=== PATIENT | male | born 1985 | race Caucasian/White ===

== ENCOUNTER 2021-02-17 16:35 | Inpatient (IN) | payer OTHER, SELFPAY ==
[2021-02-17 16:51] VITALS: BP 108/65; PULSE 90; RESP 16; TEMP 37.1; O2SAT 96; BMI 23.3
--- NOTE | 2021-02-17 17:07 | PC.NURSE ---
Toenail to big toe on right foot loosened, yellowed. Large unbroken blister to bottom of right foot and top of second toe. Awaiting primary eval. Maritza Moran from care home called and left her number [phone].
--- NOTE | 2021-02-17 18:11 | ED.PSYCH ---
HPI - Psych General Chief Complaint: Psychiatric Symptoms Stated Complaint: crisis Time Seen by Provider: 02/17/21 17:26 History of Present Illness HPI Narrative: History of schizophrenia. Patient has not been taking his medication. A friend noted patient has been hallucinating. Patient denies any specific suicidal plan. He denies drinking alcohol. No coughing or congestion or upper respiratory symptoms no diaphoresis. Patient has some home. Related Data Allergies Allergy/AdvReac Type Severity Reaction Status Date / Time penicillin G [PENICILLIN G] Allergy Intermediate SWELLING Unverified 06/10/20 17:32 [place] And Derivatives Allergy Unknown unk Unverified 06/10/20 17:32 [CITRUS AND DERIVATIVES] cranberry [CRANBERRY] Allergy Unknown HIVES Unverified 06/10/20 17:32 gabapentin [GABAPENTIN] Allergy Unknown HIVES, Unverified 06/10/20 17:32 swelling raspberry [RASPBERRY] Allergy Unknown unk Unverified 06/10/20 17:32 Review of Systems Review of Systems: Constitutional: No Weight loss, No Fever, No Chills, No Night Sweats, No Fatigue, No Malaise ENT/Mouth: No Hearing loss, No Ear Pain, No Nasal Congestion, No Sinus Pain, No Hoarseness, No sore throat, No Rhinorrhea, No Swallowing Difficulty Eyes: No Eye Pain, No Swelling, No Redness, No Foreign Body, No Discharge, No Vision Changes Cardiovascular: No Chest Pain, No SOB, No Dyspnea on Exertion, No Orthopnea, No Edema, No Palpitations Respiratory: No Cough, No Sputum, No Wheezing, No Smoke Exposure, No Dyspnea Gastrointestinal: No Nausea, No Vomiting, No Diarrhea, No Constipation, No abdominal Pain, No Hematochezia, No Melena Genitourinary: no irregular bleeding, No Dysuria, No Urinary Frequency, No Hematuria, No Urinary Incontinence, No Urgency, No Flank Pain, No Urinary Flow Changes, No Hesitancy Musculoskeletal: No joint pain, No Myalgias, No Joint Swelling Skin: No Skin Lesions, No rash Neuro: No Weakness, No Numbness, No Paresthesias, No Loss of Consciousness, No Dizziness, No Headache Psych: No Anxiety/Panic, No Depression, No SI/HI/AH/VH, No Social Issues, Heme/Lymph: No Bruising, No Bleeding,No Lymphadenopathy Endocrine: No Polyuria, No Polydipsia, No Temperature Intolerance PMFSH Social History Social History Advance Directives: No Advance Directives Information Provided: No Physical Exam Vital Signs: Vital Signs: Last Vital Signs Temp 98.7 F 02/17/21 16:51 Pulse 90 02/17/21 16:51 Resp 16 02/17/21 16:51 BP 108/65 02/17/21 16:51 Pulse Ox 96 02/17/21 16:51 Body Mass Index 23.3 Appearance: Alert. Oriented X3. No acute distress. Eyes: Pupils equal, round and reactive to light. ENT: Pharynx normal. Neck: Normal inspection. Neck supple. No lymph nodes noted. No crepitus CVS: Normal heart rate and rhythm. Pulses normal. Normal S1 and S2 Respiratory: No respiratory distress. Breath sounds normal. No Wheezing. No rales Abdomen: Soft and nontender. No rigidity. No distention. good BS x4 Skin: Skin warm and dry. Normal skin color. Normal skin turgor. Extremities: No lower extremity edema. Neurovascular intact to all extremities. No Lacerations. No Rash Neuro: Oriented X 3. No motor deficit. No sensory deficit. Moving all extermities. No slurred speech MDM - Psych MDM Narrative Medical decision making narrative: Well-appearing no acute distress. Awaiting crisis evaluation. Will get baseline labs.
[2021-02-17 18:12] LABS: MANUAL DIFF FLAG NO
[2021-02-17 18:16] LABS: Basophils Percent Auto 0.3 % (0-2); Eosinophils Absolute Auto 0.2 X10*3/uL (0.0-0.4); Eosinophils Percent Auto 1.8 % (0-4); Hematocrit 41.1 % (42-52); Hemoglobin 14.3 g/dl (14.0-18.0); Imm Gran Abs Auto 0.02 X10*3/uL (0.00-0.03); Imm Gran Pct Auto 0.2 % (0.0-0.4); Lymphocytes Absolute Auto 4.2 X10*3/uL (1.2-4.9); Lymphocytes Percent Auto 40.7 % (20-40); Mean Corpuscular HGB Conc 34.8 g/dl (31.0-36.0); Mean Corpuscular Volume 80.6 fL (80-98); Mean Platelet Volume 11.3 fL (9.4-12.4); Monocytes Percent Auto 9.5 % (2-11); Neutrophils Absolute Auto 4.9 X10*3/uL (2.0-8.3); Neutrophils Percent Auto 47.5 % (45-73); Platelet Count 263 X10*3/uL (160-400); Red Cell Distribution Width 12.7 % (11.0-16.0); White Blood Count 10.3 X10*3/uL (4.8-10.8)
[2021-02-17 18:35] LABS: Alanine Aminotransferase 52 U/L (0-40); Albumin Level 4.9 g/dL (3.5-5.0); Alkaline Phosphatase 67 U/L (39-117); Anion Gap 20 (12-20); Aspartate Amino Transferase 144 U/L (5-37); Bilirubin Direct 0.2 mg/dL (0.0-0.5); Bilirubin Total 0.4 mg/dL (0.0-1.0); Blood Urea Nitrogen 16 mg/dL (9-16); Calcium 9.7 mg/dL (8.4-10.2); Carbon Dioxide 24 mmol/L (22-29); Chloride 103 mmol/L (96-108); Creatinine Clr Calc Pharmacy 81.5; Estimated Glomerular Filt Rate > 60; Glucose Random 84 mg/dL (60-115); Potassium 3.3 mmol/L (3.3-5.1); Sodium 144 mmol/L (135-145); Total Protein 7.8 g/dL (6.5-8.0)
[2021-02-17 18:43] LABS: Ethanol 238 mg/dL
--- NOTE | 2021-02-17 19:28 | PC.NURSE ---
[facility] called spoke with Jaimie updated patient's disposition, patient is on section 12 inpatient bed search, agreed to fax the assessment, awaiting lithium level, patient resting in milieu watching TV, POC 92, will continue to monitor.
[2021-02-17 20:10] LABS: COVID-19 Test Negative (Negative)
--- NOTE | 2021-02-17 20:13 | PC.NURSE ---
Patient in bed appears sleeping, no distress reported, able to verify pharmacy but does not recall senior care number, N referred through smart-sheet, received call from [facility] intake team/notified patient will be seen after 2300, will continue to monitor.
--- NOTE | 2021-02-18 | ECG_ITS ---
Test Reason : MEDCLEARANCE Blood Pressure : / mmHG Vent. Rate : 077 BPM Atrial Rate : 077 BPM P-R Int : 116 ms QRS Dur : 084 ms QT Int : 376 ms P-R-T Axes : 046 074 053 degrees QTc Int : 425 ms Normal sinus rhythm Normal ECG When compared with ECG of 09-MAR-2020 15:23, Nonspecific T wave abnormality, improved in Anterior leads Referred By: Anais Friedman Electronically Signed By:SHAYY SHAH
--- NOTE | 2021-02-18 02:21 | PC.NURSE ---
[facility] at Bedside for evaluation, patient seems engaged
--- NOTE | 2021-02-18 03:33 | PC.NURSE ---
EVEN completed the assessment, patient is on section 12 inpatient bed search, patient and provider aware.
[2021-02-18 06:32] VITALS: BP 98/62; PULSE 87; RESP 16; TEMP 36.4; O2SAT 97
--- NOTE | 2021-02-18 10:29 | PC.NURSE ---
PT SLEEPING. BEDSEARCH CONTINUES
[2021-02-18 14:48] VITALS: BP 112/67; PULSE 82; TEMP 36.6; O2SAT 97
--- NOTE | 2021-02-18 15:47 | PC.NURSE ---
Report received. PT currently sleeping, respirations even and unlabored, in no apparent distress. PT to be admitted to later today.
--- NOTE | 2021-02-18 16:45 | PC.NURSE ---
Nurse to nurse completed with Fabi from [facility]
[2021-02-18 20:03] VITALS: BP 111/73; PULSE 86; RESP 18; TEMP 36.3; O2SAT 98
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
[2021-02-18] MEDS: Benztropine Mesylate 0.5 MG TABLET PO (21:02)
[2021-02-18] MEDS: LORazepam 1 MG TABLET PO (21:02)
[2021-02-18] MEDS: HaloperidoL 5 MG TABLET PO (21:02)
[2021-02-19 06:00] VITALS: BP 99/51; PULSE 67; RESP 16; TEMP 35.9; O2SAT 95
[2021-02-19 08:48] LABS: Alanine Aminotransferase 34 U/L (0-40); Alkaline Phosphatase 56 U/L (39-117); Aspartate Amino Transferase 42 U/L (5-37); Bilirubin Direct 0.2 mg/dL (0.0-0.5); Bilirubin Total 0.4 mg/dL (0.0-1.0); Total Protein 6.3 g/dL (6.5-8.0)
[2021-02-19] MEDS: Folic Acid 1 MG TABLET PO (09:29)
[2021-02-19] MEDS: ARIPiprazole 20 MG TABLET PO (09:30)
[2021-02-19] MEDS: Thiamine HCL 100 MG TABLET PO (09:30)
[2021-02-19] MEDS: LORazepam 1 MG TABLET PO ×3 (09:30→22:37)
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
[2021-02-19 16:13] LABS: Amphetamine Screen Urine Not Detected (Not Detect); Barbiturates, Urine Not Detected (Not Detect); Benzodiazepines Screen Urine Not Detected (Not Detect); Cannabinoid Screen Urine Not Detected (Not Detect); Cocaine Screen Urine Not Detected (Not Detect); Opiate Screen Urine Not Detected (Not Detect); Phencyclidine Screen Urine Not Detected (Not Detect)
[2021-02-19 22:35] VITALS: BP 112/59; PULSE 77; TEMP 36.5
[2021-02-19] MEDS: Benztropine Mesylate 0.5 MG TABLET PO (22:38)
[2021-02-19] MEDS: HaloperidoL 5 MG TABLET PO (22:38)
[2021-02-20 06:35] VITALS: BP 116/85; PULSE 68; RESP 16; TEMP 36.6; O2SAT 99
[2021-02-20] MEDS: Folic Acid 1 MG TABLET PO (10:07)
[2021-02-20] MEDS: Thiamine HCL 100 MG TABLET PO (10:07)
[2021-02-20] MEDS: ARIPiprazole 20 MG TABLET PO (10:07)
[2021-02-20] MEDS: LORazepam 1 MG TABLET PO ×3 (10:08→20:50)
--- NOTE | 2021-02-20 11:46 | P.PNPSI_ITS ---
Subjective Subjective Date of Service: 02/20/21 Reason For Visit: acute psychosis Interim History: The patient has been commpliant with treatment. He is on an Ativan taper and so far, no alcohol withdrawal symptoms. He looks tired and sedated, denies hallucinations Medication Compliance: Yes Mental Status Exam Mental Status Exam Patient Appearance: Disheveled and Unkempt Patient Orientation: Person, Place, Time and Situation Level of Consciousness: Awake Patient Behavior: Appropriate Mood Description: Withdrawn Affect Description: Constricted Patient Cognition Impaired: No Ability to Follow Directions: Good Speech Pattern: Clear Memory Description: Intact Hallucinations: None Delusions: Not Present Thought Process: Goal Oriented Thought Content: positive for [place] Judgement: Fair Diagnostics Vital Signs (24Hr): Vital Signs - 24 hr 02/19/21 22:35 02/20/21 06:35 Temperature 97.7 F 97.9 F Pulse Rate 77 68 Respiratory Rate 16 Blood Pressure 112/59 L 116/85 Pulse Oximetry 99 Body Mass Index 23.3 Labs Results: 02/17/21 18:05 02/17/21 18:05 Labs: Laboratory Results - last 48 hr 02/19/21 02/19/21 00:00 08:04 Total Bilirubin 0.4 Direct Bilirubin 0.2 AST 42 H D ALT 34 Alkaline Phosphatase 56 Total Protein 6.3 L Albumin 4.0 Urine Opiates Screen Not Detected Ur Barbiturates Screen Not Detected Ur Phencyclidine Scrn Not Detected Ur Amphetamines Screen Not Detected U Benzodiazepines Scrn Not Detected Urine Cocaine Screen Not Detected U Marijuana (THC) Screen Not Detected Medications Medications Current Medications Generic Name Dose Route Start Last Admin Trade Name Freq PRN Reason Stop Dose Admin Al Hydroxide/Mg Hydroxide 30 ml 02/18/21 18:53 Magnesium Hydrox/Alum Hydrox 30 Ml Oral.Susp PO Q6H PRN Heartburn/Nausea Aripiprazole 20 mg 02/19/21 09:00 02/20/21 10:07 Aripiprazole 20 Mg Tablet PO 20 mg DAILY Y[facility] Administration Benztropine Mesylate 0.5 mg 02/18/21 21:00 02/19/21 22:38 Benztropine Mesylate 0.5 Mg Tablet PO 0.5 mg BEDTIME Y[facility]Y Administration Folic Acid 1 mg 02/19/21 09:00 02/20/21 10:07 Folic Acid 1 Mg Tablet PO 1 mg DAILY YULY Administration Haloperidol 5 mg 02/18/21 21:00 02/19/21 22:38 Haloperidol 5 Mg Tablet PO 5 mg BEDTIME YULY Administration Lorazepam 1 mg 02/22/21 08:00 Lorazepam 1 Mg Tablet PO 02/24/21 07:59 BID YULY Lorazepam 1 mg 02/18/21 21:00 02/20/21 10:08 Lorazepam 1 Mg Tablet PO 02/21/21 18:52 1 mg TID YULY Administration Lorazepam 1 mg 02/18/21 20:29 Lorazepam 1 Mg Tablet PO 02/23/21 12:00 TID PRN symptoms of etoh withdrawal Magnesium Hydroxide 30 ml 02/18/21 18:53 Milk Of Magnesia 30 Ml Oral.Susp PO DAILY PRN Constipation Nicotine Polacrilex 4 mg 02/18/21 18:53 Nicotine Polacrilex 2 Mg Gum BUCCAL Q2H PRN Nicotine Cravings Thiamine HCl 100 mg 02/19/21 09:00 02/20/21 10:07 Thiamine Hcl 100 Mg Tablet PO 100 mg DAILY Y[facility]Y Administration Allergies Allergies Allergy/AdvReac Type Severity Reaction Status Date / Time penicillin G [PENICILLIN G] Allergy Intermediate SWELLING Verified 02/18/21 10:16 [place] And Derivatives Allergy Unknown unk Verified 02/18/21 10:17 [CITRUS AND DERIVATIVES] cranberry [CRANBERRY] Allergy Unknown HIVES Verified 02/18/21 10:17 gabapentin [GABAPENTIN] Allergy Unknown HIVES, Verified 02/18/21 10:16 swelling raspberry [RASPBERRY] Allergy Unknown unk Verified 02/18/21 10:15 Assessment & Plan Assessment & Plan (1) Alcohol abuse: Status: Acute Code(s): F10.10 - Alcohol abuse, uncomplicated Assessment and Plan: Adult male with a history of psychosis, mood lability and alcohol use disorder, admitted after psychotic symptoms in the context of alcohol in toxication. Plan: Continue Ativan taper Keep other medications. Gather collateral. (2) Acute psychosis: Status: Acute Code(s): F23 - Brief psychotic disorder Greater than 50% of the session was spent on counseling and/or coordination of care Reason for contiued inpatient stay Substantial Risk for: inability to function, rapid decompensation and med/psych decompensation
[2021-02-20 19:20] VITALS: BP 100/58; PULSE 78; TEMP 36.2
[2021-02-20] MEDS: HaloperidoL 5 MG TABLET PO (20:50)
[2021-02-20] MEDS: Benztropine Mesylate 0.5 MG TABLET PO (20:50)
[2021-02-21 06:41] VITALS: BP 128/69; PULSE 63; TEMP 36.6
[2021-02-21] MEDS: Folic Acid 1 MG TABLET PO (08:11)
[2021-02-21] MEDS: LORazepam 1 MG TABLET PO ×2 (08:11→14:53)
[2021-02-21] MEDS: Thiamine HCL 100 MG TABLET PO (08:11)
[2021-02-21] MEDS: ARIPiprazole 20 MG TABLET PO (08:11)
--- NOTE | 2021-02-21 09:07 | HO.PSYCHPN ---
Subjective Subjective Date of Service: 02/21/21 Reason For Visit: acute psychosis Interim History: The patient has been mostly isolative in his room, he didn't attend groups, denied new symptoms, compliant with treatment. No symptoms of alcohol withdrawal. Mental Status Exam Mental Status Exam Patient Appearance: Disheveled Patient Orientation: Person, Place, Time and Situation Level of Consciousness: Awake Patient Behavior: Appropriate Mood Description: Constricted Affect Description: Constricted Patient Cognition Impaired: No Ability to Follow Directions: Good Speech Pattern: Clear Memory Description: Intact Hallucinations: None Delusions: Not Present Thought Process: Goal Oriented Thought Content: positive for [place] Judgement: Fair Diagnostics Vital Signs (24Hr): Vital Signs - 24 hr 02/20/21 19:20 02/21/21 06:41 Temperature 97.1 F 97.9 F Pulse Rate 78 63 Blood Pressure 100/58 L 128/69 Body Mass Index 23.3 Labs Results: 02/17/21 18:05 02/17/21 18:05 Labs: Laboratory Results - last 48 hr 02/19/21 00:00 Urine Opiates Screen Not Detected Ur Barbiturates Screen Not Detected Ur Phencyclidine Scrn Not Detected Ur Amphetamines Screen Not Detected U Benzodiazepines Scrn Not Detected Urine Cocaine Screen Not Detected U Marijuana (THC) Screen Not Detected Medications Medications Current Medications Generic Name Dose Route Start Last Admin Trade Name Freq PRN Reason Stop Dose Admin Al Hydroxide/Mg Hydroxide 30 ml 02/18/21 18:53 Magnesium Hydrox/Alum Hydrox 30 Ml Oral.Susp PO Q6H PRN Heartburn/Nausea Aripiprazole 20 mg 02/19/21 09:00 02/21/21 08:11 Aripiprazole 20 Mg Tablet PO 20 mg DAILY Y[facility]Y Administration Benztropine Mesylate 0.5 mg 02/18/21 21:00 02/20/21 20:50 Benztropine Mesylate 0.5 Mg Tablet PO 0.5 mg BEDTIME Y[facility]Y Administration Folic Acid 1 mg 02/19/21 09:00 02/21/21 08:11 Folic Acid 1 Mg Tablet PO 1 mg DAILY YULY Administration Haloperidol 5 mg 02/18/21 21:00 02/20/21 20:50 Haloperidol 5 Mg Tablet PO 5 mg BEDTIME YULY Administration Lorazepam 1 mg 02/22/21 08:00 Lorazepam 1 Mg Tablet PO 02/24/21 07:59 BID YULY Lorazepam 1 mg 02/18/21 21:00 02/21/21 08:11 Lorazepam 1 Mg Tablet PO 02/21/21 18:52 1 mg TID YULY Administration Lorazepam 1 mg 02/18/21 20:29 Lorazepam 1 Mg Tablet PO 02/23/21 12:00 TID PRN symptoms of etoh withdrawal Magnesium Hydroxide 30 ml 02/18/21 18:53 Milk Of Magnesia 30 Ml Oral.Susp PO DAILY PRN Constipation Nicotine Polacrilex 4 mg 02/18/21 18:53 Nicotine Polacrilex 2 Mg Gum BUCCAL Q2H PRN Nicotine Cravings Thiamine HCl 100 mg 02/19/21 09:00 02/21/21 08:11 Thiamine Hcl 100 Mg Tablet PO 100 mg DAILY YULY Administration Allergies Allergies Allergy/AdvReac Type Severity Reaction Status Date / Time penicillin G [PENICILLIN G] Allergy Intermediate SWELLING Verified 02/18/21 10:16 [place] And Derivatives Allergy Unknown unk Verified 02/18/21 10:17 [[employer]R[place] AND DERIVATIVES] cranberry [CRANBERRY] Allergy Unknown HIVES Verified 02/18/21 10:17 gabapentin [GABAPENTIN] Allergy Unknown HIVES, Verified 02/18/21 10:16 swelling raspberry [RASPBERRY] Allergy Unknown unk Verified 02/18/21 10:15 Assessment & Plan Assessment & Plan (1) Alcohol abuse: Status: Acute Code(s): F10.10 - Alcohol abuse, uncomplicated Assessment and Plan: Adult male with a history of psychosis, mood lability and alcohol use disorder, admitted after psychotic symptoms in the context of alcohol intoxication. Plan: Continue Ativan taper Keep other medications. Gather collateral. (2) Acute psychosis: Status: Acute Code(s): F23 - Brief psychotic disorder Greater than 50% of the session was spent on counseling and/or coordination of care Reason for contiued inpatient stay Substantial Risk for: inability to function, rapid decompensation and med/psych decompensation
[2021-02-21 19:15] VITALS: BP 86/51; TEMP 36.3
[2021-02-21] MEDS: Benztropine Mesylate 0.5 MG TABLET PO (21:38)
[2021-02-21] MEDS: HaloperidoL 5 MG TABLET PO (21:38)
[2021-02-22 06:00] VITALS: BP 103/62; PULSE 63
[2021-02-22] MEDS: LORazepam 1 MG TABLET PO ×2 (08:37→20:51)
[2021-02-22] MEDS: Thiamine HCL 100 MG TABLET PO (08:37)
[2021-02-22] MEDS: ARIPiprazole 20 MG TABLET PO (08:37)
[2021-02-22] MEDS: Folic Acid 1 MG TABLET PO (08:37)
[2021-02-22 16:54] VITALS: BP 119/74; PULSE 102; RESP 18; TEMP 36.3; O2SAT 97
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
[2021-02-22] MEDS: HaloperidoL 5 MG TABLET PO (20:51)
[2021-02-22] MEDS: Benztropine Mesylate 0.5 MG TABLET PO (20:51)
[2021-02-23 06:00] VITALS: BP 114/61; PULSE 71; TEMP 35.9; O2SAT 97
[2021-02-23] MEDS: Folic Acid 1 MG TABLET PO (08:16)
[2021-02-23] MEDS: LORazepam 1 MG TABLET PO ×2 (08:16→21:20)
[2021-02-23] MEDS: ARIPiprazole 20 MG TABLET PO (08:16)
[2021-02-23] MEDS: Thiamine HCL 100 MG TABLET PO (08:16)
[2021-02-23 09:02] LABS: Estimated Average Glucose 97 mg/dL
[2021-02-23 09:35] LABS: Cholesterol 185 mg/dL; HDL Cholesterol 63 mg/dL; LDL Cholesterol Calculated 98 mg/dl; Triglycerides 123 mg/dL
[2021-02-23 10:00] LABS: Vitamin D 25-OH Total 26.1 ng/mL (>30)
[2021-02-23 10:09] LABS: Folate 11.1 ng/mL (> or = 4.0); Vitamin B12 317 pg/mL (200-900)
[2021-02-23 19:30] VITALS: BP 125/75; PULSE 80; TEMP 36.6
--- NOTE | 2021-02-23 19:54 | P.PNPSI_ITS ---
Subjective Subjective Date of Service: 02/23/21 Reason For Visit: acute psychosis Subjective Notes: Conditional Voluntary Healthcare Proxy: No Guardianship: No Medical Problems Affecting Mental Status: No Interim History: Lorazepam taper continues. Denies SI, but still with fear regarding his periods of time without memory and what may have occurred. Naltrexone to begin 02/25 when lorazepam taper completed. Medication Compliance: Yes Side effects from medications: No Attending Groups: No Review of Systems Psychiatric: Reports anxiety and Reports hallucinations Mental Status Exam Mental Status Exam Patient Appearance: Fatigued Patient Orientation: Person, Place, Time and Situation Level of Consciousness: Awake and Alert Patient Behavior: Appropriate and Cooperative Mood Description: Withdrawn and Anxious Affect Description: Flat Patient Cognition Impaired: No Ability to Follow Directions: Good Speech Pattern: Spontaneous Speech Memory Description: Episodic Impaired Hallucinations: None (denies) Delusions: Paranoid Ideation Thought Process: Distracted Thought Content: positive for [place] and positive for Circumstantial Depressive Symptoms: Increased Anxiety Judgement: Fair Diagnostics Vital Signs (24Hr): Vital Signs - 24 hr 02/23/21 06:00 02/23/21 19:30 Temperature 96.6 F L 97.9 F Pulse Rate 71 80 Blood Pressure 114/61 125/75 Pulse Oximetry 97 Body Mass Index 23.3 Labs Results: 02/17/21 18:05 02/17/21 18:05 Labs: Laboratory Results - last 48 hr 02/23/21 02/23/21 02/23/21 08:10 08:10 08:10 Estimat Average Glucose 97 Hemoglobin A1c % 5.0 Triglycerides 123 Cholesterol 185 LDL Cholesterol, Calc 98 HDL Cholesterol 63 Vitamin B12 317 25-OH Vitamin D Total 26.1 Folate 11.1 Medications Medications Current Medications Generic Name Dose Route Start Last Admin Trade Name Freq PRN Reason Stop Dose Admin Al Hydroxide/Mg Hydroxide 30 ml 02/18/21 18:53 Magnesium Hydrox/Alum Hydrox 30 Ml Oral.Susp PO Q6H PRN Heartburn/Nausea Aripiprazole 20 mg 02/19/21 09:00 02/23/21 08:16 Aripiprazole 20 Mg Tablet PO 20 mg DAILY YULY Administration Benztropine Mesylate 0.5 mg 02/18/21 21:00 02/22/21 20:51 Benztropine Mesylate 0.5 Mg Tablet PO 0.5 mg BEDTIME YULY Administration Folic Acid 1 mg 02/19/21 09:00 02/23/21 08:16 Folic Acid 1 Mg Tablet PO 1 mg DAILY YULY Administration Haloperidol 5 mg 02/18/21 21:00 02/22/21 20:51 Haloperidol 5 Mg Tablet PO 5 mg BEDTIME YULY Administration Lorazepam 1 mg 02/22/21 08:00 02/23/21 08:16 Lorazepam 1 Mg Tablet PO 02/24/21 07:59 1 mg BID YULY Administration Magnesium Hydroxide 30 ml 02/18/21 18:53 Milk Of Magnesia 30 Ml Oral.Susp PO DAILY PRN Constipation Nicotine Polacrilex 4 mg 02/18/21 18:53 Nicotine Polacrilex 2 Mg Gum BUCCAL Q2H PRN Nicotine Cravings Thiamine HCl 100 mg 02/19/21 09:00 02/23/21 08:16 Thiamine Hcl 100 Mg Tablet PO 100 mg DAILY YULY Administration Allergies Allergies Allergy/AdvReac Type Severity Reaction Status Date / Time penicillin G [PENICILLIN G] Allergy Intermediate SWELLING Verified 02/18/21 10:16 [place] And Derivatives Allergy Unknown unk Verified 02/18/21 10:17 [CITRUS AND DERIVATIVES] cranberry [CRANBERRY] Allergy Unknown HIVES Verified 02/18/21 10:17 gabapentin [GABAPENTIN] Allergy Unknown HIVES, Verified 02/18/21 10:16 swelling raspberry [RASPBERRY] Allergy Unknown unk Verified 02/18/21 10:15 Assessment & Plan Assessment & Plan (1) Alcohol abuse: Status: Acute Code(s): F10.10 - Alcohol abuse, uncomplicated Assessment and Plan: Adult male with a history of psychosis, mood lability and alcohol use disorder, admitted after psychotic symptoms in the context of alcohol intoxication. Plan: Continue Ativan taper Keep other medications. Consider Abilify titration. Naltrexone re-trial when Ativan taper is completed. Gather collateral. (2) Acute psychosis: Status: Acute Code(s): F23 - Brief psychotic disorder Greater than 50% of the session was spent on counseling and/or coordination of care Reason for contiued inpatient stay Substantial Risk for: inability to function and rapid decompensation
[2021-02-23] MEDS: Benztropine Mesylate 0.5 MG TABLET PO (21:20)
[2021-02-23] MEDS: HaloperidoL 5 MG TABLET PO (21:22)
[2021-02-24 06:10] VITALS: BP 107/56; PULSE 71; RESP 16; TEMP 36.7; O2SAT 98
[2021-02-24 07:00] VITALS: BMI 23.2
[2021-02-24] MEDS: Folic Acid 1 MG TABLET PO (08:55)
[2021-02-24] MEDS: ARIPiprazole 20 MG TABLET PO (08:55)
[2021-02-24] MEDS: Thiamine HCL 100 MG TABLET PO (08:55)
[2021-02-24 18:00] VITALS: BP 109/78; PULSE 87; TEMP 35.8
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
[2021-02-24] MEDS: Benztropine Mesylate 0.5 MG TABLET PO (20:25)
[2021-02-24] MEDS: HaloperidoL 5 MG TABLET PO (20:25)
[2021-02-25 06:25] VITALS: BP 115/62; PULSE 69; RESP 18; TEMP 36.4; O2SAT 97
[2021-02-25] MEDS: Naltrexone HCl 50 MG TABLET PO (08:23)
[2021-02-25] MEDS: Folic Acid 1 MG TABLET PO (08:24)
[2021-02-25] MEDS: Thiamine HCL 100 MG TABLET PO (08:24)
[2021-02-25] MEDS: ARIPiprazole 30 MG TABLET PO (08:24)
[2021-02-25 16:30] VITALS: BP 131/68; PULSE 86; TEMP 36.4
--- NOTE | 2021-02-25 17:29 | HO.PSYCHPN ---
Subjective Subjective Date of Service: 02/25/21 Reason For Visit: acute psychosis Subjective Notes: Conditional Voluntary Healthcare Proxy: No Guardianship: No Medical Problems Affecting Mental Status: No Interim History: Tolerating increase in Abilify. Agrees to OLIVAS trial. Able to contract for safety on the unit and reports he feels safe here. Allowing team to work with symptoms to obtain relief. Some visability in the milieu, however, spending much time in his room. Medication Compliance: Yes Side effects from medications: No Attending Groups: No Review of Systems Review of Systems Yes all other systems are reviewed and are negative Reports behavioral changes Psychiatric: Reports anxiety, Reports behavioral changes, Reports depression, Reports difficulty concentrating, Reports hopelessness, Reports panic attacks and Reports hallucinations Mental Status Exam Mental Status Exam Patient Appearance: Disheveled and Appropriate Patient Orientation: Person, Place and Time Level of Consciousness: Awake and Alert Patient Behavior: Appropriate, Talkative, Cooperative, Passive, Anxious, Fearful, Distractible, Isolative, Good Eye Contact and Crying Mood Description: Withdrawn, Depressed and Anxious Affect Description: Flat Patient Cognition Impaired: Yes Ability to Follow Directions: Good Speech Pattern: Spontaneous Speech Memory Description: Remote Impaired, Assisted Impaired and Episodic Impaired Delusions: Being Controlled, Paranoid Ideation and Present Thought Process: Illogical, Distracted and Rumination Thought Content: positive for [place], positive for Circumstantial, positive for Perseveration, positive for [place] of [place] and positive for Preoccupation Depressive Symptoms: Increased Anxiety, Crying Spells, Loss of Int. in Activity, Feelings of Worthlessness, Hopelessness, Isolating-Friends/Family, Feelings of Guilt, Unhappiness, Increased Fatigue, Low Self Esteem, Loss of Energy and Difficulty Concentrating Judgement: Fair Diagnostics Vital Signs (24Hr): Vital Signs - 24 hr 02/24/21 18:00 02/25/21 06:25 02/25/21 16:30 Temperature 96.5 F L 97.5 F 97.6 F Pulse Rate 87 69 86 Respiratory Rate 18 Blood Pressure 109/78 115/62 131/68 Pulse Oximetry 97 Body Mass Index 23.2 Labs Results: 02/17/21 18:05 02/17/21 18:05 Medications Medications Current Medications Generic Name Dose Route Start Last Admin Trade Name Freq PRN Reason Stop Dose Admin Al Hydroxide/Mg Hydroxide 30 ml 02/18/21 18:53 Magnesium Hydrox/Alum Hydrox 30 Ml Oral.Susp PO Q6H PRN Heartburn/Nausea Aripiprazole 30 mg 02/25/21 09:00 02/25/21 08:24 Aripiprazole 30 Mg Tablet PO 30 mg DAILY YULY Administration Benztropine Mesylate 0.5 mg 02/18/21 21:00 02/24/21 20:25 Benztropine Mesylate 0.5 Mg Tablet PO 0.5 mg BEDTIME YULY Administration Folic Acid 1 mg 02/19/21 09:00 02/25/21 08:24 Folic Acid 1 Mg Tablet PO 1 mg DAILY YULY Administration Haloperidol 5 mg 02/18/21 21:00 02/24/21 20:25 Haloperidol 5 Mg Tablet PO 5 mg BEDTIME YULY Administration Magnesium Hydroxide 30 ml 02/18/21 18:53 Milk Of Magnesia 30 Ml Oral.Susp PO DAILY PRN Constipation Naltrexone HCl 50 mg 02/25/21 09:00 02/25/21 08:23 Naltrexone Hcl 50 Mg Tablet PO 50 mg DAILY YULY Administration Nicotine Polacrilex 4 mg 02/18/21 18:53 Nicotine Polacrilex 2 Mg Gum BUCCAL Q2H PRN Nicotine Cravings Thiamine HCl 100 mg 02/19/21 09:00 02/25/21 08:24 Thiamine Hcl 100 Mg Tablet PO 100 mg DAILY YULY Administration Allergies Allergies Allergy/AdvReac Type Severity Reaction Status Date / Time penicillin G [PENICILLIN G] Allergy Intermediate SWELLING Verified 02/18/21 10:16 [employer] And Derivatives Allergy Unknown unk Verified 02/18/21 10:17 [CITRUS AND DERIVATIVES] cranberry [CRANBERRY] Allergy Unknown HIVES Verified 02/18/21 10:17 gabapentin [GABAPENTIN] Allergy Unknown HIVES, Verified 02/18/21 10:16 swelling raspberry [RASPBERRY] Allergy Unknown unk Verified 02/18/21 10:15 Assessment & Plan Assessment & Plan (1) Alcohol abuse: Status: Acute Code(s): F10.10 - Alcohol abuse, uncomplicated Assessment and Plan: Adult male with a history of psychosis, mood lability and alcohol use disorder, admitted after psychotic symptoms in the context of alcohol intoxication. Plan: Continue Ativan taper Tolerated increase of Abilify to 30 mg daily. Naltrexone 50 mg daily Preparing for OLIVAS. Pt agrees. Gather collateral. (2) Acute psychosis: Status: Acute Code(s): F23 - Brief psychotic disorder Greater than 50% of the session was spent on counseling and/or coordination of care Reason for contiued inpatient stay Substantial Risk for: harm to self, inability to function and rapid decompensation
[2021-02-25] MEDS: HaloperidoL 5 MG TABLET PO (20:50)
[2021-02-25] MEDS: Benztropine Mesylate 0.5 MG TABLET PO (20:50)
[2021-02-26 06:00] VITALS: BP 128/78; PULSE 88; TEMP 36.3; O2SAT 97
[2021-02-26] MEDS: Thiamine HCL 100 MG TABLET PO (08:44)
[2021-02-26] MEDS: ARIPiprazole 30 MG TABLET PO (08:45)
[2021-02-26] MEDS: Folic Acid 1 MG TABLET PO (08:45)
[2021-02-26] MEDS: Naltrexone HCl 50 MG TABLET PO (08:45)
[2021-02-26 17:10] VITALS: BP 140/92; PULSE 95; RESP 18; TEMP 36.2
--- NOTE | 2021-02-26 20:06 | HO.PSYCHPN ---
Subjective Subjective Date of Service: 02/26/21 Reason For Visit: acute psychosis Subjective Notes: Conditional Voluntary Healthcare Proxy: No Guardianship: No Medical Problems Affecting Mental Status: No Interim History: Visable in milieu. Pt reported psychotic sx to team later in the day, asks to increase Haldol prn as it is helpful which was implemented. Medication Compliance: Yes Side effects from medications: No Attending Groups: Yes Review of Systems Reports behavioral changes Psychiatric: Reports anxiety, Reports behavioral changes, Reports change in appetite, Reports depression, Reports difficulty concentrating, Reports auditory hallucinations, Reports hopelessness and Reports hallucinations Mental Status Exam Mental Status Exam Patient Appearance: Appropriate Patient Orientation: Person, Place, Time and Situation Level of Consciousness: Alert Patient Behavior: Talkative and Cooperative Mood Description: Depressed and Fearful Affect Description: Flat Patient Cognition Impaired: Yes Ability to Follow Directions: Good Speech Pattern: Spontaneous Speech Memory Description: Episodic Impaired Hallucinations: Auditory Delusions: Present Thought Process: Illogical, Distracted and Rumination Thought Content: positive for [place] and positive for Preoccupation Depressive Symptoms: Increased Anxiety, Loss of Int. in Activity, Feelings of Worthlessness, Hopelessness, Feelings of Guilt, Increased Fatigue, Loss of Energy and Difficulty Concentrating Judgement: Fair Diagnostics Vital Signs (24Hr): Vital Signs - 24 hr 02/26/21 06:00 02/26/21 17:10 Temperature 97.3 F 97.1 F Pulse Rate 88 95 Respiratory Rate 18 Blood Pressure 128/78 140/92 H Pulse Oximetry 97 Body Mass Index 23.2 Labs Results: 02/17/21 18:05 02/17/21 18:05 Medications Medications Current Medications Generic Name Dose Route Start Last Admin Trade Name Freq PRN Reason Stop Dose Admin Al Hydroxide/Mg Hydroxide 30 ml 02/18/21 18:53 Magnesium Hydrox/Alum Hydrox 30 Ml Oral.Susp PO Q6H PRN Heartburn/Nausea Aripiprazole 30 mg 02/25/21 09:00 02/26/21 08:45 Aripiprazole 30 Mg Tablet PO 30 mg DAILY YULY Administration Benztropine Mesylate 0.5 mg 02/18/21 21:00 02/25/21 20:50 Benztropine Mesylate 0.5 Mg Tablet PO 0.5 mg BEDTIME YULY Administration Folic Acid 1 mg 02/19/21 09:00 02/26/21 08:45 Folic Acid 1 Mg Tablet PO 1 mg DAILY YULY Administration Haloperidol 5 mg 02/18/21 21:00 02/25/21 20:50 Haloperidol 5 Mg Tablet PO 5 mg BEDTIME YULY Administration Haloperidol 5 mg 02/26/21 14:35 Haloperidol 5 Mg Tablet PO TID PRN Psychosis Magnesium Hydroxide 30 ml 02/18/21 18:53 Milk Of Magnesia 30 Ml Oral.Susp PO DAILY PRN Constipation Naltrexone HCl 50 mg 02/25/21 09:00 02/26/21 08:45 Naltrexone Hcl 50 Mg Tablet PO 50 mg DAILY YULY Administration Nicotine Polacrilex 4 mg 02/18/21 18:53 Nicotine Polacrilex 2 Mg Gum BUCCAL Q2H PRN Nicotine Cravings Thiamine HCl 100 mg 02/19/21 09:00 02/26/21 08:44 Thiamine Hcl 100 Mg Tablet PO 100 mg DAILY YULY Administration Allergies Allergies Allergy/AdvReac Type Severity Reaction Status Date / Time penicillin G [PENICILLIN G] Allergy Intermediate SWELLING Verified 02/18/21 10:16 [place] And Derivatives Allergy Unknown unk Verified 02/18/21 10:17 [CITRUS AND DERIVATIVES] cranberry [CRANBERRY] Allergy Unknown HIVES Verified 02/18/21 10:17 gabapentin [GABAPENTIN] Allergy Unknown HIVES, Verified 02/18/21 10:16 swelling raspberry [RASPBERRY] Allergy Unknown unk Verified 02/18/21 10:15 Assessment & Plan Assessment & Plan (1) Alcohol abuse: Status: Acute Code(s): F10.10 - Alcohol abuse, uncomplicated Assessment and Plan: Adult male with a history of psychosis, mood lability and alcohol use disorder, admitted after psychotic symptoms in the context of alcohol intoxication. Plan: Continue Ativan taper Tolerated increase of Abilify to 30 mg daily. Naltrexone 50 mg daily Haldol 5 mg tid prn Preparing for OLIVAS. Pt agrees. Gather collateral. (2) Acute psychosis: Status: Acute Code(s): F23 - Brief psychotic disorder Greater than 50% of the session was spent on counseling and/or coordination of care Reason for contiued inpatient stay Substantial Risk for: inability to function and rapid decompensation
[2021-02-26] MEDS: HaloperidoL 5 MG TABLET PO (21:01)
[2021-02-26] MEDS: Benztropine Mesylate 0.5 MG TABLET PO (21:01)
[2021-02-27] MEDS: HaloperidoL 5 MG TABLET PO ×2 (00:35→21:22)
[2021-02-27 06:00] VITALS: BP 112/61; PULSE 77; RESP 18; TEMP 36.3; O2SAT 97
[2021-02-27] MEDS: ARIPiprazole 30 MG TABLET PO (08:03)
[2021-02-27] MEDS: Thiamine HCL 100 MG TABLET PO (08:03)
[2021-02-27] MEDS: Folic Acid 1 MG TABLET PO (08:03)
[2021-02-27] MEDS: Naltrexone HCl 50 MG TABLET PO (08:03)
[2021-02-27] MEDS: OLANZapine ODT 10 MG TAB.RAPDIS TRANSLINGU ×2 (13:30→21:22)
[2021-02-27] MEDS: LORazepam 1 MG TABLET 2 MG PO (13:30)
--- NOTE | 2021-02-27 17:41 | P.PNPSI_ITS ---
Subjective Subjective Date of Service: 02/27/21 Reason For Visit: acute psychosis Subjective Notes: Conditional Voluntary Healthcare Proxy: No Guardianship: No Medical Problems Affecting Mental Status: No Interim History: Pt reports feeling too stressed and afraid. He is certain that one floor below him they are planning his demise. Voices are loud, telling him this is it. I want to cry but I cannot. Asks that TW take him to the fourth floor to allow him to see what is below him. Discussed why we cannot do this. Pt asks if security would talk with him which they kindly agreed to meet with pt to review safety in the hospital. Pt feeling some relief after this. Pt reports Haldol is not helpful. Abilify discontinued-at 30 mg no improvement. Given Olanzapine 10 mg , Lorazepam 2 mg. Scheduled Olanzapine for 5 mg a.m. 10 mg pm and Lorazepam 0.5 mg bid Review of Systems Reports behavioral changes Psychiatric: Reports abnormal sleep pattern, Reports anxiety, Reports behavioral changes, Reports change in appetite, Reports depression, Reports difficulty co ncentrating, Reports auditory hallucinations, Reports hopelessness, Reports irritability, Reports anhedonia, Reports paranoia and Reports hallucinations Mental Status Exam Mental Status Exam Patient Appearance: Appropriate Patient Orientation: Person, Place and Time Level of Consciousness: Alert Patient Behavior: Appropriate, Guarded, Talkative, Cooperative, Suspicious, Fearful and Crying Mood Description: Fearful Affect Description: Fearful Patient Cognition Impaired: No Ability to Follow Directions: Good Speech Pattern: Spontaneous Speech Memory Description: Episodic Impaired Hallucinations: Auditory Delusions: Being Controlled, Paranoid Ideation, Present and Ideas of Reference Thought Process: Rumination Thought Content: positive for Obsessional Thoughts, positive for Circumstantial and positive for Perseveration Depressive Symptoms: Increased Anxiety, Insomnia, Diff. Making Decisions, Difficulty Sleeping, Hopelessness, Feelings of Guilt, Unhappiness, Increased Fatigue, Thoughts of /Suicide (denies), Low Self Esteem and Loss of Energy Abnormal Motor Activity Signs and Symptoms: Agitation and Restlessness Judgement: Poor Diagnostics Vital Signs (24Hr): Vital Signs - 24 hr 02/27/21 06:00 Temperature 97.3 F Pulse Rate 77 Respiratory Rate 18 Blood Pressure 112/61 Pulse Oximetry 97 Body Mass Index 23.2 Labs Results: 02/17/21 18:05 02/17/21 18:05 Medications Medications Current Medications Generic Name Dose Route Start Last Admin Trade Name Miguelq PRN Reason Stop Dose Admin Al Hydroxide/Mg Hydroxide 30 ml 02/18/21 18:53 Magnesium Hydrox/Alum Hydrox 30 Ml Oral.Susp PO Q6H PRN Heartburn/Nausea Benztropine Mesylate 0.5 mg 02/18/21 21:00 02/26/21 21:01 Benztropine Mesylate 0.5 Mg Tablet PO 0.5 mg BEDTIME YULY Administration Folic Acid 1 mg 02/19/21 09:00 02/27/21 08:03 Folic Acid 1 Mg Tablet PO 1 mg DAILY YULY Administration Haloperidol 5 mg 02/18/21 21:00 02/26/21 21:01 Haloperidol 5 Mg Tablet PO 5 mg BEDTIME YULY Administration Haloperidol 5 mg 02/26/21 14:35 02/27/21 00:35 Haloperidol 5 Mg Tablet PO 5 mg TID PRN Administration Psychosis Lorazepam 1 mg 02/27/21 17:37 Lorazepam 1 Mg Tablet PO Q4H PRN anxiety, agitation Lorazepam 0.5 mg 02/27/21 21:00 Lorazepam 0.5 Mg Tablet PO BID YULY Magnesium Hydroxide 30 ml 02/18/21 18:53 Milk Of Magnesia 30 Ml Oral.Susp PO DAILY PRN Constipation Naltrexone HCl 50 mg 02/25/21 09:00 02/27/21 08:03 Naltrexone Hcl 50 Mg Tablet PO 50 mg DAILY YULY Administration Nicotine Polacrilex 4 mg 02/18/21 18:53 Nicotine Polacrilex 2 Mg Gum BUCCAL Q2H PRN Nicotine Cravings Olanzapine 10 mg 02/27/21 21:00 Olanzapine Odt 10 Mg Tab.Rapdis TRANSLINGU BEDTIME YULY Olanzapine 5 mg 02/28/21 09:00 Olanzapine Odt 10 Mg Tab.Rapdis TRANSLINGU DAILY YULY Thiamine HCl 100 mg 02/19/21 09:00 02/27/21 08:03 Thiamine Hcl 100 Mg Tablet PO 100 mg DAILY YULY Administration Allergies Allergies Allergy/AdvReac Type Severity Reaction Status Date / Time penicillin G [PENICILLIN G] Allergy Intermediate SWELLING Verified 02/18/21 10:1 6 [place] And Derivatives Allergy Unknown unk Verified 02/18/21 10:17 [CITRUS AND DERIVATIVES] cranberry [CRANBERRY] Allergy Unknown HIVES Verified 02/18/21 10:17 gabapentin [GABAPENTIN] Allergy Unknown HIVES, Verified 02/18/21 10:16 swelling raspberry [RASPBERRY] Allergy Unknown unk Verified 02/18/21 10:15 Assessment & Plan Assessment & Plan (1) Alcohol abuse: Status: Acute Code(s): F10.10 - Alcohol abuse, uncomplicated Assessment and Plan: Adult male with a history of psychosis, mood lability and alcohol use disorder, admitted after psychotic symptoms in the context of alcohol intoxication. Sx not responding to regime, increasing today. Plan: Discontinue Abilify Olanzapine 10 mg x1 along with Lorazepam 2 mg x1 Olanzapine 5 mg a.m. 10 mg hs Lorazepam 0.5 mg bid Continue Haldol (2) Acute psychosis: Status: Acute Code(s): F23 - Brief psychotic disorder Greater than 50% of the session was spent on counseling and/or coordination of care Reason for contiued inpatient stay Substantial Risk for: harm to self, inability to function and rapid decompensation
[2021-02-27 18:00] VITALS: BP 115/75; PULSE 96; RESP 16; TEMP 36.6; O2SAT 99
[2021-02-27] MEDS: Benztropine Mesylate 0.5 MG TABLET PO (21:22)
[2021-02-27] MEDS: LORazepam 0.5 MG TABLET PO (21:22)
[2021-02-28 06:00] VITALS: BP 123/76; PULSE 80; RESP 18; TEMP 36.5; O2SAT 98
[2021-02-28] MEDS: Thiamine HCL 100 MG TABLET PO (08:46)
[2021-02-28] MEDS: Naltrexone HCl 50 MG TABLET PO (08:46)
[2021-02-28] MEDS: OLANZapine ODT 10 MG TAB.RAPDIS 5 MG TRANSLINGU (08:46)
[2021-02-28] MEDS: LORazepam 0.5 MG TABLET PO ×2 (08:47→21:12)
[2021-02-28] MEDS: Folic Acid 1 MG TABLET PO (08:47)
--- NOTE | 2021-02-28 10:38 | HO.PSYCHPN ---
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 Pt says mood is good. pt social in [facility] Mental Status Exam Mental Status Exam Narrative: Patient Appearance: Appropriate Patient Orientation: Person, Place and Time Level of Consciousness: Alert Patient Behavior: Appropriate, Cooperative Mood Description: good Affect Description: constricted Patient Cognition Impaired: No Ability to Follow Directions: Good Speech Pattern: Spontaneous Speech Memory Description: Episodic Impaired Hallucinations: Auditory Delusions: Being Controlled, Paranoid Ideation, Present and Ideas of Reference Thought Process: Rumination Thought Content: positive for Obsessional Thoughts, positive for Circumstantial and positive for Perseveration Depressive Symptoms: Increased Anxiety, Insomnia, Diff. Making Decisions, Difficulty Sleeping, Hopelessness, Feelings of Guilt, Unhappiness, Increased Fatigue, Thoughts of /Suicide (denies), Low Self Esteem and Loss of Energy Abnormal Motor Activity Signs and Symptoms: Agitation and Restlessness Diagnostics Vital Signs (24Hr): Vital Signs - 24 hr 02/27/21 18:00 02/28/21 06:00 Temperature 98 F 97.7 F Pulse Rate 96 80 Respiratory Rate 16 18 Blood Pressure 115/75 123/76 Pulse Oximetry 99 98 Body Mass Index 23.2 Labs Results: 02/17/21 18:05 02/17/21 18:05 Medications Medications Current Medications Generic Name Dose Route Start Last Admin Trade Name Freq PRN Reason Stop Dose Admin Al Hydroxide/Mg Hydroxide 30 ml 02/18/21 18:53 Magnesium Hydrox/Alum Hydrox 30 Ml Oral.Susp PO Q6H PRN Heartburn/Nausea Benztropine Mesylate 0.5 mg 02/18/21 21:00 02/27/21 21:22 Benztropine Mesylate 0.5 Mg Tablet PO 0.5 mg BEDTIME YULY Administration Folic Acid 1 mg 02/19/21 09:00 02/28/21 08:47 Folic Acid 1 Mg Tablet PO 1 mg DAILY YULY Administration Haloperidol 5 mg 02/18/21 21:00 02/27/21 21:22 Haloperidol 5 Mg Tablet PO 5 mg BEDTIME YULY Administration Haloperidol 5 mg 02/26/21 14:35 02/27/21 00:35 Haloperidol 5 Mg Tablet PO 5 mg TID PRN Administration Psychosis Lorazepam 1 mg 02/27/21 17:37 Lorazepam 1 Mg Tablet PO Q4H PRN anxiety, agitation Lorazepam 0.5 mg 02/27/21 21:00 02/28/21 08:47 Lorazepam 0.5 Mg Tablet PO 0.5 mg BID YULY Administration Magnesium Hydroxide 30 ml 02/18/21 18:53 Milk Of Magnesia 30 Ml Oral.Susp PO DAILY PRN Constipation Naltrexone HCl 50 mg 02/25/21 09:00 02/28/21 08:46 Naltrexone Hcl 50 Mg Tablet PO 50 mg DAILY YULY Administration Nicotine Polacrilex 4 mg 02/18/21 18:53 Nicotine Polacrilex 2 Mg Gum BUCCAL Q2H PRN Nicotine Cravings Olanzapine 10 mg 02/27/21 21:00 02/27/21 21:22 Olanzapine Odt 10 Mg Tab.Rapdis TRANSLINGU 10 mg BEDTIME YULY Administration Olanzapine 5 mg 02/28/21 09:00 02/28/21 08:46 Olanzapine Odt 10 Mg Tab.Rapdis TRANSLINGU 5 mg DAILY YULY Administration Thiamine HCl 100 mg 02/19/21 09:00 02/28/21 08:46 Thiamine Hcl 100 Mg Tablet PO 100 mg DAILY YULY Administration Allergies Allergies Allergy/AdvReac Type Severity Reaction Status Date / Time penicillin G [PENICILLIN G] Allergy Intermediate SWELLING Verified 02/18/21 10:16 [place] And Derivatives Allergy Unknown unk Verified 02/18/21 10:17 [CITRUS AND DERIVATIVES] cranberry [CRANBERRY] Allergy Unknown HIVES Verified 02/18/21 10:17 gabapentin [GABAPENTIN] Allergy Unknown HIVES, Verified 02/18/21 10:16 swelling raspberry [RASPBERRY] Allergy Unknown unk Verified 02/18/21 10:15 Assessment & Plan Assessment & Plan (1) Alcohol abuse: Status: Acute Code(s): F10.10 - Alcohol abuse, uncomplicated 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 Sx not responding to regime, increasing today. Plan: Discontinue Abilify Olanzapine 10 mg x1 along with Lorazepam 2 mg x1 Olanzapine 5 mg a.m. 10 mg hs Lorazepam 0.5 mg bid Continue Haldol (2) Acute psychosis: Status: Acute Code(s): F23 - Brief psychotic disorder Greater than 50% of the session was spent on counseling and/or coordination of care Reason for contiued inpatient stay Substantial Risk for: med/psych decompensation
[2021-02-28 16:42] VITALS: BP 110/67; PULSE 91; RESP 18; TEMP 36.6; O2SAT 98
[2021-02-28] MEDS: LORazepam 1 MG TABLET PO (19:29)
[2021-02-28] MEDS: HaloperidoL 5 MG TABLET PO (21:12)
[2021-02-28] MEDS: OLANZapine ODT 10 MG TAB.RAPDIS TRANSLINGU (21:12)
[2021-02-28] MEDS: Benztropine Mesylate 0.5 MG TABLET PO (21:12)
[2021-03-01 06:20] VITALS: BP 118/56; PULSE 63; RESP 16; TEMP 36.4; O2SAT 97
[2021-03-01] MEDS: Thiamine HCL 100 MG TABLET PO (09:54)
[2021-03-01] MEDS: LORazepam 0.5 MG TABLET PO ×2 (09:54→21:13)
[2021-03-01] MEDS: Folic Acid 1 MG TABLET PO (09:54)
[2021-03-01] MEDS: Naltrexone HCl 50 MG TABLET PO (09:54)
[2021-03-01] MEDS: OLANZapine ODT 10 MG TAB.RAPDIS 5 MG TRANSLINGU (09:55)
[2021-03-01 19:05] VITALS: BP 116/68; PULSE 84; TEMP 35.9
--- NOTE | 2021-03-01 21:09 | P.PNPSI_ITS ---
Subjective Subjective Date of Service: 03/01/21 Reason For Visit: acute psychosis Subjective Notes: Conditional Voluntary Healthcare Proxy: No Guardianship: No Medical Problems Affecting Mental Status: No Interim History: I don't think medicine will help this fear. I think I just need to face it. Reports minimal improvement in sx with change to Olanzapine on 02/27, however, is presenting with less fear today. Discussed that he believes medicine cannot fix the problems of his belief that someone is out to harm him and has accused him of harm to children. He denies that he has harmed anyone, but this does not matter-truth is what they want it to be. He will continue to allow work with medication, but does not hold hope that it will improve his situation. Medication Compliance: Yes Side effects from medications: No Attending Groups: Intermittent Review of Systems Review of Systems Yes all other systems are reviewed and are negative (denies) Reports behavioral changes Psychiatric: Reports anxiety, Reports behavioral changes, Reports difficulty concentrating, Reports auditory hallucinations, Reports hopelessness, Reports anhedonia, Reports paranoia and Reports hallucinations Mental Status Exam Mental Status Exam Patient Appearance: Fatigued Patient Orientation: Person, Place, Time and Situation Level of Consciousness: Awake and Alert Patient Behavior: Appropriate, Talkative, Cooperative, Fearful (decrease in presentation as compared to 02/27 our last meeting) and Good Eye Contact Mood Description: Constricted Affect Description: Constricted Patient Cognition Impaired: No Ability to Follow Directions: Good Speech Pattern: Perseverating, Spontaneous Speech and Soft-Spoken Memory Description: Remote Impaired and Episodic Impaired Hallucinations: Auditory Delusions: Being Controlled, Paranoid Ideation and Present Thought Process: Illogical, Distracted and Rumination Thought Content: positive for Obsessional Thoughts, positive for Circumstantial, positive for Perseveration, positive for Preoccupation and positive for Thought Blocking Depressive Symptoms: Loss of Int. in Activity, Feelings of Worthlessness, Hopelessness, Isolating-Friends/Family, Feelings of Guilt, Unhappiness, Increased Fatigue, Low Self Esteem, Loss of Energy and Difficulty Concentrating Judgement: Poor Diagnostics Vital Signs (24Hr): Vital Signs - 24 hr 03/01/21 06:20 03/01/21 19:05 Temperature 97.6 F 96.7 F L Pulse Rate 63 84 Respiratory Rate 16 Blood Pressure 118/56 L 116/68 Pulse Oximetry 97 Body Mass Index 23.2 Labs Results: 02/17/21 18:05 02/17/21 18:05 Medications Medications Current Medications Generic Name Dose Route Start Last Admin Trade Name Freq PRN Reason Stop Dose Admin Al Hydroxide/Mg Hydroxide 30 ml 02/18/21 18:53 Magnesium Hydrox/Alum Hydrox 30 Ml Oral.Susp PO Q6H PRN Heartburn/Nausea Benztropine Mesylate 0.5 mg 02/18/21 21:00 02/28/21 21:12 Benztropine Mesylate 0.5 Mg Tablet PO 0.5 mg BEDTIME YULY Administration Folic Acid 1 mg 02/19/21 09:00 03/01/21 09:54 Folic Acid 1 Mg Tablet PO 1 mg DAILY YULY Administration Haloperidol 5 mg 02/18/21 21:00 02/28/21 21:12 Haloperidol 5 Mg Tablet PO 5 mg BEDTIME YULY Administration Haloperidol 5 mg 02/26/21 14:35 02/27/21 00:35 Haloperidol 5 Mg Tablet PO 5 mg TID PRN Administration Psychosis Lorazepam 1 mg 02/27/21 17:37 02/28/21 19:29 Lorazepam 1 Mg Tablet PO 1 mg Q4H PRN Administration anxiety, agitation Lorazepam 0.5 mg 02/27/21 21:00 03/01/21 09:54 Lorazepam 0.5 Mg Tablet PO 0.5 mg BID YULY Administration Magnesium Hydroxide 30 ml 02/18/21 18:53 Milk Of Magnesia 30 Ml Oral.Susp PO DAILY PRN Constipation Naltrexone HCl 50 mg 02/25/21 09:00 03/01/21 09:54 Naltrexone Hcl 50 Mg Tablet PO 50 mg DAILY YULY Administration Nicotine Polacrilex 4 mg 02/18/21 18:53 Nicotine Polacrilex 2 Mg Gum BUCCAL Q2H PRN Nicotine Cravings Olanzapine 10 mg 02/27/21 21:00 02/28/21 21:12 Olanzapine Odt 10 Mg Tab.Rapdis TRANSLINGU 10 mg BEDTIME YULY Administration Olanzapine 5 mg 02/28/21 09:00 03/01/21 09:55 Olanzapine Odt 10 Mg Tab.Rapdis TRANSLINGU 5 mg DAILY YULY Administration Thiamine HCl 100 mg 02/19/21 09:00 03/01/21 09:54 Thiamine Hcl 100 Mg Tablet PO 100 mg DAILY YULY Administration Allergies Allergies Allergy/AdvReac Type Severity Reaction Status Date / Time penicillin G [PENICILLIN G] Allergy Intermediate SWELLING Verified 02/18/21 10:16 [place] And Derivatives Allergy Unknown unk Verified 02/18/21 10:17 [CITRUS AND DERIVATIVES] cranberry [CRANBERRY] Allergy Unknown HIVES Verified 02/18/21 10:17 gabapentin [GABAPENTIN] Allergy Unknown HIVES, Verified 02/18/21 10:16 swelling raspberry [RASPBERRY] Allergy Unknown unk Verified 02/18/21 10:15 Assessment & Plan Assessment & Plan (1) Alcohol abuse: Status: Acute Code(s): F10.10 - Alcohol abuse, uncomplicated 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 Sx not responding to regime, increasing today. Plan: Discontinue Abilify Olanzapine 5 mg a.m. 10 mg hs Lorazepam 0.5 mg bid Continue Haldol (2) Acute psychosis: Status: Acute Code(s): F23 - Brief psychotic disorder Greater than 50% of the session was spent on counseling and/or coordination of care Reason for contiued inpatient stay Substantial Risk for: harm to self, inability to function and rapid decompensation
[2021-03-01] MEDS: Benztropine Mesylate 0.5 MG TABLET PO (21:14)
[2021-03-01] MEDS: HaloperidoL 5 MG TABLET PO (21:14)
[2021-03-01] MEDS: OLANZapine ODT 10 MG TAB.RAPDIS TRANSLINGU (21:14)
[2021-03-02 06:00] VITALS: BP 92/50; PULSE 64; TEMP 36.4; O2SAT 98
[2021-03-02] MEDS: OLANZapine ODT 10 MG TAB.RAPDIS 5 MG TRANSLINGU (08:45)
[2021-03-02] MEDS: Folic Acid 1 MG TABLET PO (08:45)
[2021-03-02] MEDS: Naltrexone HCl 50 MG TABLET PO (08:45)
[2021-03-02] MEDS: Thiamine HCL 100 MG TABLET PO (08:45)
[2021-03-02] MEDS: LORazepam 0.5 MG TABLET PO ×2 (08:46→22:30)
--- NOTE | 2021-03-02 12:50 | P.PNPSI_ITS ---
Subjective Subjective Date of Service: 03/02/21 Reason For Visit: acute psychosis Subjective Notes: Conditional Voluntary Healthcare Proxy: No Guardianship: No Medical Problems Affecting Mental Status: No Interim History: Pt reports some relief of sx, but states he will always be concerned about being tracked and accused-does believe it happens via internet and debit card tracking. Reports sleep is improved quality, voices are minimal and he is eating and drinking well. Asks if I will discharge him soon. Discussed that we wanted to do some more work and allow him a few days of relief so monitoring for sx mgt stability can take place. He appeared relieved to be able to remain, stating he had no specific plans, and I should not feel pressure on his part to leave. Medication Compliance: Yes Side effects from medications: Yes (tired he reports) Attending Groups: Intermittent Review of Systems Reports behavioral changes Psychiatric: Reports abnormal sleep pattern, Reports anxiety, Reports behavioral changes, Reports change in appetite, Reports depression, Reports difficulty concentrating, Reports auditory hallucinations, Reports hopelessness, Reports anhedonia, Reports paranoia and Reports hallucinations Mental Status Exam Mental Status Exam Patient Appearance: Fatigued and Disheveled Patient Orientation: Person, Place, Time and Situation Level of Consciousness: Awake and Alert Patient Behavior: Appropriate, Talkative, Cooperative, Anxious (this is decreased) and Good Eye Contact Mood Description: Constricted Affect Description: Flat Patient Cognition Impaired: No Ability to Follow Directions: Good Speech Pattern: Perseverating, Spontaneous Speech and Soft-Spoken Memory Description: Intact and Episodic Impaired Hallucinations: Auditory (decreasing he reports) Delusions: Being Controlled, Paranoid Ideation and Present Thought Process: Intact, Distracted and Rumination Thought Content: positive for Intact, positive for [place], positive for Circumstantial and positive for Preoccupation Depressive Symptoms: Increased Anxiety, Diff. Making Decisions, Difficulty Sleeping (improving pt reports), Significant Weight Loss, Loss of Int. in A ctivity, Feelings of Worthlessness, Hopelessness, Feelings of Guilt, Unhappiness, Increased Fatigue, Low Self Esteem, Loss of Energy and Difficulty Concentrating Judgement: Fair Diagnostics Vital Signs (24Hr): Vital Signs - 24 hr 03/01/21 19:05 03/02/21 06:00 Temperature 96.7 F L 97.6 F Pulse Rate 84 64 Blood Pressure 116/68 92/50 L Pulse Oximetry 98 Body Mass Index 23.2 Labs Results: 02/17/21 18:05 02/17/21 18:05 Medications Medications Current Medications Generic Name Dose Route Start Last Admin Trade Name Freq PRN Reason Stop Dose Admin Al Hydroxide/Mg Hydroxide 30 ml 02/18/21 18:53 Magnesium Hydrox/Alum Hydrox 30 Ml Oral.Susp PO Q6H PRN Heartburn/Nausea Benztropine Mesylate 0.5 mg 02/18/21 21:00 03/01/21 21:14 Benztropine Mesylate 0.5 Mg Tablet PO 0.5 mg BEDTIME YULY Administration Folic Acid 1 mg 02/19/21 09:00 03/02/21 08:45 Folic Acid 1 Mg Tablet PO 1 mg DAILY YULY Administration Haloperidol 5 mg 02/18/21 21:00 03/01/21 21:14 Haloperidol 5 Mg Tablet PO 5 mg BEDTIME YULY Administration Haloperidol 5 mg 02/26/21 14:35 02/27/21 00:35 Haloperidol 5 Mg Tablet PO 5 mg TID PRN Administration Psychosis Lorazepam 1 mg 02/27/21 17:37 02/28/21 19:29 Lorazepam 1 Mg Tablet PO 1 mg Q4H PRN Administration anxiety, agitation Lorazepam 0.5 mg 02/27/21 21:00 03/02/21 08:46 Lorazepam 0.5 Mg Tablet PO 0.5 mg BID YULY Administration Magnesium Hydroxide 30 ml 02/18/21 18:53 Milk Of Magnesia 30 Ml Oral.Susp PO DAILY PRN Constipation Naltrexone HCl 50 mg 02/25/21 09:00 03/02/21 08:45 Naltrexone Hcl 50 Mg Tablet PO 50 mg DAILY YULY Administration Nicotine Polacrilex 4 mg 02/18/21 18:53 Nicotine Polacrilex 2 Mg Gum BUCCAL Q2H PRN Nicotine Cravings Olanzapine 10 mg 02/27/21 21:00 03/01/21 21:14 Olanzapine Odt 10 Mg Tab.Rapdis TRANSLINGU 10 mg BEDTIME YULY Administration Olanzapine 5 mg 02/28/21 09:00 03/02/21 08:45 Olanzapine Odt 10 Mg Tab.Rapdis TRANSLINGU 5 mg DAILY YULY Administration Thiamine HCl 100 mg 02/19/21 09:00 03/02/21 08:45 Thiamine Hcl 100 Mg Tablet PO 100 mg DAILY YULY Administration Allergies Allergies Allergy/AdvReac Type Severity Reaction Status Date / Time penicillin G [PENICILLIN G] Allergy Intermediate SWELLING Verified 02/18/21 10:16 [place] And Derivatives Allergy Unknown unk Verified 02/18/21 10:17 [CITRUS AND DERIVATIVES] cranberry [CRANBERRY] Allergy Unknown HIVES Verified 02/18/21 10:17 gabapentin [GABAPENTIN] Allergy Unknown HIVES, Verified 02/18/21 10:16 swelling raspberry [RASPBERRY] Allergy Unknown unk Verified 02/18/21 10:15 Assessment & Plan Assessment & Plan (1) Alcohol abuse: Status: Acute Code(s): F10.10 - Alcohol abuse, uncomplicated 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 Sx not responding to regime, increasing today. Plan: Olanzapine consolidate and increase to 20 mg HS Continue Haldol and Lorazepam (2) Acute psychosis: Status: Acute Code(s): F23 - Brief psychotic disorder Greater than 50% of the session was spent on counseling and/or coordination of care Reason for contiued inpatient stay Substantial Risk for: inability to function and rapid decompensation
[2021-03-02] MEDS: OLANZapine 10 MG TABLET 20 MG PO (22:29)
[2021-03-02] MEDS: HaloperidoL 5 MG TABLET PO (22:30)
[2021-03-02] MEDS: Benztropine Mesylate 0.5 MG TABLET PO (22:30)
[2021-03-03 06:00] VITALS: BP 137/85; PULSE 77; RESP 16; TEMP 36.6; O2SAT 98
[2021-03-03 07:00] VITALS: BMI 23.7
[2021-03-03] MEDS: Naltrexone HCl 50 MG TABLET PO (08:28)
[2021-03-03] MEDS: Thiamine HCL 100 MG TABLET PO (08:28)
[2021-03-03] MEDS: Folic Acid 1 MG TABLET PO (08:28)
[2021-03-03] MEDS: LORazepam 0.5 MG TABLET PO ×2 (08:28→20:23)
[2021-03-03 16:27] VITALS: BP 122/63; PULSE 97; RESP 18; TEMP 36.2; O2SAT 95
--- NOTE | 2021-03-03 17:23 | HO.PSYCHPN ---
Subjective Subjective Date of Service: 03/03/21 Reason For Visit: acute psychosis Subjective Notes: Conditional Voluntary Healthcare Proxy: No Guardianship: No Medical Problems Affecting Mental Status: No Interim History: About the same, better but tired. Medication Compliance: Yes Side effects from medications: Yes (sedation) Attending Groups: Intermittent Review of Systems Reports behavioral changes Psychiatric: Reports abnormal sleep pattern, Reports anxiety, Reports behavioral changes, Reports depression, Reports difficulty concentrating, Reports auditory hallucinations, Reports hopelessness, Reports irritability, Reports paranoia, Reports hallucinations and Reports suicidal ideation Mental Status Exam Mental Status Exam Patient Appearance: Fatigued Patient Orientation: Person, Place, Time and Situation Level of Consciousness: Sedated and Alert Patient Behavior: Passive, Asleep and Avoidant Mood Description: Flat Affect Description: Flat Patient Cognition Impaired: No Ability to Follow Directions: Good Speech Pattern: Spontaneous Speech Memory Description: Episodic Impaired Delusions: Paranoid Ideation Thought Process: Distracted and Rumination Thought Content: positive for [place], positive for [place], positive for [place] and positive for Preoccupation Depressive Symptoms: Increased Anxiety, Crying Spells, Feelings of Worthlessness, Hopelessness, Feelings of Guilt, Unhappiness, Increased Fatigue, Low Self Esteem, Loss of Energy and Difficulty Concentrating Judgement: Fair Diagnostics Vital Signs (24Hr): Vital Signs - 24 hr 03/03/21 06:00 03/03/21 16:27 Temperature 97.8 F 97.2 F Pulse Rate 77 97 Respiratory Rate 16 18 Blood Pressure 137/85 122/63 Pulse Oximetry 98 95 Body Mass Index 23.2 Labs Results: 02/17/21 18:05 02/17/21 18:05 Medications Medications Current Medications Generic Name Dose Route Start Last Admin Trade Name Freq PRN Reason Stop Dose Admin Al Hydroxide/Mg Hydroxide 30 ml 02/18/21 18:53 Magnesium Hydrox/Alum Hydrox 30 Ml Oral.Susp PO Q6H PRN Heartburn/Nausea Benztropine Mesylate 0.5 mg 02/18/21 21:00 03/02/21 22:30 Benztropine Mesylate 0.5 Mg Tablet PO 0.5 mg BEDTIME YULY Administration Folic Acid 1 mg 02/19/21 09:00 03/03/21 08:28 Folic Acid 1 Mg Tablet PO 1 mg DAILY YULY Administration Haloperidol 5 mg 02/18/21 21:00 03/02/21 22:30 Haloperidol 5 Mg Tablet PO 5 mg BEDTIME YULY Administration Haloperidol 5 mg 02/26/21 14:35 02/27/21 00:35 Haloperidol 5 Mg Tablet PO 5 mg TID PRN Administration Psychosis Lorazepam 1 mg 02/27/21 17:37 02/28/21 19:29 Lorazepam 1 Mg Tablet PO 1 mg Q4H PRN Administration anxiety, agitation Lorazepam 0.5 mg 02/27/21 21:00 03/03/21 08:28 Lorazepam 0.5 Mg Tablet PO 0.5 mg BID YULY Administration Magnesium Hydroxide 30 ml 02/18/21 18:53 Milk Of Magnesia 30 Ml Oral.Susp PO DAILY PRN Constipation Naltrexone HCl 50 mg 02/25/21 09:00 03/03/21 08:28 Naltrexone Hcl 50 Mg Tablet PO 50 mg DAILY YULY Administration Nicotine Polacrilex 4 mg 02/18/21 18:53 Nicotine Polacrilex 2 Mg Gum BUCCAL Q2H PRN Nicotine Cravings Olanzapine 20 mg 03/02/21 21:00 03/02/21 22:29 Olanzapine 10 Mg Tablet PO 20 mg BEDTIME YULY Administration Thiamine HCl 100 mg 02/19/21 09:00 03/03/21 08:28 Thiamine Hcl 100 Mg Tablet PO 100 mg DAILY YULY Administration Allergies Allergies Allergy/AdvReac Type Severity Reaction Status Date / Time penicillin G [PENICILLIN G] Allergy Intermediate SWELLING Verified 02/18/21 10:16 [place] And Derivatives Allergy Unknown unk Verified 02/18/21 10:17 [CITRUS AND DERIVATIVES] cranberry [CRANBERRY] Allergy Unknown HIVES Verified 02/18/21 10:17 gabapentin [GABAPENTIN] Allergy Unknown HIVES, Verified 02/18/21 10:16 swelling raspberry [RASPBERRY] Allergy Unknown unk Verified 02/18/21 10:15 Assessment & Plan Assessment & Plan (1) Alcohol abuse: Status: Acute Code(s): F10.10 - Alcohol abuse, uncomplicated Assessment and Plan: editorial writer covering no changes to tx plan Adult male with a history of psychosis, mood lability and alcohol use disorder, admitted after psychotic symptoms in the context of alcohol intoxication. Sx not responding to regime, increasing today. Plan: Olanzapine consolidate and increase to 20 mg HS Continue Haldol and Lorazepam (2) Acute psychosis: Status: Acute Code(s): F23 - Brief psychotic disorder Greater than 50% of the session was spent on counseling and/or coordination of care Reason for contiued inpatient stay Substantial Risk for: harm to self, harm to others, inability to function and rapid decompensation
[2021-03-03] MEDS: HaloperidoL 5 MG TABLET PO (20:23)
[2021-03-03] MEDS: Benztropine Mesylate 0.5 MG TABLET PO (20:23)
[2021-03-03] MEDS: OLANZapine 10 MG TABLET 20 MG PO (20:23)
[2021-03-04 06:00] VITALS: BP 115/73; PULSE 69; RESP 16; TEMP 36.4; O2SAT 98
[2021-03-04] MEDS: Folic Acid 1 MG TABLET PO (08:50)
[2021-03-04] MEDS: LORazepam 0.5 MG TABLET PO ×2 (08:50→21:34)
[2021-03-04] MEDS: Naltrexone HCl 50 MG TABLET PO (08:51)
[2021-03-04] MEDS: Thiamine HCL 100 MG TABLET PO (08:51)
[2021-03-04 16:45] VITALS: BP 135/72; PULSE 114; TEMP 36.9
[2021-03-04] MEDS: HaloperidoL 5 MG TABLET PO (17:06)
[2021-03-04] MEDS: LORazepam 1 MG TABLET PO (17:06)
--- NOTE | 2021-03-04 18:30 | HO.PSYCHPN ---
Subjective Subjective Date of Service: 03/04/21 Reason For Visit: acute psychosis Subjective Notes: Conditional Voluntary Healthcare Proxy: No Guardianship: No Medical Problems Affecting Mental Status: No Interim History: It does not matter. What I feel has noting to do with medicine. I know they are after me and want to get me. Pt awake, in bed, reports to TW and team meds are completely ineffective. Willing to continue trials but is clear in stating that these are not symptoms but concern about a reality for him. Medication Compliance: Yes Side effects from medications: No Attending Groups: Intermittent Review of Systems Reports behavioral changes Psychiatric: Reports anxiety, Reports behavioral changes, Reports change in appetite, Reports auditory hallucinations, Reports hopelessness, Reports irritability, Reports paranoia and Reports hallucinations Mental Status Exam Mental Status Exam Patient Appearance: Disheveled Patient Orientation: Person, Place, Time and Situation Level of Consciousness: Alert Patient Behavior: Guarded, Suspicious and Poor Eye Contact Mood Description: Depressed and Angry Affect Description: Flat Patient Cognition Impaired: No Ability to Follow Directions: Fair Speech Pattern: Spontaneous Speech Memory Description: Episodic Impaired Hallucinations: Auditory Delusions: Paranoid Ideation Thought Process: Illogical, Distracted and Rumination Thought Content: positive for [place] and positive for Thought Blocking Depressive Symptoms: Increased Anxiety, Increased Irritability, Changes in Appetite and Hopelessness Judgement: Poor Diagnostics Vital Signs (24Hr): Vital Signs - 24 hr 03/04/21 06:00 Temperature 97.6 F Pulse Rate 69 Respiratory Rate 16 Blood Pressure 115/73 Pulse Oximetry 98 Body Mass Index 23.7 Labs Results: 02/17/21 18:05 02/17/21 18:05 Medications Medications Current Medications Generic Name Dose Route Start Last Admin Trade Name Freq PRN Reason Stop Dose Admin Al Hydroxide/Mg Hydroxide 30 ml 02/18/21 18:53 Magnesium Hydrox/Alum Hydrox 30 Ml Oral.Susp PO Q6H PRN Heartburn/Nausea Benztropine Mesylate 0.5 mg 02/18/21 21:00 03/03/21 20:23 Benztropine Mesylate 0.5 Mg Tablet PO 0.5 mg BEDTIME YULY Administration Chlorpromazine HCl 25 mg 03/04/21 21:00 Chlorpromazine Hcl 25 Mg Tablet PO BID YULY Chlorpromazine HCl 25 mg 03/04/21 18:29 Chlorpromazine Hcl 25 Mg Tablet PO QID PRN Psychosis Folic Acid 1 mg 02/19/21 09:00 03/04/21 08:50 Folic Acid 1 Mg Tablet PO 1 mg DAILY YULY Administration Lorazepam 1 mg 02/27/21 17:37 03/04/21 17:06 Lorazepam 1 Mg Tablet PO 1 mg Q4H PRN Administration anxiety, agitation Lorazepam 0.5 mg 02/27/21 21:00 03/04/21 08:50 Lorazepam 0.5 Mg Tablet PO 0.5 mg BID YULY Administration Magnesium Hydroxide 30 ml 02/18/21 18:53 Milk Of Magnesia 30 Ml Oral.Susp PO DAILY PRN Constipation Naltrexone HCl 50 mg 02/25/21 09:00 03/04/21 08:51 Naltrexone Hcl 50 Mg Tablet PO 50 mg DAILY YULY Administration Nicotine Polacrilex 4 mg 02/18/21 18:53 Nicotine Polacrilex 2 Mg Gum BUCCAL Q2H PRN Nicotine Cravings Olanzapine 20 mg 03/02/21 21:00 03/03/21 20:23 Olanzapine 10 Mg Tablet PO 20 mg BEDTIME YULY Administration Thiamine HCl 100 mg 02/19/21 09:00 03/04/21 08:51 Thiamine Hcl 100 Mg Tablet PO 100 mg DAILY YULY Administration Allergies Allergies Allergy/AdvReac Type Severity Reaction Status Date / Time penicillin G [PENICILLIN G] Allergy Intermediate SWELLING Verified 02/18/21 10:16 [place] And Derivatives Allergy Unknown unk Verified 02/18/21 10:17 [[employer]R[place] [employer] DERIVATIVES] cranberry [CRANBERRY] Allergy Unknown HIVES Verified 02/18/21 10:17 gabapentin [GABAPENTIN] Allergy Unknown HIVES, Verified 02/18/21 10:16 swelling raspberry [RASPBERRY] Allergy Unknown unk Verified 02/18/21 10:15 Assessment & Plan Assessment & Plan (1) Alcohol abuse: Status: Acute Code(s): F10.10 - Alcohol abuse, uncomplicated 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 Sx not responding to regime, increasing today. Plan: Olanzapine consolidate and increase to 20 mg HS Discontinue Haldol Thorzine 25 mg bid and 25 mg qid prn (2) Acute psychosis: Status: Acute Code(s): F23 - Brief psychotic disorder Greater than 50% of the session was spent on counseling and/or coordination of care Reason for contiued inpatient stay Substantial Risk for: harm to self, harm to others, inability to function and rapid decompensation
[2021-03-04] MEDS: OLANZapine 10 MG TABLET 20 MG PO (21:34)
[2021-03-04] MEDS: chlorproMAZINE HCl 25 MG TABLET PO (21:35)
[2021-03-04] MEDS: Benztropine Mesylate 0.5 MG TABLET PO (21:35)
[2021-03-05] MEDS: Folic Acid 1 MG TABLET PO (08:52)
[2021-03-05] MEDS: Thiamine HCL 100 MG TABLET PO (08:52)
[2021-03-05] MEDS: Naltrexone HCl 50 MG TABLET PO (08:52)
[2021-03-05] MEDS: LORazepam 0.5 MG TABLET PO ×2 (08:52→20:19)
[2021-03-05] MEDS: chlorproMAZINE HCl 25 MG TABLET PO ×2 (08:52→20:19)
--- NOTE | 2021-03-05 09:08 | HO.PSYCHPN ---
Subjective Subjective Date of Service: 03/05/21 Reason For Visit: acute psychosis Interim History: pt lying in bed on approach; pt woke up to talk with freelance writer; he reports AH and has been taking haldol prn; freelance writer discussed increasing either zyprexa or thorazine but does not want any medications changes and says im good... he denies any Si or HI. Medication Compliance: Yes Attending Groups: No Mental Status Exam Mental Status Exam Narrative: Patient Appearance: Disheveled Patient Orientation: Person, Place, Time and Situation Level of Consciousness: Alert Patient Behavior: Guarded, Poor Eye Contact Mood Description: Depressed and Angry Affect Description: Flat Patient Cognition Impaired: No Ability to Follow Directions: Fair Speech Pattern: Spontaneous Speech Memory Description: Episodic Impaired Hallucinations: Auditory Delusions: Paranoid Ideation Thought Process: goal oriented Thought Content:limited Depressive Symptoms: Increased Anxiety, Increased Irritability, Changes in Appetite and Hopelessness Judgement: Poor Diagnostics Vital Signs (24Hr): Vital Signs - 24 hr 03/04/21 16:45 Temperature 98.4 F Pulse Rate 114 H Blood Pressure 135/72 Body Mass Index 23.7 Labs Results: 02/17/21 18:05 02/17/21 18:05 Medications Medications Current Medications Generic Name Dose Route Start Last Admin Trade Name Freq PRN Reason Stop Dose Admin Al Hydroxide/Mg Hydroxide 30 ml 02/18/21 18:53 Magnesium Hydrox/Alum Hydrox 30 Ml Oral.Susp PO Q6H PRN Heartburn/Nausea Benztropine Mesylate 0.5 mg 02/18/21 21:00 03/04/21 21:35 Benztropine Mesylate 0.5 Mg Tablet PO 0.5 mg BEDTIME YULY Administration Chlorpromazine HCl 25 mg 03/04/21 21:00 03/05/21 08:52 Chlorpromazine Hcl 25 Mg Tablet PO 25 mg BID YULY Administration Chlorpromazine HCl 25 mg 03/04/21 18:29 Chlorpromazine Hcl 25 Mg Tablet PO QID PRN Psychosis Folic Acid 1 mg 02/19/21 09:00 03/05/21 08:52 Folic Acid 1 Mg Tablet PO 1 mg DAILY YULY Administration Lorazepam 1 mg 02/27/21 17:37 03/04/21 17:06 Lorazepam 1 Mg Tablet PO 1 mg Q4H PRN Administration anxiety, agitation Lorazepam 0.5 mg 02/27/21 21:00 03/05/21 08:52 Lorazepam 0.5 Mg Tablet PO 0.5 mg BID YULY Administration Magnesium Hydroxide 30 ml 02/18/21 18:53 Milk Of Magnesia 30 Ml Oral.Susp PO DAILY PRN Constipation Naltrexone HCl 50 mg 02/25/21 09:00 03/05/21 08:52 Naltrexone Hcl 50 Mg Tablet PO 50 mg DAILY YULY Administration Nicotine Polacrilex 4 mg 02/18/21 18:53 Nicotine Polacrilex 2 Mg Gum BUCCAL Q2H PRN Nicotine Cravings Olanzapine 20 mg 03/02/21 21:00 03/04/21 21:34 Olanzapine 10 Mg Tablet PO 20 mg BEDTIME YULY Administration Thiamine HCl 100 mg 02/19/21 09:00 03/05/21 08:52 Thiamine Hcl 100 Mg Tablet PO 100 mg DAILY YULY Administration Allergies Allergies Allergy/AdvReac Type Severity Reaction Status Date / Time penicillin G [PENICILLIN G] Allergy Intermediate SWELLING Verified 02/18/21 10:16 [place] And Derivatives Allergy Unknown unk Verified 02/18/21 10:17 [[employer] AND DERIVATIVES] cranberry [CRANBERRY] Allergy Unknown HIVES Verified 02/18/21 10:17 gabapentin [GABAPENTIN] Allergy Unknown HIVES, Verified 02/18/21 10:16 swelling raspberry [RASPBERRY] Allergy Unknown unk Verified 02/18/21 10:15 Assessment & Plan Assessment & Plan (1) Alcohol abuse: Status: Acute Code(s): F10.10 - Alcohol abuse, uncomplicated Assessment and Plan: freelance writer covering no changes to tx plan Adult male with a history of psychosis, mood lability and alcohol use disorder, admitted after psychotic symptoms in the context of alcohol intoxication. Sx not responding to regime, increasing today. Plan: Olanzapine consolidate and increase to 20 mg HS Discontinue Haldol Thorzine 25 mg bid and 25 mg qid prn (2) Acute psychosis: Status: Acute Code(s): F23 - Brief psychotic disorder Greater than 50% of the session was spent on counseling and/or coordination of care Reason for contiued inpatient stay Substantial Risk for: med/psych decompensation
[2021-03-05 19:35] VITALS: BP 126/67; PULSE 95; TEMP 36.9
[2021-03-05] MEDS: OLANZapine 10 MG TABLET 20 MG PO (20:19)
[2021-03-05] MEDS: Benztropine Mesylate 0.5 MG TABLET PO (20:19)
[2021-03-06 06:15] VITALS: BP 131/86; PULSE 81; RESP 16; TEMP 36.7; O2SAT 98
[2021-03-06] MEDS: Naltrexone HCl 50 MG TABLET PO (08:27)
[2021-03-06] MEDS: LORazepam 0.5 MG TABLET PO ×2 (08:27→21:24)
[2021-03-06] MEDS: Thiamine HCL 100 MG TABLET PO (08:27)
[2021-03-06] MEDS: Folic Acid 1 MG TABLET PO (08:28)
[2021-03-06] MEDS: chlorproMAZINE HCl 25 MG TABLET PO ×3 (08:28→21:25)
--- NOTE | 2021-03-06 09:54 | P.PNPSI_ITS ---
Subjective Subjective Date of Service: 03/06/21 Reason For Visit: acute psychosis Interim History: pt says i'm the same... he denies SI/HI staff reports he said he felt a little a little better but is still afraid people are trying to find and kill him Mental Status Exam Mental Status Exam Narrative: Patient Appearance: Disheveled Patient Orientation: Person, Place, Time and Situation Level of Consciousness: Alert Patient Behavior: Guarded, Poor Eye Contact Mood Description: im fine depressed Affect Description: constricted Patient Cognition Impaired: No Ability to Follow Directions: Fair Speech Pattern: Spontaneous Speech Memory Description: Episodic Impaired Hallucinations: Auditory Delusions: Paranoid Ideation Thought Process: goal oriented Thought Content:limited Depressive Symptoms: Increased Anxiety, Increased Irritability, Changes in Appetite and Hopelessness Judgement: Poor Diagnostics Vital Signs (24Hr): Vital Signs - 24 hr 03/05/21 19:35 03/06/21 06:15 Temperature 98.4 F 98.1 F Pulse Rate 95 81 Respiratory Rate 16 Blood Pressure 126/67 131/86 Pulse Oximetry 98 Body Mass Index 23.7 Labs Results: 02/17/21 18:05 02/17/21 18:05 Medications Medications Current Medications Generic Name Dose Route Start Last Admin Trade Name Freq PRN Reason Stop Dose Admin Al Hydroxide/Mg Hydroxide 30 ml 02/18/21 18:53 Magnesium Hydrox/Alum Hydrox 30 Ml Oral.Susp PO Q6H PRN Heartburn/Nausea Benztropine Mesylate 0.5 mg 02/18/21 21:00 03/05/21 20:19 Benztropine Mesylate 0.5 Mg Tablet PO 0.5 mg BEDTIME YULY Administration Chlorpromazine HCl 25 mg 03/04/21 21:00 03/06/21 08:28 Chlorpromazine Hcl 25 Mg Tablet PO 25 mg BID YULY Administration Chlorpromazine HCl 25 mg 03/04/21 18:29 Chlorpromazine Hcl 25 Mg Tablet PO QID PRN Psychosis Folic Acid 1 mg 02/19/21 09:00 03/06/21 08:28 Folic Acid 1 Mg Tablet PO 1 mg DAILY YULY Administration Lorazepam 1 mg 02/27/21 17:37 03/04/21 17:06 Lorazepam 1 Mg Tablet PO 1 mg Q4H PRN Administration anxiety, agitation Lorazepam 0.5 mg 02/27/21 21:00 03/06/21 08:27 Lorazepam 0.5 Mg Tablet PO 0.5 mg BID YULY Administration Magnesium Hydroxide 30 ml 02/18/21 18:53 Milk Of Magnesia 30 Ml Oral.Susp PO DAILY PRN Constipation Naltrexone HCl 50 mg 02/25/21 09:00 03/06/21 08:27 Naltrexone Hcl 50 Mg Tablet PO 50 mg DAILY YULY Administration Nicotine Polacrilex 4 mg 02/18/21 18:53 Nicotine Polacrilex 2 Mg Gum BUCCAL Q2H PRN Nicotine Cravings Olanzapine 20 mg 03/02/21 21:00 03/05/21 20:19 Olanzapine 10 Mg Tablet PO 20 mg BEDTIME YULY Administration Thiamine HCl 100 mg 02/19/21 09:00 03/06/21 08:27 Thiamine Hcl 100 Mg Tablet PO 100 mg DAILY YULY Administration Allergies Allergies Allergy/AdvReac Type Severity Reaction Status Date / Time penicillin G [PENICILLIN G] Allergy Intermediate SWELLING Verified 02/18/21 10:16 [place] And Derivatives Allergy Unknown unk Verified 02/18/21 10:17 [CITRUS AND DERIVATIVES] cranberry [CRANBERRY] Allergy Unknown HIVES Verified 02/18/21 10:17 gabapentin [GABAPENTIN] Allergy Unknown HIVES, Verified 02/18/21 10:16 swelling raspberry [RASPBERRY] Allergy Unknown unk Verified 02/18/21 10:15 Assessment & Plan Assessment & Plan (1) Alcohol abuse: Status: Acute Code(s): F10.10 - Alcohol abuse, uncomplicated 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 Sx not responding to regime, increasing today. Plan: Olanzapine consolidate and increase to 20 mg HS Discontinue Haldol Thorzine 25 mg bid and 25 mg qid prn (2) Acute psychosis: Status: Acute Code(s): F23 - Brief psychotic disorder Greater than 50% of the session was spent on counseling and/or coordination of care Reason for contiued inpatient stay Substantial Risk for: rapid decompensation
[2021-03-06 16:45] VITALS: BP 125/69; PULSE 98; TEMP 36.8
[2021-03-06] MEDS: LORazepam 1 MG TABLET PO (16:52)
[2021-03-06] MEDS: OLANZapine 10 MG TABLET 20 MG PO (21:24)
[2021-03-06] MEDS: Benztropine Mesylate 0.5 MG TABLET PO (21:24)
[2021-03-07 06:00] VITALS: BP 101/61; PULSE 70; RESP 16; TEMP 36.5; O2SAT 98
[2021-03-07] MEDS: LORazepam 0.5 MG TABLET PO ×2 (10:18→20:59)
[2021-03-07] MEDS: Thiamine HCL 100 MG TABLET PO (10:18)
[2021-03-07] MEDS: chlorproMAZINE HCl 25 MG TABLET PO (10:18)
[2021-03-07] MEDS: Folic Acid 1 MG TABLET PO (10:18)
[2021-03-07] MEDS: Naltrexone HCl 50 MG TABLET PO (10:18)
--- NOTE | 2021-03-07 17:26 | P.PNPSI_ITS ---
Subjective Subjective Date of Service: 03/07/21 Reason For Visit: acute psychosis Subjective Notes: Conditional Voluntary Healthcare Proxy: No Guardianship: No Medical Problems Affecting Mental Status: No Interim History: Reports some relief of symptoms. Asks if we will support him and tell the police he is not a criminal. Discussed SE of sedation and previous trials. Risperdal was not helpful. Discussed Geodon which he has not trialed. Medication Compliance: Yes Side effects from medications: Yes (sedation) Review of Systems Reports behavioral changes Psychiatric: Reports abnormal sleep pattern, Reports anxiety, Reports behavioral changes, Reports depression, Reports difficulty concentrating, Reports auditory hallucinations, Reports hopelessness, Reports irritability, Reports anhedonia, Reports paranoia and Reports hallucinations Mental Status Exam Mental Status Exam Patient Appearance: Fatigued Patient Orientation: Person, Place and Time Level of Consciousness: Awake, Appropriate and Alert Patient Behavior: Guarded, Talkative, Suspicious, Anxious, Avoidant, Isolative and Poor Eye Contact Mood Description: Depressed and Angry Affect Description: Constricted Patient Cognition Impaired: No Ability to Follow Directions: Good Speech Pattern: Spontaneous Speech Memory Description: Episodic Impaired Hallucinations: Auditory Delusions: Paranoid Ideation and Present Thought Process: Distracted and Rumination Thought Content: positive for [place], positive for Circum[place], positive for [place]sever[place] and positive for Preoccupation Depressive Symptoms: Increased Anxiety, Increased Irritability, Hopelessness, Isolating-Friends/Family, Feelings of Guilt, Unhappiness and Difficulty Concentrating Judgement: Poor Diagnostics Vital Signs (24Hr): Vital Signs - 24 hr 03/07/21 06:00 Temperature 97.7 F Pulse Rate 70 Respiratory Rate 16 Blood Pressure 101/61 Pulse Oximetry 98 Body Mass Index 23.7 Labs Results: 02/17/21 18:05 02/17/21 18:05 Medications Medications Current Medications Generic Name Dose Route Start Last Admin Trade Name Freq PRN Reason Stop Dose Admin Al Hydroxide/Mg Hydroxide 30 ml 02/18/21 18:53 Magnesium Hydrox/Alum Hydrox 30 Ml Oral.Susp PO Q6H PRN Heartburn/Nausea Benztropine Mesylate 0.5 mg 02/18/21 21:00 03/06/21 21:24 Benztropine Mesylate 0.5 Mg Tablet PO 0.5 mg BEDTIME YULY Administration Chlorpromazine HCl 25 mg 03/04/21 21:00 03/07/21 10:18 Chlorpromazine Hcl 25 Mg Tablet PO 25 mg BID YULY Administration Chlorpromazine HCl 25 mg 03/04/21 18:29 03/06/21 16:52 Chlorpromazine Hcl 25 Mg Tablet PO 25 mg QID PRN Administration Psychosis Folic Acid 1 mg 02/19/21 09:00 03/07/21 10:18 Folic Acid 1 Mg Tablet PO 1 mg DAILY YULY Administration Lorazepam 1 mg 02/27/21 17:37 03/06/21 16:52 Lorazepam 1 Mg Tablet PO 1 mg Q4H PRN Administration anxiety, agitation Lorazepam 0.5 mg 02/27/21 21:00 03/07/21 10:18 Lorazepam 0.5 Mg Tablet PO 0.5 mg BID YULY Administration Magnesium Hydroxide 30 ml 02/18/21 18:53 Milk Of Magnesia 30 Ml Oral.Susp PO DAILY PRN Constipation Naltrexone HCl 50 mg 02/25/21 09:00 03/07/21 10:18 Naltrexone Hcl 50 Mg Tablet PO 50 mg DAILY YULY Administration Nicotine Polacrilex 4 mg 02/18/21 18:53 Nicotine Polacrilex 2 Mg Gum BUCCAL Q2H PRN Nicotine Cravings Olanzapine 20 mg 03/02/21 21:00 03/06/21 21:24 Olanzapine 10 Mg Tablet PO 20 mg BEDTIME YULY Administration Thiamine HCl 100 mg 02/19/21 09:00 03/07/21 10:18 Thiamine Hcl 100 Mg Tablet PO 100 mg DAILY YULY Administration Allergies Allergies Allergy/AdvReac Type Severity Reaction Status Date / Time penicillin G [PENICILLIN G] Allergy Intermediate SWELLING Verified 02/18/21 10:16 [place] And Derivatives Allergy Unknown unk Verified 02/18/21 10:17 [[employer] DERIVATIVES] cranberry [CRANBERRY] Allergy Unknown HIVES Verified 02/18/21 10:17 gabapentin [GABAPENTIN] Allergy Unknown HIVES, Verified 02/18/21 10:16 swelling raspberry [RASPBERRY] Allergy Unknown unk Verified 02/18/21 10:15 Assessment & Plan Assessment & Plan (1) Alcohol abuse: Status: Acute Code(s): F10.10 - Alcohol abuse, uncomplicated Assessment and Plan: physician underwriter covering no changes to tx plan Adult male with a history of psychosis, mood lability and alcohol use disorder, admitted after psychotic symptoms in the context of alcohol intoxication. Sx not responding to regime, with only minimal improvement. Plan: Geodon 20 mg bid Discontinue Olanzapine Thorzine 25 mg bid and 25 mg qid prn (2) Acute psychosis: Status: Acute Code(s): F23 - Brief psychotic disorder Greater than 50% of the session was spent on counseling and/or coordination of care Reason for contiued inpatient stay Substantial Risk for: inability to function and rapid decompensation
[2021-03-07 18:55] VITALS: BP 124/70; PULSE 124; TEMP 36.9
[2021-03-07] MEDS: Ziprasidone 20 MG CAPSULE PO (20:58)
[2021-03-07] MEDS: Benztropine Mesylate 0.5 MG TABLET PO (20:59)
[2021-03-08] MEDS: Thiamine HCL 100 MG TABLET PO (09:15)
[2021-03-08] MEDS: LORazepam 0.5 MG TABLET PO ×2 (09:15→20:30)
[2021-03-08] MEDS: Ziprasidone 20 MG CAPSULE PO (09:16)
[2021-03-08] MEDS: Folic Acid 1 MG TABLET PO (09:16)
[2021-03-08] MEDS: Naltrexone HCl 50 MG TABLET PO (09:16)
--- NOTE | 2021-03-08 16:53 | HO.PSYCHPN ---
Subjective Subjective Date of Service: 03/08/21 Reason For Visit: acute psychosis Subjective Notes: Conditional Voluntary Healthcare Proxy: No Guardianship: No Medical Problems Affecting Mental Status: No Interim History: Discussed discharge with pt. We agreed to have a goal for 03/11. Tolerated Geodon with less SE. Will titrate evening dose- 20a.m 40 p.m. Pt reports some relief from regime- it will never be gone, but I feel better able to cope with it. Agrees to titration of new agent. Denies SI, HI. Still reports fear and worry that others will harm him and are out to get him. Also believes he has done something wrong and needs to be punished. Medication Compliance: Yes Side effects from medications: No Attending Groups: Intermittent Review of Systems Psychiatric: Reports abnormal sleep pattern, Reports depression, Reports difficulty concentrating, Reports auditory hallucinations, Reports hopelessness, Reports irritability, Reports anhedonia, Reports paranoia, Reports visual hallucinations and Reports hallucinations Mental Status Exam Mental Status Exam Patient Appearance: Appropriate Patient Orientation: Person, Place, Time and Situation Level of Consciousness: Alert Patient Behavior: Talkative, Cooperative and Good Eye Contact Mood Description: Flat Affect Description: Flat Patient Cognition Impaired: No Ability to Follow Directions: Good Speech Pattern: Spontaneous Speech Memory Description: Episodic Impaired Hallucinations: Auditory and Visual Delusions: Being Controlled, Paranoid Ideation and Present Perceptual Disturbances: Depersonalization and Derealization Thought Process: Distracted and Rumination Thought Content: positive for [place], positive for Circumstantial and positive for Preoccupation Depressive Symptoms: Diff. Making Decisions, Increased Irritability and Significant Weight Loss Judgement: Fair Diagnostics Vital Signs (24Hr): Vital Signs - 24 hr 03/07/21 18:55 Temperature 98.4 F Pulse Rate 124 H Blood Pressure 124/70 Body Mass Index 23.7 Labs Results: 02/17/21 18:05 02/17/21 18:05 Medications Medications Current Medications Generic Name Dose Route Start Last Admin Trade Name Freq PRN Reason Stop Dose Admin Al Hydroxide/Mg Hydroxide 30 ml 02/18/21 18:53 Magnesium Hydrox/Alum Hydrox 30 Ml Oral.Susp PO Q6H PRN Heartburn/Nausea Benztropine Mesylate 0.5 mg 02/18/21 21:00 03/07/21 20:59 Benztropine Mesylate 0.5 Mg Tablet PO 0.5 mg BEDTIME YULY Administration Folic Acid 1 mg 02/19/21 09:00 03/08/21 09:16 Folic Acid 1 Mg Tablet PO 1 mg DAILY YULY Administration Lorazepam 1 mg 02/27/21 17:37 03/06/21 16:52 Lorazepam 1 Mg Tablet PO 1 mg Q4H PRN Administration anxiety, agitation Lorazepam 0.5 mg 02/27/21 21:00 03/08/21 09:15 Lorazepam 0.5 Mg Tablet PO 0.5 mg BID YULY Administration Magnesium Hydroxide 30 ml 02/18/21 18:53 Milk Of Magnesia 30 Ml Oral.Susp PO DAILY PRN Constipation Naltrexone HCl 50 mg 02/25/21 09:00 03/08/21 09:16 Naltrexone Hcl 50 Mg Tablet PO 50 mg DAILY YULY Administration Nicotine Polacrilex 4 mg 02/18/21 18:53 Nicotine Polacrilex 2 Mg Gum BUCCAL Q2H PRN Nicotine Cravings Thiamine HCl 100 mg 02/19/21 09:00 03/08/21 09:15 Thiamine Hcl 100 Mg Tablet PO 100 mg DAILY YULY Administration Ziprasidone 20 mg 03/07/21 21:00 03/08/21 09:16 Ziprasidone 20 Mg Capsule PO 20 mg BID YULY Administration Allergies Allergies Allergy/AdvReac Type Severity Reaction Status Date / Time penicillin G [PENICILLIN G] Allergy Intermediate SWELLING Verified 02/18/21 10:16 [place] And Derivatives Allergy Unknown unk Verified 02/18/21 10:17 [CITRUS AND DERIVATIVES] cranberry [CRANBERRY] Allergy Unknown HIVES Verified 02/18/21 10:17 gabapentin [GABAPENTIN] Allergy Unknown HIVES, Verified 02/18/21 10:16 swelling raspberry [RASPBERRY] Allergy Unknown unk Verified 02/18/21 10:15 Assessment & Plan Assessment & Plan (1) Alcohol abuse: Status: Acute Code(s): F10.10 - Alcohol abuse, uncomplicated Assessment and Plan: Adult male with a history of psychosis, mood lability and alcohol use disorder, admitted after psychotic symptoms in the context of alcohol intoxication. Sx not responding to regime, with only minimal improvement. Plan: Increase Geodon 20 mg a.m. and 40 mg p.m. (2) Acute psychosis: Status: Acute Code(s): F23 - Brief psychotic disorder Assessment and Plan: -As noted above, Geodon trial. Greater than 50% of the session was spent on counseling and/or coordination of care Reason for contiued inpatient stay Substantial Risk for: harm to self, harm to others, inability to function and rapid decompensation
[2021-03-08 18:00] VITALS: BP 107/74; PULSE 107; TEMP 36.6
[2021-03-08] MEDS: Ziprasidone 40 MG CAPSULE PO (20:30)
[2021-03-08] MEDS: Benztropine Mesylate 0.5 MG TABLET PO (20:30)
--- NOTE | 2021-03-09 | ECG_ITS ---
Test Reason : INITIATED GEODON Blood Pressure : / mmHG Vent. Rate : 096 BPM Atrial Rate : 096 BPM P-R Int : 122 ms QRS Dur : 080 ms QT Int : 340 ms P-R-T Axes : 035 040 020 degrees QTc Int : 429 ms Normal sinus rhythm Normal ECG When compared with ECG of 18-FEB-2021 16:07, No significant change was found Referred By: Madelin Dietrich Electronically Signed By:SHAYY SHAH
[2021-03-09 06:00] VITALS: BP 118/61; PULSE 74; RESP 16; TEMP 36.2; O2SAT 96
[2021-03-09] MEDS: Ziprasidone 20 MG CAPSULE PO (08:49)
[2021-03-09] MEDS: Thiamine HCL 100 MG TABLET PO (08:49)
[2021-03-09] MEDS: Folic Acid 1 MG TABLET PO (08:49)
[2021-03-09] MEDS: Naltrexone HCl 50 MG TABLET PO (08:49)
[2021-03-09] MEDS: LORazepam 0.5 MG TABLET PO ×2 (08:49→20:18)
[2021-03-09] MEDS: Milk of Magnesia 30 ML ORAL.SUSP PO (15:31)
--- NOTE | 2021-03-09 16:46 | HO.PSYCHPN ---
Subjective Subjective Date of Service: 03/09/21 Reason For Visit: acute psychosis Subjective Notes: Conditional Voluntary Healthcare Proxy: No Guardianship: No Medical Problems Affecting Mental Status: No Interim History: Hey, will you send me some of this new medicine when I go home.? It really helps-I told you nothing would help, but this makes it a little better. Preparing for discharge tomorrow, finding some relief with current regime. Feels ready to go and ready to face what the world holds for me. Medication Compliance: Yes Side effects from medications: No Attending Groups: Intermittent Review of Systems Psychiatric: Reports anxiety, Reports auditory hallucinations, Reports hopelessness and Reports hallucinations Mental Status Exam Mental Status Exam Patient Appearance: Disheveled Patient Orientation: Person, Place, Time and Situation Level of Consciousness: Awake and Alert Patient Behavior: Talkative, Cooperative and Good Eye Contact Mood Description: Calm Affect Description: Calm Patient Cognition Impaired: No Ability to Follow Directions: Good Speech Pattern: Spontaneous Speech Memory Description: Episodic Impaired Hallucinations: Auditory Delusions: Being Controlled and Paranoid Ideation Perceptual Disturbances: Derealization Thought Process: Distracted Thought Content: positive for Circumstantial Depressive Symptoms: Sleeping More Than Usual and Difficulty Concentrating Judgement: Fair Diagnostics Vital Signs (24Hr): Vital Signs - 24 hr 03/08/21 18:00 03/09/21 06:00 Temperature 97.9 F 97.1 F Pulse Rate 107 H 74 Respiratory Rate 16 Blood Pressure 107/74 118/61 Pulse Oximetry 96 Body Mass Index 23.7 Labs Results: 02/17/21 18:05 02/17/21 18:05 Medications Medications Current Medications Generic Name Dose Route Start Last Admin Trade Name Freq PRN Reason Stop Dose Admin Al Hydroxide/Mg Hydroxide 30 ml 02/18/21 18:53 Magnesium Hydrox/Alum Hydrox 30 Ml Oral.Susp PO Q6H PRN Heartburn/Nausea Benztropine Mesylate 0.5 mg 02/18/21 21:00 03/08/21 20:30 Benztropine Mesylate 0.5 Mg Tablet PO 0.5 mg BEDTIME YULY Administration Folic Acid 1 mg 02/19/21 09:00 03/09/21 08:49 Folic Acid 1 Mg Tablet PO 1 mg DAILY YULY Administration Lorazepam 1 mg 02/27/21 17:37 03/06/21 16:52 Lorazepam 1 Mg Tablet PO 1 mg Q4H PRN Administration anxiety, agitation Lorazepam 0.5 mg 02/27/21 21:00 03/09/21 08:49 Lorazepam 0.5 Mg Tablet PO 0.5 mg BID YULY Administration Magnesium Hydroxide 30 ml 02/18/21 18:53 03/09/21 15:31 Milk Of Magnesia 30 Ml Oral.Susp PO 30 ml DAILY PRN Administration Constipation Naltrexone HCl 50 mg 02/25/21 09:00 03/09/21 08:49 Naltrexone Hcl 50 Mg Tablet PO 50 mg DAILY YULY Administration Nicotine Polacrilex 4 mg 02/18/21 18:53 Nicotine Polacrilex 2 Mg Gum BUCCAL Q2H PRN Nicotine Cravings Thiamine HCl 100 mg 02/19/21 09:00 03/09/21 08:49 Thiamine Hcl 100 Mg Tablet PO 100 mg DAILY YULY Administration Ziprasidone 20 mg 03/09/21 09:00 03/09/21 08:49 Ziprasidone 20 Mg Capsule PO 20 mg DAILY YULY Administration Ziprasidone 40 mg 03/08/21 21:00 03/08/21 20:30 Ziprasidone 40 Mg Capsule PO 40 mg BEDTIME YULY Administration Allergies Allergies Allergy/AdvReac Type Severity Reaction Status Date / Time penicillin G [PENICILLIN G] Allergy Intermediate SWELLING Verified 02/18/21 10:16 [place] And Derivatives Allergy Unknown unk Verified 02/18/21 10:17 [CITRUS AND DERIVATIVES] cranberry [CRANBERRY] Allergy Unknown HIVES Verified 02/18/21 10:17 gabapentin [GABAPENTIN] Allergy Unknown HIVES, Verified 02/18/21 10:16 swelling raspberry [RASPBERRY] Allergy Unknown unk Verified 02/18/21 10:15 Assessment & Plan Assessment & Plan (1) Alcohol abuse: Status: Acute Code(s): F10.10 - Alcohol abuse, uncomplicated Assessment and Plan: Adult male with a history of psychosis, mood lability and alcohol use disorder, admitted after psychotic symptoms in the context of alcohol intoxication. Sx not responding to regime, with only minimal improvement. Plan: Continue Geodon 20 mg a.m. and 40 mg p.m. Pt reports it to be helpful. Discharge planned for 03/10/21. (2) Acute psychosis: Status: Acute Code(s): F23 - Brief psychotic disorder Assessment and Plan: -As noted above, Geodon trial. Greater than 50% of the session was spent on counseling and/or coordination of care Reason for contiued inpatient stay Substantial Risk for: harm to self, harm to others, inability to function and rapid decompensation
[2021-03-09 18:00] VITALS: BP 127/70; PULSE 112; RESP 16; TEMP 36.5; O2SAT 95
[2021-03-09] MEDS: Ziprasidone 40 MG CAPSULE PO (20:18)
[2021-03-09] MEDS: Benztropine Mesylate 0.5 MG TABLET PO (20:18)
[2021-03-09] MEDS: LORazepam 1 MG TABLET PO (23:18)
[2021-03-10 06:15] VITALS: BP 107/58; PULSE 71; RESP 16; TEMP 36.6; O2SAT 96
[2021-03-10] MEDS: Folic Acid 1 MG TABLET PO (08:48)
[2021-03-10] MEDS: LORazepam 0.5 MG TABLET PO (08:48)
[2021-03-10] MEDS: Thiamine HCL 100 MG TABLET PO (08:48)
[2021-03-10] MEDS: Naltrexone HCl 50 MG TABLET PO (08:48)
[2021-03-10] MEDS: Ziprasidone 20 MG CAPSULE PO (08:48)
[2021-03-10] MEDS: Milk of Magnesia 30 ML ORAL.SUSP PO (09:28)
--- NOTE | 2021-03-10 11:33 | PC.NURSE ---
PT IS AWARE AND READY FOR DISCHARGE. HE VERBALIZES FEELING SAFE. PT DENIES ANY DEPRESSION OR ANXIETY AT THIS MOMENT. HE DENIES AUDITORY OR VISUAL HALLUCINATIONS. HE DENIES ANY URGES TO HARM HIMSELF OR OTHERS. PT IS HAVING NO CURRENT SUBSTANCE CRAVINGS. HE HAS BEEN VISIBLE AND APPRPRIATE ON THE UNIT. HE HAS BEEN SOCIAL WITH PEERS. PT HAS BEEN ATTENDING GROUPS. HE IS GOAL ORIENTED AND HAS A PLAN FOR THE FUTURE. PT MAINTAINS GOOD [facility] CONTACT WHEN SPEAKING. PT IS MED COMPLAINT AND OPEN TO TEACHING REGARDING MEDICATIONS/COPING SKILLS. PTS PAPERWORK WILL BE FAXED TO PROVIDERS PER PROTOCOL.
--- NOTE | 2021-03-10 21:48 | PM.PSYDC ---
DS: Providers Provider Date of Service: 03/10/21 <Madelin Dietrich RADAR SIGNAL PROCESSING ENGINEER - Last Filed: 03/28/21 10:06> Date of admission: 02/18/21 17:55 <Madelin Coboshelena RADAR SIGNAL PROCESSING ENGINEER - Last Filed: 03/28/21 10:06> Date of discharge: 03/10/21 <Madelin Coboshelena, RADAR SIGNAL PROCESSING ENGINEER - Last Filed: 03/28/21 10:06> Primary care physician: Blane Reyez MD <Madelin Coboshelena, RADAR SIGNAL PROCESSING ENGINEER - Last Filed: 03/28/21 10:06> Admitting clinician: Yung Gonzales <Madelin Forresterkamaljit RADAR SIGNAL PROCESSING ENGINEER - Last Filed: 03/28/21 10:06> Attending physician on admission: Yung Gonzales <Madelin Coboshelena, RADAR SIGNAL PROCESSING ENGINEER - Last Filed: 03/28/21 10:06> Attending physician on discharge: Kristian Harper <Madelin Dietrich, RADAR SIGNAL PROCESSING ENGINEER - Last Filed: 03/28/21 10:06> Discharging clinician: Madelin Dietrich <Madelin Kulwant Forresterkamaljit RADAR SIGNAL PROCESSING ENGINEER - Last Filed: 03/28/21 10:06> DS: Diagnosis Discharge Diagnosis (1) Alcohol abuse: Status: Acute <Madelin Dietrich RADAR SIGNAL PROCESSING ENGINEER - Last Filed: 03/28/21 10:06> (2) Acute psychosis: Status: Acute <Madelin Dietrich RADAR SIGNAL PROCESSING ENGINEER - Last Filed: 03/28/21 10:06> Problem details: 35 yo male, unemployed, on disability with a history of mood disorder, psychosis and alcohol abuse, presents with BAL 238 with resulting increase in fear and paranoia, his main concern is that he is being followed by a group of people who intend to harm him. 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 <Madelin ForresterNIURKA mariN - Last Filed: 03/28/21 10:06> DS: Medications Discharge Medications Home Medications: Previous Rx's Medication Instructions Recorded benztropine 0.5 mg PO BEDTIME #30 tab 03/10/21 folic acid 1 mg PO DAILY #30 tab 03/10/21 lorazepam 0.5 mg PO BID #14 tab 03/10/21 naltrexone 1 tab PO DAILY #30 tab 03/10/21 naltrexone 50 mg PO DAILY #30 tab 03/10/21 thiamine mononitrate (vit B1) 100 mg PO DAILY #30 tab 03/10/21 ziprasidone HCl 20 mg PO DAILY #30 cap 03/10/21 ziprasidone HCl 40 mg PO BEDTIME #30 cap 03/10/21 <Madelin Dietrich APRN - Last Filed: 03/28/21 10:06> Discharge Plan Discharge Anticipated Discharge Date/Time: 03/10/21 12:00 <Madelin Dietrich APRN - Last Filed: 03/28/21 10:06> Patient Disposition: Home, Self-Care <Madelin Dietrich APRN - Last Filed: 03/28/21 10:06> Discharge Diagnosis: Alcohol Use Disorder, Severe Bipolar Disorder, depressed with psychosis <Madelin Dietrich APRN - Last Filed: 03/28/21 10:06> Alcohol Use Disorder, Severe Bipolar Disorder, depressed with psychosis <Kristian Harper MD - Last Filed: 03/31/21 17:51> Referrals: Saurabh Nguyen (therapist) [Other] - 03/14/21 10:00 am (Telehealth appointment) Dr. Clayton (psychiatrist) [Other] - 05/24/21 9:00 am (Telehealth appointment) Blane Reyez MD [Primary Care Provider] - 1 Week <Madelin Dietrich APRN - Last Filed: 03/28/21 10:06> Discharge Medications: New benztropine 0.5 mg Tablet 0.5 mg PO BEDTIME Qty: 30 RF: 0 naltrexone 50 mg Tablet 50 mg PO DAILY Qty: 30 RF: 0 ziprasidone HCl 20 mg Capsule 20 mg PO DAILY Qty: 30 RF: 0 lorazepam 0.5 mg Tablet 0.5 mg PO BID Qty: 14 RF: 4 folic acid 1 mg Tablet 1 mg PO DAILY Qty: 30 RF: 0 ziprasidone HCl 40 mg Capsule 40 mg PO BEDTIME Qty: 30 RF: 0 thiamine mononitrate (vit B1) 100 mg Tablet 100 mg PO DAILY Qty: 30 RF: 0 Continued naltrexone 50 mg tablet 1 tab PO DAILY Qty: 30 RF: 0 Discontinued benztropine 0.5 mg tablet 1 tab PO BEDTIME RF: 0 folic acid 1 mg tablet 1 tab PO DAILY RF: 0 aripiprazole 20 mg tablet 1 tab PO DAILY RF: 0 bupropion HCl 300 mg tablet extended release 24 hr 1 tab PO DAILY RF: 0 bupropion HCl 150 mg tablet extended release 24 hr 1 tab PO DAILY RF: 0 trazodone 150 MG tablet 1 tab PO BEDTIME RF: 0 Haldol 5 MG tablet 5 mg PO BEDTIME RF: 0 thiamine HCl (vitamin B1) 100 mg tablet 1 tab PO DAILY RF: 0 <Madelin Dietrich APRN - Last Filed: 03/28/21 10:06> Discharge Orders: Discharge Order (Routine); Ordered 03/10/21 Ordered By: Madelin Dietrich <LANCE Ceja Last Filed: 03/28/21 10:06> Diet: advance to usual diet <LANCE Ceja Last Filed: 03/28/21 10:06> advance to usual diet <Kristian Harper MD - Last Filed: 03/31/21 17:51> Activity on Discharge: As tolerated <LANCE Ceja Last Filed: 03/28/21 10:06> As tolerated <Kristian Harper MD - Last Filed: 03/31/21 17:51> Stand Alone Forms: Patient Portal Discharge page, Community Support <LANCE Ceja Last Filed: 03/28/21 10:06> Care Plan Goals: Mood and Thought Stabilization Decrease in fear and worry Sobriety <LANCE Ceja Last Filed: 03/28/21 10:06> Health Concerns: Alcohol Use Disorder Bipolar Disorder, depressed with psychosis <LANCE Ceja Last Filed: 03/28/21 10:06> Plan of Treatment: Attend all scheduled appointments Take medications as directed <Madelin Coboshelena RADAR SIGNAL PROCESSING ENGINEER - Last Filed: 03/28/21 10:06> Assessment: Alert, clear, denies SI, HI, reports medications are helpful, no overt psychotic or mood sx. <Madelin Forresterkamaljit RADAR SIGNAL PROCESSING ENGINEER - Last Filed: 03/28/21 10:06> Patient Instructions: Ziprasidone (By mouth) <Madelin Forresterkamaljit RADAR SIGNAL PROCESSING ENGINEER Last Filed: 03/28/21 10:06> Discharge Date/Time: 03/10/21 12:00 <Madelin Forresterkamaljit RADAR SIGNAL PROCESSING ENGINEER - Last Filed: 03/28/21 10:06> Mental Status Exam Mental Status Exam Patient Appearance: Appropriate <Madelin Forresterkamaljit RADAR SIGNAL PROCESSING ENGINEER Last Filed: 03/28/21 10:06> Patient Orientation: Person, Place and Situation <Madelin Forresterkamaljit RADAR SIGNAL PROCESSING ENGINEER - Last Filed: 03/28/21 10:06> Level of Consciousness: Awake and Alert <Madelin Forresterkamaljit RADAR SIGNAL PROCESSING ENGINEER - Last Filed: 03/28/21 10:06> Patient Behavior: Appropriate <Madelin Forresterkamaljit RADAR SIGNAL PROCESSING ENGINEER - Last Filed: 03/28/21 10:06> Mood Description: Constricted <Madelin RatliffRobinsonBrockkamaljit RADAR SIGNAL PROCESSING ENGINEER - Last Filed: 03/28/21 10:06> Affect Description: Constricted <Madelin RatliffRobinsonBrockkamaljit RADAR SIGNAL PROCESSING ENGINEER - Last Filed: 03/28/21 10:06> Patient Cognition Impaired: No <Madelin RatliffRobinsonBrockLANCE mari - Last Filed: 03/28/21 10:06> Ability to Follow Directions: Good <Madelin TilleycarrolBrockLANCE mari - Last Filed: 03/28/21 10:06> Speech Pattern: Spontaneous Speech <Madelin TilleyLANCE Cornelius - Last Filed: 03/28/21 10:06> Memory Description: Episodic Impaired <Madlein Tilleyon-Wonkka, RADAR SIGNAL PROCESSING ENGINEER - Last Filed: 03/28/21 10:06> Hallucinations: None (denies) <Madelin Dietrich APRN - Last Filed: 03/28/21 10:06> Delusions: Paranoid Ideation (intermittent- Bandar is able to reality test when these thoughts present.) <Madelin Dietrich APRN - Last Filed: 03/28/21 10:06> Thought Process: Intact <Madelin Dietrich APRN - Last Filed: 03/28/21 10:06> Thought Content: positive for Intact <Madelin Dietrich APRN - Last Filed: 03/28/21 10:06> Judgement: Good <Madelin Dietrich APRN - Last Filed: 03/28/21 10:06> DS: Summary Hospital Course Hospital Course: Pt admitted on a Section XII, converted to conditional voluntary. Pt experienced significant fear and paranoia during his stay, believing that he would be killed while in-patient and that he had committed crimes that indicated he would be killed by these people he thought were seeking to locate him. Med trials which were not effective included Olanzapine, Abilify, Haldol, Bupropion, Trazodone. Geodon offered more relief he reported. Gradually symptoms subsided and pt was able to report relief and felt prepared to return to his home with his three friends who he reports are strong supports . Pt withdrew from alcohol and was agreeable to a Naltrexone trial which he tolerated. <Madelin DietrichNIURKAN - Last Filed: 03/28/21 10:06> Time spent discussing smoking cessation with patient: 3 to 10 minutes <Madelin Dietrich RADAR SIGNAL PROCESSING ENGINEER - Last Filed: 03/28/21 10:06> Status at Discharge Cognitive/behavioral status at discharge: alert, non-suicidal, reports he is aware that no one is out to harm him, however, intermittenly these thoughts reappear. Pt is aware that current Geodon doses of 60 mg daily may be increased to help with symptom mgt. Mood is constricted. <Madelin CobosLANCE malik - Last Filed: 03/28/21 10:06> Functional status at discharge: independent ambulation <Madelin Dietrich APRN - Last Filed: 03/28/21 10:06> Overall status at discharge: patient is progressing back to baseline <Madelin Dietrich APRN - Last Filed: 03/28/21 10:06> Time Spent with Patient Time attestation: Total time spent providing and/or coordinating discharge services:45 <Madelin Dietrich APRN - Last Filed: 03/28/21 10:06> Time spent: Greater than 30 minutes <Madelin Dietrich APRN - Last Filed: 03/28/21 10:06>
== END 2021-03-10 12:00 | disposition home or self-care (01) | DRG 885 ==
LOC: HO.ED 17:51 → HO.PM5 02-18 17:58
PROVIDERS: Emergency Medicine; Admitting Provider Psychiatry & Neurology Psychiatry; Emergency Provider Emergency Medicine Emergency Medical Services; PCP Internal Medicine; Visit Provider Clinical Nurse Specialist Psychiatric/Mental Health, Adult
DX: F23 Brief psychotic disorder (principal); F10.10 Alcohol abuse, uncomplicated; Z91.5 Personal history of self-harm; Z20.822 Contact with and (suspected) exposure to COVID-19; Z91.14 Patient's other noncompliance with medication regimen; Z88.0 Allergy status to penicillin; Z79.899 Other long term (current) drug therapy
CPT/HCPCS: 36415; 80048; 80061; 80076; 80307; 82077; 82306; 82607; 82746; 83036; 85025; 87635; 93005; 99285

== ENCOUNTER 2021-07-01 20:39 | Emergency (ER) | payer OTHER, SELFPAY ==
--- NOTE | 2021-07-01 20:47 | ED.ALCOHOL ---
HPI - Alcohol General Chief Complaint: Psychiatric Symptoms Stated Complaint: etoh abuse Time Seen by Provider: 07/01/21 20:46 Source: patient and EMS Mode of arrival: EMS Limitations: other (poor cooperation and ETOH) History of Present Illness HPI narrative: ETOH and reports SI MD complaint: alcohol intoxication Last drink: Just prior to admission Chronic alcohol use: Yes Previous visits for alcohol intoxication: Yes Recent trauma: No Associated symptoms: depression and suicidality Treatments prior to arrival: none Related Data Home Medications Medication Instructions Recorded Confirmed thiamine mononitrate (vit B1) 100 1 tab PO DAILY 07/01/21 07/01/21 mg tablet Previous Rx's Medication Instructions Recorded benztropine 0.5 mg tablet 0.5 mg PO BEDTIME #30 tab 03/10/21 folic acid 1 mg tablet 1 mg PO DAILY #30 tab 03/10/21 naltrexone 50 mg tablet 50 mg PO DAILY #30 tab 03/10/21 ziprasidone HCl 20 mg capsule 20 mg PO DAILY #30 cap 03/10/21 ziprasidone HCl 40 mg capsule 40 mg PO BEDTIME #30 cap 03/10/21 Allergies Allergy/AdvReac Type Severity Reaction Status Date / Time penicillin G [PENICILLIN G] Allergy Intermediate SWELLING Verified 07/01/21 20:59 [place] And Derivatives Allergy Unknown unk Verified 07/01/21 20:59 [CITRUS AND DERIVATIVES] cranberry [CRANBERRY] Allergy Unknown HIVES Verified 07/01/21 20:59 gabapentin [GABAPENTIN] Allergy Unknown HIVES, Verified 07/01/21 20:59 swelling raspberry [RASPBERRY] Allergy Unknown unk Verified 07/01/21 20:59 Review of Systems Review of Systems: Constitutional : No Fever, No Chills ENT/Mouth : No Ear Pain, No Nasal Congestion, No sore throat Eyes: No Eye Pain, No Swelling, No Redness Cardiovascular : No Chest Pain, No SOB Respiratory : No Cough, No Sputum, No Dyspnea Gastrointestinal : No Nausea, No Vomiting, No Diarrhea, No Hematochezia, No Melena Genitourinary : No Dysuria, No Urinary Frequency, No Hematuria Musculoskeletal : No Myalgias Skin : No Skin Lesions, No rash Neuro : No Weakness, No Numbness, No Paresthesias, No Dizziness, No Headache Psych : positive Anxiety, positive Depression, positive SI no HI Heme/Lymph: No Lymphadenopathy Endocrine : No Polyuria, No Polydipsia All other systems reviewed and are negative [facility] Past Medical History Source: old records reviewed Medical History Alcohol abuse Bipolar disorder Social History Social History Household Members: Other Housing: Other Housing Other:: residential Do you presently have visiting nurse or other home services: No Patient Tobacco Use Status: Never used Tobacco e-Cigarette/Vaping Use: Never Used Second Hand Smoke Exposure: No Advance Directives: No Advance Directives Information Provided: Yes service: No Sexual orientation: N/A Physical Exam Vital Signs: Vital Signs: Last Vital Signs Pulse 81 07/01/21 20:52 Resp 18 07/01/21 20:52 BP 115/76 07/01/21 20:52 Pulse Ox 95 07/01/21 20:52 Body Mass Index 22.0 Appearance: Somnolent Oriented X3. No acute distress. Eyes: Pupils equal, round and reactive to light. ENT: Pharynx normal. Atraumatic Neck: Normal inspection. Neck supple. CVS: Normal heart rate and rhythm. Pulses normal. Respiratory: No respiratory distress. Breath sounds normal. Abdomen: Soft and nontender. Skin: Skin warm and dry. Normal skin color. Normal skin turgor. Extremities: No lower extremity edema. No calf ttp Neuro: Oriented X 3. No motor deficit. No sensory deficit. CN2-12 intact (limited) Psych: pos SI will not answer further questions Course Course Course Narrative: Physician observation started at 1031pm Patient placed in physician observation because the patient needed more time to clinically sober up and see [facility] for evaluation given his SI statements. At the time observation was started the patient's vitals were stable, patient is alert and oriented but slightly agitated, Neuro: nonfocal, CV RRR, Lungs clear MDM - Alcohol MDM Narrative Medical decision making narrative: 35 yo male with bipolar and ETOH abuse here with ETOH intoxication and SI - labs, N consult ordered, no trauma noted at this time Lab Data Result diagrams: 07/01/21 21:13 07/01/21 21:13 Labs: Lab Results 07/01/21 07/01/21 07/01/21 Range/Units 21:13 21:13 21:13 WBC 7.9 (4.8-10.8) X10*3/uL RBC 5.00 (4.60-5.80) X10*6/uL Hgb 14.0 (14.0-18.0) g/dl Hct 40.3 L (42-52) % MCV 80.6 (80-98) fL MCH 28.0 (27.0-33.0) pg MCHC 34.7 (31.0-36.0) g/dl RDW 13.2 (11.0-16.0) % Plt Count 216 (160-400) X10*3/uL MPV 11.1 (9.4-12.4) fL Immature Gran % (Auto) 0.6 H (0.0-0.4) % Neut % (Auto) 50.3 (45-73) % Lymph % (Auto) 39.1 (20-40) % Hopkins % (Auto) 8.1 (2-11) % Eos % (Auto) 1.4 (0-4) % Baso % (Auto) 0.5 (0-2) % Lymph # (Auto) 3.1 (1.2-4.9) X10*3/uL Hopkins # (Auto) 0.6 (0.1-1.2) X10*3/uL Eos # (Auto) 0.1 (0.0-0.4) X10*3/uL Baso # (Auto) 0.0 (0.0-0.2) X10*3/uL Abs Immat Gran (auto) 0.05 H (0.00-0.03) X10*3/uL Absolute Neuts (auto) 4.0 (2.0-8.3) X10*3/uL Absolute Nucleated RBC 0.000 (0.0-0.012) X10*3/uL Nucleated RBC % (auto) 0.0 (0.0-0.2) /100WBC Smear Tech's Comments VERIFIED Sodium 144 (135-145) mmol/L Potassium 4.3 D (3.3-5.1) mmol/L Chloride 106 (96-108) mmol/L Carbon Dioxide 27 (22-29) mmol/L Anion Gap 15 (12-20) BUN 12 (9-16) mg/dL Creatinine 0.94 (0.5-1.4) mg/dL Estim Creat Clear Calc 103.0 Estimated GFR > 60 Random Glucose 95 (60-115) mg/dL Calcium 9.1 D (8.4-10.2) mg/dL Magnesium 2.0 (1.6-2.6) mg/dL Total Bilirubin 0.2 (0.0-1.0) mg/dL Direct Bilirubin < 0.2 (0.0-0.5) mg/dL AST 24 D (5-37) U/L ALT 17 (0-40) U/L Alkaline Phosphatase 51 (39-117) U/L Total Protein 6.9 (6.5-8.0) g/dL Albumin 4.5 (3.5-5.0) g/dL Ethyl Alcohol mg/dL COVID-19 (MELVA) Negative (Negative) COVID-19 Clin Com See Note 07/01/21 Range/Units 21:13 WBC (4.8-10.8) X10*3/uL RBC (4.60-5.80) X10*6/uL Hgb (14.0-18.0) g/dl Hct (42-52) % MCV (80-98) fL MCH (27.0-33.0) pg MCHC (31.0-36.0) g/dl RDW (11.0-16.0) % Plt Count (160-400) X10*3/uL MPV (9.4-12.4) fL Immature Gran % (Auto) (0.0-0.4) % Neut % (Auto) (45-73) % Lymph % (Auto) (20-40) % Hopkins % (Auto) (2-11) % Eos % (Auto) (0-4) % Baso % (Auto) (0-2) % Lymph # (Auto) (1.2-4.9) X10*3/uL Hopkins # (Auto) (0.1-1.2) X10*3/uL Eos # (Auto) (0.0-0.4) X10*3/uL Baso # (Auto) (0.0-0.2) X10*3/uL Abs Immat Gran (auto) (0.00-0.03) X10*3/uL Absolute Neuts (auto) (2.0-8.3) X10*3/uL Absolute Nucleated RBC (0.0-0.012) X10*3/uL Nucleated RBC % (auto) (0.0-0.2) /100WBC Smear Tech's Comments Sodium (135-145) mmol/L Potassium (3.3-5.1) mmol/L Chloride (96-108) mmol/L Carbon Dioxide (22-29) mmol/L Anion Gap (12-20) BUN (9-16) mg/dL Creatinine (0.5-1.4) mg/dL Estim Creat Clear Calc Estimated GFR Random Glucose (60-115) mg/dL Calcium (8.4-10.2) mg/dL Magnesium (1.6-2.6) mg/dL Total Bilirubin (0.0-1.0) mg/dL Direct Bilirubin (0.0-0.5) mg/dL AST (5-37) U/L ALT (0-40) U/L Alkaline Phosphatase (39-117) U/L Total Protein (6.5-8.0) g/dL Albumin (3.5-5.0) g/dL Ethyl Alcohol 381 H* mg/dL COVID-19 (MELVA) (Negative) COVID-19 Clin Com Discharge Plan Discharge Clinical Impression: Alcohol intoxication Qualifiers: Complication of substance-induced condition: uncomplicated Qualified Code(s): F10.920 - Alcohol use, unspecified with intoxication, uncomplicated Prescriptions: No Action benztropine 0.5 mg Tablet 0.5 mg PO BEDTIME Qty: 30 RF: 0 naltrexone 50 mg Tablet 50 mg PO DAILY Qty: 30 RF: 0 ziprasidone HCl 20 mg Capsule 20 mg PO DAILY Qty: 30 RF: 0 folic acid 1 mg Tablet 1 mg PO DAILY Qty: 30 RF: 0 ziprasidone HCl 40 mg Capsule 40 mg PO BEDTIME Qty: 30 RF: 0 thiamine mononitrate (vit B1) 100 mg tablet 1 tab PO DAILY RF: 0
[2021-07-01 20:52] VITALS: BP 115/76; BP 127/82; PULSE 76; PULSE 81; RESP 18; O2SAT 95; BMI 22.0
--- NOTE | 2021-07-01 21:00 | PC.NURSE ---
Security at bed side for change management specialist. During triage PT reported SI with plan to drink to . PT is noncompliant with answering most questions. Plan is to move to pod.
[2021-07-01 21:19] LABS: Basophils Percent Auto 0.5 % (0-2); Eosinophils Absolute Auto 0.1 X10*3/uL (0.0-0.4); Eosinophils Percent Auto 1.4 % (0-4); Hematocrit 40.3 % (42-52); Imm Gran Abs Auto 0.05 X10*3/uL (0.00-0.03); Imm Gran Pct Auto 0.6 % (0.0-0.4); Lymphocytes Absolute Auto 3.1 X10*3/uL (1.2-4.9); Lymphocytes Percent Auto 39.1 % (20-40); MANUAL DIFF FLAG SCAN; Mean Corpuscular HGB Conc 34.7 g/dl (31.0-36.0); Mean Corpuscular Volume 80.6 fL (80-98); Mean Platelet Volume 11.1 fL (9.4-12.4); Monocytes Absolute Auto 0.6 X10*3/uL (0.1-1.2); Monocytes Percent Auto 8.1 % (2-11); Neutrophils Percent Auto 50.3 % (45-73); Platelet Count 216 X10*3/uL (160-400); Red Cell Distribution Width 13.2 % (11.0-16.0); SCAN SMEAR FLAG 1; White Blood Count 7.9 X10*3/uL (4.8-10.8)
--- NOTE | 2021-07-01 21:27 | PC.NURSE ---
Sujit [phone] (nurse) Per nurse, pt was recently discharged from a Sober home on Sunday. Pt has been making SI comments since discharge. Roommate calling EMS due to ETOH.
[2021-07-01 21:30] LABS: Ethanol 381 mg/dL
[2021-07-01 21:33] LABS: COVID-19 Test Negative (Negative)
[2021-07-01 21:34] LABS: Alanine Aminotransferase 17 U/L (0-40); Albumin Level 4.5 g/dL (3.5-5.0); Alkaline Phosphatase 51 U/L (39-117); Anion Gap 15 (12-20); Aspartate Amino Transferase 24 U/L (5-37); Bilirubin Direct < 0.2 mg/dL (0.0-0.5); Bilirubin Total 0.2 mg/dL (0.0-1.0); Blood Urea Nitrogen 12 mg/dL (9-16); Calcium 9.1 mg/dL (8.4-10.2); Carbon Dioxide 27 mmol/L (22-29); Chloride 106 mmol/L (96-108); Estimated Glomerular Filt Rate > 60; Glucose Random 95 mg/dL (60-115); Potassium 4.3 mmol/L (3.3-5.1); Sodium 144 mmol/L (135-145); Total Protein 6.9 g/dL (6.5-8.0)
[2021-07-01 21:37] LABS: SLIDE REVIEW VERIFIED
--- NOTE | 2021-07-01 22:05 | PC.NURSE ---
Pb at bedside with security for transfer into the pod.
[2021-07-02 03:34] VITALS: BP 124/84; PULSE 93; RESP 20; TEMP 36.7; O2SAT 94
[2021-07-02 04:01] LABS: Amphetamine Screen Urine Not Detected (Not Detect); Barbiturates, Urine Not Detected (Not Detect); Benzodiazepines Screen Urine Not Detected (Not Detect); Cannabinoid Screen Urine Not Detected (Not Detect); Cocaine Screen Urine Not Detected (Not Detect); Fentanyl, urine Not Detected (Not Detect); Opiate Screen Urine Not Detected (Not Detect); Phencyclidine Screen Urine Not Detected (Not Detect)
--- NOTE | 2021-07-02 05:14 | PC.NURSE ---
Patient slept through the night, no distress observed/reported, up out of room for bathroom use and for snacks, still under ETOH influence, provided urine sample, med rec completed/approved, behavior appropriate, BHN referral completed/confirmed, patient will be seen in the morning, VSS, will continue to monitor.
--- NOTE | 2021-07-02 07:03 | PC.NURSE ---
patient appears to remain at rest at present with even unlabored breaths patient appears in no distress
[2021-07-02 09:11] VITALS: BP 129/93; PULSE 111; RESP 16; TEMP 36.8; O2SAT 94
[2021-07-02] MEDS: Folic Acid 1 MG TABLET PO (09:14)
[2021-07-02] MEDS: Ziprasidone 20 MG CAPSULE PO (09:14)
[2021-07-02] MEDS: Thiamine HCL 100 MG TABLET PO (09:14)
--- NOTE | 2021-07-02 09:14 | MHC.CARE ---
CARE team met with pt in POD room 3 for consult. Pt is being assessed due to expressing suicidal ideation with a plan to drink himself to upon arriving the [facility]. He arrived with a BAL of 381 and reported he does not know how he arrived to the ED. He explained he has been stressed however denied suicidal and homicidal ideation, plan or intent. He reported he has a therapist that he meets with every Sunday and stated he finds it helpful. He disclosed he has been sober for nineteen months and relapsed on alcohol last night. He denied interest in detox and reported he attends AA meeting on a regular bases. He reported he lives with a roommate and feels safe returning home. Consulted with JANE Genao and she was agreeable to discharge pt. He was transported home via Lyft.
== END 2021-07-02 09:19 | disposition home or self-care (01) ==
PROVIDERS: Emergency Provider Emergency Medicine; PCP Internal Medicine
DX: F10.129 Alcohol abuse with intoxication, unspecified (principal); Y90.8 Blood alcohol level of 240 mg/100 ml or more; R45.851 Suicidal ideations; Z20.822 Contact with and (suspected) exposure to COVID-19
CPT/HCPCS: 36415; 80048; 80076; 80307; 82077; 83735; 85025; 87635; 99283; 99284

== ENCOUNTER 2021-07-03 11:32 | Emergency (ER) | payer OTHER, SELFPAY ==
--- NOTE | 2021-07-03 12:12 | ED.GENADULT ---
HPI - General Adult General Chief complaint: Psychiatric Symptoms Stated complaint: CRISIS/PSYCH EVAL Time Seen by Provider: 07/03/21 11:59 Source: patient Mode of arrival: EMS Limitations: no limitations History of Present Illness HPI narrative: 35-year-old male who presents emergency department for evaluation of paranoid ideation and hearing voices. The patient told me that everyone is out to get him. He states that he is hearing a voice but it is real. He states that this elisa wants him for no good reason. He states that this elisa claims that he touched a child and he is telling everyone and it is not true and there was no evidence. The patient denied being suicidal but he did tell me that he would rather kill himself that have this elisa kill him. He denies having any plan to injure himself. The patient states that he is drinking alcohol he drinks at least 3 beers per day. The patient was seen here in the emergency department on 07/01/2021 and cap overnight for alcohol intoxication and placement and detox. His alcohol level at that time was 381 and in the morning, he was evaluated but refused to detox. The patient denies using any drugs. He denied systemic symptoms of illness such as fever, chills, chest pain, shortness of breath, nausea, vomiting, abdominal pain, changes bowel movements, frequency, urgency or dysuria. He denied myalgias, arthralgias, loss of sense of taste or smell. In reviewing the patient's records, he was hospitalized on our psychiatric service on 02/18/2021 for alcohol use disorder and acute psychosis with paranoid ideation. Related Data Home Medications Medication Instructions Recorded Confirmed thiamine mononitrate (vit B1) 100 1 tab PO DAILY 07/01/21 07/03/21 mg tablet Previous Rx's Medication Instructions Recorded benztropine 0.5 mg tablet 0.5 mg PO BEDTIME #30 tab 03/10/21 folic acid 1 mg tablet 1 mg PO DAILY #30 tab 03/10/21 naltrexone 50 mg tablet 50 mg PO DAILY #30 tab 03/10/21 ziprasidone HCl 20 mg capsule 20 mg PO DAILY #30 cap 03/10/21 ziprasidone HCl 40 mg capsule 40 mg PO BEDTIME #30 cap 03/10/21 Allergies Allergy/AdvReac Type Severity Reaction Status Date / Time penicillin G [PENICILLIN G] Allergy Intermediate SWELLING Verified 07/01/21 20:59 [place] And Derivatives Allergy Unknown unk Verified 07/01/21 20:59 [CITRUS AND DERIVATIVES] cranberry [CRANBERRY] Allergy Unknown HIVES Verified 07/01/21 20:59 gabapentin [GABAPENTIN] Allergy Unknown HIVES, Verified 07/01/21 20:59 swelling raspberry [RASPBERRY] Allergy Unknown unk Verified 07/01/21 20:59 Review of Systems Review of Systems: Yes all other systems are reviewed and are negative [facility] Past Medical History [facility] Narrative: Past medical history mood disorder otherwise unspecified, paranoid ideation, acute psychosis, alcohol use disorder. Past social history: The patient states he lives at [facility] with a roommate. He smokes 4 cigarettes per day times 1-2 years. He states that he drinks 3 beers per day in his last beer was 30 minutes prior to arrival. He denied drug use. Medical History Alcohol abuse Bipolar disorder Social History Social History Household Members: Other Housing: Other Housing Other:: correction Do you presently have visiting nurse or other home services: No Patient Tobacco Use Status: Never used Tobacco e-Cigarette/Vaping Use: Never Used Second Hand Smoke Exposure: No Advance Directives: No Advance Directives Information Provided: Yes service: No Sexual orientation: N/A Physical Exam Vital Signs: Vital Signs: Last Vital Signs Temp 99.9 F 07/03/21 16:49 Pulse 83 07/03/21 16:49 Resp 16 07/03/21 16:49 BP 116/72 07/03/21 16:49 Pulse Ox 98 07/03/21 16:49 Body Mass Index 23.4 Const: Other: Awake, alert, male patient, does appear to be disheveled, he is oriented to person and place, he does appear to be slightly agitated and annoyed but he did answer all questions appropriately. HENMT: Head: Yes normal to inspection, Yes normocephalic and Yes atraumatic Ears: external ears normal General nose exam: Normal external nose present Face and sinus: Yes normal facial exam Mouth: Normal oral and palatal mucosa present Throat: Yes posterior oropharynx normal Eyes: General: appearance normal, both eyes and all related structures Pupils: Equal, round and reactive pupils present Neck: Neck: Yes normal visual inspection, Yes no lymphadenopathy, Yes trachea midline and Yes supple Chest: Chest palpation & inspection: normal inspection of the chest and normal palpation of entire chest wall Resp: Effort & Inspection: normal respiratory effort and able to speak in complete sentences Auscultation: clear to auscultation bilaterally Cardio: Rate: regular rate Rhythm: regular rhythm Heart sounds: S1 normal heart sound present, S2 normal heart sound present and no murmurs GI: Inspection: Yes normal to inspection Palpation (GI): Soft to palpation, nontender and no guarding Auscultation: normal bowel sounds : General: Yes no CVA tenderness Back/Spine/Pelvis: Back: no CVA tenderness Skin: General skin exam: no rashes or lesions noted Neuro: Cranial nerves: Yes CN's II-XII intact bilaterally and Yes Equal, round and reactive pupils present Cognition (Neuro): normal cognition Motor exam (neuro): 5/5 motor strength present throughout Extrem: General: Yes normal to inspection Psych: Appearance: disheveled Speech and movement: Normal speech and movement present Affect: Irritable affect present Attitude: cooperative Thought content: suicidality, no homicidality and Paranoid delusions present Course Course Course Narrative: 35-year-old male who presents emergency department for evaluation of paranoid ideation. The patient is hearing voices that accusing him touching a child and the voices are threatening to kill him. The patient does have history of paranoid ideation in the past as well as alcohol use disorder. He was seen 2 days prior for acute alcohol intoxication requesting detox but after being kept in the emergency department refused help with his alcohol use disorder. The patient's examination revealed that he was disheveled, you rotated but otherwise cooperative. He does admit to hearing voices and he does have paranoid ideation . He denied active suicidal or homicidal ideation. I ordered laboratory evaluation to include CBC, CMP, alcohol level and urine drug screen. The patient will need to be medically cleared and then be evaluated by our crisis team. 1352: Patient's laboratory evaluation was unremarkable except for an elevated blood alcohol level 167. Urine tox screen was negative. COVID-19 test was negative. Patient is medically cleared for psychiatric evaluation. The patient's outpatient medications have been reconciled and ordered. N consult will be obtained to determine disposition. 1624: The patient was evaluated by our crisis counselor. The patient has passive suicidal ideation only And has no homicidal ideation . He is paranoid but does not meet criteria for admission according to the crisis team. The patient does have outpatient services and will be discharged home and advised to follow-up with his outpatient providers for further treatment. 1802: Start physician observation at 6:02 p.m.:. The patient refused to leave, he states that he has too paranoid and he is afraid that he is going to be killed if he leaves the hospital. Patient was evaluated by our Care Team counselor and was felt that the patient should be re-evaluated given his refusal to leave and his continued paranoia. [facility] was contacted and there 11:00 p.m. provider will re-evaluate the patient. The patient will therefore be kept in the emergency department in physician observation until he is re-evaluated and disposition can be determined. The patient is awake and alert, he does appear to be paranoid, his lungs are clear, heart regular rate rhythm, abdomen soft nontender, neurologic exam was nonfocal. Medical Decision Making Lab Data Result diagrams: 07/03/21 12:38 07/03/21 12:38 Labs: Lab Results 07/03/21 07/03/21 07/03/21 Range/Units 12:38 12:38 12:38 WBC 8.4 (4.8-10.8) X10*3/uL RBC 5.04 (4.60-5.80) X10*6/uL Hgb 14.1 (14.0-18.0) g/dl Hct 40.8 L (42-52) % MCV 81.0 (80-98) fL MCH 28.0 (27.0-33.0) pg MCHC 34.6 (31.0-36.0) g/dl RDW 13.2 (11.0-16.0) % Plt Count 254 (160-400) X10*3/uL MPV 11.1 (9.4-12.4) fL Immature Gran % (Auto) 0.4 (0.0-0.4) % Neut % (Auto) 79.8 H (45-73) % Lymph % (Auto) 12.9 L (20-40) % Heard % (Auto) 6.5 (2-11) % Eos % (Auto) 0.0 (0-4) % Baso % (Auto) 0.4 (0-2) % Lymph # (Auto) 1.1 L (1.2-4.9) X10*3/uL Heard # (Auto) 0.6 (0.1-1.2) X10*3/uL Eos # (Auto) 0.0 (0.0-0.4) X10*3/uL Baso # (Auto) 0.0 (0.0-0.2) X10*3/uL Abs Immat Gran (auto) 0.03 (0.00-0.03) X10*3/uL Absolute Neuts (auto) 6.7 (2.0-8.3) X10*3/uL Absolute Nucleated RBC 0.000 (0.0-0.012) X10*3/uL Nucleated RBC % (auto) 0.0 (0.0-0.2) /100WBC Sodium 142 (135-145) mmol/L Potassium 5.1 (3.3-5.1) mmol/L Chloride 102 (96-108) mmol/L Carbon Dioxide 27 (22-29) mmol/L Anion Gap 18 (12-20) BUN 12 (9-16) mg/dL Creatinine 1.00 (0.5-1.4) mg/dL Estim Creat Clear Calc 97.3 Estimated GFR > 60 Random Glucose 105 (60-115) mg/dL Calcium 10.4 H D (8.4-10.2) mg/dL Total Bilirubin 0.7 (0.0-1.0) mg/dL AST 31 (5-37) U/L ALT 19 (0-40) U/L Alkaline Phosphatase 55 (39-117) U/L Total Protein 7.7 (6.5-8.0) g/dL Albumin 5.0 (3.5-5.0) g/dL Urine Opiates Screen (Not Detect) Urine Fentanyl Screen (Not Detect) Ur Barbiturates Screen (Not Detect) Ur Phencyclidine Scrn (Not Detect) Ur Amphetamines Screen (Not Detect) U Benzodiazepines Scrn (Not Detect) Urine Cocaine Screen (Not Detect) U Marijuana (THC) Screen (Not Detect) Ethyl Alcohol 167 mg/dL COVID-19 (MELVA) (Negative) COVID-19 Clin Com 07/03/21 07/03/21 Range/Units 12:38 12:41 WBC (4.8-10.8) X10*3/uL RBC (4.60-5.80) X10*6/uL Hgb (14.0-18.0) g/dl Hct (42-52) % MCV (80-98) fL MCH (27.0-33.0) pg MCHC (31.0-36.0) g/dl RDW (11.0-16.0) % Plt Count (160-400) X10*3/uL MPV (9.4-12.4) fL Immature Gran % (Auto) (0.0-0.4) % Neut % (Auto) (45-73) % Lymph % (Auto) (20-40) % Heard % (Auto) (2-11) % Eos % (Auto) (0-4) % Baso % (Auto) (0-2) % Lymph # (Auto) (1.2-4.9) X10*3/uL Heard # (Auto) (0.1-1.2) X10*3/uL Eos # (Auto) (0.0-0.4) X10*3/uL Baso # (Auto) (0.0-0.2) X10*3/uL Abs Immat Gran (auto) (0.00-0.03) X10*3/uL Absolute Neuts (auto) (2.0-8.3) X10*3/uL Absolute Nucleated RBC (0.0-0.012) X10*3/uL Nucleated RBC % (auto) (0.0-0.2) /100WBC Sodium (135-145) mmol/L Potassium (3.3-5.1) mmol/L Chloride (96-108) mmol/L Carbon Dioxide (22-29) mmol/L Anion Gap (12-20) BUN (9-16) mg/dL Creatinine (0.5-1.4) mg/dL Estim Creat Clear Calc Estimated GFR Random Glucose (60-115) mg/dL Calcium (8.4-10.2) mg/dL Total Bilirubin (0.0-1.0) mg/dL AST (5-37) U/L ALT (0-40) U/L Alkaline Phosphatase (39-117) U/L Total Protein (6.5-8.0) g/dL Albumin (3.5-5.0) g/dL Urine Opiates Screen Not Detected (Not Detect) Urine Fentanyl Screen Not Detected (Not Detect) Ur Barbiturates Screen Not Detected (Not Detect) Ur Phencyclidine Scrn Not Detected (Not Detect) Ur Amphetamines Screen Not Detected (Not Detect) U Benzodiazepines Scrn Not Detected (Not Detect) Urine Cocaine Screen Not Detected (Not Detect) U Marijuana (THC) Screen Not Detected (Not Detect) Ethyl Alcohol mg/dL COVID-19 (MELVA) Negative (Negative) COVID-19 Clin Com See Note Discharge Plan Discharge Clinical Impression: Paranoid ideation Patient Disposition: Home, Self-Care Additional Instructions: You are evaluated by our [facility] crisis counselor. At this time, you do not meet criteria for admission however the counselor wants you to follow-up with your outpatient therapist and providers for further treatment. Please see the crisis counselors recommendation. Follow-up with your providers in 2 days and please return to the emergency department if her symptoms get worse or if you develop any new symptoms that are concerning to you. Prescriptions: No Action benztropine 0.5 mg Tablet 0.5 mg PO BEDTIME Qty: 30 RF: 0 naltrexone 50 mg Tablet 50 mg PO DAILY Qty: 30 RF: 0 ziprasidone HCl 20 mg Capsule 20 mg PO DAILY Qty: 30 RF: 0 folic acid 1 mg Tablet 1 mg PO DAILY Qty: 30 RF: 0 ziprasidone HCl 40 mg Capsule 40 mg PO BEDTIME Qty: 30 RF: 0 thiamine mononitrate (vit B1) 100 mg tablet 1 tab PO DAILY RF: 0
[2021-07-03 12:18] VITALS: BP 139/97; BP 144/83; PULSE 66; PULSE 83; RESP 16; TEMP 37.3; O2SAT 96; O2SAT 98; BMI 23.4
[2021-07-03 12:47] LABS: MANUAL DIFF FLAG NO
[2021-07-03 12:49] LABS: Basophils Percent Auto 0.4 % (0-2); Hematocrit 40.8 % (42-52); Hemoglobin 14.1 g/dl (14.0-18.0); Imm Gran Abs Auto 0.03 X10*3/uL (0.00-0.03); Imm Gran Pct Auto 0.4 % (0.0-0.4); Lymphocytes Absolute Auto 1.1 X10*3/uL (1.2-4.9); Lymphocytes Percent Auto 12.9 % (20-40); Mean Corpuscular HGB Conc 34.6 g/dl (31.0-36.0); Mean Platelet Volume 11.1 fL (9.4-12.4); Monocytes Absolute Auto 0.6 X10*3/uL (0.1-1.2); Monocytes Percent Auto 6.5 % (2-11); Neutrophils Absolute Auto 6.7 X10*3/uL (2.0-8.3); Neutrophils Percent Auto 79.8 % (45-73); Platelet Count 254 X10*3/uL (160-400); Red Blood Count 5.04 X10*6/uL (4.60-5.80); Red Cell Distribution Width 13.2 % (11.0-16.0); White Blood Count 8.4 X10*3/uL (4.8-10.8)
[2021-07-03 13:01] LABS: Ethanol 167 mg/dL
[2021-07-03 13:04] LABS: COVID-19 Test Negative (Negative)
[2021-07-03 13:07] LABS: Amphetamine Screen Urine Not Detected (Not Detect); Barbiturates, Urine Not Detected (Not Detect); Benzodiazepines Screen Urine Not Detected (Not Detect); Cannabinoid Screen Urine Not Detected (Not Detect); Cocaine Screen Urine Not Detected (Not Detect); Fentanyl, urine Not Detected (Not Detect); Opiate Screen Urine Not Detected (Not Detect); Phencyclidine Screen Urine Not Detected (Not Detect)
[2021-07-03 13:07] LABS: Alanine Aminotransferase 19 U/L (0-40); Alkaline Phosphatase 55 U/L (39-117); Anion Gap 18 (12-20); Aspartate Amino Transferase 31 U/L (5-37); Bilirubin Total 0.7 mg/dL (0.0-1.0); Blood Urea Nitrogen 12 mg/dL (9-16); Calcium 10.4 mg/dL (8.4-10.2); Carbon Dioxide 27 mmol/L (22-29); Chloride 102 mmol/L (96-108); Creatinine Clr Calc Pharmacy 97.3; Estimated Glomerular Filt Rate > 60; Glucose Random 105 mg/dL (60-115); Potassium 5.1 mmol/L (3.3-5.1); Sodium 142 mmol/L (135-145); Total Protein 7.7 g/dL (6.5-8.0)
[2021-07-03] MEDS: Thiamine HCL 100 MG TABLET PO (14:22)
[2021-07-03] MEDS: Ziprasidone 20 MG CAPSULE PO (14:22)
[2021-07-03] MEDS: Folic Acid 1 MG TABLET PO (14:22)
[2021-07-03 16:49] VITALS: BP 116/72; PULSE 83; RESP 16; TEMP 37.7; O2SAT 98
--- NOTE | 2021-07-03 17:24 | MHC.CARE ---
CARE team support requested by pod nurse for pt who was evaluated by [facility] with disposition for discharge home and to follow up with outpatient providers. Pt is refusing the leave. This feature writer met with pt, who stated firmly I'm not leaving, it's not safe, there's people that are after me and want to kill me. He reported that he has been compliant with his medications as prescribed but doesn't have an identified person managing his medications since he left the sober home. He is currently living in an apartment with a roommate. He was shaking and tearful during this conversation. Spoke with ED physician and MLP Max Gerard and Birgit eWst re: pt's resistance to discharging. Requested that [facility] send a clinician to do a re-eval. Spoke with Precious [facility] quarry supervisor, who reported that they can send a clinician to reassess the pt but there isn't one available until 11pm. Pt will remain in ED awaiting reassessment. ED staff updated re: plan.
[2021-07-03] MEDS: Benztropine Mesylate 0.5 MG TABLET PO (21:01)
[2021-07-03] MEDS: Ziprasidone 40 MG CAPSULE PO (21:01)
--- NOTE | 2021-07-04 05:46 | PC.NURSE ---
Patient slept through the night, no distress observed/reported, asymptomatic of withdrawal, medication compliant, behavior calm, quiet, and non concerning at this time, VSS, appetite good, elimination intact, BHN will reevaluate the patient in the morning, will continue to monitor.
[2021-07-04] MEDS: Thiamine HCL 100 MG TABLET PO (09:22)
[2021-07-04] MEDS: Ziprasidone 20 MG CAPSULE PO (09:22)
[2021-07-04] MEDS: Folic Acid 1 MG TABLET PO (09:22)
[2021-07-04 09:27] VITALS: BP 120/91; PULSE 75; RESP 16; TEMP 37.2; O2SAT 96
[2021-07-04] MEDS: Naltrexone HCl 50 MG TABLET PO (09:44)
--- NOTE | 2021-07-04 13:24 | PC.NURSE ---
ate all of lunch, ambulating to and from bathroom w steady gait. affect flat. appears calm and cooperative.
--- NOTE | 2021-07-04 13:47 | MHC.CARE ---
Pt was assessed by [facility] on 07/03/21 and determined to be cleared for discharged. Pt didnot want to be discharged last evening. Plan for Pt to be discharged home to follow up with community based support. Pt is reporting he likes living in a [place] [facility] [place] setting vs independent living. CARE Team encouraged Pt to talk to [facility] and [facility] about this. CARE Team and Pt discussed respite and other community based supports. Pt aware of crisis information and how to access services.
== END 2021-07-04 13:57 | disposition home or self-care (01) ==
PROVIDERS: Emergency Medicine Emergency Medical Services; Emergency Provider Emergency Medicine
DX: F22 Delusional disorders (principal); F10.10 Alcohol abuse, uncomplicated; Y90.6 Blood alcohol level of 120-199 mg/100 ml; Z20.822 Contact with and (suspected) exposure to COVID-19
CPT/HCPCS: 36415; 80053; 80307; 82077; 85025; 87635; 99284

== ENCOUNTER 2022-05-08 16:09 | Emergency (ER) | payer OTHER, SELFPAY ==
--- NOTE | ~2022-05-08 | XR_ITS ---
EXAMINATION: XR CHEST CLINICAL INFORMATION: Fever COMPARISON: Chest x-ray on 08/24/2019 TECHNIQUE: Frontal view of the chest was obtained. FINDINGS: The cardiomediastinal silhouette is normal. There is bibasilar atelectasis. No additional areas of consolidation. No pleural effusions. XR/XR chest 1V IMPRESSION: Basilar atelectasis.
[2022-05-08 16:18] VITALS: BP 121/82; PULSE 105; PULSE 99; RESP 20; TEMP 38.2; O2SAT 96; O2SAT 98; BMI 25.4
[2022-05-08] MEDS: 0.9 % Sodium Chloride 1,000 ML 999 ML IV (16:27)
[2022-05-08 16:46] LABS: Mean Corpuscular Hemoglobin 28.9 pg (27.0-33.0); PLT CLUMP 1; Red Cell Distribution Width 12.6 % (11.0-16.0)
[2022-05-08 16:48] LABS: Basophils Percent Auto 0.7 % (0-2); Hematocrit 32.3 % (42.0-52.0); Hemoglobin 11.6 g/dl (14.0-18.0); Imm Gran Abs Auto 0.02 X10*3/uL (0.00-0.03); Imm Gran Pct Auto 0.7 % (0.0-0.4); Lymphocytes Absolute Auto 0.3 X10*3/uL (1.2-4.9); Lymphocytes Percent Auto 11.8 % (20-40); MANUAL DIFF FLAG SCAN; Mean Corpuscular HGB Conc 35.9 g/dl (31.0-36.0); Mean Corpuscular Volume 80.3 fL (80.0-98.0); Mean Platelet Volume 11.2 fL (9.4-12.4); Monocytes Absolute Auto 0.6 X10*3/uL (0.1-1.2); Monocytes Percent Auto 20.4 % (2-11); Neutrophils Absolute Auto 1.9 x10*3/uL (2.0-8.3); Neutrophils Percent Auto 66.4 % (45-73); Red Blood Count 4.02 X10*6/uL (4.60-5.80); SCAN SMEAR FLAG 1
[2022-05-08 16:54] LABS: COVID-19 Test Positive (Negative); IDNOW Serial# 16C4AD1C
[2022-05-08 17:01] LABS: Strep A Nucleic Acid Negative (Negative)
--- NOTE | 2022-05-08 17:04 | ED_ITS ---
HPI - General Adult General Chief complaint: General Medical Stated complaint: Fever Time Seen by Provider: 05/08/22 16:24 Source: patient and EMS Mode of arrival: EMS Limitations: no limitations History of Present Illness HPI narrative: 36-year-old male came in for evaluation of fever, headache, generalized body a irena, coughing, sore throat. Patient lives at a sober house 12 other resident but patient not sure if he had exposure to a sick contacts, patient received 2 vaccination for COVID, patient take home test for COVID was negative. Otherwise declined CP, SOB, abdominal pain, nausea, vomiting, and diarrhea. Related Data Home Medications Medication Instructions Recorded Confirmed thiamine mononitrate (vit B1) 100 1 tab PO DAILY 07/01/21 07/03/21 mg tablet Previous Rx's Medication Instructions Recorded benztropine 0.5 mg tablet 0.5 mg PO BEDTIME #30 tabs 03/10/21 folic acid 1 mg tablet 1 mg PO DAILY #30 tabs 03/10/21 naltrexone 50 mg tablet 50 mg PO DAILY #30 tabs 03/10/21 ziprasidone HCl 20 mg capsule 20 mg PO DAILY #30 caps 03/10/21 ziprasidone HCl 40 mg capsule 40 mg PO BEDTIME #30 caps 03/10/21 Allergies Allergy/AdvReac Type Severity Reaction Status Date / Time penicillin G [PENICILLIN G] Allergy Intermediate SWELLING Verified 07/01/21 20:59 [place] And Derivatives Allergy Unknown unk Verified 07/01/21 20:59 [CITRUS AND DERIVATIVES] cranberry [CRANBERRY] Allergy Unknown HIVES Verified 07/01/21 20:59 gabapentin [GABAPENTIN] Allergy Unknown HIVES, Verified 07/01/21 20:59 swelling raspberry [RASPBERRY] Allergy Unknown unk Verified 07/01/21 20:59 Review of Systems Review of Systems: All other systems are reviewed and are negative Constitutional: Reports as per HPI and Reports no additional constitutional complaints Eyes: Reports as per HPI and Reports no additional eye complaints Reports system reviewed and no additional complaints, except as documented Cardiovascular: Reports as per HPI and Reports no additional cardiovascular complaints Respiratory: Reports as per HPI and Reports no additional respiratory complaints Gastrointestinal: Reports as per HPI and Reports no additional gastrointestinal complaints Genitourinary: Reports no additional female genitourinary complaints Musculoskeletal: Reports no additional musculoskeletal complaints Skin/Breast: Reports system reviewed and no additional complaints, except as docu Psychiatric: Reports no additional psychiatric complaints Endocrine: Reports no additional endocrine complaints Hematologic/Lymphatic: Reports no additional hematologic/lymphatic complaints Allergic/Immunologic: Reports no additional allergic/immunologic complaints Reports system reviewed and no additional complaints, except as documented and Reports Abnormal speech present [facility] Past Medical History Medical History Alcohol abuse Bipolar disorder Social History Social History Household Members: Other Housing: Other Housing Other:: jail Do you presently have visiting nurse or other home services: No Patient Tobacco Use Status: Never used Tobacco e-Cigarette/Vaping Use: Never Used Second Hand Smoke Exposure: No Advance Directives: No Advance Directives Information Provided: No service: No Sexual orientation: N/A Physical Exam ED Vital Signs: Vital Signs - 24 hr 05/08/22 16:18 Temperature 100.7 F H Pulse Rate 105 H Respiratory Rate 20 Blood Pressure 121/82 Pulse Oximetry 96 Oxygen Delivery Method Room Air BMI result Body Mass Index 25.4 Vital signs have been reviewed as appeared to be correct. Blood pressure normal. Heart rate normal. Respiration rate normal. Temperature normal. Oxygen saturation normal. Appearance: Alert. Oriented X3. No acute distress. Head: Normal external exam. Normocephalic. Atraumatic. No Alan signs noted. No raccoon eyes noted Eyes: PERRLA. EOMI. Conjunctiva and sclera normal. Eyelids normal. ENT: TM's Normal. Pharynx normal. Uvula midline. Moist mucous membranes. No trismus noted. No drooling noted. No muffled voice noted. Neck: Normal inspection. Neck supple. FROM. No adenopathy. Thyroid Normal. No meningeal signs. No neck mass noted. CVS: Normal heart rate and rhythm. Heart sound normal. No murmurs noted. Pulses normal throughout. Respiratory: No respiratory distress. Painless inspiration. Breath sounds normal. No wheezes/rales/rhonchi noted. Chest nontender. No accessory muscle usage noted or decreased air movement noted. Abdomen: Soft and nontender. Bowel sounds normal in all 4 quadrants. No distention noted. No organomegaly noted. No visible injury noted. Back: No CVA tenderness. Full range of motion noted. Skin: Skin warm and dry. Normal skin color. Normal skin turgor. No rashes/lesions/lacerations noted. Extremities: No lower extremity edema. Extremities exhibit normal range of motion. Extremities nontender. Neuro: Oriented X 3. Cranial nerve exam: II-XII are grossly intact No motor deficit. No sensory deficit. Reflexes normal. Course Course Course Narrative: 36-year-old male came in for evaluation of viral symptoms. Patient found to be positive for COVID, O2 sat is 96% on room air, chest x-ray is unremarkable for superimposing pneumonia. Patient was given instruction on how to deal with COVID home quarantine for the next 5 days, keep social distancing, use face mask at all time, use Tylenol for fever if needed. Medical Decision Making Lab Data Lab results reviewed: Yes I reviewed the patient's lab results. Result diagrams: 05/08/22 16:37 05/08/22 16:37 Labs: Lab Results 05/08/22 05/08/22 05/08/22 Range/Units 16:37 16:37 16:37 WBC 2.9 L (4.8-10.8) X10*3/uL RBC 4.02 L (4.60-5.80) X10*6/uL Hgb 11.6 L (14.0-18.0) g/dl Hct 32.3 L (42.0-52.0) % MCV 80.3 (80.0-98.0) fL MCH 28.9 (27.0-33.0) pg MCHC 35.9 (31.0-36.0) g/dl RDW 12.6 (11.0-16.0) % Plt Count 123 L (160-400) X10*3/uL MPV 11.2 (9.4-12.4) fL Immature Gran % (Auto) 0.7 H (0.0-0.4) % Neut % (Auto) 66.4 (45-73) % Lymph % (Auto) 11.8 L (20-40) % [place] % (Auto) 20.4 H (2-11) % Eos % (Auto) 0.0 (0-4) % Baso % (Auto) 0.7 (0-2) % Lymph # (Auto) 0.3 L (1.2-4.9) X10*3/uL [place] # (Auto) 0.6 (0.1-1.2) X10*3/uL Eos # (Auto) 0.0 (0.0-0.4) X10*3/uL Baso # (Auto) 0.0 (0.0-0.2) X10*3/uL Abs Immat Gran (auto) 0.02 (0.00-0.03) X10*3/uL Absolute Neuts (auto) 1.9 L (2.0-8.3) x10*3/uL Absolute Nucleated RBC 0.000 (0.0-0.012) X10*3/uL Nucleated RBC % (auto) 0.0 (0.0-0.2) /100WBC Smear Tech's Comments VERIFIED Lactic Acid 0.6 (0.5-2.0) mmol/L Troponin I High Sens < 3.5 (<3.5-35.0) ng/L COVID-19 (MELVA) (Negative) COVID-19 Clin Com S. pyogenes GrpA JUNIOR (Negative) 05/08/22 05/08/22 Range/Units 16:37 16:37 WBC (4.8-10.8) X10*3/uL RBC (4.60-5.80) X10*6/uL Hgb (14.0-18.0) g/dl Hct (42.0-52.0) % MCV (80.0-98.0) fL MCH (27.0-33.0) pg MCHC (31.0-36.0) g/dl RDW (11.0-16.0) % Plt Count (160-400) X10*3/uL MPV (9.4-12.4) fL Immature Gran % (Auto) (0.0-0.4) % Neut % (Auto) (45-73) % Lymph % (Auto) (20-40) % [place] % (Auto) (2-11) % Eos % (Auto) (0-4) % Baso % (Auto) (0-2) % Lymph # (Auto) (1.2-4.9) X10*3/uL [place] # (Auto) (0.1-1.2) X10*3/uL Eos # (Auto) (0.0-0.4) X10*3/uL Baso # (Auto) (0.0-0.2) X10*3/uL Abs Immat Gran (auto) (0.00-0.03) X10*3/uL Absolute Neuts (auto) (2.0-8.3) x10*3/uL Absolute Nucleated RBC (0.0-0.012) X10*3/uL Nucleated RBC % (auto) (0.0-0.2) /100WBC Smear Tech's Comments Lactic Acid (0.5-2.0) mmol/L Troponin I High Sens (<3.5-35.0) ng/L COVID-19 (MELVA) Positive A (Negative) COVID-19 Clin Com See Note S. pyogenes GrpA JUNIOR Negative (Negative) Imaging Data Chest x-ray: Attestation: I personally reviewed and interpreted this imaging study as follows: Radiologist's impression: Basilar atelectasis. Discharge Plan Discharge Clinical Impression: COVID-19 virus infection Patient Disposition: Home, Self-Care Instructions: Covid-19 Viral Syndrome and Novel Coronavirus (ED) Hey/Ath Additional Instructions: Use face mask at all times, frequent hand washing, keep social distancing, self- quarantine for 5 days. Prescriptions: No Action benztropine 0.5 mg Tablet 0.5 mg PO BEDTIME Qty: 30 0RF naltrexone 50 mg Tablet 50 mg PO DAILY Qty: 30 0RF ziprasidone HCl 20 mg Capsule 20 mg PO DAILY Qty: 30 0RF folic acid 1 mg Tablet 1 mg PO DAILY Qty: 30 0RF ziprasidone HCl 40 mg Capsule 40 mg PO BEDTIME Qty: 30 0RF thiamine mononitrate (vit B1) 100 mg tablet 1 tab PO DAILY Referrals: Physician,Unknown J [Primary Care Provider] -
[2022-05-08 17:05] LABS: Lactic Acid 0.6 mmol/L (0.5-2.0)
[2022-05-08 17:11] LABS: Troponin-I High Sensitivity < 3.5 ng/L (<3.5-35.0)
[2022-05-08 17:25] LABS: Platelet Count 123 X10*3/uL (160-400); White Blood Count 2.9 X10*3/uL (4.8-10.8)
[2022-05-08 17:26] LABS: SLIDE REVIEW VERIFIED
[2022-05-08] MEDS: Acetaminophen 325 MG TABLET 650 MG PO (17:57)
[2022-05-08 18:15] VITALS: PULSE 99; RESP 22; TEMP 37.8; O2SAT 95
== END 2022-05-08 18:22 | disposition home or self-care (01) ==
PROVIDERS: Emergency Provider Emergency Medicine
DX: U07.1 COVID-19 (principal); R50.9 Fever, unspecified
CPT/HCPCS: 71045; 83605; 84484; 85025; 87635; 87651; 96360; 99284

== ENCOUNTER 2023-01-17 18:16 | Emergency (ER) | payer OTHER, SELFPAY ==
[2023-01-17 18:23] VITALS: BP 105/70; O2SAT 95
[2023-01-17 18:24] VITALS: BP 115/73; PULSE 98; RESP 16; TEMP 36.9; O2SAT 94; BMI 25.8
--- NOTE | 2023-01-17 18:50 | ED.GENADULT ---
HPI - General Adult General Chief complaint: ETOH/Substance Use Stated complaint: ETOH Time Seen by Provider: 01/17/23 18:28 Source: patient, family and EMS Mode of arrival: EMS Limitations: other (Acute alcohol intoxication) History of Present Illness HPI narrative: 37-year-old male presents for evaluation of ?I was drinking alcohol. ? Patient reports that he lives at a sober house. He was caught drinking alcohol he was not supposed to be He reports that he vomited once but has no complaints and is not currently nauseous He states ?I do not even know why I am here. ? The patient admits to drinking ?a half a bottle of Mr. Juan David ramirez. ? Denies any abdominal pain Related Data Home Medications Medication Instructions Recorded Confirmed thiamine mononitrate (vit B1) 100 1 tab PO DAILY 07/01/21 07/03/21 mg tablet Previous Rx's Medication Instructions Recorded benztropine 0.5 mg tablet 0.5 mg PO BEDTIME #30 tabs 03/10/21 folic acid 1 mg tablet 1 mg PO DAILY #30 tabs 03/10/21 naltrexone 50 mg tablet 50 mg PO DAILY #30 tabs 03/10/21 ziprasidone HCl 20 mg capsule 20 mg PO DAILY #30 caps 03/10/21 ziprasidone HCl 40 mg capsule 40 mg PO BEDTIME #30 caps 03/10/21 Allergies Allergy/AdvReac Type Severity Reaction Status Date / Time penicillin G [PENICILLIN G] Allergy Intermediate SWELLING Verified 07/01/21 20:59 [place] And Derivatives Allergy Unknown unk Verified 07/01/21 20:59 [CITRUS AND DERIVATIVES] cranberry [CRANBERRY] Allergy Unknown HIVES Verified 07/01/21 20:59 gabapentin [GABAPENTIN] Allergy Unknown HIVES, Verified 07/01/21 20:59 swelling raspberry [RASPBERRY] Allergy Unknown unk Verified 07/01/21 20:59 Review of Systems Constitutional: Constitutional: Reports as per HPI, Denies chills, Denies fatigue, Denies fever(s) and Denies headache(s) ENT: Denies headache(s) Cardiovascular: Cardiovascular: Denies chest pain and Denies dyspnea Respiratory: Respiratory: Denies cough and Denies dyspnea Gastrointestinal: Gastrointestinal: Denies abdominal pain, Denies constipation and Reports vomiting Genitourinary: Genitourinary: Denies difficulty urinating and Denies dysuria Neurologic: Denies headache(s) and Denies focal weakness Endocrine: Endocrine: Denies fatigue PMFSH Past Medical History Medical History Alcohol abuse Bipolar disorder Social History Social History Household Members: Other Housing: Other Housing Other:: longterm Do you presently have visiting nurse or other home services: No Patient Tobacco Use Status: Never used Tobacco e-Cigarette/Vaping Use: Never Used Second Hand Smoke Exposure: No service: No Sexual orientation: N/A Physical Exam ED Vital Signs: Vital Signs - 24 hr 01/17/23 18:24 Temperature 98.4 F Pulse Rate 98 Respiratory Rate 16 Blood Pressure 115/73 Pulse Oximetry 94 Oxygen Delivery Method Room Air BMI result Body Mass Index 25.8 Const General: healthy appearing, comfortable, no acute distress, alert and awake Nutritional Appearance: well nourished Orientation/consciousness: patient oriented x3 HENMT Head: Yes normocephalic and Yes atraumatic Throat: Yes posterior oropharynx normal Eyes Eyelids: Yes eyelids normal Conjunctivae: conjunctivae normal Sclerae: sclerae normal Corneas: corneas normal Pupils: Equal, round and reactive pupils present EOM: EOMs intact bilaterally Neck Neck: Yes full ROM Resp Effort & Inspection: normal respiratory effort, able to speak in complete sentences, no audible wheezes and not labored Auscultation: clear to auscultation bilaterally Cardio Rate: regular rate Rhythm: regular rhythm GI Inspection: No distended Palpation (GI): Soft to palpation, not firm, nontender, no guarding and not rigid Auscultation: normoactive bowel sounds Skin General skin exam: no rashes or lesions noted and elasticity normal Neuro General: patient oriented x3 Cranial nerves: Yes CN's II-XII intact bilaterally, Yes Equal, round and reactive pupils present and Yes Bilaterally intact EOM present Cognition (Neuro): normal cognition Extrem Other: Moving all extremities well without any obvious deformities Medical Decision Making Medical Decision Making MDM Narrative: [age] year male presents for evaluation of alcohol abuse. He reports that his sober home called the ambulance on him because he was drinking it is not supposed to be. He did vomit prior to arrival but currently has no complaints. Will p.o. challenge the patient. Differential Diagnosis Acute alcohol intoxication Alcohol abuse Substance abuse Abdominal pain Polysubstance abuse Discharge Plan Discharge Clinical Impression: Acute alcohol abuse Patient Disposition: Home, Self-Care Instructions: Abuse of Alcohol (ED) Additional Instructions: Avoid excessive consumption of alcohol Follow-up with your primary doctor Prescriptions: No Action benztropine 0.5 mg Tablet 0.5 mg PO BEDTIME Qty: 30 0RF naltrexone 50 mg Tablet 50 mg PO DAILY Qty: 30 0RF ziprasidone HCl 20 mg Capsule 20 mg PO DAILY Qty: 30 0RF folic acid 1 mg Tablet 1 mg PO DAILY Qty: 30 0RF ziprasidone HCl 40 mg Capsule 40 mg PO BEDTIME Qty: 30 0RF thiamine mononitrate (vit B1) 100 mg tablet 1 tab PO DAILY
--- NOTE | 2023-01-17 19:03 | PC.NURSE ---
assumed care of patient at 1900 - patient says he ate a sandwich and crackers and was able to keep the food down without vomiting.
== END 2023-01-17 19:47 | disposition home or self-care (01) ==
PROVIDERS: Emergency Provider Emergency Medicine Emergency Medical Services
DX: F10.129 Alcohol abuse with intoxication, unspecified (principal); Y90.9 Presence of alcohol in blood, level not specified; Z79.899 Other long term (current) drug therapy
CPT/HCPCS: 99283

== ENCOUNTER 2023-02-19 13:51 | Emergency (ER) | payer OTHER, SELFPAY ==
[2023-02-19 13:55] VITALS: BP 134/92; PULSE 88; O2SAT 98
[2023-02-19 13:57] VITALS: BP 135/90; PULSE 99; RESP 18; TEMP 35.9; O2SAT 95; BMI 25.1
--- NOTE | 2023-02-19 14:13 | ED_ITS ---
HPI - Alcohol General Chief Complaint: ETOH/Substance Use Stated Complaint: medical clearance Time Seen by Provider: 02/19/23 14:07 Source: patient Mode of arrival: EMS Limitations: no limitations History of Present Illness HPI narrative: Patient comes to the emergency room requesting medical clearance to return to detox. Patient states that he drank alcohol 9 hours ago. Patient is required to present labs before being admitted for detox. Patient states that he has no complaints. Related Data Home Medications Medication Instructions Recorded Confirmed thiamine mononitrate (vit B1) 100 1 tab PO DAILY 07/01/21 07/03/21 mg tablet Previous Rx's Medication Instructions Recorded benztropine 0.5 mg tablet 0.5 mg PO BEDTIME #30 tabs 03/10/21 folic acid 1 mg tablet 1 mg PO DAILY #30 tabs 03/10/21 naltrexone 50 mg tablet 50 mg PO DAILY #30 tabs 03/10/21 ziprasidone HCl 20 mg capsule 20 mg PO DAILY #30 caps 03/10/21 ziprasidone HCl 40 mg capsule 40 mg PO BEDTIME #30 caps 03/10/21 Allergies Allergy/AdvReac Type Severity Reaction Status Date / Time penicillin G [PENICILLIN G] Allergy Intermediate SWELLING Verified 07/01/21 20:59 [place] And Derivatives Allergy Unknown unk Verified 07/01/21 20:59 [CITRUS AND DERIVATIVES] cranberry [CRANBERRY] Allergy Unknown HIVES Verified 07/01/21 20:59 gabapentin [GABAPENTIN] Allergy Unknown HIVES, Verified 07/01/21 20:59 swelling raspberry [RASPBERRY] Allergy Unknown unk Verified 07/01/21 20:59 Review of Systems Review of Systems: Constitutional : No Weight loss, No Fever, No Chills, No Night Sweats, No Fati joshua, No Malaise ENT/Mouth : No Hearing loss, No Ear Pain, No Nasal Congestion, No Sinus Pain, No Hoarseness, No sore throat, No Rhinorrhea, No Swallowing Difficulty Eyes: No Eye Pain, No Swelling, No Redness, No Foreign Body, No Discharge, No Vision Changes Cardiovascular : No Chest Pain, No SOB, No Dyspnea on Exertion, No Orthopnea, No Edema, No Palpitations Respiratory : No Cough, No Sputum, No Wheezing, No Smoke Exposure, No Dyspnea Gastrointestinal : No Nausea, No Vomiting, No Diarrhea, No Constipation, No abdominal Pain, No Hematochezia, No Melena Genitourinary : no irregular bleeding, No Dysuria, No Urinary Frequency, No Hematuria, No Urinary Incontinence, No Urgency, No Flank Pain, No Urinary Flow Changes, No Hesitancy Musculoskeletal : No joint pain, No Myalgias, No Joint Swelling Skin : No Skin Lesions, No rash Neuro : No Weakness, No Numbness, No Paresthesias, No Loss of Consciousness, No Dizziness, No Headache Psych : No Anxiety/Panic, No Depression, No SI/HI/AH/VH, admits to alcohol abuse Heme/Lymph: No Bruising, No Bleeding,No Lymphadenopathy Endocrine : No Polyuria, No Polydipsia, No Temperature Intolerance [facility] [place] Past Medical History Medical History Alcohol abuse Bipolar disorder Social History Social History Household Members: Other Housing: Other Housing Other:: fpc Do you presently have visiting nurse or other home services: No Patient Tobacco Use Status: Never used Tobacco e-Cigarette/Vaping Use: Never Used Second Hand Smoke Exposure: No Advance Directives: No Advance Directives Information Provided: Yes service: No Sexual orientation: N/A Physical Exam ED Vital Signs: Vital Signs - 24 hr 02/19/23 13:57 Temperature 96.6 F L Pulse Rate 99 Respiratory Rate 18 Blood Pressure 135/90 H Pulse Oximetry 95 Oxygen Delivery Method Room Air BMI result Body Mass Index 25.1 Const Other: Appearance: Alert. Oriented X3. No acute distress. Eyes: Pupils equal, round and reactive to light. ENT: Pharynx normal. Neck: Normal inspection. Neck supple. No lymph nodes noted. No crepitus CVS: Normal heart rate and rhythm. Pulses normal. Normal S1 and S2 Respiratory: No respiratory distress. Breath sounds normal. No Wheezing. No rales Abdomen: Soft and nontender. No rigidity. No distention. Skin: Skin warm and dry. Normal skin color. Normal skin turgor. Extremities: No lower extremity edema. No Lacerations. No Rash Neuro: Oriented X 3. No motor deficit. No sensory deficit. Moving all extremities. No slurred speech. CN 2 through 12 grossly intact Psych: calm, cooperative, normal affect, coherent Course Course Course Narrative: Patient's labs pending Medical Decision Making Medical Decision Making MDM Narrative: -patient's ethanol level 265 -patient is clinically sober, no signs of withdrawal -patient was provided with a copy of his results. Patient being discharged and patient to report to detox Lab Data 02/19/23 15:52 02/19/23 15:52 Labs: Lab Results 02/19/23 02/19/23 02/19/23 Range/Units 14:35 15:52 15:52 WBC 7.9 (4.8-10.8) X10*3/uL RBC 4.99 D (4.60-5.80) X10*6/uL Hgb 14.3 D (14.0-18.0) g/dl Hct 41.3 L D (42.0-52.0) % MCV 82.8 (80.0-98.0) fL MCH 28.7 (27.0-33.0) pg MCHC 34.6 (31.0-36.0) g/dl RDW 13.2 (11.0-16.0) % Plt Count 251 D (160-400) X10*3/uL MPV 11.3 (9.4-12.4) fL Immature Gran % (Auto) 0.5 H (0.0-0.4) % Neut % (Auto) 66.3 (45-73) % Lymph % (Auto) 26.6 (20-40) % [place] % (Auto) 5.6 (2-11) % Eos % (Auto) 0.6 (0-4) % Baso % (Auto) 0.4 (0-2) % Lymph # (Auto) 2.1 (1.2-4.9) X10*3/uL [place] # (Auto) 0.4 (0.1-1.2) X10*3/uL Eos # (Auto) 0.1 (0.0-0.4) X10*3/uL Baso # (Auto) 0.0 (0.0-0.2) X10*3/uL Abs Immat Gran (auto) 0.04 H (0.00-0.03) X10*3/uL Absolute Neuts (auto) 5.2 (2.0-8.3) x10*3/uL Absolute Nucleated RBC 0.000 (0.0-0.012) X10*3/uL Nucleated RBC % (auto) 0.0 (0.0-0.2) /100WBC Sodium 146 H (135-145) mmol/L Potassium 4.4 (3.3-5.1) mmol/L Chloride 111 H (96-108) mmol/L Carbon Dioxide 21 L (22-29) mmol/L Anion Gap 18 (12-20) BUN 10 (9-16) mg/dL Creatinine 1.04 (0.5-1.4) mg/dL Estim Creat Clear Calc 91.8 Estimated GFR > 60 Random Glucose 166 H (60-115) mg/dL Calcium 9.2 D (8.4-10.2) mg/dL Magnesium 1.7 (1.6-2.6) mg/dL Total Bilirubin 0.2 (0.0-1.0) mg/dL Direct Bilirubin < 0.2 (0.0-0.5) mg/dL AST 41 H (5-37) U/L ALT 39 (0-40) U/L Alkaline Phosphatase 56 (39-117) U/L Total Protein 7.0 (6.5-8.0) g/dL Albumin 4.4 (3.5-5.0) g/dL Ethyl Alcohol 265 mg/dL COVID-19 (MELVA) Negative (Negative) COVID-19 Clin Com See Note Discharge Plan Discharge Clinical Impression: Alcohol abuse Patient Disposition: Home, Self-Care Instructions: Abuse of Alcohol (ED) Additional Instructions: Please follow-up with your primary care physician tomorrow. If you have any worsening or new symptoms, please return to the emergency room or call 911 Prescriptions: No Action benztropine 0.5 mg Tablet 0.5 mg PO BEDTIME Qty: 30 0RF naltrexone 50 mg Tablet 50 mg PO DAILY Qty: 30 0RF ziprasidone HCl 20 mg Capsule 20 mg PO DAILY Qty: 30 0RF folic acid 1 mg Tablet 1 mg PO DAILY Qty: 30 0RF ziprasidone HCl 40 mg Capsule 40 mg PO BEDTIME Qty: 30 0RF thiamine mononitrate (vit B1) 100 mg tablet 1 tab PO DAILY
[2023-02-19 15:11] LABS: COVID-19 Test Negative (Negative); IDNOW Serial# 08D9AD1C
[2023-02-19 16:11] LABS: Basophils Percent Auto 0.4 % (0-2); Eosinophils Absolute Auto 0.1 X10*3/uL (0.0-0.4); Eosinophils Percent Auto 0.6 % (0-4); Hematocrit 41.3 % (42.0-52.0); Hemoglobin 14.3 g/dl (14.0-18.0); Imm Gran Abs Auto 0.04 X10*3/uL (0.00-0.03); Imm Gran Pct Auto 0.5 % (0.0-0.4); Lymphocytes Absolute Auto 2.1 X10*3/uL (1.2-4.9); Lymphocytes Percent Auto 26.6 % (20-40); Mean Corpuscular HGB Conc 34.6 g/dl (31.0-36.0); Mean Corpuscular Hemoglobin 28.7 pg (27.0-33.0); Mean Corpuscular Volume 82.8 fL (80.0-98.0); Mean Platelet Volume 11.3 fL (9.4-12.4); Monocytes Absolute Auto 0.4 X10*3/uL (0.1-1.2); Monocytes Percent Auto 5.6 % (2-11); Neutrophils Absolute Auto 5.2 x10*3/uL (2.0-8.3); Neutrophils Percent Auto 66.3 % (45-73); Platelet Count 251 X10*3/uL (160-400); Red Blood Count 4.99 X10*6/uL (4.60-5.80); Red Cell Distribution Width 13.2 % (11.0-16.0); White Blood Count 7.9 X10*3/uL (4.8-10.8)
[2023-02-19 16:25] LABS: Alanine Aminotransferase 39 U/L (0-40); Albumin Level 4.4 g/dL (3.5-5.0); Alkaline Phosphatase 56 U/L (39-117); Anion Gap 18 (12-20); Aspartate Amino Transferase 41 U/L (5-37); Bilirubin Direct < 0.2 mg/dL (0.0-0.5); Bilirubin Total 0.2 mg/dL (0.0-1.0); Blood Urea Nitrogen 10 mg/dL (9-16); Calcium 9.2 mg/dL (8.4-10.2); Carbon Dioxide 21 mmol/L (22-29); Chloride 111 mmol/L (96-108); Creatinine Clr Calc Pharmacy 91.8; Estimated Glomerular Filt Rate > 60; Ethanol 265 mg/dL; Glucose Random 166 mg/dL (60-115); Magnesium 1.7 mg/dL (1.6-2.6); Potassium 4.4 mmol/L (3.3-5.1); Sodium 146 mmol/L (135-145)
== END 2023-02-19 18:24 | disposition home or self-care (01) ==
PROVIDERS: Emergency Provider Emergency Medicine
DX: F10.10 Alcohol abuse, uncomplicated (principal); Y90.8 Blood alcohol level of 240 mg/100 ml or more; Z20.822 Contact with and (suspected) exposure to COVID-19; Z20.828 Contact with and (suspected) exposure to other viral communicable diseases; Z79.899 Other long term (current) drug therapy
CPT/HCPCS: 80048; 80076; 80307; 83735; 85025; 87635; 99282; 99283

== ENCOUNTER 2023-03-02 20:36 | Emergency (ER) | payer OTHER, SELFPAY ==
[2023-03-02 20:39] VITALS: BP 122/67; PULSE 88; O2SAT 95
[2023-03-02 20:52] VITALS: BP 119/75; PULSE 85; RESP 16; TEMP 36.7; O2SAT 96
[2023-03-02 21:12] VITALS: BMI 25.1
--- NOTE | 2023-03-02 21:36 | ED_ITS ---
HPI - Medical Clearance General Chief complaint: Medical Clearance Stated complaint: ETOH Time Seen by Provider: 03/02/23 21:23 Source: patient Mode of arrival: ambulatory Limitations: no limitations History of Present Illness HPI Narrative: Patient comes to the emergency room requesting medical clearance. Patient arrived from facility for alcohol dependence treatment. Patient has been drinking alcohol, they requested labs to have him admitted. Patient has no complaints. Related Information Home Medications Medication Instructions Recorded Confirmed thiamine mononitrate (vit B1) 100 1 tab PO DAILY 07/01/21 07/03/21 mg tablet Previous Rx's Medication Instructions Recorded benztropine 0.5 mg tablet 0.5 mg PO BEDTIME #30 tabs 03/10/21 folic acid 1 mg tablet 1 mg PO DAILY #30 tabs 03/10/21 naltrexone 50 mg tablet 50 mg PO DAILY #30 tabs 03/10/21 ziprasidone HCl 20 mg capsule 20 mg PO DAILY #30 caps 03/10/21 ziprasidone HCl 40 mg capsule 40 mg PO BEDTIME #30 caps 03/10/21 Allergies Allergy/AdvReac Type Severity Reaction Status Date / Time penicillin G [PENICILLIN G] Allergy Intermediate SWELLING Verified 07/01/21 20:59 [place] And Derivatives Allergy Unknown unk Verified 07/01/21 20:59 [CITRUS AND DERIVATIVES] cranberry [CRANBERRY] Allergy Unknown HIVES Verified 07/01/21 20:59 gabapentin [GABAPENTIN] Allergy Unknown HIVES, Verified 07/01/21 20:59 swelling raspberry [RASPBERRY] Allergy Unknown unk Verified 07/01/21 20:59 Review of Systems Review of Systems: Constitutional : No Weight loss, No Fever, No Chills, No Night Sweats, No Fatigu e, No Malaise ENT/Mouth : No Hearing loss, No Ear Pain, No Nasal Congestion, No Sinus Pain, No Hoarseness, No sore throat, No Rhinorrhea, No Swallowing Difficulty Eyes: No Eye Pain, No Swelling, No Redness, No Foreign Body, No Discharge, No Vision Changes Cardiovascular : No Chest Pain, No SOB, No Dyspnea on Exertion, No Orthopnea, No Edema, No Palpitations Respiratory : No Cough, No Sputum, No Wheezing, No Smoke Exposure, No Dyspnea Gastrointestinal : No Nausea, No Vomiting, No Diarrhea, No Constipation, No abdominal Pain, No Hematochezia, No Melena Genitourinary : no irregular bleeding, No Dysuria, No Urinary Frequency, No Hematuria, No Urinary Incontinence, No Urgency, No Flank Pain, No Urinary Flow Changes, No Hesitancy Musculoskeletal : No joint pain, No Myalgias, No Joint Swelling Skin : No Skin Lesions, No rash Neuro : No Weakness, No Numbness, No Paresthesias, No Loss of Consciousness, No Dizziness, No Headache Psych : No Anxiety/Panic, No Depression, No SI/HI/AH/VH, No Social Issues, Heme/Lymph: No Bruising, No Bleeding,No Lymphadenopathy Endocrine : No Polyuria, No Polydipsia, No Temperature Intolerance [facility] Past Medical History Medical History Alcohol abuse Bipolar disorder Social History Social History Household Members: Other Housing: Other Housing Other:: retirement Do you presently have visiting nurse or other home services: No Alcohol intake: current Alcohol intake frequency: former alcohol drinker Alcohol type: hard liquor Patient Tobacco Use Status: Never used Tobacco Smoked in Last 30 Days: No e-Cigarette/Vaping Use: Never Used Second Hand Smoke Exposure: No Use of substances other than those prescribed or required for medical reasons: No Advance Directives: No Advance Directives Information Provided: Yes service: No Sexual orientation: N/A Physical Exam Vital Signs: Vital Signs: Last Vital Signs Temp 98.0 F 03/02/23 20:52 Pulse 85 03/02/23 20:52 Resp 16 03/02/23 23:13 BP 119/75 03/02/23 20:52 Pulse Ox 96 03/02/23 20:52 O2 Del Method Room Air 03/02/23 20:52 BMI result Body Mass Index 25.1 Const: Other: Appearance: Alert. Oriented X3. No acute distress. Eyes: Pupils equal, round and reactive to light. ENT: Pharynx normal. Neck: Normal inspection. Neck supple. No lymph nodes noted. No crepitus CVS: Normal heart rate and rhythm. Pulses normal. Normal S1 and S2 Respiratory: No respiratory distress. Breath sounds normal. No Wheezing. No rales Abdomen: Soft and nontender. No rigidity. No distention. Skin: Skin warm and dry. Normal skin color. Normal skin turgor. Extremities: No lower extremity edema. No Lacerations. No Rash Neuro: Oriented X 3. No motor deficit. No sensory deficit. Moving all extremities. No slurred speech. CN 2 through 12 grossly intact Psych: calm, cooperative, normal affect Course Course Course Narrative: -patient's labs pending for medical clearance to return to his program Medical Decision Making Medical Decision Making MDM Narrative: -the patient's program called, they will accept the patient once he gets up psych/care team eval. -care team consult pending -physician observation started at 22:50 00:50: Patient's from called, they no longer require for the patient to be seen by [facility], they will take him. -patient ready for discharge Lab Data 03/02/23 21:50 03/02/23 21:50 Labs: Lab Results 03/02/23 03/02/23 03/02/23 Range/Units 21:50 21:50 21:50 WBC 5.7 (4.8-10.8) X10*3/uL RBC 4.66 (4.60-5.80) X10*6/uL Hgb 13.1 L (14.0-18.0) g/dl Hct 37.8 L (42.0-52.0) % MCV 81.1 (80.0-98.0) fL MCH 28.1 (27.0-33.0) pg MCHC 34.7 (31.0-36.0) g/dl RDW 12.9 (11.0-16.0) % Plt Count 167 D (160-400) X10*3/uL MPV 11.4 (9.4-12.4) fL Immature Gran % (Auto) 0.4 (0.0-0.4) % Neut % (Auto) 57.8 (45-73) % Lymph % (Auto) 34.4 (20-40) % [place] % (Auto) 6.0 (2-11) % Eos % (Auto) 0.9 (0-4) % Baso % (Auto) 0.5 (0-2) % Lymph # (Auto) 2.0 (1.2-4.9) X10*3/uL [place] # (Auto) 0.3 (0.1-1.2) X10*3/uL Eos # (Auto) 0.1 (0.0-0.4) X10*3/uL Baso # (Auto) 0.0 (0.0-0.2) X10*3/uL Abs Immat Gran (auto) 0.02 (0.00-0.03) X10*3/uL Absolute Neuts (auto) 3.3 (2.0-8.3) x10*3/uL Absolute Nucleated RBC 0.000 (0.0-0.012) X10*3/uL Nucleated RBC % (auto) 0.0 (0.0-0.2) /100WBC Sodium 143 (135-145) mmol/L Potassium 3.7 (3.3-5.1) mmol/L Chloride 107 (96-108) mmol/L Carbon Dioxide 23 (22-29) mmol/L Anion Gap 17 (12-20) BUN 12 (9-16) mg/dL Creatinine 1.14 (0.5-1.4) mg/dL Estim Creat Clear Calc 83.7 Estimated GFR > 60 Random Glucose 145 H (60-115) mg/dL Calcium 9.5 (8.4-10.2) mg/dL Magnesium 1.9 (1.6-2.6) mg/dL Ethyl Alcohol 266 mg/dL Discharge Plan Discharge Clinical Impression: Alcohol abuse Patient Disposition: Xfer to Respite Facility Instructions: Abuse of Alcohol (ED) Prescriptions: No Action benztropine 0.5 mg Tablet 0.5 mg PO BEDTIME Qty: 30 0RF naltrexone 50 mg Tablet 50 mg PO DAILY Qty: 30 0RF ziprasidone HCl 20 mg Capsule 20 mg PO DAILY Qty: 30 0RF folic acid 1 mg Tablet 1 mg PO DAILY Qty: 30 0RF ziprasidone HCl 40 mg Capsule 40 mg PO BEDTIME Qty: 30 0RF thiamine mononitrate (vit B1) 100 mg tablet 1 tab PO DAILY Discharge Date/Time: 03/03/23 00:52
--- NOTE | 2023-03-02 21:50 | PC.NURSE ---
pt assessed calm and cooperative, lab draw in progress
[2023-03-02 21:57] LABS: MANUAL DIFF FLAG NO
[2023-03-02 21:59] LABS: Basophils Percent Auto 0.5 % (0-2); Eosinophils Absolute Auto 0.1 X10*3/uL (0.0-0.4); Eosinophils Percent Auto 0.9 % (0-4); Hematocrit 37.8 % (42.0-52.0); Hemoglobin 13.1 g/dl (14.0-18.0); Imm Gran Abs Auto 0.02 X10*3/uL (0.00-0.03); Imm Gran Pct Auto 0.4 % (0.0-0.4); Lymphocytes Percent Auto 34.4 % (20-40); Mean Corpuscular HGB Conc 34.7 g/dl (31.0-36.0); Mean Corpuscular Hemoglobin 28.1 pg (27.0-33.0); Mean Corpuscular Volume 81.1 fL (80.0-98.0); Mean Platelet Volume 11.4 fL (9.4-12.4); Monocytes Absolute Auto 0.3 X10*3/uL (0.1-1.2); Neutrophils Absolute Auto 3.3 x10*3/uL (2.0-8.3); Neutrophils Percent Auto 57.8 % (45-73); Platelet Count 167 X10*3/uL (160-400); Red Blood Count 4.66 X10*6/uL (4.60-5.80); Red Cell Distribution Width 12.9 % (11.0-16.0); White Blood Count 5.7 X10*3/uL (4.8-10.8)
[2023-03-02 22:12] LABS: Ethanol 266 mg/dL
[2023-03-02 22:14] LABS: Anion Gap 17 (12-20); Blood Urea Nitrogen 12 mg/dL (9-16); Calcium 9.5 mg/dL (8.4-10.2); Carbon Dioxide 23 mmol/L (22-29); Chloride 107 mmol/L (96-108); Creatinine Clr Calc Pharmacy 83.7; Estimated Glomerular Filt Rate > 60; Glucose Random 145 mg/dL (60-115); Magnesium 1.9 mg/dL (1.6-2.6); Potassium 3.7 mmol/L (3.3-5.1); Sodium 143 mmol/L (135-145)
--- NOTE | 2023-03-02 22:16 | PC.NURSE ---
spoke with pt programmer analyst and they also want a psych eval for the pt. Dr. Aly aware
[2023-03-02 23:13] VITALS: RESP 16
--- NOTE | 2023-03-03 00:29 | PC.NURSE ---
spoke to Anurag Jenkins java programmer analyst that pt is coming back to the facility. They are sending a staff member to pick him up
== END 2023-03-03 00:52 ==
PROVIDERS: Emergency Provider Emergency Medicine
DX: F10.129 Alcohol abuse with intoxication, unspecified (principal); Y90.8 Blood alcohol level of 240 mg/100 ml or more; Z79.899 Other long term (current) drug therapy
CPT/HCPCS: 36415; 80048; 80307; 83735; 85025; 99284

== ENCOUNTER 2024-07-09 16:59 | Emergency (ER) | payer OTHER, SELFPAY ==
[2024-07-09] VITALS (10 sets, daily range): BP systolic 98–150; BP diastolic 56–116; PULSE 75–140; RESP 15–29; TEMP 36.6–36.9; O2SAT 95–100; BMI 27.4
--- NOTE | ~2024-07-09 | XR_ITS ---
EXAMINATION: BILATERAL HANDS CLINICAL INFORMATION: Status post fall COMPARISON: Right hand and wrist 03/02/2017 TECHNIQUE: 3 views of each hand and wrist. FINDINGS: Right: There is a small osseous densities seen in the web space between the proximal phalanges of the third and fourth digit that may represent a foreign body. This has a peculiar appearance like a piece of cortical bone. This was present in 2017 and is unchanged No other abnormalities are seen. Left: No significant bone, joint or soft tissue abnormality seen. XR/XR hand LT min 3V IMPRESSION: 1. No evidence of an acute osseous injury. 2. Small density in the web space between the proximal phalanges of the third and fourth digit on the right unchanged since 2017 consistent with a foreign body. Electronically signed by: Jayant Knapp MD 07/09/2024 11:12 PM EDT
--- NOTE | ~2024-07-09 | CT_ITS ---
EXAMINATION: CT HEAD WITHOUT CONTRAST CT CERVICAL SPINE WITHOUT CONTRAST CLINICAL INFORMATION: Fall. COMPARISON: CT cervical spine from 03/02/2017. TECHNIQUE: Contiguous axial imaging was performed from the skull base to vertex without intravenous administration of contrast. Contiguous axial imaging was performed from the upper chest through the skull base without intravenous administration of contrast. Coronal and sagittal reformats were obtained at the acquisition workstation. This CT examination was performed using dose optimization techniques as appropriate, variously including the following: *Automated exposure control. *Adjustment of mA and/or kV according to patient size (this includes techniques or standardized protocols for targeted exams where dose is matched to indication/reason for exam; i.e. extremities or head). *Use of iterative reconstruction technique. DLP: 1867 mGy-cm FINDINGS: Head: Moderately motion degraded exam. There is no evidence of acute intracranial hemorrhage or edematous territorial infarction. Malik-white matter differentiation is preserved. There is no abnormal attenuation within the brain parenchyma. The ventricles are normal in morphology and size. No evidence for obstructive hydrocephalus. No abnormal mass effect or midline shift. No extra-axial fluid collections. Small subgaleal hematoma along the frontal bone, measuring up to 0.2 cm in depth. No associated acute osseous abnormalities. Mild mucosal thickening of the paranasal sinuses. Small volume right-sided mastoid effusion. The left-sided mastoid air cells and middle ear cavity are clear. Cervical Spine: The atlantooccipital and atlantoaxial articulations remain well aligned. Reversal the normal cervical lordosis centered on C6. Otherwise, there is anatomic alignment of the vertebral bodies and posterior elements. No evidence of acute fracture or subluxation. Degenerative loss of C6 vertebral body height. The remaining vertebral body heights are maintained. Moderate degenerative disc disease from C5-C7. Facet and uncovertebral joint arthropathy leads to osseous encroachment on the neural foramina at C6-C7. There is no prevertebral soft tissue swelling. The thyroid gland and remaining cervical soft tissues are within normal limits. The lung apices demonstrate no abnormalities. CT/CT cervical spine wo IV con IMPRESSION: 1. No evidence of acute intracranial hemorrhage or edematous territorial infarction. 2. No evidence of acute fracture or traumatic subluxation of the cervical spine. 3. Small frontal scalp hematoma. No associated osseous abnormalities. Electronically signed by: Marquise Ochoa DO 07/09/2024 11:09 PM EDT RP
--- NOTE | ~2024-07-09 | XR_ITS ---
EXAMINATION: BILATERAL HANDS CLINICAL INFORMATION: Status post fall COMPARISON: Right hand and wrist 03/02/2017 TECHNIQUE: 3 views of each hand and wrist. FINDINGS: Right: There is a small osseous densities seen in the web space between the proximal phalanges of the third and fourth digit that may represent a foreign body. This has a peculiar appearance like a piece of cortical bone. This was present in 2017 and is unchanged No other abnormalities are seen. Left: No significant bone, joint or soft tissue abnormality seen. XR/XR hand RT min 3V IMPRESSION: 1. No evidence of an acute osseous injury. 2. Small density in the web space between the proximal phalanges of the third and fourth digit on the right unchanged since 2017 consistent with a foreign body. Electronically signed by: Jayant Knapp MD 07/09/2024 11:12 PM EDT
--- NOTE | 2024-07-09 17:47 | PC.NURSE ---
Pt presents to ED from EMS, per EMS pt was picked up at a motel, friend called due to witnessing him stumble and fall multiple times. Reports heavy alcohol use, drinks frequently. Per EMS, pt aggressive and violent, EMS gave 200 mg of IM ketamine. Pt is alert but not answering many questions, has periods of somnolence. Breathing even and unlabored, skin noted to have multiple abrasions to forehead and hands bilat. Pt collared here at hospital, changed over by security into safety clothing. Sinus tach on mortgage loan interviewer.
[2024-07-09 17:57] LABS: MANUAL DIFF FLAG NO
[2024-07-09] MEDS: Midazolam HCl/PF 2 MG/2 ML VIAL 4 MG IM (18:00)
[2024-07-09 18:01] LABS: Basophils Absolute Auto 0.1 X10*3/uL (0.0-0.2); Basophils Percent Auto 0.5 % (0-2); Eosinophils Percent Auto 0.1 % (0-4); Hematocrit 41.1 % (42.0-52.0); Hemoglobin 14.5 g/dl (14.0-18.0); Imm Gran Abs Auto 0.05 X10*3/uL (0.00-0.03); Imm Gran Pct Auto 0.5 % (0.0-0.4); Lymphocytes Absolute Auto 1.1 X10*3/uL (1.2-4.9); Lymphocytes Percent Auto 11.2 % (20-40); Mean Corpuscular HGB Conc 35.3 g/dl (31.0-36.0); Mean Corpuscular Hemoglobin 28.5 pg (27.0-33.0); Mean Corpuscular Volume 80.7 fL (80.0-98.0); Mean Platelet Volume 10.3 fL (9.4-12.4); Monocytes Absolute Auto 0.6 X10*3/uL (0.1-1.2); Monocytes Percent Auto 5.9 % (2-11); Neutrophils Absolute Auto 7.8 x10*3/uL (2.0-8.3); Neutrophils Percent Auto 81.8 % (45-73); Platelet Count 320 X10*3/uL (160-400); Red Blood Count 5.09 X10*6/uL (4.60-5.80); Red Cell Distribution Width 13.7 % (11.0-16.0); White Blood Count 9.5 X10*3/uL (4.8-10.8)
--- NOTE | 2024-07-09 18:06 | PC.NURSE ---
Pt becoming combative and agitation, hitting himself and swinging at staff, yelling. Unsuccessful deescalation with multiple attempts. IM sedation meds ordered by MD. Pt expressed both SI and HI to RN, no plan
[2024-07-09 18:15] LABS: Alanine Aminotransferase 138 U/L (0-40); Albumin Level 4.5 g/dL (3.5-5.0); Alkaline Phosphatase 79 U/L (39-117); Anion Gap 28 (12-20); Aspartate Amino Transferase 134 U/L (5-37); Bilirubin Total 0.4 mg/dL (0.0-1.0); Blood Urea Nitrogen 15 mg/dL (9-16); Calcium 9.8 mg/dL (8.4-10.2); Carbon Dioxide 17 mmol/L (22-29); Chloride 98 mmol/L (96-108); Creatinine Clr Calc Pharmacy 79.8; Estimated Glomerular Filt Rate > 60; Ethanol 380 mg/dL; Glucose Random 94 mg/dL (60-115); Sodium 139 mmol/L (135-145); Total Protein 7.6 g/dL (6.5-8.0)
--- NOTE | 2024-07-09 18:18 | ED_ITS ---
HPI - General Adult General Chief complaint: ETOH/Substance Use Stated complaint: etoh,cocaine use Time Seen by Provider: 07/09/24 17:06 History of Present Illness ED Provider: Carol HPI narrative: 38-year-old male with past medical history of alcohol abuse, psychosis presenting for alcohol intoxication. Patient was reportedly found at a motel intoxicated, stumbling around. There was reported fall. When EMS arrived patient was aggressive and was given IM ketamine. Patient is currently altered and not able to provide a history. Related Data Home Medications ?Medication ?Instructions ?Recorded ?Confirmed thiamine mononitrate (vit B1) 100 1 tab PO DAILY 07/01/21 07/03/21 mg tablet Previous Rx's ?Medication ?Instructions ?Recorded benztropine 0.5 mg tablet 0.5 mg PO BEDTIME #30 tabs 03/10/21 folic acid 1 mg tablet 1 mg PO DAILY #30 tabs 03/10/21 naltrexone 50 mg tablet 50 mg PO DAILY #30 tabs 03/10/21 ziprasidone HCl 20 mg capsule 20 mg PO DAILY #30 caps 03/10/21 ziprasidone HCl 40 mg capsule 40 mg PO BEDTIME #30 caps 03/10/21 Allergies Allergy/AdvReac Type Severity Reaction Status Date / Time penicillin G [PENICILLIN G] Allergy Intermediate SWELLING Verified 07/09/24 17:13 [place] And Derivatives Allergy Unknown unk Verified 07/01/21 20:59 [CITRUS AND DERIVATIVES] cranberry [CRANBERRY] Allergy Unknown HIVES Verified 07/01/21 20:59 gabapentin [GABAPENTIN] Allergy Unknown HIVES, Verified 07/01/21 20:59 swelling raspberry [RASPBERRY] Allergy Unknown unk Verified 07/01/21 20:59 Review of Systems 2 Review of Systems: Yes Unobtainable due to mental status [facility] Past Medical History Medical History Alcohol abuse Bipolar disorder Social History Social History Household Members: Other Housing: Other Housing Other:: residential Do you presently have visiting nurse or other home services: No Alcohol intake: current Alcohol intake frequency: former alcohol drinker Alcohol type: hard liquor Patient Tobacco Use Status: Never used Tobacco Smoked in Last 30 Days: Yes e-Cigarette/Vaping Use: Never Used Second Hand Smoke Exposure: No Use of substances other than those prescribed or required for medical reasons: Yes Advance Directives: No Advance Directives Information Provided: No Do you have a plan to hurt others: No Plan service: No Sexual orientation: N/A Physical Exam ED Vital Signs: Vital Signs - 24 hr 07/09/24 17:11 07/09/24 18:10 07/09/24 18:28 Temperature 98.5 F Pulse Rate 132 H 125 H 119 H Respiratory Rate 15 21 H 22 H Blood Pressure 138/89 150/91 H 130/74 Pulse Oximetry 95 100 99 Oxygen Delivery Method Room Air Room Air Room Air 07/09/24 18:47 07/09/24 19:00 07/09/24 19:15 Temperature Pulse Rate 134 H 124 H 106 H Respiratory Rate 24 H 29 H 29 H Blood Pressure 136/116 H 127/77 116/73 Pulse Oximetry 99 98 98 Oxygen Delivery Method Room Air Room Air Room Air 07/09/24 19:30 07/09/24 21:33 07/09/24 23:10 Temperature 97.9 F 98.2 F Pulse Rate 100 75 102 H Respiratory Rate 25 H 19 22 H Blood Pressure 112/71 98/56 L 130/74 Pulse Oximetry 97 97 98 Oxygen Delivery Method Room Air Room Air Room Air BMI result Body Mass Index 27.4 Abrasions to frontal scalp and posterior crown No lutz sign Lungs clear to auscultation bilaterally; normal S1-S2 regular rate and rhythm Abdomen is soft nondistended Moving both upper and lower extremities and withdrawing to pain Medications Administered Discontinued Medications Generic Name Dose Route Start Last Admin Trade Name Freq PRN Reason Stop Dose Admin Droperidol 4 mg 07/09/24 18:40 07/09/24 18:44 Droperidol 5 Mg/2 Ml Vial IM 07/09/24 18:41 4 mg ONCE ONE Administration Thiamine HCl 100 mg/ Sodium 101 mls @ 202 mls/hr 07/09/24 18:21 07/09/24 20:08 Chloride IV 07/09/24 18:50 Infused ONCE ONE Infusion Folic Acid 1 mg/ Sodium 50.2 mls @ 100.4 mls/hr 07/09/24 19:00 07/09/24 21:29 Chloride IV 07/09/24 19:29 Infused ONCE ONE Infusion Midazolam HCl 4 mg 07/09/24 17:56 07/09/24 18:00 Midazolam Hcl/Pf 2 Mg/2 Ml Vial IM 07/09/24 17:57 4 mg ONCE ONE Administration Midazolam HCl 2 mg 07/09/24 19:48 07/09/24 19:57 Midazolam Hcl/Pf 2 Mg/2 Ml Vial IVPUSH 07/09/24 19:49 2 mg ONCE ONE Administration Medical Decision Making Medical Decision Making [facility] Narrative: This is a 38-year-old male presenting for intoxication. I am concerned for the following; alcohol intoxication, head bleed, neck trauma, electrolyte/metabolic disturbance - patient placed in C-collar - patient required droperidol and multiple doses of Versed due to agitation - labs notable for elevated ethanol, anion gap, normal lactate, electrolytes within normal limits, stable H&H - I do not appreciate acute head bleed or neck injury on patient's imaging and radiology impression is negative for acute trauma - patient found to be retaining approximately 1 L; Venegas placed - patient confirmed suicidal ideation stating ?I want to kill myself before the people get to me - consult to care team placed and patient pending eval - still a patient in the ED and signed out to the appropriate provider Differential Diagnosis Differential Diagnoses: The differential diagnosis associated with the presentation includes Alcohol intoxication, head bleed, neck trauma, electrolyte/metabolic disturbance, alcoholic ketoacidosis Lab Data 07/09/24 17:52 07/09/24 17:52 Labs: Lab Results 07/09/24 07/09/24 07/09/24 Range/Units 17:52 19:31 22:15 WBC 9.5 (4.8-10.8) X10*3/uL RBC 5.09 (4.60-5.80) X10*6/uL Hgb 14.5 (14.0-18.0) g/dl Hct 41.1 L (42.0-52.0) % MCV 80.7 (80.0-98.0) fL MCH 28.5 (27.0-33.0) pg MCHC 35.3 (31.0-36.0) g/dl RDW 13.7 (11.0-16.0) % Plt Count 320 D (160-400) X10*3/uL MPV 10.3 (9.4-12.4) fL Immature Gran % (Auto) 0.5 H (0.0-0.4) % Neut % (Auto) 81.8 H (45-73) % Lymph % (Auto) 11.2 L (20-40) % [place] % (Auto) 5.9 (2-11) % Eos % (Auto) 0.1 (0-4) % Baso % (Auto) 0.5 (0-2) % Lymph # (Auto) 1.1 L (1.2-4.9) X10*3/uL [place] # (Auto) 0.6 (0.1-1.2) X10*3/uL Eos # (Auto) 0.0 (0.0-0.4) X10*3/uL Baso # (Auto) 0.1 (0.0-0.2) X10*3/uL Abs Immat Gran (auto) 0.05 H (0.00-0.03) X10*3/uL Absolute Neuts (auto) 7.8 (2.0-8.3) x10*3/uL Absolute Nucleated RBC 0.000 (0.0-0.012) X10*3/uL Nucleated RBC % (auto) 0.0 (0.0-0.2) /100WBC VBG pH (7.32-7.43) VBG pCO2 mmHg VBG pO2 mmHg VBG HCO3 (22-26) mmol/L VBG O2 Saturation % VBG Base Excess mmol/L Sodium 139 (135-145) mmol/L Potassium 4.0 (3.3-5.1) mmol/L Chloride 98 (96-108) mmol/L Carbon Dioxide 17 L (22-29) mmol/L Anion Gap 28 H (12-20) BUN 15 (9-16) mg/dL Creatinine 1.28 (0.5-1.4) mg/dL Estim Creat Clear Calc 79.8 Estimated GFR > 60 POC Glucose 111 (60-115) mg/dL Random Glucose 94 (60-115) mg/dL Lactic Acid 1.4 (0.5-2.0) mmol/L Calcium 9.8 (8.4-10.2) mg/dL Total Bilirubin 0.4 (0.0-1.0) mg/dL AST 134 H (5-37) U/L ALT 138 H (0-40) U/L Alkaline Phosphatase 79 (39-117) U/L Total Protein 7.6 (6.5-8.0) g/dL Albumin 4.5 (3.5-5.0) g/dL Urine Color Urine Appearance Urine pH (5.0-9.0) Ur Specific [place] (1.005-1.025) Urine Protein (Neg-Trace) mg/dL Urine Glucose (UA) (Negative) mg/dL Urine Ketones (Negative) mg/dL Urine Blood (Negative) Urine Nitrite (Negative) Ur Leukocyte Esterase (Negative) Ethyl Alcohol 380 H* mg/dL 07/09/24 07/09/24 Range/Units 22:20 23:18 WBC (4.8-10.8) X10*3/uL RBC (4.60-5.80) X10*6/uL Hgb (14.0-18.0) g/dl Hct (42.0-52.0) % MCV (80.0-98.0) fL MCH (27.0-33.0) pg MCHC (31.0-36.0) g/dl RDW (11.0-16.0) % Plt Count (160-400) X10*3/uL MPV (9.4-12.4) fL Immature Gran % (Auto) (0.0-0.4) % Neut % (Auto) (45-73) % Lymph % (Auto) (20-40) % [place] % (Auto) (2-11) % Eos % (Auto) (0-4) % Baso % (Auto) (0-2) % Lymph # (Auto) (1.2-4.9) X10*3/uL [place] # (Auto) (0.1-1.2) X10*3/uL Eos # (Auto) (0.0-0.4) X10*3/uL Baso # (Auto) (0.0-0.2) X10*3/uL Abs Immat Gran (auto) (0.00-0.03) X10*3/uL Absolute Neuts (auto) (2.0-8.3) x10*3/uL Absolute Nucleated RBC (0.0-0.012) X10*3/uL Nucleated RBC % (auto) (0.0-0.2) /100WBC VBG pH 7.50 H (7.32-7.43) VBG pCO2 24 mmHg VBG pO2 166 mmHg VBG HCO3 19 L (22-26) mmol/L VBG O2 Saturation 99.0 % VBG Base Excess -1.5 mmol/L Sodium (135-145) mmol/L Potassium (3.3-5.1) mmol/L Chloride (96-108) mmol/L Carbon Dioxide (22-29) mmol/L Anion Gap (12-20) BUN (9-16) mg/dL Creatinine (0.5-1.4) mg/dL Estim Creat Clear Calc Estimated GFR POC Glucose (60-115) mg/dL Random Glucose (60-115) mg/dL Lactic Acid (0.5-2.0) mmol/L Calcium (8.4-10.2) mg/dL Total Bilirubin (0.0-1.0) mg/dL AST (5-37) U/L ALT (0-40) U/L Alkaline Phosphatase (39-117) U/L Total Protein (6.5-8.0) g/dL Albumin (3.5-5.0) g/dL Urine Color Yellow Urine Appearance Clear Urine pH 5.5 (5.0-9.0) Ur Specific [place] <= 1.005 (1.005-1.025) Urine Protein Trace (Neg-Trace) mg/dL Urine Glucose (UA) Negative (Negative) mg/dL Urine Ketones 15 (Negative) mg/dL Urine Blood Negative (Negative) Urine Nitrite Negative (Negative) Ur Leukocyte Esterase Negative (Negative) Ethyl Alcohol mg/dL Discharge Plan Discharge Clinical Impression: Alcoholic intoxication, Suicide ideation Patient Disposition: Still a Patient Additional Instructions: Please schedule an appointment with the urologist listed in your discharge paperwork to be evaluated in the next 1-2 weeks Prescriptions: No Action benztropine 0.5 mg Tablet 0.5 mg PO BEDTIME Qty: 30 0RF naltrexone 50 mg Tablet 50 mg PO DAILY Qty: 30 0RF ziprasidone HCl 20 mg Capsule 20 mg PO DAILY Qty: 30 0RF folic acid 1 mg Tablet 1 mg PO DAILY Qty: 30 0RF ziprasidone HCl 40 mg Capsule 40 mg PO BEDTIME Qty: 30 0RF thiamine mononitrate (vit B1) 100 mg tablet 1 tab PO DAILY Referrals: Obed Viera MD [Physician] - Print Language: Jamaican
--- NOTE | 2024-07-09 18:40 | ECG_ITS ---
Test Reason : ETOH Blood Pressure : / mmHG Vent. Rate : 099 BPM Atrial Rate : 099 BPM P-R Int : 128 ms QRS Dur : 088 ms QT Int : 398 ms P-R-T Axes : 047 039 024 degrees QTc Int : 510 ms Artifact in tracing Normal sinus rhythm Prolonged QT Abnormal ECG When compared with ECG of 10-MAR-2021 11:51, QT has lengthened Referred By: Blaise Medina Electronically Signed By:SHAYY SHAH
[2024-07-09] MEDS: droPERidol 5 MG/2 ML VIAL 4 MG IM (18:44)
[2024-07-09] MEDS: Thiamine HCL 100 MG in 0.9 % Sodium Chloride 100 ML 202 MG IV (19:27)
[2024-07-09 19:35] LABS: Glucose, Whole Blood 111 mg/dL (60-115)
--- NOTE | 2024-07-09 19:43 | MHC.EDTECH ---
Patient refused blood work, will try later
[2024-07-09] MEDS: Midazolam HCl/PF 2 MG/2 ML VIAL IVPUSH (19:57)
[2024-07-09] MEDS: Folic Acid 1 MG in 0.9 % Sodium Chloride 50 ML 100.4 MG IV (20:32)
[2024-07-09 22:25] LABS: Venous Blood Gas Refer to POC result
[2024-07-09 22:25] LABS: VBG Base Excess -1.5 mmol/L; VBG HCO3 19 mmol/L (22-26); VBG pCO2 24 mmHg; VBG pO2 166 mmHg
[2024-07-09 22:31] LABS: Lactic Acid 1.4 mmol/L (0.5-2.0)
--- NOTE | 2024-07-09 23:13 | PC.NURSE ---
patient unable to void, bladder scan showed >894, winslow catheter placed per MD
[2024-07-09 23:29] LABS: Appearance Urine Clear; Color Urine Yellow; Glucose Urine UA Negative (Negative); Leukocyte Esterase Urine Negative (Negative); Nitrite Urine Negative (Negative); PH 5.5 (5.0-9.0); Specific Gravity - Urine <= 1.005 (1.005-1.025); Urine Blood Negative (Negative); Urine Ketones 15 mg/dL (Negative); Urine Protein Trace mg/dL (Neg-Trace)
--- NOTE | 2024-07-09 23:38 | MHC.EDTECH ---
[facility]
[2024-07-10] MEDS: traZODone HCL 100 MG TABLET PO (02:01)
[2024-07-10 06:20] VITALS: BP 102/63; PULSE 86; RESP 21; TEMP 36.8; O2SAT 96
[2024-07-10 07:05] LABS: Amphetamine Screen Urine Not Detected (Not Detect); Barbiturates, Urine Not Detected (Not Detect); Benzodiazepines Screen Urine POSITIVE (Not Detect); Buprenorphine Scr Not Detected (Not Detect); Cannabinoid Screen Urine Not Detected (Not Detect); Cocaine Screen Urine POSITIVE (Not Detect); Fentanyl, urine Not Detected (Not Detect); Methadone Screen, Urine Not Detected (Not Detect); Opiate Screen Urine Not Detected (Not Detect); Oxycodone Screen Urine Not Detected (Not Detect); Phencyclidine Screen Urine Not Detected (Not Detect)
--- NOTE | 2024-07-10 07:32 | PC.NURSE ---
report received from previous RN, patient resting on stretcher, sitter remains at bedside, is currently alert and oriented, states he does not remember why he came in last night, winslow catheter still placed, draining approximately 250mL of yellow urine, this RN asked patient if he was still having any suicidal thoughts, patient states i don't know i just feel like it would be better if i did at this point patient denies plan or HI. denies AH or VH at this time, provided with breakfast tray, sitter remains at bedside. pateint aware he is waiting to speak with care team. calm and cooperative with this RN.
--- NOTE | 2024-07-10 07:48 | PC.NURSE ---
patient requesting winslow catheter to be removed MD at bedside, OK to remove catheter at this time. catheter removed without incident. patient provided with urinal
[2024-07-10 10:02] VITALS: BP 118/74; PULSE 91; RESP 21; TEMP 37.3; O2SAT 98
--- NOTE | 2024-07-10 10:20 | MHC.RECOVRN ---
Met with pt in ED9 after cleared by CARE Team and requesting resources for AUD. Pt laying in bed, eyes closed, wakes to voice. Pt reports alcohol use, 1/2-1 pint vodka daily plus 2-3 24 ounce beers. Pt reports he is currently staying in a hotel, provided by [facility], and plans to readmit to [facility] in one month. Pt reports he has had numerous ATS admissions, [facility], and sober house stays. Pt reports approx 2 years ago he was at [facility] and had been in recovery for 2 years. Pt reports he receives a lot of support through [facility]. Pt reports he has tried [facility] in the past including naltrexone and disulfiram. Currently, pt is interested in resources and returning to his hotel. Discussed recovery resources and supports, pt declining referrals at this time. Pt provided with written resources. Denies questions or concerns for t/w. Discussed with ED provider.
--- NOTE | 2024-07-10 11:15 | MHC.CARE ---
3 day referral form faxed to [facility].? CARE Team has called and placed pt on alert with [facility] and activated the 3 day referral.? CARE Team has emailed pt?s [facility] [employer] Jessa Castro ([email or web address]: ) to request additional support for pt.
== END 2024-07-10 10:07 | disposition home or self-care (01) ==
PROVIDERS: Student in an Organized Health Care Education/Training Program; Emergency Provider Emergency Medicine
DX: F10.120 Alcohol abuse with intoxication, uncomplicated (principal); Y90.8 Blood alcohol level of 240 mg/100 ml or more; R45.851 Suicidal ideations; R45.1 Restlessness and agitation; F31.9 Bipolar disorder, unspecified; F14.90 Cocaine use, unspecified, uncomplicated; Z79.899 Other long term (current) drug therapy
CPT/HCPCS: 36415; 51701; 70450; 72125; 73130; 80053; 80307; 81003; 82803; 82947; 83605; 85025; 93005; 96365; 96367; 96372; 96375; 99285; J1790; J2250; J3411; S9485

== ENCOUNTER → 2024-07-09 18:40 | Outpatient (BNV) | payer OTHER, SELFPAY | PROVIDERS: Emergency Provider Emergency Medicine; Visit Provider Internal Medicine | DX: R94.31 Abnormal electrocardiogram [ECG] [EKG] (principal) | CPT/HCPCS: 93010 ==

== ENCOUNTER 2024-09-05 12:37 | Emergency (ER) | payer OTHER, SELFPAY ==
[2024-09-05] VITALS (7 sets, daily range): BP systolic 107–126; BP diastolic 71–90; PULSE 83–134; RESP 16–20; TEMP 36.3–36.5; O2SAT 95–100; BMI 25.8
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
[2024-09-05] MEDS: LORazepam 2 MG/ML VIAL IM (13:01)
[2024-09-05] MEDS: Haloperidol Lactate 5 MG/ML VIAL IM (13:19)
--- NOTE | 2024-09-05 13:20 | PC.NURSE ---
This RN and PCT at bedside attempting help with urination, patient unable at this time, continues to make sexually inappropriate comments at staff
[2024-09-05 14:32] LABS: MANUAL DIFF FLAG NO
[2024-09-05 14:34] LABS: Basophils Percent Auto 0.7 % (0-2); Eosinophils Percent Auto 0.2 % (0-4); Hematocrit 40.8 % (42.0-52.0); Hemoglobin 14.6 g/dl (14.0-18.0); Imm Gran Abs Auto 0.01 X10*3/uL (0.00-0.03); Imm Gran Pct Auto 0.2 % (0.0-0.4); Lymphocytes Absolute Auto 1.4 X10*3/uL (1.2-4.9); Lymphocytes Percent Auto 30.1 % (20-40); Mean Corpuscular HGB Conc 35.8 g/dl (31.0-36.0); Mean Corpuscular Hemoglobin 29.3 pg (27.0-33.0); Mean Corpuscular Volume 81.9 fL (80.0-98.0); Mean Platelet Volume 10.4 fL (9.4-12.4); Monocytes Absolute Auto 0.3 X10*3/uL (0.1-1.2); Monocytes Percent Auto 6.8 % (2-11); Neutrophils Absolute Auto 2.9 x10*3/uL (2.0-8.3); Platelet Count 192 X10*3/uL (160-400); Red Blood Count 4.98 X10*6/uL (4.60-5.80); Red Cell Distribution Width 13.5 % (11.0-16.0); White Blood Count 4.6 X10*3/uL (4.8-10.8)
[2024-09-05 14:47] LABS: Ethanol 289 mg/dL
[2024-09-05 15:01] LABS: Alanine Aminotransferase 16 U/L (0-40); Albumin Level 4.5 g/dL (3.5-5.0); Alkaline Phosphatase 60 U/L (39-117); Anion Gap 17 (12-20); Aspartate Amino Transferase 28 U/L (5-37); Bilirubin Total 0.3 mg/dL (0.0-1.0); Blood Urea Nitrogen 8 mg/dL (9-16); Calcium 9.6 mg/dL (8.4-10.2); Carbon Dioxide 24 mmol/L (22-29); Chloride 111 mmol/L (96-108); Creatinine Clr Calc Pharmacy 80.8; Estimated Glomerular Filt Rate > 60; Glucose Random 113 mg/dL (60-115); Lipase 11 U/L (8-78); Potassium 3.3 mmol/L (3.3-5.1); Sodium 149 mmol/L (135-145); Total Protein 7.2 g/dL (6.5-8.0)
[2024-09-05] MEDS: 0.9 % Sodium Chloride 1,000 ML 999 ML IV (16:12)
--- NOTE | 2024-09-05 16:14 | PC.NURSE ---
Pt is awake, calm. cooperative with establishgin IV access. sitter at bedside. Pt reitterates SI and HI at this time. drinks daily. no tremor at ths time.
--- NOTE | 2024-09-05 19:52 | PC.NURSE ---
Rn to RN khoa Borjas in Pod. Pt was transferred to pod a short while ago.
[2024-09-05] MEDS: chlorproMAZINE HCl 25 MG TABLET PO (22:49)
[2024-09-05] MEDS: hydrOXYzine HCL 50 MG TABLET PO (22:50)
[2024-09-05] MEDS: OLANZapine 5 MG TABLET PO (22:50)
[2024-09-05] MEDS: Perphenazine 4 MG TABLET PO (22:52)
[2024-09-05] MEDS: QUEtiapine Fumarate 100 MG TABLET PO (22:52)
[2024-09-05] MEDS: Prazosin HCL 1 MG CAPSULE PO (22:52)
--- NOTE | 2024-09-05 23:02 | PC.NURSE ---
patient placed in 8H at this time, patient resting comfortably with 1:1 watch at this time
--- NOTE | 2024-09-05 23:37 | MHC.EDTECH ---
This pct assumed care of Patient at 2300 ,Patient sleeping ,still waiting to collect urine sample ,Patient had not void .
--- NOTE | 2024-09-06 01:09 | PC.NURSE ---
patient sleeping with breathing unlabored equal chest rise. 1:[address] no further needs at this time
[2024-09-06 06:12] VITALS: BP 143/73; PULSE 97; RESP 18; O2SAT 96
--- NOTE | 2024-09-06 06:20 | MHC.EDTECH ---
Patient slept all night ,was unable to collect urine sample .
--- NOTE | 2024-09-06 07:09 | PC.NURSE ---
Assumed care of patient at 0645, patient moved from ED 8H to 2, patient appears to be in no apparent distress this am, respirations even and unlabored, sleeping. Continue plan of care for medical clearance and then CARE team evaluation
[2024-09-06] MEDS: buPROPion HCl XL 150 MG TAB.ER.24H PO (08:12)
[2024-09-06] MEDS: Thiamine HCL 100 MG TABLET PO (08:12)
[2024-09-06] MEDS: Folic Acid 1 MG TABLET PO (08:12)
[2024-09-06] MEDS: hydrOXYzine HCL 50 MG TABLET PO ×2 (08:12→22:04)
--- NOTE | 2024-09-06 08:58 | PHA.MEDREC ---
Addendum entered by Jaimie Meyers [facility] 09/06/24 10:26: [facility] reviewed Addendum entered by Gilberto Noel 09/06/24 08:59: When talked to patient, confirmed to be no longer taking perphenazine, risperdal, or methocarbamol. Pt reports taking chlorpromazine 50 mg TID. Original Note: Pharmacy Consult ? Medication Reconciliation Pharmacy has completed the medication reconciliation. Reviewed med rec done by nursing (Hellen).
--- NOTE | 2024-09-06 14:10 | MHC.CARE ---
Patient is agreeable to [facility] admission. Continues to present as very paranoid. He is highly impulsive, poor judgment.
[2024-09-06] MEDS: chlorproMAZINE HCl 25 MG TABLET 50 MG PO ×2 (15:45→22:05)
--- NOTE | 2024-09-06 18:38 | PC.NURSE ---
Patient has remained asleep for the majority of the day, occasionally waking up to eat. Offers no complaints to this RN at this time
[2024-09-06 18:46] VITALS: BP 121/70; PULSE 81; RESP 18; TEMP 36.9; O2SAT 94
--- NOTE | 2024-09-06 20:30 | PC.NURSE ---
PT medicated as per nov. Denies pain, SI/HI/AH/VH. CIWA 0. PT reports he does not have the urge to urinate, he last urinated yesterday. Notified provider who states that his renal function is ok notes that she is ok with this. Plan of care ongoing
[2024-09-06] MEDS: Melatonin 3 MG TABLET 6 MG PO (22:04)
[2024-09-06 22:05] VITALS: BP 116/71
[2024-09-06] MEDS: OLANZapine 5 MG TABLET PO (22:05)
[2024-09-06] MEDS: QUEtiapine Fumarate 100 MG TABLET PO (22:05)
[2024-09-06] MEDS: cloNIDine HCL 0.1 MG TABLET PO (22:05)
[2024-09-06 22:06] VITALS: BP 116/71; PULSE 77; RESP 18; TEMP 36.6; O2SAT 95
[2024-09-06] MEDS: Prazosin HCL 1 MG CAPSULE PO (22:06)
--- NOTE | 2024-09-07 06:20 | PC.NURSE ---
PT OOB provided urine sample. CILUCIANO 0
[2024-09-07 06:23] VITALS: BP 139/90; PULSE 66; RESP 17; TEMP 36.4; O2SAT 96
[2024-09-07 06:35] LABS: Appearance Urine Clear; Color Urine Yellow; Glucose Urine UA Negative (Negative); Leukocyte Esterase Urine Trace (Negative); Nitrite Urine Negative (Negative); UMIC TRIGGER UACC YES; Urine Blood Negative (Negative); Urine Ketones Negative (Negative); Urine Protein Negative (Neg-Trace)
[2024-09-07 06:40] LABS: Bacteria Urine None Seen (None Seen); Hyaline Casts Urine 0-2 /LPF (0-2); RBC Urine 0-2 /HPF (0-2); Squamous Epithelial Cell Urine 0-2 /HPF (0-2); WBC Urine 0-5 /HPF (0-5)
[2024-09-07 06:43] LABS: Amphetamine Screen Urine Not Detected (Not Detect); Barbiturates, Urine Not Detected (Not Detect); Benzodiazepines Screen Urine Not Detected (Not Detect); Buprenorphine Scr Not Detected (Not Detect); Cannabinoid Screen Urine Not Detected (Not Detect); Cocaine Screen Urine Not Detected (Not Detect); Fentanyl, urine Not Detected (Not Detect); Methadone Screen, Urine Not Detected (Not Detect); Opiate Screen Urine Not Detected (Not Detect); Oxycodone Screen Urine Not Detected (Not Detect); Phencyclidine Screen Urine Not Detected (Not Detect)
--- NOTE | 2024-09-07 07:30 | PC.NURSE ---
Assumed care of patient at 0645, patient appears to be in no apparent distress this am, sleeping, respirations even and unlabored. Continue plan of care for inpatient bedsearch
[2024-09-07] MEDS: Thiamine HCL 100 MG TABLET PO (08:42)
[2024-09-07] MEDS: hydrOXYzine HCL 50 MG TABLET PO ×2 (08:42→20:00)
[2024-09-07] MEDS: Folic Acid 1 MG TABLET PO (08:43)
[2024-09-07] MEDS: chlorproMAZINE HCl 25 MG TABLET 50 MG PO ×3 (08:43→20:01)
[2024-09-07] MEDS: buPROPion HCl XL 150 MG TAB.ER.24H PO (08:43)
[2024-09-07] MEDS: cloNIDine HCL 0.1 MG TABLET PO ×2 (08:43→20:01)
[2024-09-07 17:22] VITALS: RESP 14
--- NOTE | 2024-09-07 17:22 | PC.NURSE ---
patient verbalizing wanting to go home at this time, pt mildly agitated but able to be redirected
[2024-09-07 20:00] VITALS: BP 133/87
[2024-09-07] MEDS: Melatonin 3 MG TABLET 6 MG PO (20:00)
[2024-09-07] MEDS: OLANZapine 5 MG TABLET PO (20:00)
[2024-09-07] MEDS: Prazosin HCL 1 MG CAPSULE PO (20:00)
[2024-09-07 20:01] VITALS: BP 133/87
[2024-09-07] MEDS: QUEtiapine Fumarate 100 MG TABLET PO (20:01)
[2024-09-07 20:03] VITALS: BP 133/87; PULSE 75; RESP 16; TEMP 37.3; O2SAT 96
[2024-09-08 05:42] VITALS: BP 151/94; PULSE 62; RESP 18; TEMP 36.2; O2SAT 97
[2024-09-08 11:09] VITALS: BP 153/92; PULSE 106; RESP 16; TEMP 36.8; O2SAT 98
--- NOTE | 2024-09-08 11:15 | MHC.CARE ---
Pt has been placed on alert with [facility]
== END 2024-09-08 11:16 | disposition home or self-care (01) ==
PROVIDERS: Nurse Practitioner Family; Emergency Provider Student in an Organized Health Care Education/Training Program
DX: R45.850 Homicidal ideations (principal); R45.851 Suicidal ideations; F10.929 Alcohol use, unspecified with intoxication, unspecified; E87.0 Hyperosmolality and hypernatremia; Z79.899 Other long term (current) drug therapy; Z65.3 Problems related to other legal circumstances
CPT/HCPCS: 36415; 80053; 80307; 81001; 83690; 83735; 85025; 96360; 96361; 96372; 99285; J1630; J2060; S9485

== ENCOUNTER 2024-09-25 02:18 | Emergency (ER) | payer OTHER, SELFPAY ==
--- NOTE | ~2024-09-25 | CT_ITS ---
CLINICAL HISTORY: Head injury CT head without contrast Comparison: CT/ID/SR - CT HEAD/BRAIN WO IV CON - 07/09/24 20:03 EDT Findings: No intracranial mass, midline shift, hydrocephalus, or acute hemorrhage. Visualized paranasal sinuses and left mastoid air cells appear clear. Minimal opacification of the right inferior mastoid air cells present. No acute skull fracture. Old right lamina papyracea fracture redemonstrated. Impression: 1. No acute intracranial abnormality. No acute intracranial hemorrhage. This document has been electronically signed by: Gera Lee MD on 09/25/2024 04:43:02
--- NOTE | ~2024-09-25 | CT_ITS ---
CLINICAL HISTORY: Neck pain fall while drunk. CT cervical spine without contrast Comparison: CT/SR - CT CERVICAL SPINE WO IV CON - 07/09/24 20:03 EDT Findings: Mild dextrocurvature present at the cervical spine. There is reversal of the normal cervical lordosis. No cervical spondylolisthesis identified. No acute fractures or dislocations. Mild degenerative endplate changes are present at the cervical spine inferiorly. Mild bilateral degenerative facet arthropathy also present at the cervical spine. Impression: 1. Reversal of the normal cervical lordosis. This finding is nonspecific and may be positional and/or related to muscle spasm. No acute fracture or dislocation injury identified at the cervical spine. This document has been electronically signed by: Gera Lee MD on 09/25/2024 04:59:51
[2024-09-25 02:45] VITALS: BP 134/88; BP 138/100; PULSE 83; PULSE 84; RESP 18; TEMP 36.9; O2SAT 93; O2SAT 98; BMI 24.3
--- NOTE | 2024-09-25 03:34 | ED.GENADULT ---
HPI - General Adult General Chief complaint: Psychiatric Symptoms Stated complaint: ETOH SI w/ plan +ccollar hit head against wall Time Seen by Provider: 09/25/24 03:25 Source: patient and EMS Mode of arrival: EMS Limitations: no limitations History of Present Illness ED Provider: DR. Maguire HPI narrative: 38-year-old male came in by ambulance in alcohol intoxication and possible fall patient was placed on C-collar by EMS patient now is non historian due to alcohol intoxication patient admit to SI with plan to cut his wrist. Related Data Home Medications ?Medication ?Instructions ?Recorded ?Confirmed bupropion HCl 150 mg 24 hr tablet, 150 mg PO DAILY 07/10/24 09/05/24 extended release hydroxyzine HCl 50 mg tablet 50 mg PO BID 07/10/24 09/05/24 ibuprofen 600 mg tablet 600 mg PO BID PRN Pain 07/10/24 09/05/24 melatonin 5 mg tablet 5 mg PO BEDTIME 07/10/24 09/05/24 prazosin 1 mg capsule 1 mg PO BEDTIME 07/10/24 09/05/24 quetiapine 100 mg tablet 100 mg PO BEDTIME 07/10/24 09/05/24 trazodone 50 mg tablet 50 mg PO BEDTIME PRN insomnia 07/10/24 09/05/24 chlorpromazine 25 mg tablet 50 mg PO TID 09/05/24 09/06/24 clonidine HCl 0.1 mg tablet 0.1 mg PO BID 09/05/24 09/05/24 olanzapine 5 mg tablet 5 mg PO BEDTIME 09/05/24 09/05/24 thiamine HCl (vitamin B1) 100 mg 100 mg PO DAILY 09/05/24 09/05/24 tablet Previous Rx's ?Medication ?Instructions ?Recorded folic acid 1 mg tablet 1 mg PO DAILY #30 tabs 03/10/21 Allergies Allergy/AdvReac Type Severity Reaction Status Date / Time penicillin G [PENICILLIN G] Allergy Intermediate SWELLING Verified 09/25/24 02:58 [place] And Derivatives Allergy Unknown unk Verified 09/25/24 02:58 [CITRUS AND DERIVATIVES] cranberry [CRANBERRY] Allergy Unknown HIVES Verified 09/25/24 02:58 gabapentin [GABAPENTIN] Allergy Unknown HIVES, Verified 09/25/24 02:58 swelling raspberry [RASPBERRY] Allergy Unknown unk Verified 09/25/24 02:58 Review of Systems Review of Systems: All other systems are reviewed and are negative Constitutional: Reports as per HPI and Reports no additional constitutional complaints Eyes: Reports as per HPI and Reports no additional eye complaints Reports system reviewed and no additional complaints, except as documented Cardiovascular: Reports as per HPI and Reports no additional cardiovascular complaints Respiratory: Reports as per HPI and Reports no additional respiratory complaints Gastrointestinal: Reports as per HPI and Reports no additional gastrointestinal complaints Genitourinary: Reports no additional female genitourinary complaints Musculoskeletal: Reports no additional musculoskeletal complaints Skin/Breast: Reports system reviewed and no additional complaints, except as docu Psychiatric: Reports no additional psychiatric complaints Endocrine: Reports no additional endocrine complaints Hematologic/Lymphatic: Reports no additional hematologic/lymphatic complaints Allergic/Immunologic: Reports no additional allergic/immunologic complaints Reports system reviewed and no additional complaints, except as documented and Reports Abnormal speech present [facility] Past Medical History Medical History Alcohol abuse Bipolar disorder Social History Social History Household Members: Other Housing: Other Housing Other:: correction Do you presently have visiting nurse or other home services: No Alcohol intake: current Alcohol intake frequency: 3 or more drinks per day Alcohol type: beer Patient Tobacco Use Status: Never used Tobacco Smoked in Last 30 Days: No e-Cigarette/Vaping Use: Never Used Second Hand Smoke Exposure: No Use of substances other than those prescribed or required for medical reasons: No Advance Directives: No Advance Directives Information Provided: Yes Do you have a plan to hurt others: No Plan service: No Sexual orientation: N/A Physical Exam ED Vital Signs: Vital Signs - 24 hr 09/25/24 02:45 09/25/24 04:00 Temperature 98.4 F 97.4 F Pulse Rate 83 87 Respiratory Rate 18 16 Blood Pressure 138/100 H 139/93 H Pulse Oximetry 93 94 Oxygen Delivery Method Room Air Room Air BMI result Body Mass Index 24.3 Vital signs have been reviewed and appear to be correct. Blood pressure elevated. Heart rate normal. Respiratory rate normal. Temperature normal. Oxygen saturation normal. Appearance: Alcohol on breath, Alert. Oriented X1 to place. No acute distress. Head: Normal external exam. Normocephalic. Atraumatic. No Alan signs noted. No raccoon eyes noted Eyes: PERRLA. EOMI. Conjunctiva and sclera normal. Eyelids normal. ENT: TM's Normal. Pharynx normal. Uvula midline. Moist mucous membranes. No trismus noted. No drooling noted. No muffled voice noted. Neck: Normal inspection. Neck supple. FROM. No adenopathy. Thyroid Normal. No meningeal signs. No neck mass noted. CVS: Normal heart rate and rhythm. Heart sound normal. No murmurs noted. Pulses normal throughout. Respiratory: No respiratory distress. Painless inspiration. Breath sounds normal. No wheezes/rales/rhonchi noted. Chest nontender. No accessory muscle usage noted or decreased air movement noted. Abdomen: Soft and nontender. Bowel sounds normal in all 4 quadrants. No distention noted. No organomegaly noted. No visible injury noted. Back: No CVA tenderness. Full range of motion noted. Skin: Skin warm and dry. Normal skin color. Normal skin turgor. No rashes/lesions/lacerations noted. Extremities: No lower extremity edema. Extremities exhibit normal range of motion. Extremities nontender. Neuro: Intoxicated Cranial nerve exam: II-XII are grossly intact No motor deficit. No sensory deficit. Reflexes normal. Course Reevaluation(s) Reevaluation #1: Alcohol intoxication, GCS of [address] and cervical spine CT. Unable to fully assess patient for SI/HI. Will consult care team. Time: 05:42 Medical Decision Making Differential Diagnosis Differential Diagnoses: The differential diagnosis associated with the presentation includes (Intracranial bleed, cervical spine injury, electrolyte derangement, alcohol intoxication, severe anemia, SI, HI.) Admission/Observation Consideration of admission/observation: Escalation of care including admission/observation considered Lab Data MDM Lab Attestation statement: I reviewed the patient's lab results. 09/25/24 03:36 09/25/24 03:36 Labs: Lab Results 09/25/24 Range/Units 03:36 WBC 4.7 L (4.8-10.8) X10*3/uL RBC 5.14 (4.60-5.80) X10*6/uL Hgb 15.2 (14.0-18.0) g/dl Hct 42.3 (42.0-52.0) % MCV 82.3 (80.0-98.0) fL MCH 29.6 (27.0-33.0) pg MCHC 35.9 (31.0-36.0) g/dl RDW 14.4 (11.0-16.0) % Plt Count 258 D (160-400) X10*3/uL MPV 9.9 (9.4-12.4) fL Immature Gran % (Auto) 0.2 (0.0-0.4) % Neut % (Auto) 34.6 L (45-73) % Lymph % (Auto) 53.5 H (20-40) % Long % (Auto) 9.3 (2-11) % Eos % (Auto) 1.3 (0-4) % Baso % (Auto) 1.1 (0-2) % Lymph # (Auto) 2.5 (1.2-4.9) X10*3/uL Long # (Auto) 0.4 (0.1-1.2) X10*3/uL Eos # (Auto) 0.1 (0.0-0.4) X10*3/uL Baso # (Auto) 0.1 (0.0-0.2) X10*3/uL Abs Immat Gran (auto) 0.01 (0.00-0.03) X10*3/uL Absolute Neuts (auto) 1.6 L (2.0-8.3) x10*3/uL Absolute Nucleated RBC 0.000 (0.0-0.012) X10*3/uL Nucleated RBC % (auto) 0.0 (0.0-0.2) /100WBC Sodium 146 H (135-145) mmol/L Potassium 3.8 (3.3-5.1) mmol/L Chloride 106 (96-108) mmol/L Carbon Dioxide 26 (22-29) mmol/L Anion Gap 18 (12-20) BUN 9 (9-16) mg/dL Creatinine 0.85 (0.5-1.4) mg/dL Estim Creat Clear Calc 111.2 Estimated GFR > 60 Random Glucose 108 (60-115) mg/dL Calcium 9.4 (8.4-10.2) mg/dL Magnesium 2.1 (1.6-2.6) mg/dL Total Bilirubin 0.4 (0.0-1.0) mg/dL AST 37 (5-37) U/L ALT 28 (0-40) U/L Alkaline Phosphatase 71 (39-117) U/L Total Protein 7.1 (6.5-8.0) g/dL Albumin 4.2 (3.5-5.0) g/dL Salicylates < 5.0 L (15-30) mg/dL Acetaminophen < 3 (<30) mcg/mL Ethyl Alcohol 389 H* mg/dL Independent Interpretation I performed an independent interpretation of an: CT Scan (Head/C-spine: No acute pathology.) Radiology Impression Discussion of test interpretation with radiology: I have reviewed the radiologist's reading. Discharge Plan Discharge Clinical Impression: Alcohol intoxication, Suicidal ideation Patient Disposition: Still a Patient Prescriptions: No Action folic acid 1 mg Tablet 1 mg PO DAILY Qty: 30 0RF trazodone 50 mg tablet 50 mg PO BEDTIME PRN (Reason: insomnia) prazosin 1 mg capsule 1 mg PO BEDTIME hydroxyzine HCl 50 mg tablet 50 mg PO BID quetiapine 100 mg tablet 100 mg PO BEDTIME ibuprofen 600 mg tablet 600 mg PO BID PRN (Reason: Pain) bupropion HCl 150 mg tablet extended release 24 hr 150 mg PO DAILY melatonin 5 mg tablet 5 mg PO BEDTIME olanzapine 5 mg tablet 5 mg PO BEDTIME thiamine HCl (vitamin B1) 100 mg tablet 100 mg PO DAILY chlorpromazine 25 mg tablet 50 mg PO TID clonidine HCl 0.1 mg tablet 0.1 mg PO BID Interventions: [place]-Suicide Risk Severity Scale Last Done: 09/25/24 03:00 Print Language: Chinese
[2024-09-25 03:40] LABS: Basophils Absolute Auto 0.1 X10*3/uL (0.0-0.2); Basophils Percent Auto 1.1 % (0-2); Eosinophils Absolute Auto 0.1 X10*3/uL (0.0-0.4); Eosinophils Percent Auto 1.3 % (0-4); Hematocrit 42.3 % (42.0-52.0); Hemoglobin 15.2 g/dl (14.0-18.0); Imm Gran Abs Auto 0.01 X10*3/uL (0.00-0.03); Imm Gran Pct Auto 0.2 % (0.0-0.4); Lymphocytes Absolute Auto 2.5 X10*3/uL (1.2-4.9); Lymphocytes Percent Auto 53.5 % (20-40); MANUAL DIFF FLAG NO; Mean Corpuscular HGB Conc 35.9 g/dl (31.0-36.0); Mean Corpuscular Hemoglobin 29.6 pg (27.0-33.0); Mean Corpuscular Volume 82.3 fL (80.0-98.0); Mean Platelet Volume 9.9 fL (9.4-12.4); Monocytes Absolute Auto 0.4 X10*3/uL (0.1-1.2); Monocytes Percent Auto 9.3 % (2-11); Neutrophils Absolute Auto 1.6 x10*3/uL (2.0-8.3); Neutrophils Percent Auto 34.6 % (45-73); Platelet Count 258 X10*3/uL (160-400); Red Blood Count 5.14 X10*6/uL (4.60-5.80); Red Cell Distribution Width 14.4 % (11.0-16.0); White Blood Count 4.7 X10*3/uL (4.8-10.8)
--- NOTE | 2024-09-25 03:45 | PC.NURSE ---
Pt from home via EMS brought in for SI with plan and ETOH. PT states he is a daily beer drinker and has a history of seizure withdrawals. Pt is alert to self and responding very minimally to questions. Pt admits he has been very depressed and should be taking psychiatric meds but chooses not to. Pt changed over to hospital attire and belongings locked in cloest shelf 1. 1:1 sitter established for safety.
[2024-09-25 04:00] VITALS: BP 139/93; PULSE 87; RESP 16; TEMP 36.3; O2SAT 94
[2024-09-25 04:04] LABS: Alanine Aminotransferase 28 U/L (0-40); Albumin Level 4.2 g/dL (3.5-5.0); Anion Gap 18 (12-20); Aspartate Amino Transferase 37 U/L (5-37); Bilirubin Total 0.4 mg/dL (0.0-1.0); Blood Urea Nitrogen 9 mg/dL (9-16); Calcium 9.4 mg/dL (8.4-10.2); Carbon Dioxide 26 mmol/L (22-29); Chloride 106 mmol/L (96-108); Creatinine Clr Calc Pharmacy 111.2; Estimated Glomerular Filt Rate > 60; Ethanol 389 mg/dL; Glucose Random 108 mg/dL (60-115); Magnesium 2.1 mg/dL (1.6-2.6); Potassium 3.8 mmol/L (3.3-5.1); Sodium 146 mmol/L (135-145); Total Protein 7.1 g/dL (6.5-8.0)
[2024-09-25 04:44] LABS: Acetaminophen LAB < 3 mcg/mL (<30); Alkaline Phosphatase 71 U/L (39-117); Salicylate < 5.0 mg/dL (15-30)
[2024-09-25 06:00] VITALS: BP 134/84; PULSE 98; RESP 18; TEMP 36.9; O2SAT 95
[2024-09-25 06:20] LABS: Amphetamine Screen Urine Not Detected (Not Detect); Barbiturates, Urine Not Detected (Not Detect); Benzodiazepines Screen Urine Not Detected (Not Detect); Buprenorphine Scr Not Detected (Not Detect); Cannabinoid Screen Urine Not Detected (Not Detect); Cocaine Screen Urine Not Detected (Not Detect); Fentanyl, urine Not Detected (Not Detect); Methadone Screen, Urine Not Detected (Not Detect); Opiate Screen Urine Not Detected (Not Detect); Oxycodone Screen Urine Not Detected (Not Detect); Phencyclidine Screen Urine Not Detected (Not Detect)
[2024-09-25 06:51] LABS: Appearance Urine Clear; Color Urine Yellow; Glucose Urine UA Negative (Negative); Leukocyte Esterase Urine Negative (Negative); Nitrite Urine Negative (Negative); Specific Gravity - Urine <= 1.005 (1.005-1.025); Urine Blood Negative (Negative); Urine Ketones Negative (Negative); Urine Protein Negative (Neg-Trace)
--- NOTE | 2024-09-25 09:10 | PC.NURSE ---
called [facility] pharmacy to attempted to do the pt's med rec but according to the pharmacy the pt has not filled there since May and it only was melatonin/ibuprofen/hydroxyzine pt is currently sound asleep to try to see if he uses another pharmacy
--- NOTE | 2024-09-25 10:29 | PC.NURSE ---
pt is not sure of the pharmacy he uses, states that [facility] yum[facility] Spangler gives him his medications, called them and left a message to see if this rn can verify the pt;s medications pt knows some of his meds but does not know the doses, states he does not want to take the medications either way because they don't help and he has not taken the meds in two weeks
--- NOTE | 2024-09-25 10:35 | PC.NURSE ---
pt is calm and cooperative, reports that he would like to go home, denies SI at this time
--- NOTE | 2024-09-25 13:45 | PC.NURSE ---
care team speaking with the patient
[2024-09-25 14:28] VITALS: BP 169/99; PULSE 89; RESP 20; TEMP 37; O2SAT 97
[2024-09-25 15:05] VITALS: BP 169/99; PULSE 89; RESP 20; TEMP 37; O2SAT 97
== END 2024-09-25 15:07 | disposition home or self-care (01) ==
PROVIDERS: Emergency Medicine; Emergency Provider Emergency Medicine; PCP Internal Medicine
DX: F10.129 Alcohol abuse with intoxication, unspecified (principal); Y90.8 Blood alcohol level of 240 mg/100 ml or more; R51.9 Headache, unspecified; M54.2 Cervicalgia; R45.851 Suicidal ideations; Z79.899 Other long term (current) drug therapy; Z51.81 Encounter for therapeutic drug level monitoring
CPT/HCPCS: 36415; 70450; 72125; 80053; 80143; 80179; 80307; 81003; 83735; 85025; 99284; 99285; S9485

== ENCOUNTER → 2024-09-25 03:31 | Outpatient (BNV) | payer OTHER, SELFPAY | PROVIDERS: Emergency Provider Emergency Medicine; Visit Provider Radiology Diagnostic Radiology | DX: F10.929 Alcohol use, unspecified with intoxication, unspecified (principal); S00.93XA Contusion of unspecified part of head, initial encounter; M54.2 Cervicalgia | CPT/HCPCS: 70450; 72125 ==

== ENCOUNTER 2024-09-30 15:22 | Inpatient (IN) | payer OTHER, SELFPAY ==
[2024-09-30 15:27] VITALS: BMI 32.3
--- NOTE | 2024-09-30 15:32 | ED_ITS ---
HPI - Alcohol General Chief Complaint: ETOH/Substance Use Stated Complaint: etoh , no vitals Time Seen by Provider: 09/30/24 15:32 Source: EMS Mode of arrival: EMS History of Present Illness HPI narrative: This is 38 years old male with a history of alcohol abuse presented to the ED intoxicated with alcohol he was placed on a section 12 by the police because he told the police that he was suicidal. MD complaint: alcohol intoxication Last drink: Hours (ago) (2) Chronic alcohol use: Yes Previous visits for alcohol intoxication: Yes Associated symptoms: denies other symptoms Treatments prior to arrival: none Related Data Home Medications ?Medication ?Instructions ?Recorded ?Confirmed bupropion HCl 150 mg 24 hr tablet, 150 mg PO DAILY 07/10/24 09/05/24 extended release hydroxyzine HCl 50 mg tablet 50 mg PO BID 07/10/24 09/05/24 ibuprofen 600 mg tablet 600 mg PO BID PRN Pain 07/10/24 09/05/24 melatonin 5 mg tablet 5 mg PO BEDTIME 07/10/24 09/05/24 prazosin 1 mg capsule 1 mg PO BEDTIME 07/10/24 09/05/24 quetiapine 100 mg tablet 100 mg PO BEDTIME 07/10/24 09/05/24 trazodone 50 mg tablet 50 mg PO BEDTIME PRN insomnia 07/10/24 09/05/24 chlorpromazine 25 mg tablet 50 mg PO TID 09/05/24 09/06/24 clonidine HCl 0.1 mg tablet 0.1 mg PO BID 09/05/24 09/05/24 olanzapine 5 mg tablet 5 mg PO BEDTIME 09/05/24 09/05/24 thiamine HCl (vitamin B1) 100 mg 100 mg PO DAILY 09/05/24 09/05/24 tablet Previous Rx's ?Medication ?Instructions ?Recorded folic acid 1 mg tablet 1 mg PO DAILY #30 tabs 03/10/21 Allergies Allergy/AdvReac Type Severity Reaction Status Date / Time penicillin G [PENICILLIN G] Allergy Intermediate SWELLING Verified 09/30/24 15:34 [place] And Derivatives Allergy Unknown unk Verified 09/30/24 15:34 [CITRUS AND DERIVATIVES] cranberry [CRANBERRY] Allergy Unknown HIVES Verified 09/30/24 15:34 gabapentin [GABAPENTIN] Allergy Unknown HIVES, Verified 09/30/24 15:34 swelling raspberry [RASPBERRY] Allergy Unknown unk Verified 09/30/24 15:34 Review of Systems 2 Constitutional: Constitutional: Reports no additional constitutional complaints ENT: Reports system reviewed and no additional complaints, except as documented Cardiovascular: Cardiovascular: Reports no additional cardiovascular complaints [facility] Past Medical History Attestation statement: The following information was validated with the patient. [facility] Narrative: Alcohol abuse Medical History Alcohol abuse Bipolar disorder Social History Social History Household Members: Other Housing: Other Housing Other:: care home Do you presently have visiting nurse or other home services: No Alcohol intake: current Alcohol intake frequency: 3 or more drinks per day Alcohol type: beer Patient Tobacco Use Status: Never used Tobacco Smoked in Last 30 Days: No e-Cigarette/Vaping Use: Never Used Second Hand Smoke Exposure: No Use of substances other than those prescribed or required for medical reasons: Refusing to respond Do you have a plan to hurt others: No Plan service: No Sexual orientation: N/A Physical Exam ED Vital Signs: Vital Signs - 24 hr 09/30/24 15:44 Temperature 97.0 F Pulse Rate 116 H Respiratory Rate 20 Blood Pressure 140/94 H Pulse Oximetry 95 Oxygen Delivery Method Room Air BMI result Body Mass Index 32.3 Awake alert anxious Const General: alert and awake Nutritional Appearance: average body habitus Limitations: other limitations (Alcohol intoxication) HENMT Other: Examination of the head eyes ears nose and throat showed no abnormality Head: Yes normal to inspection General nose exam: Normal external nose present Face and sinus: Yes normal facial exam Mouth: Normal oral and palatal mucosa present Throat: Yes posterior oropharynx normal Neck Neck: Yes normal visual inspection Chest Chest palpation & inspection: normal inspection of the chest Resp Effort & Inspection: normal respiratory effort Auscultation: clear to auscultation bilaterally Cardio Jugular venous distension: no JVD Rate: regular rate Rhythm: regular rhythm GI Inspection: Yes normal to inspection Palpation (GI): Soft to palpation, not firm and nontender Auscultation: normal bowel sounds Skin General skin exam: no rashes or lesions noted and elasticity normal Course Reevaluation(s) Reevaluation #1: signed out to Dr Aly Time: 16:17 Medical Decision Making Medical Decision Making [facility] Narrative: Patient presented with the alcohol intoxication agitated will check labs reassessed when sober Differential Diagnosis Differential Diagnoses: The differential diagnosis associated with the presentation includes Alcohol intoxication/substance abuse/depression Admission/Observation Consideration of admission/observation: Escalation of care including admission/observation considered Lab Data 09/30/24 15:54 09/30/24 15:54 Labs: Lab Results 09/30/24 Range/Units 15:54 WBC 6.6 (4.8-10.8) X10*3/uL RBC 5.18 (4.60-5.80) X10*6/uL Hgb 15.1 (14.0-18.0) g/dl Hct 43.4 (42.0-52.0) % MCV 83.8 (80.0-98.0) fL MCH 29.2 (27.0-33.0) pg MCHC 34.8 (31.0-36.0) g/dl RDW 14.2 (11.0-16.0) % Plt Count 173 D (160-400) X10*3/uL MPV 10.4 (9.4-12.4) fL Immature Gran % (Auto) 0.5 H (0.0-0.4) % Neut % (Auto) 54.7 (45-73) % Lymph % (Auto) 32.9 (20-40) % [place] % (Auto) 10.9 (2-11) % Eos % (Auto) 0.5 (0-4) % Baso % (Auto) 0.5 (0-2) % Lymph # (Auto) 2.2 (1.2-4.9) X10*3/uL [place] # (Auto) 0.7 (0.1-1.2) X10*3/uL Eos # (Auto) 0.0 (0.0-0.4) X10*3/uL Baso # (Auto) 0.0 (0.0-0.2) X10*3/uL Abs Immat Gran (auto) 0.03 (0.00-0.03) X10*3/uL Absolute Neuts (auto) 3.6 (2.0-8.3) x10*3/uL Absolute Nucleated RBC 0.000 (0.0-0.012) X10*3/uL Nucleated RBC % (auto) 0.0 (0.0-0.2) /100WBC Sodium 143 (135-145) mmol/L Potassium 3.2 L (3.3-5.1) mmol/L Chloride 108 (96-108) mmol/L Carbon Dioxide 20 L (22-29) mmol/L Anion Gap 18 (12-20) BUN 10 (9-16) mg/dL Creatinine 0.93 (0.5-1.4) mg/dL Estim Creat Clear Calc 114.7 Estimated GFR > 60 Random Glucose 118 H (60-115) mg/dL Calcium 9.2 (8.4-10.2) mg/dL Salicylates < 5.0 L (15-30) mg/dL Ethyl Alcohol 363 H* mg/dL Discharge Plan Discharge Clinical Impression: Alcohol intoxication Qualifiers: Complication of substance-induced condition: uncomplicated Qualified Code(s): F 10.920 - Alcohol use, unspecified with intoxication, uncomplicated Patient Disposition: Still a Patient Prescriptions: No Action folic acid 1 mg Tablet 1 mg PO DAILY Qty: 30 0RF trazodone 50 mg tablet 50 mg PO BEDTIME PRN (Reason: insomnia) prazosin 1 mg capsule 1 mg PO BEDTIME hydroxyzine HCl 50 mg tablet 50 mg PO BID quetiapine 100 mg tablet 100 mg PO BEDTIME ibuprofen 600 mg tablet 600 mg PO BID PRN (Reason: Pain) bupropion HCl 150 mg tablet extended release 24 hr 150 mg PO DAILY melatonin 5 mg tablet 5 mg PO BEDTIME olanzapine 5 mg tablet 5 mg PO BEDTIME thiamine HCl (vitamin B1) 100 mg tablet 100 mg PO DAILY chlorpromazine 25 mg tablet 50 mg PO TID clonidine HCl 0.1 mg tablet 0.1 mg PO BID Print Language: Algerian
[2024-09-30 15:44] VITALS: BP 140/94; PULSE 116; RESP 20; TEMP 36.1; O2SAT 95
--- NOTE | 2024-09-30 15:47 | PC.NURSE ---
Patient brought in on [address] 12 by PD. Patient clearly intoxicated, screaming standing on stretcher. Brought to [place] by security, cell changer completed, belongings placed in [place] closet shelf 3.
[2024-09-30 15:57] LABS: MANUAL DIFF FLAG NO
--- NOTE | 2024-09-30 15:57 | MHC.EDTECH ---
pt blood taken and sent to lab
[2024-09-30 15:59] LABS: Basophils Percent Auto 0.5 % (0-2); Eosinophils Percent Auto 0.5 % (0-4); Hematocrit 43.4 % (42.0-52.0); Hemoglobin 15.1 g/dl (14.0-18.0); Imm Gran Abs Auto 0.03 X10*3/uL (0.00-0.03); Imm Gran Pct Auto 0.5 % (0.0-0.4); Lymphocytes Absolute Auto 2.2 X10*3/uL (1.2-4.9); Lymphocytes Percent Auto 32.9 % (20-40); Mean Corpuscular HGB Conc 34.8 g/dl (31.0-36.0); Mean Corpuscular Hemoglobin 29.2 pg (27.0-33.0); Mean Corpuscular Volume 83.8 fL (80.0-98.0); Mean Platelet Volume 10.4 fL (9.4-12.4); Monocytes Absolute Auto 0.7 X10*3/uL (0.1-1.2); Monocytes Percent Auto 10.9 % (2-11); Neutrophils Absolute Auto 3.6 x10*3/uL (2.0-8.3); Neutrophils Percent Auto 54.7 % (45-73); Platelet Count 173 X10*3/uL (160-400); Red Blood Count 5.18 X10*6/uL (4.60-5.80); Red Cell Distribution Width 14.2 % (11.0-16.0); White Blood Count 6.6 X10*3/uL (4.8-10.8)
[2024-09-30 16:14] LABS: Anion Gap 18 (12-20); Blood Urea Nitrogen 10 mg/dL (9-16); Calcium 9.2 mg/dL (8.4-10.2); Carbon Dioxide 20 mmol/L (22-29); Chloride 108 mmol/L (96-108); Creatinine Clr Calc Pharmacy 114.7; Estimated Glomerular Filt Rate > 60; Ethanol 363 mg/dL; Glucose Random 118 mg/dL (60-115); Potassium 3.2 mmol/L (3.3-5.1); Sodium 143 mmol/L (135-145)
[2024-09-30 16:16] LABS: Salicylate < 5.0 mg/dL (15-30)
[2024-09-30 16:20] VITALS: BP 144/93; PULSE 113; RESP 20; O2SAT 92
[2024-09-30] MEDS: LORazepam 2 MG/ML VIAL IM (16:20)
[2024-09-30 16:35] VITALS: BP 143/104; PULSE 109; RESP 18; O2SAT 92
[2024-09-30 17:05] VITALS: BP 106/72; PULSE 88; RESP 18; O2SAT 93
[2024-09-30 17:09] LABS: Appearance Urine Clear; Color Urine Yellow; Glucose Urine UA Negative (Negative); Leukocyte Esterase Urine Negative (Negative); Nitrite Urine Negative (Negative); PH 6.5 (5.0-9.0); Specific Gravity - Urine <= 1.005 (1.005-1.025); Urine Blood Negative (Negative); Urine Ketones Negative (Negative); Urine Protein Negative (Neg-Trace)
[2024-09-30 17:17] LABS: Amphetamine Screen Urine Not Detected (Not Detect); Barbiturates, Urine Not Detected (Not Detect); Benzodiazepines Screen Urine Not Detected (Not Detect); Buprenorphine Scr Not Detected (Not Detect); Cannabinoid Screen Urine Not Detected (Not Detect); Cocaine Screen Urine Not Detected (Not Detect); Fentanyl, urine Not Detected (Not Detect); Methadone Screen, Urine Not Detected (Not Detect); Opiate Screen Urine Not Detected (Not Detect); Oxycodone Screen Urine Not Detected (Not Detect); Phencyclidine Screen Urine Not Detected (Not Detect)
[2024-09-30 20:29] VITALS: BP 134/84; PULSE 109; RESP 16; TEMP 36.7; O2SAT 98
[2024-10-01 05:14] VITALS: BP 125/76; PULSE 102; RESP 18; TEMP 36.7; O2SAT 94
--- NOTE | 2024-10-01 08:37 | PHA.MEDREC ---
Addendum entered by Nemo Austin RPh 10/01/24 08:58: reviewed by [facility] ED. Original Note: Pharmacy Consult ? Medication Reconciliation Pharmacy has reviewed the medication reconciliation done by nursing.
--- NOTE | 2024-10-01 09:18 | PC.NURSE ---
admissions calls requesting Pt be treated for his Potassium level of 3.2 noted on 09/30/23. ED Provider contacted via [employer]. Awaiting orders.
[2024-10-01] MEDS: Potassium Chloride Packet 20 MEQ PACKET 60 MEQ PO (11:01)
--- NOTE | 2024-10-01 11:07 | PC.NURSE ---
Pt is observed resting comfortably in bed for the majority of the morning. This RN wakes Pt to licensed mental health counselor on low Potassium level and Pt is agreeable to receive for medication to treatment. Pt reports he feel alright overall and denie any specific complaints at this time. A&Ox3, no evidence of responding to other stimuli Skin is warm and dry Breaths and speech are even and unlabored. Pt is calm, cooperative, and polite. No evidence of tremor. Will continue to monitor and Pt advised to reach out to RN with any needs.
[2024-10-01 12:57] LABS: Glucose, Whole Blood 93 mg/dL (60-115)
[2024-10-01 14:36] LABS: Alanine Aminotransferase 25 U/L (0-40); Albumin Level 4.1 g/dL (3.5-5.0); Alkaline Phosphatase 74 U/L (39-117); Anion Gap 15 (12-20); Aspartate Amino Transferase 33 U/L (5-37); Bilirubin Total 0.3 mg/dL (0.0-1.0); Blood Urea Nitrogen 14 mg/dL (9-16); Calcium 9.4 mg/dL (8.4-10.2); Carbon Dioxide 28 mmol/L (22-29); Chloride 108 mmol/L (96-108); Creatinine Clr Calc Pharmacy 114.7; Estimated Glomerular Filt Rate > 60; Glucose Random 99 mg/dL (60-115); Potassium 4.8 mmol/L (3.3-5.1); Sodium 146 mmol/L (135-145); Total Protein 7.1 g/dL (6.5-8.0)
[2024-10-01 14:39] VITALS: BP 137/91; PULSE 92; RESP 16; TEMP 36.8; O2SAT 98
[2024-10-01 14:40] VITALS: BMI 26.9
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
[2024-10-01] MEDS: LORazepam 1 MG TABLET PO ×3 (16:47→21:02)
[2024-10-01 20:00] VITALS: BP 131/79; PULSE 100; RESP 15; TEMP 36.5; O2SAT 96
[2024-10-02 07:56] VITALS: BP 133/70; PULSE 86; TEMP 36.5; O2SAT 97
[2024-10-02 09:11] LABS: Estimated Average Glucose 105 mg/dL; Hemoglobin A1c % 5.3 % (<6.0); Total Hemoglobin (HGBA1C) 3630.0465 umol/L
[2024-10-02 09:17] LABS: Cholesterol 211 mg/dL (<200); HDL Cholesterol 109 mg/dL (>40); LDL Cholesterol Calculated 79 mg/dL (<100); Triglycerides 117 mg/dL (<150)
[2024-10-02 09:31] LABS: TSH reflex Free T4 0.39 uIU/mL (0.32-4.0)
[2024-10-02] MEDS: Thiamine HCL 100 MG TABLET PO (10:12)
[2024-10-02] MEDS: LORazepam 1 MG TABLET PO ×3 (10:12→21:53)
[2024-10-02] MEDS: Folic Acid 1 MG TABLET PO (10:12)
[2024-10-02] MEDS: Multivitamin TABLET 1 TAB PO (10:12)
--- NOTE | 2024-10-02 10:49 | PC.NURSE ---
10/02/2024 signed a 3 day, up on 10/07/2024
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
[2024-10-02] MEDS: Ziprasidone 20 MG CAPSULE PO (17:05)
[2024-10-02 17:43] VITALS: BMI 26.5
[2024-10-02 19:08] LABS: Influenza A PCR NEGATIVE (Negative); Influenza B PCR NEGATIVE (Negative); Resp Syncy Virus RNA Qual PCR NEGATIVE (Negative); SARS COV2 PCR INHOUSE NEGATIVE (Negative)
[2024-10-02 20:00] VITALS: BP 152/77; PULSE 93; RESP 16; TEMP 36.1; O2SAT 97
--- NOTE | 2024-10-03 | ECG_ITS ---
Test Reason : qtc Blood Pressure : */* mmHG Vent. Rate : 79 BPM Atrial Rate : 79 BPM P-R Int : 114 ms QRS Dur : 78 ms QT Int : 358 ms P-R-T Axes : 23 52 28 degrees QTcB Int : 410 ms Normal sinus rhythm Normal ECG When compared with ECG of 09-Jul-2024 19:15, QT has shortened Referred By: Flash Wiley Electronically Signed By: SHAYY SHAH
[2024-10-03 08:00] VITALS: BP 147/94; PULSE 67; TEMP 36.4; O2SAT 97
[2024-10-03] MEDS: Ziprasidone 20 MG CAPSULE PO (08:48)
[2024-10-03] MEDS: LORazepam 1 MG TABLET PO ×2 (08:48→15:32)
[2024-10-03] MEDS: Multivitamin TABLET 1 TAB PO (08:48)
[2024-10-03] MEDS: Thiamine HCL 100 MG TABLET PO (08:48)
[2024-10-03] MEDS: Folic Acid 1 MG TABLET PO (08:48)
--- NOTE | 2024-10-03 09:52 | HO.PSYCHPN ---
Subjective Subjective Date of Service: 10/03/24 Reason For Visit: depression Interim History: Met with patient; discussed with team Patient says he is all right. He has more insight today. He says that he is hearing things, that people are after him trying to kill him, trying to shoot him, shoot his family however he says he is finding out it is not real. He heard sounds of his ex-girlfriend having sex in the other room but he went looked and found no one there... He heard that his father was but he talked with his father today. Patient is working hard to challenge the reality of these hallucinations and is strongly considering that it might be due to his mind playing tricks on him. He agrees to increase in ziprasidone. Trouble sleeping and agrees to scheduling trazodone and clonidine. Feels Withdrawal is managed well Mental Status Exam Mental Status Exam Narrative: Pt is alert and oriented; behavior is cooperative, friendly with junior copywriter and calm, still keeping to himself but out in the milieu more; patient is not in distress; dressed in casual attire, wearing hat, improved hygiene; mood is described as all right, though affect constricted, downcast; eye contact appropriate; Speech is normal rate, volume and prosody and not pressured; no psychomotor retardation present; thought process is organized and goal directed; Thought content is on paranoid delusions however trying to challenge them; denies any SI/HI. AH present Patients insight and judgment impaired but seems to be improving Diagnostics Vital Signs (24Hr): Vital Signs - 24 hr 10/02/24 20:00 10/03/24 08:00 Temperature 97.0 F 97.5 F Pulse Rate 93 67 Respiratory Rate 16 Blood Pressure 152/77 H 147/94 H Pulse Oximetry 97 97 Oxygen Delivery Method Room Air Room Air BMI result Body Mass Index 26.5 Labs 09/30/24 15:54 10/01/24 13:57 Labs: Laboratory Results - last 48 hr 10/01/24 10/01/24 10/02/24 12:54 13:57 08:40 Sodium 146 H Potassium 4.8 D Chloride 108 Carbon Dioxide 28 Anion Gap 15 BUN 14 Creatinine 0.93 Estim Creat Clear Calc 114.7 Estimated GFR > 60 POC Glucose 93 Random Glucose 99 Estimat Average Glucose 105 Hemoglobin A1c % 5.3 Calcium 9.4 Total Bilirubin 0.3 AST 33 ALT 25 Alkaline Phosphatase 74 Total Protein 7.1 Albumin 4.1 Triglycerides 117 Cholesterol 211 H LDL Cholesterol, Calc 79 HDL Cholesterol 109 TSH 0.39 Influenza Type A (PCR) Influenza Type B (PCR) RSV RNA Qual (PCR) SARS-CoV-2 RNA (RT-PCR) 10/02/24 18:19 Sodium Potassium Chloride Carbon Dioxide Anion Gap BUN Creatinine Estim Creat Clear Calc Estimated GFR POC Glucose Random Glucose Estimat Average Glucose Hemoglobin A1c % Calcium Total Bilirubin AST ALT Alkaline Phosphatase Total Protein Albumin Triglycerides Cholesterol LDL Cholesterol, Calc HDL Cholesterol TSH Influenza Type A (PCR) NEGATIVE Influenza Type B (PCR) NEGATIVE RSV RNA Qual (PCR) NEGATIVE SARS-CoV-2 RNA (RT-PCR) NEGATIVE Medications Medications Current Medications Acetaminophen (Acetaminophen 325 Mg Tablet) 650 mg PO Q6H PRN PRN Reason: Headache/Pain Mild Scale (1-3) Al Hydroxide/Mg Hydroxide (Magnesium Hydrox/Alum Hydrox 30 Ml Oral.Susp) 30 ml PO Q6H PRN PRN Reason: Heartburn/Nausea Folic Acid (Folic Acid 1 Mg Tablet) 1 mg PO DAILY [facility] Last Admin: 10/03/24 08:48 Dose: 1 mg Hydroxyzine HCl (Hydroxyzine Hcl 25 Mg Tablet) 25 mg PO Q6H PRN PRN Reason: Anxiety Lorazepam (Lorazepam 1 Mg Tablet) 2 mg PO Q2H PRN PRN Reason: CIWA 11 and above Lorazepam (Lorazepam 1 Mg Tablet) 1 mg PO Q2H PRN PRN Reason: CIWA 6-10 Last Admin: 10/01/24 21:02 Dose: 1 mg Lorazepam (Lorazepam 1 Mg Tablet) 1 mg PO TID [facility] Stop: 10/04/24 23:00 Last Admin: 10/03/24 08:48 Dose: 1 mg Lorazepam (Lorazepam 1 Mg Tablet) 1 mg PO BID [facility] Magnesium Hydroxide (Milk Of Magnesia 30 Ml Oral.Susp) 30 ml PO DAILY PRN PRN Reason: Constipation Multivitamins/Vitamin C (Multivitamin Tablet) 1 tab PO DAILY [facility] Last Admin: 10/03/24 08:48 Dose: 1 tab Nicotine (Nicotine 21 Mg Patch.Td24) 21 mg TRANSDERMA DAILY PRN PRN Reason: smoking cessation Nicotine Polacrilex (Nicotine Polacrilex 2 Mg Gum) 4 mg BUCCAL Q2H PRN PRN Reason: Nicotine Cravings Thiamine HCl (Thiamine Hcl 100 Mg Tablet) 100 mg PO DAILY [facility] Last Admin: 10/03/24 08:48 Dose: 100 mg Trazodone HCl (Trazodone Hcl 50 Mg Tablet) 50 mg PO BEDTIME MRX1 PRN PRN Reason: Insomnia Ziprasidone (Ziprasidone 20 Mg Capsule) 20 mg PO BID@0900,1700 [facility] Last Admin: 10/03/24 08:48 Dose: 20 mg Allergies Allergies Allergy/AdvReac Type Severity Reaction Status Date / Time penicillin G [PENICILLIN G] Allergy Intermediate SWELLING Verified 09/30/24 15:34 [place] And Derivatives Allergy Unknown unk Verified 09/30/24 15:34 [[place] AND DERIVATIVES] cranberry [CRANBERRY] Allergy Unknown HIVES Verified 09/30/24 15:34 gabapentin [GABAPENTIN] Allergy Unknown HIVES, Verified 09/30/24 15:34 swelling raspberry [RASPBERRY] Allergy Unknown unk Verified 09/30/24 15:34 Assessment & Plan Assessment & Plan (1) Schizoaffective disorder, depressive type: Status: Acute Code(s): F25.1 - Schizoaffective disorder, depressive type (2) PTSD (post-traumatic stress disorder): Status: Acute Code(s): F43.10 - Post-traumatic stress disorder, unspecified (3) Alcohol use disorder: Status: Acute Code(s): F10.90 - Alcohol use, unspecified, uncomplicated (4) Homeless: Status: Acute Code(s): Z59.00 - Homelessness unspecified Plan Pt is a 38 year old male with previous medical history of psychosis, mood disorder, mood lability, AUD presenting to the hospital after pt called 911 for SI comment in face of untreated psychosis and alcohol intoxication. Patient said he was staying at [facility] respite for a day but was over hearing sounds of his ex-girlfriend having sex, a chronic auditory hallucination; he also referenced being at [facility] recently and hearing murmurs by staff saying they were going to shoot him. Patient thus left [facility] and went to stay at his father's and while there, increasingly paranoid that people were after him, called 911 himself and to police said If they're going to kill me, I'd rather do it ...patient does not remember calling 911 or making suicidal comments; he denies any suicidality now. Patient however does report depressive symptoms, with decreased interest in playing music, increased guilty feelings, worse concentration, difficulty sleeping. Patient however expresses ongoing concerns that people planning to shoot him in the head. He noted a woman named Sheila gave him $7500 to buy her daughter a phone, a hotel room and spend time together. He also had plans to give $5000 of this money to an orphanage. I thought her daughter Winnie, who I was talking to, was 24 but later found out she was 17. My own daughter is 16. I don't know why her mom wants me to do that . Initially He says Sheila did not actually transfer the money, but later said he had the money needs to return it so put in a 3 day notice. He also said that he knows Sheila and the daughter are part of the Mafia and this is somehow linked to his concerns about being shot. He said that that is why he drinks alcohol, figuring that since he is going to be killed it anytime he might as well drink. Patient typically hears his his ex girlfriend having sex pretty much where ever he goes, including on this unit briefly; does not respond to reality testing. Difficult to fully assess whether not patient has a history of manic type episodes or behaviors; has had med trials but mostly finds them on helpful except for 1 med trial which upon chart review looks to be ziprasidone which he agrees to restart now. Patient drinks alcohol daily, up to 15 drinks per day including both liquor and beer. Formulation/clinical reasoning: Patient has chronic psychotic illness and reports history of depression; may or may not have manic episodes. He is currently with paranoid delusions and AH. For now Will diagnosed as schizoaffective, depressed type; worsened by PTSD as well as chronic alcoholism. Patient willing to try ziprasidone again hoping it will not be sedating or cause sexual side effects. Discussed MAT and patient listed off most options including disulfiram, saying either no help or not wanted. Hospital course: 10/03 Patient says he is all right. He has more insight today. He says that he is hearing things, that people are after him trying to kill him, trying to shoot him, shoot his family however he says he is finding out it is not real. He heard sounds of his ex-girlfriend having sex in the other room but he went looked and found no one there... He heard that his father was but he talked with his father today. Patient is working hard to challenge the reality of these hallucinations and is strongly considering that it might be due to his mind playing tricks on him. He agrees to increase in ziprasidone. Trouble sleeping and agrees to scheduling trazodone and clonidine. Feels Withdrawal is managed well Plan: Three day notice Q 15 minute checks Increase to ziprasidone for mg b.i.d. Scheduled trazodone 50 mg q.h.s. for insomnia Schedule clonidine 0.1 mg q.h.s. for insomnia and racing thoughts Continue CIWA with p.r.n. Ativan; Ativan 1 mg t.i.d.; will taper and DC Gather collateral Patient educated on: diagnosis, medication risk/benefits, substance abuse and therapeutic strategies Informed Consent: understands Reason for continued inpatient stay Substantial Risk for: rapid decompensation Time Spent With Patient Time: Total time managing care of this patient today ____ minutes.
--- NOTE | 2024-10-03 12:49 | PM.EVENT ---
Event Note Date of Service: 10/03/24 Event Note: Addiction consult placed for patient with AUD who also scored +AUDIT screen Chart reviewed, at this time patient with acute psychosis. Will defer meeting with patient until he has stabilized some psychiatrically Time Spent With Patient Time: Total time managing care of this patient today ____ minutes.
[2024-10-03] MEDS: Ziprasidone 40 MG CAPSULE PO (17:34)
[2024-10-04 08:05] VITALS: BP 118/67; PULSE 70; TEMP 36; O2SAT 98
[2024-10-04] MEDS: Folic Acid 1 MG TABLET PO (08:52)
[2024-10-04] MEDS: Thiamine HCL 100 MG TABLET PO (08:52)
[2024-10-04] MEDS: Multivitamin TABLET 1 TAB PO (08:52)
[2024-10-04] MEDS: LORazepam 1 MG TABLET PO ×3 (08:52→21:36)
[2024-10-04] MEDS: Magnesium Hydrox/Alum Hydrox 30 ML ORAL.SUSP PO (14:07)
--- NOTE | 2024-10-04 14:57 | HO.PSYCHPN ---
Subjective Subjective Date of Service: 10/04/24 Reason For Visit: depression Interim History: Met with patient; discussed with team Patient definitely with brighter affect today. Said did not have auditory hallucination of his ex having sex; did hear some mention of people after him to shoot him however he says that it is definitely less. Patient had concerns about sexual side effects from Geodon however discussed talk this through and currently does not seem to be an issue and patient agrees to continue with increased dose. Patient however was worried it could eventually happen and discussed risks/side effects and using Wellbutrin to help combat this potential issue and patient like the idea wanted to start Mental Status Exam Mental Status Exam Narrative: Pt is alert and oriented; behavior is cooperative, friendly, more social and socializing much more in the milieu;patient is not in distress; dressed in casual attire, wearing hat, adequate hygiene; mood is described as okay and affect congruent, brighter and more calm; eye contact appropriate; Speech is normal rate, volume and prosody and not pressured; no psychomotor retardation present; thought process is organized and goal directed; Thought content is on dealing with paranoid delusions, AH and increasingly able to challenge with reality testing; denies any SI/HI. AH still present but lessening Patients insight and judgment impaired improving. Diagnostics Vital Signs (24Hr): Vital Signs - 24 hr 10/04/24 08:05 Temperature 96.8 F Pulse Rate 70 Blood Pressure 118/67 Pulse Oximetry 98 Oxygen Delivery Method Room Air BMI result Body Mass Index 26.5 Labs 09/30/24 15:54 10/01/24 13:57 Labs: Laboratory Results - last 48 hr 10/02/24 18:19 Influenza Type A (PCR) NEGATIVE Influenza Type B (PCR) NEGATIVE RSV RNA Qual (PCR) NEGATIVE SARS-CoV-2 RNA (RT-PCR) NEGATIVE Medications Medications Current Medications Acetaminophen (Acetaminophen 325 Mg Tablet) 650 mg PO Q6H PRN PRN Reason: Headache/Pain Mild Scale (1-3) Al Hydroxide/Mg Hydroxide (Magnesium Hydrox/Alum Hydrox 30 Ml Oral.Susp) 30 ml PO Q6H PRN PRN Reason: Heartburn/Nausea Last Admin: 10/04/24 14:07 Dose: 30 ml Clonidine HCl (Clonidine Hcl 0.1 Mg Tablet) 0.1 mg PO BEDTIME YULY; Protocol Last Admin: 10/04/24 01:08 Dose: Not Given Folic Acid (Folic Acid 1 Mg Tablet) 1 mg PO DAILY [facility] Last Admin: 10/04/24 08:52 Dose: 1 mg Hydroxyzine HCl (Hydroxyzine Hcl 25 Mg Tablet) 25 mg PO Q6H PRN PRN Reason: Anxiety Lorazepam (Lorazepam 1 Mg Tablet) 1 mg PO TID [facility] Stop: 10/04/24 23:00 Last Admin: 10/04/24 14:50 Dose: 1 mg Lorazepam (Lorazepam 1 Mg Tablet) 1 mg PO BID [facility] Magnesium Hydroxide (Milk Of Magnesia 30 Ml Oral.Susp) 30 ml PO DAILY PRN PRN Reason: Constipation Multivitamins/Vitamin C (Multivitamin Tablet) 1 tab PO DAILY [facility] Last Admin: 10/04/24 08:52 Dose: 1 tab Nicotine (Nicotine 21 Mg Patch.Td24) 21 mg TRANSDERMA DAILY PRN PRN Reason: smoking cessation Nicotine Polacrilex (Nicotine Polacrilex 2 Mg Gum) 4 mg BUCCAL Q2H PRN PRN Reason: Nicotine Cravings Thiamine HCl (Thiamine Hcl 100 Mg Tablet) 100 mg PO DAILY [facility] Last Admin: 10/04/24 08:52 Dose: 100 mg Trazodone HCl (Trazodone Hcl 50 Mg Tablet) 50 mg PO BEDTIME MRX1 PRN PRN Reason: Insomnia Trazodone HCl (Trazodone Hcl 50 Mg Tablet) 50 mg PO BEDTIME [facility] Last Admin: 10/04/24 01:09 Dose: Not Given Ziprasidone (Ziprasidone 40 Mg Capsule) 40 mg PO BID@0900,1700 [facility] Last Admin: 10/04/24 10:02 Dose: Not Given Ziprasidone (Ziprasidone 20 Mg Capsule) 20 mg PO ONCE ONE Stop: 10/04/24 14:57 Allergies Allergies Allergy/AdvReac Type Severity Reaction Status Date / Time penicillin G [PENICILLIN G] Allergy Intermediate SWELLING Verified 09/30/24 15:34 [place] And Derivatives Allergy Unknown unk Verified 09/30/24 15:34 [CITRUS AND DERIVATIVES] cranberry [CRANBERRY] Allergy Unknown HIVES Verified 09/30/24 15:34 gabapentin [GABAPENTIN] Allergy Unknown HIVES, Verified 09/30/24 15:34 swelling raspberry [RASPBERRY] Allergy Unknown unk Verified 09/30/24 15:34 Assessment & Plan Assessment & Plan (1) Schizoaffective disorder, depressive type: Status: Acute Code(s): F25.1 - Schizoaffective disorder, depressive type (2) PTSD (post-traumatic stress disorder): Status: Acute Code(s): F43.10 - Post-traumatic stress disorder, unspecified (3) Alcohol use disorder: Status: Acute Code(s): F10.90 - Alcohol use, unspecified, uncomplicated (4) Homeless: Status: Acute Code(s): Z59.00 - Homelessness unspecified Plan Pt is a 38 year old male with previous medical history of psychosis, mood disorder, mood lability, AUD presenting to the hospital after pt called 911 for SI comment in face of untreated psychosis and alcohol intoxication. Patient said he was staying at [facility] respite for a day but was over hearing sounds of his ex-girlfriend having sex, a chronic auditory hallucination; he also referenced being at [facility] recently and hearing murmurs by staff saying they were going to shoot him. Patient thus left [facility] and went to stay at his father's and while there, increasingly paranoid that people were after him, called 911 himself and to police said If they're going to kill me, I'd rather do it ...patient does not remember calling 911 or making suicidal comments; he denies any suicidality now. Patient however does report depressive symptoms, with decreased interest in playing music, increased guilty feelings, worse concentration, difficulty sleeping. Patient however expresses ongoing concerns that people planning to shoot him in the head. He noted a woman named Sheila gave him $7500 to buy her daughter a phone, a hotel room and spend time together. He also had plans to give $5000 of this money to an orphanage. I thought her daughter Winnie, who I was talking to, was 24 but later found out she was 17. My own daughter is 16. I don't know why her mom wants me to do that . Initially He says Sheila did not actually transfer the money, but later said he had the money needs to return it so put in a 3 day notice. He also said that he knows Sheila and the daughter are part of the Mafia and this is somehow linked to his concerns about being shot. He said that that is why he drinks alcohol, figuring that since he is going to be killed it anytime he might as well drink. Patient typically hears his his ex girlfriend having sex pretty much where ever he goes, including on this unit briefly; does not respond to reality testing. Difficult to fully assess whether not patient has a history of manic type episodes or behaviors; has had med trials but mostly finds them on helpful except for 1 med trial which upon chart review looks to be ziprasidone which he agrees to restart now. Patient drinks alcohol daily, up to 15 drinks per day including both liquor and beer. Formulation/clinical reasoning: Patient has chronic psychotic illness and reports history of depression; may or may not have manic episodes. He is currently with paranoid delusions and AH. For now Will diagnosed as schizoaffective, depressed type; worsened by PTSD as well as chronic alcoholism. Patient willing to try ziprasidone again hoping it will not be sedating or cause sexual side effects. Discussed MAT and patient listed off most options including disulfiram, saying either no help or not wanted. Hospital course: 10/03 Patient says he is all right. He has more insight today. He says that he is hearing things, that people are after him trying to kill him, trying to shoot him, shoot his family however he says he is finding out it is not real. He heard sounds of his ex-girlfriend having sex in the other room but he went looked and found no one there... He heard that his father was but he talked with his father today. Patient is working hard to challenge the reality of these hallucinations and is strongly considering that it might be due to his mind playing tricks on him. He agrees to increase in ziprasidone. Trouble sleeping and agrees to scheduling trazodone and clonidine. Feels Withdrawal is managed well 10/04 Patient definitely with brighter affect today. Said did not have auditory hallucination of his ex having sex; did hear some mention of people after him to shoot him however he says that it is definitely less. Patient had concerns about sexual side effects from Geodon however discussed talk this through and currently does not seem to be an issue and patient agrees to continue with increased dose. Patient however was worried it could eventually happen and discussed risks/side effects and using Wellbutrin to help combat this potential issue and patient like the idea wanted to start -talked about substance abuse and he says it is the AH and paranoid delusions that lead him to drink and that he really does not want to Plan: Three day notice Q 15 minute checks START Wellbutrin 150mg XL Increase to ziprasidone 40 mg b.i.d. Scheduled trazodone 50 mg q.h.s. for insomnia Schedule clonidine 0.1 mg q.h.s. for insomnia and racing thoughts dc CIWA; withdrawal over taper/dc ativan Gather collateral Patient educated on: diagnosis, medication risk/benefits, substance abuse and therapeutic strategies Informed Consent: understands Reason for continued inpatient stay Substantial Risk for: rapid decompensation and med/psych decompensation Time Spent With Patient Time: Total time managing care of this patient today ____ minutes.
[2024-10-04] MEDS: Ziprasidone 20 MG CAPSULE PO (16:13)
[2024-10-04] MEDS: buPROPion HCL 75 MG TABLET PO (16:13)
[2024-10-04] MEDS: Ziprasidone 40 MG CAPSULE PO (19:04)
[2024-10-04 19:51] VITALS: BP 146/86; PULSE 86; RESP 18; TEMP 36.1; O2SAT 100
[2024-10-04] MEDS: cloNIDine HCL 0.1 MG TABLET PO (21:36)
[2024-10-04] MEDS: traZODone HCL 50 MG TABLET PO (21:36)
[2024-10-05 07:49] VITALS: BP 101/64; PULSE 66; TEMP 36.6; O2SAT 95
[2024-10-05] MEDS: Ziprasidone 40 MG CAPSULE PO ×2 (09:20→17:31)
[2024-10-05] MEDS: Folic Acid 1 MG TABLET PO (09:20)
[2024-10-05] MEDS: Multivitamin TABLET 1 TAB PO (09:20)
[2024-10-05] MEDS: Thiamine HCL 100 MG TABLET PO (09:20)
[2024-10-05] MEDS: LORazepam 1 MG TABLET PO ×2 (09:21→20:36)
--- NOTE | 2024-10-05 10:55 | HO.PSYCHPN ---
Subjective Subjective Date of Service: 10/05/24 Reason For Visit: depression Interim History: Met with patient; discussed with team AH much less; did not hear anyone talking about killing him and maybe did not hear AH of ex having sex (he's not sure but if so, says it was much less). Slept well. Patient discussed depression and was very pleased to know that Wellbutrin treats depression and that he wants to continue; patient shared some history of trauma. Also talked about how he is feeling overall better and is enjoying interacting with peers in the milieu. Talked about his outreach workers coming into visit tomorrow Mental Status Exam Mental Status Exam Narrative: Pt is alert and oriented; behavior is cooperative, friendly, social and friendly with peers in the milieu; patient is not in distress; dressed in casual attire, wearing hat, adequate hygiene; mood is described as depressed but better and affect congruent, brighter and more calm; eye contact appropriate; Speech is normal rate, volume and prosody and not pressured; no psychomotor retardation present; thought process is organized and goal directed; Thought content is on dealing with paranoid delusions, AH and increasingly able to challenge with reality testing; denies any SI/HI. AH significantly diminishing. Patients insight and judgment impaired improving. Diagnostics Vital Signs (24Hr): Vital Signs - 24 hr 10/04/24 19:51 10/05/24 07:49 Temperature 96.9 F 97.8 F Pulse Rate 86 66 Respiratory Rate 18 Blood Pressure 146/86 H 101/64 Pulse Oximetry 100 95 Oxygen Delivery Method Room Air Room Air BMI result Body Mass Index 26.5 Labs 09/30/24 15:54 10/01/24 13:57 Medications Medications Current Medications Acetaminophen (Acetaminophen 325 Mg Tablet) 650 mg PO Q6H PRN PRN Reason: Headache/Pain Mild Scale (1-3) Al Hydroxide/Mg Hydroxide (Magnesium Hydrox/Alum Hydrox 30 Ml Oral.Susp) 30 ml PO Q6H PRN PRN Reason: Heartburn/Nausea Last Admin: 10/04/24 14:07 Dose: 30 ml Clonidine HCl (Clonidine Hcl 0.1 Mg Tablet) 0.1 mg PO BEDTIME [facility]; Protocol Last Admin: 10/04/24 21:36 Dose: 0.1 mg Folic Acid (Folic Acid 1 Mg Tablet) 1 mg PO DAILY [facility] Last Admin: 10/05/24 09:20 Dose: 1 mg Hydroxyzine HCl (Hydroxyzine Hcl 25 Mg Tablet) 25 mg PO Q6H PRN PRN Reason: Anxiety Lorazepam (Lorazepam 1 Mg Tablet) 1 mg PO BID [facility] Last Admin: 10/05/24 09:21 Dose: 1 mg Magnesium Hydroxide (Milk Of Magnesia 30 Ml Oral.Susp) 30 ml PO DAILY PRN PRN Reason: Constipation Multivitamins/Vitamin C (Multivitamin Tablet) 1 tab PO DAILY [facility] Last Admin: 10/05/24 09:20 Dose: 1 tab Nicotine (Nicotine 21 Mg Patch.Td24) 21 mg TRANSDERMA DAILY PRN PRN Reason: smoking cessation Nicotine Polacrilex (Nicotine Polacrilex 2 Mg Gum) 4 mg BUCCAL Q2H PRN PRN Reason: Nicotine Cravings Thiamine HCl (Thiamine Hcl 100 Mg Tablet) 100 mg PO DAILY [facility] Last Admin: 10/05/24 09:20 Dose: 100 mg Trazodone HCl (Trazodone Hcl 50 Mg Tablet) 50 mg PO BEDTIME MRX1 PRN PRN Reason: Insomnia Trazodone HCl (Trazodone Hcl 50 Mg Tablet) 50 mg PO BEDTIME [facility] Last Admin: 10/04/24 21:36 Dose: 50 mg Ziprasidone (Ziprasidone 40 Mg Capsule) 40 mg PO BID@0900,1700 [facility] Last Admin: 10/05/24 09:20 Dose: 40 mg Allergies Allergies Allergy/AdvReac Type Severity Reaction Status Date / Time penicillin G [PENICILLIN G] Allergy Intermediate SWELLING Verified 09/30/24 15:34 Mayes And Derivatives Allergy Unknown unk Verified 09/30/24 15:34 [CITRUS AND DERIVATIVES] cranberry [CRANBERRY] Allergy Unknown HIVES Verified 09/30/24 15:34 gabapentin [GABAPENTIN] Allergy Unknown HIVES, Verified 09/30/24 15:34 swelling raspberry [RASPBERRY] Allergy Unknown unk Verified 09/30/24 15:34 Assessment & Plan Assessment & Plan (1) Schizoaffective disorder, depressive type: Status: Acute Code(s): F25.1 - Schizoaffective disorder, depressive type (2) PTSD (post-traumatic stress disorder): Status: Acute Code(s): F43.10 - Post-traumatic stress disorder, unspecified (3) Alcohol use disorder: Status: Acute Code(s): F10.90 - Alcohol use, unspecified, uncomplicated (4) Homeless: Status: Acute Code(s): Z59.00 - Homelessness unspecified Plan Pt is a 38 year old male with previous medical history of psychosis, mood disorder, mood lability, AUD presenting to the hospital after pt called 911 for SI comment in face of untreated psychosis and alcohol intoxication. Patient said he was staying at [facility] respite for a day but was over hearing sounds of his ex-girlfriend having sex, a chronic auditory hallucination; he also referenced being at [facility] recently and hearing murmurs by staff saying they were going to shoot him. Patient thus left [facility] and went to stay at his father's and while there, increasingly paranoid that people were after him, called 911 himself and to police said If they're going to kill me, I'd rather do it ...patient does not remember calling 911 or making suicidal comments; he denies any suicidality now. Patient however does report depressive symptoms, with decreased interest in playing music, increased guilty feelings, worse concentration, difficulty sleeping. Patient however expresses ongoing concerns that people planning to shoot him in the head. He noted a woman named Sheila gave him $7500 to buy her daughter a phone, a hotel room and spend time together. He also had plans to give $5000 of this money to an orphanage. I thought her daughter Winnie, who I was talking to, was 24 but later found out she was 17. My own daughter is 16. I don't know why her mom wants me to do that . Initially He says Sheila did not actually transfer the money, but later said he had the money needs to return it so put in a 3 day notice. He also said that he knows Sheila and the daughter are part of the Mafia and this is somehow linked to his concerns about being shot. He said that that is why he drinks alcohol, figuring that since he is going to be killed it anytime he might as well drink. Patient typically hears his his ex girlfriend having sex pretty much where ever he goes, including on this unit briefly; does not respond to reality testing. Difficult to fully assess whether not patient has a history of manic type episodes or behaviors; has had med trials but mostly finds them on helpful except for 1 med trial which upon chart review looks to be ziprasidone which he agrees to restart now. Patient drinks alcohol daily, up to 15 drinks per day including both liquor and beer. Formulation/clinical reasoning: Patient has chronic psychotic illness and reports history of depression; may or may not have manic episodes. He is currently with paranoid delusions and AH. For now Will diagnosed as schizoaffective, depressed type; worsened by PTSD as well as chronic alcoholism. Patient willing to try ziprasidone again hoping it will not be sedating or cause sexual side effects. Discussed MAT and patient listed off most options including disulfiram, saying either no help or not wanted. Hospital course: 10/03 Patient says he is all right. He has more insight today. He says that he is hearing things, that people are after him trying to kill him, trying to shoot him, shoot his family however he says he is finding out it is not real. He heard sounds of his ex-girlfriend having sex in the other room but he went looked and found no one there... He heard that his father was but he talked with his father today. Patient is working hard to challenge the reality of these hallucinations and is strongly considering that it might be due to his mind playing tricks on him. He agrees to increase in ziprasidone. Trouble sleeping and agrees to scheduling trazodone and clonidine. Feels Withdrawal is managed well Hospital course: 10/03 Patient says he is all right. He has more insight today. He says that he is hearing things, that people are after him trying to kill him, trying to shoot him, shoot his family however he says he is finding out it is not real. He heard sounds of his ex-girlfriend having sex in the other room but he went looked and found no one there... He heard that his father was but he talked with his father today. Patient is working hard to challenge the reality of these hallucinations and is strongly considering that it might be due to his mind playing tricks on him. He agrees to increase in ziprasidone. Trouble sleeping and agrees to scheduling trazodone and clonidine. Feels Withdrawal is managed well 10/04 Patient definitely with brighter affect today. Said did not have auditory hallucination of his ex having sex; did hear some mention of people after him to shoot him however he says that it is definitely less. Patient had concerns about sexual side effects from Geodon however discussed talk this through and currently does not seem to be an issue and patient agrees to continue with increased dose. Patient however was worried it could eventually happen and discussed risks/side effects and using Wellbutrin to help combat this potential issue and patient like the idea wanted to start 10/05 AH much less; did not hear anyone talking about killing him and maybe did not hear AH of ex having sex (he's not sure but if so, says it was much less). Slept well. Patient discussed depression and was very pleased to know that Wellbutrin treats depression and that he wants to continue; patient shared some history of trauma. Also talked about how he is feeling overall better and is enjoying interacting with peers in the milieu. Talked about his outreach workers coming into visit tomorrow Plan: Three day notice Q 15 minute checks Continue Wellbutrin 150mg XL Continue ziprasidone 40 mg b.i.d. Scheduled trazodone 50 mg q.h.s. for insomnia Schedule clonidine 0.1 mg q.h.s. for insomnia and racing thoughts dc CIWA; withdrawal over taper/dc ativan Gather collateral Patient educated on: diagnosis, medication risk/benefits and therapeutic strategies Informed Consent: understands Reason for continued inpatient stay Substantial Risk for: stable for discharge and rapid decompensation Time Spent With Patient Time: Total time managing care of this patient today ____ minutes.
[2024-10-05] MEDS: buPROPion HCl XL 150 MG TAB.ER.24H PO (11:22)
--- NOTE | 2024-10-05 13:01 | MHC.RECOVRN ---
AUDIT-C Brief Intervention Pt had positive screen for unhealthy alcohol use on admission, subsequently met with t/w to discuss alcohol use and recovery supports/options. This flex o writer operator met with patient to discuss current alcohol use and concerns related to increased risk of alcohol related problems.? Pt reports he has been drinking for 20 years but the uptick started approx 10 years ago. He is currently drinking 1 pt of vodka, 4 ND and 4 nips/day (prior to hospitalization) Discussed how alcohol use has impacted health, including negative impact on mental health, relationships and supports. Withdrawal History: None disclosed Treatment History: Pt reports being in multiple treatment programs but did not go into detail Supports:?Pt has many community supports including case operator. Discussed risk reduction strategies including drinking below the recommended limit. Provided pt with written resources including information on inpatient and outpatient treatment, LAEVLL, harm reduction, and recovery coaching. Pt plans to either quit completely or reduce use depending on where he is placed following this hospitalization. Pt provided with t/w contact information if questions or concerns arise. Denies other questions or concerns at this time.
[2024-10-05 20:00] VITALS: BP 114/78; PULSE 83; TEMP 36.9; O2SAT 99
[2024-10-05] MEDS: hydrOXYzine HCL 25 MG TABLET PO (20:35)
[2024-10-05 20:37] VITALS: BP 114/78
[2024-10-05] MEDS: cloNIDine HCL 0.1 MG TABLET PO (20:37)
[2024-10-05] MEDS: traZODone HCL 50 MG TABLET PO (20:37)
[2024-10-06 08:00] VITALS: BP 117/56; PULSE 70; RESP 16; TEMP 36.4; O2SAT 97
[2024-10-06] MEDS: Folic Acid 1 MG TABLET PO (08:37)
[2024-10-06] MEDS: Ziprasidone 40 MG CAPSULE PO ×2 (08:37→17:10)
[2024-10-06] MEDS: LORazepam 1 MG TABLET PO ×2 (08:37→20:19)
[2024-10-06] MEDS: Thiamine HCL 100 MG TABLET PO (08:38)
[2024-10-06] MEDS: Multivitamin TABLET 1 TAB PO (08:38)
[2024-10-06] MEDS: buPROPion HCl XL 150 MG TAB.ER.24H PO ×2 (08:38→11:22)
--- NOTE | 2024-10-06 09:45 | HO.PSYCHPN ---
Subjective Subjective Date of Service: 10/06/24 Reason For Visit: depression Interim History: Met with patient; discussed with team Patient says that he is still depressed and agrees to increase in Wellbutrin. Initially he said he is still hearing his ex having sex and said he hurt it all night.... However on further inquiry, patient slept well and only hurt it a little bit when he woke up. He has not heard any voices talking about killing him or coming after him. Discussed sobriety which patient says he very much wants but does not want to wait on the unit longer to see if in get into a TSS; rather he wants to discharge. Mental Status Exam Mental Status Exam Narrative: Pt is alert and oriented; behavior is cooperative, friendly, social and friendly with peers in the milieu; patient is not in distress; dressed in casual attire, wearing hat, adequate hygiene; mood is described as depressed but better overall and affect congruent, brighter and more calm; eye contact appropriate; Speech is normal rate, volume and prosody and not pressured; no psychomotor retardation present; thought process is organized and goal directed; Thought content is on dealing with paranoid delusions, AH and increasingly able to challenge with reality testing; denies any SI/HI. AH nearly resolved; Patients insight and judgment impaired but significantly improved and adequate. Diagnostics Vital Signs (24Hr): Vital Signs - 24 hr 10/05/24 20:00 10/05/24 20:37 10/06/24 08:00 Temperature 98.5 F 97.5 F Pulse Rate 83 70 Respiratory Rate 16 Blood Pressure 114/78 114/78 117/56 L Pulse Oximetry 99 97 Oxygen Delivery Method Room Air Room Air BMI result Body Mass Index 26.5 Labs 09/30/24 15:54 10/01/24 13:57 Medications Medications Current Medications Acetaminophen (Acetaminophen 325 Mg Tablet) 650 mg PO Q6H PRN PRN Reason: Headache/Pain Mild Scale (1-3) Al Hydroxide/Mg Hydroxide (Magnesium Hydrox/Alum Hydrox 30 Ml Oral.Susp) 30 ml PO Q6H PRN PRN Reason: Heartburn/Nausea Last Admin: 10/04/24 14:07 Dose: 30 ml Bupropion HCl (Bupropion Hcl Xl 150 Mg Tab.Er.24h) 150 mg PO DAILY [facility] Last Admin: 10/06/24 08:38 Dose: 150 mg Clonidine HCl (Clonidine Hcl 0.1 Mg Tablet) 0.1 mg PO BEDTIME [facility]; Protocol Last Admin: 10/05/24 20:37 Dose: 0.1 mg Folic Acid (Folic Acid 1 Mg Tablet) 1 mg PO DAILY [facility] Last Admin: 10/06/24 08:37 Dose: 1 mg Hydroxyzine HCl (Hydroxyzine Hcl 25 Mg Tablet) 25 mg PO Q6H PRN PRN Reason: Anxiety Last Admin: 10/05/24 20:35 Dose: 25 mg Lorazepam (Lorazepam 1 Mg Tablet) 1 mg PO BID [facility] Last Admin: 10/06/24 08:37 Dose: 1 mg Magnesium Hydroxide (Milk Of Magnesia 30 Ml Oral.Susp) 30 ml PO DAILY PRN PRN Reason: Constipation Multivitamins/Vitamin C (Multivitamin Tablet) 1 tab PO DAILY [facility] Last Admin: 10/06/24 08:38 Dose: 1 tab Nicotine (Nicotine 21 Mg Patch.Td24) 21 mg TRANSDERMA DAILY PRN PRN Reason: smoking cessation Nicotine Polacrilex (Nicotine Polacrilex 2 Mg Gum) 4 mg BUCCAL Q2H PRN PRN Reason: Nicotine Cravings Thiamine HCl (Thiamine Hcl 100 Mg Tablet) 100 mg PO DAILY [facility] Last Admin: 10/06/24 08:38 Dose: 100 mg Trazodone HCl (Trazodone Hcl 50 Mg Tablet) 50 mg PO BEDTIME MRX1 PRN PRN Reason: Insomnia Trazodone HCl (Trazodone Hcl 50 Mg Tablet) 50 mg PO BEDTIME [facility] Last Admin: 10/05/24 20:37 Dose: 50 mg Ziprasidone (Ziprasidone 40 Mg Capsule) 40 mg PO BID@0900,1700 [facility] Last Admin: 10/06/24 08:37 Dose: 40 mg Allergies Allergies Allergy/AdvReac Type Severity Reaction Status Date / Time penicillin G [PENICILLIN G] Allergy Intermediate SWELLING Verified 09/30/24 15:34 Williams And Derivatives Allergy Unknown unk Verified 09/30/24 15:34 [CITRUS AND DERIVATIVES] cranberry [CRANBERRY] Allergy Unknown HIVES Verified 09/30/24 15:34 gabapentin [GABAPENTIN] Allergy Unknown HIVES, Verified 09/30/24 15:34 swelling raspberry [RASPBERRY] Allergy Unknown unk Verified 09/30/24 15:34 Assessment & Plan Assessment & Plan (1) Schizoaffective disorder, depressive type: Status: Acute Code(s): F25.1 - Schizoaffective disorder, depressive type (2) PTSD (post-traumatic stress disorder): Status: Acute Code(s): F43.10 - Post-traumatic stress disorder, unspecified (3) Alcohol use disorder: Status: Acute Code(s): F10.90 - Alcohol use, unspecified, uncomplicated (4) Homeless: Status: Acute Code(s): Z59.00 - Homelessness unspecified Plan Pt is a 38 year old male with previous medical history of psychosis, mood disorder, mood lability, AUD presenting to the hospital after pt called 911 for SI comment in face of untreated psychosis and alcohol intoxication. Patient said he was staying at [facility] respite for a day but was over hearing sounds of his ex-girlfriend having sex, a chronic auditory hallucination; he also referenced being at [facility] recently and hearing murmurs by staff saying they were going to shoot him. Patient thus left [facility] and went to stay at his father's and while there, increasingly paranoid that people were after him, called 911 himself and to police said If they're going to kill me, I'd rather do it ...patient does not remember calling 911 or making suicidal comments; he denies any suicidality now. Patient however does report depressive symptoms, with decreased interest in playing music, increased guilty feelings, worse concentration, difficulty sleeping. Patient however expresses ongoing concerns that people planning to shoot him in the head. He noted a woman named Sheila gave him $7500 to buy her daughter a phone, a hotel room and spend time together. He also had plans to give $5000 of this money to an orphanage. I thought her daughter Winnie, who I was talking to, was 24 but later found out she was 17. My own daughter is 16. I don't know why her mom wants me to do that . Initially He says Sheila did not actually transfer the money, but later said he had the money needs to return it so put in a 3 day notice. He also said that he knows Sheila and the daughter are part of the Mafia and this is somehow linked to his concerns about being shot. He said that that is why he drinks alcohol, figuring that since he is going to be killed it anytime he might as well drink. Patient typically hears his his ex girlfriend having sex pretty much where ever he goes, including on this unit briefly; does not respond to reality testing. Difficult to fully assess whether not patient has a history of manic type episodes or behaviors; has had med trials but mostly finds them on helpful except for 1 med trial which upon chart review looks to be ziprasidone which he agrees to restart now. Patient drinks alcohol daily, up to 15 drinks per day including both liquor and beer. Formulation/clinical reasoning: Patient has chronic psychotic illness and reports history of depression; may or may not have manic episodes. He is currently with paranoid delusions and AH. For now Will diagnosed as schizoaffective, depressed type; worsened by PTSD as well as chronic alcoholism. Patient willing to try ziprasidone again hoping it will not be sedating or cause sexual side effects. Discussed MAT and patient listed off most options including disulfiram, saying either no help or not wanted. Hospital course: 10/03 Patient says he is all right. He has more insight today. He says that he is hearing things, that people are after him trying to kill him, trying to shoot him, shoot his family however he says he is finding out it is not real. He heard sounds of his ex-girlfriend having sex in the other room but he went looked and found no one there... He heard that his father was but he talked with his father today. Patient is working hard to challenge the reality of these hallucinations and is strongly considering that it might be due to his mind playing tricks on him. He agrees to increase in ziprasidone. Trouble sleeping and agrees to scheduling trazodone and clonidine. Feels Withdrawal is managed well Hospital course: 10/03 Patient says he is all right. He has more insight today. He says that he is hearing things, that people are after him trying to kill him, trying to shoot him, shoot his family however he says he is finding out it is not real. He heard sounds of his ex-girlfriend having sex in the other room but he went looked and found no one there... He heard that his father was but he talked with his father today. Patient is working hard to challenge the reality of these hallucinations and is strongly considering that it might be due to his mind playing tricks on him. He agrees to increase in ziprasidone. Trouble sleeping and agrees to scheduling trazodone and clonidine. Feels Withdrawal is managed well 10/04 Patient definitely with brighter affect today. Said did not have auditory hallucination of his ex having sex; did hear some mention of people after him to shoot him however he says that it is definitely less. Patient had concerns about sexual side effects from Geodon however discussed talk this through and currently does not seem to be an issue and patient agrees to continue with increased dose. Patient however was worried it could eventually happen and discussed risks/side effects and using Wellbutrin to help combat this potential issue and patient like the idea wanted to start 10/05 AH much less; did not hear anyone talking about killing him and maybe did not hear AH of ex having sex (he's not sure but if so, says it was much less). Slept well. Patient discussed depression and was very pleased to know that Wellbutrin treats depression and that he wants to continue; patient shared some history of trauma. Also talked about how he is feeling overall better and is enjoying interacting with peers in the milieu. Talked about his outreach workers coming into visit tomorrow 10/06 Patient says that he is still depressed and agrees to increase in Wellbutrin. Initially he said he is still hearing his ex having sex and said he hurt it all night.... However on further inquiry, patient slept well and only hurt it a little bit when he woke up. He has not heard any voices talking about killing him or coming after him. Discussed sobriety which patient says he very much wants but does not want to wait on the unit longer to see if in get into a TSS; rather he wants to discharge. Patient has a 3 day notice due. He is significantly improved and AH is nearly resolved; also currently no paranoid delusions. Patient says he is depressed but no SI at all and he is feeling ready for discharge. Patient a course remains vulnerable to relapse and he has a history of medication non adherence; thus it is likely that he will at some point again decompensate. However this has been his pattern for many years and will not change with longer stay on the unit or with further medication management [place] he is doing significantly better. Patient has established outpatient services including a pillowcase cleaner who know him well. He is not in imminent risk for harm to self or others and appropriate to return to the community for treatment. His request for discharge honored. Plan: Three day notice Q 15 minute checks Increase to Wellbutrin 300 mg XL Continue ziprasidone 40 mg b.i.d. Scheduled trazodone 50 mg q.h.s. for insomnia Schedule clonidine 0.1 mg q.h.s. for insomnia and racing thoughts dc CIWA; withdrawal over taper/dc ativan Gather collateral Patient educated on: diagnosis, medication risk/benefits, substance abuse and therapeutic strategies Informed Consent: understands and further education needed Reason for continued inpatient stay Substantial Risk for: stable for discharge Time Spent With Patient Time: Total time managing care of this patient today ____ minutes.
[2024-10-06 20:00] VITALS: BP 128/66; PULSE 80; TEMP 36.7; O2SAT 99
[2024-10-06 20:19] VITALS: BP 128/66
[2024-10-06] MEDS: traZODone HCL 50 MG TABLET PO (20:19)
[2024-10-06] MEDS: hydrOXYzine HCL 25 MG TABLET PO (20:19)
[2024-10-06] MEDS: cloNIDine HCL 0.1 MG TABLET PO (20:19)
[2024-10-07 08:00] VITALS: BP 142/80; PULSE 70; RESP 16; TEMP 36.3; O2SAT 96
[2024-10-07] MEDS: LORazepam 1 MG TABLET PO (08:21)
[2024-10-07] MEDS: Ziprasidone 40 MG CAPSULE PO (08:21)
[2024-10-07] MEDS: buPROPion HCl XL 300 MG TAB.ER.24H PO (08:21)
[2024-10-07] MEDS: Thiamine HCL 100 MG TABLET PO (08:22)
[2024-10-07] MEDS: Folic Acid 1 MG TABLET PO (08:22)
[2024-10-07] MEDS: Multivitamin TABLET 1 TAB PO (08:22)
--- NOTE | 2024-10-07 09:03 | PM.PSYDC ---
DS: Providers Provider Date of Service: 10/07/24 Date of admission: 10/01/24 13:12 Date of discharge: 10/07/24 Primary care physician: Unknown Physician Attending physician on admission: Flash Wiley Consults: 10/01/24 14:58 Addiction Medicine Routine Consulting Provider: Addiction Covering Reason for consultation: ETOH abuse, pt requested consult Attending physician on discharge: Flash Wiley DS: Diagnosis Discharge Diagnosis (1) Schizoaffective disorder, depressive type: Status: Acute (2) PTSD (post-traumatic stress disorder): Status: Acute (3) Alcohol use disorder: Status: Acute (4) Homeless: Status: Acute DS: Medications Discharge Medications Home Medications: Previous Rx's ?Medication ?Instructions ?Recorded bupropion HCl 300 mg 24 hr tablet, 300 mg PO DAILY 30 days #30 tabs 10/07/24 extended release clonidine HCl 0.1 mg tablet 0.1 mg PO BEDTIME 30 days #30 tabs 10/07/24 hydroxyzine HCl 25 mg tablet 25 mg PO Q6H PRN Anxiety 30 days 10/07/24 #30 tabs trazodone 50 mg tablet 50 mg PO BEDTIME PRN insomnia 30 10/07/24 days #30 tabs ziprasidone HCl 40 mg capsule 40 mg PO BID 30 days #60 caps 10/07/24 Mental Status Exam Mental Status Exam Narrative: Pt is alert and oriented; behavior is cooperative, friendly, social and friendly with peers in the milieu; patient is not in distress; dressed in casual attire, wearing hat, adequate hygiene; mood is described with some depression but better overall better and with congruent affect which remains brighter and calm; eye contact appropriate; Speech is normal rate, volume and prosody and not pressured; no psychomotor retardation present; thought process is organized and goal directed; Thought content is on discharge; denies any SI/HI. AH nearly resolved; Patients insight and judgment impaired but significantly improved and adequate. Data Data Completed and Pending Completed studies during hospitalization [Text1]: 09/30/24 09/30/24 10/01/24 15:54 16:50 12:54 WBC 6.6 RBC 5.18 Hgb 15.1 Hct 43.4 MCV 83.8 MCH 29.2 MCHC 34.8 RDW 14.2 Plt Count 173 D MPV 10.4 Immature Gran % (Auto) 0.5 H Neut % (Auto) 54.7 Lymph % (Auto) 32.9 Gillespie % (Auto) 10.9 Eos % (Auto) 0.5 Baso % (Auto) 0.5 Lymph # (Auto) 2.2 Gillespie # (Auto) 0.7 Eos # (Auto) 0.0 Baso # (Auto) 0.0 Abs Immat Gran (auto) 0.03 Absolute Neuts (auto) 3.6 Absolute Nucleated RBC 0.000 Nucleated RBC % (auto) 0.0 Sodium 143 Potassium 3.2 L Chloride 108 Carbon Dioxide 20 L Anion Gap 18 BUN 10 Creatinine 0.93 Estim Creat Clear Calc 114.7 Estimated GFR > 60 POC Glucose 93 Random Glucose 118 H Estimat Average Glucose Hemoglobin A1c % Calcium 9.2 Total Bilirubin AST ALT Alkaline Phosphatase Total Protein Albumin Triglycerides Cholesterol LDL Cholesterol, Calc HDL Cholesterol TSH Urine Color Yellow Urine Appearance Clear Urine pH 6.5 Ur Specific Burghill <= 1.005 Urine Protein Negative Urine Glucose (UA) Negative Urine Ketones Negative Urine Blood Negative Urine Nitrite Negative Ur Leukocyte Esterase Negative Salicylates < 5.0 L Urine Opiates Screen Not Detected Ur Buprenorphine Scrn Not Detected Ur Oxycodone Screen Not Detected Urine Methadone Screen Not Detected Urine Fentanyl Screen Not Detected Ur Barbiturates Screen Not Detected Ur Phencyclidine Scrn Not Detected Ur Amphetamines Screen Not Detected U Benzodiazepines Scrn Not Detected Urine Cocaine Screen Not Detected U Marijuana (THC) Screen Not Detected Ethyl Alcohol 363 H* Influenza Type A (PCR) Influenza Type B (PCR) RSV RNA Qual (PCR) SARS-CoV-2 RNA (RT-PCR) 10/01/24 10/02/24 10/02/24 13:57 08:40 18:19 WBC RBC Hgb Hct MCV MCH MCHC RDW Plt Count MPV Immature Gran % (Auto) Neut % (Auto) Lymph % (Auto) Gillespie % (Auto) Eos % (Auto) Baso % (Auto) Lymph # (Auto) Gillespie # (Auto) Eos # (Auto) Baso # (Auto) Abs Immat Gran (auto) Absolute Neuts (auto) Absolute Nucleated RBC Nucleated RBC % (auto) Sodium 146 H Potassium 4.8 D Chloride 108 Carbon Dioxide 28 Anion Gap 15 BUN 14 Creatinine 0.93 Estim Creat Clear Calc 114.7 Estimated GFR > 60 POC Glucose Random Glucose 99 Estimat Average Glucose 105 Hemoglobin A1c % 5.3 Calcium 9.4 Total Bilirubin 0.3 AST 33 ALT 25 Alkaline Phosphatase 74 Total Protein 7.1 Albumin 4.1 Triglycerides 117 Cholesterol 211 H LDL Cholesterol, Calc 79 HDL Cholesterol 109 TSH 0.39 Urine Color Urine Appearance Urine pH Ur Specific [place] Urine Protein Urine Glucose (UA) Urine Ketones Urine Blood Urine Nitrite Ur Leukocyte Esterase Salicylates Urine Opiates Screen Ur Buprenorphine Scrn Ur Oxycodone Screen Urine Methadone Screen Urine Fentanyl Screen Ur Barbiturates Screen Ur Phencyclidine Scrn Ur Amphetamines Screen U Benzodiazepines Scrn Urine Cocaine Screen U Marijuana (THC) Screen Ethyl Alcohol Influenza Type A (PCR) NEGATIVE Influenza Type B (PCR) NEGATIVE RSV RNA Qual (PCR) NEGATIVE SARS-CoV-2 RNA (RT-PCR) NEGATIVE DS: Summary Hospital Course Hospital Course: HPI: Pt is a 38 year old male with previous medical history of psychosis, mood disorder, mood lability, AUD presenting to the hospital after pt called 911 for SI comment in face of untreated psychosis and alcohol intoxication. Patient said he was staying at [facility] respite for a day but was over hearing sounds of his ex-girlfriend having sex, a chronic auditory hallucination; he also referenced being at [facility] recently and hearing murmurs by staff saying they were going to shoot him. Patient thus left [facility] and went to stay at his father's and while there, increasingly paranoid that people were after him, called 911 himself and to police said If they're going to kill me, I'd rather do it ...patient does not remember calling 911 or making suicidal comments; he denies any suicidality now. Patient however does report depressive symptoms, with decreased interest in playing music, increased guilty feelings, worse concentration, difficulty sleeping. Patient however expresses ongoing concerns that people planning to shoot him in the head. He noted a woman named Sheila gave him $7500 to buy her daughter a phone, a hotel room and spend time together. He also had plans to give $5000 of this money to an orphanage. I thought her daughter Winnie, who I was talking to, was 24 but later found out she was 17. My own daughter is 16. I don't know why her mom wants me to do that . Initially He says Sheila did not actually transfer the money, but later said he had the money needs to return it so put in a 3 day notice. He also said that he knows Sheila and the daughter are part of the Mafia and this is somehow linked to his concerns about being shot. He said that that is why he drinks alcohol, figuring that since he is going to be killed it anytime he might as well drink. Patient typically hears his his ex girlfriend having sex pretty much where ever he goes, including on this unit briefly; does not respond to reality testing. Difficult to fully assess whether not patient has a history of manic type episodes or behaviors; has had med trials but mostly finds them on helpful except for 1 med trial which upon chart review looks to be ziprasidone which he agrees to restart now. Patient drinks alcohol daily, up to 15 drinks per day including both liquor and beer. Formulation/clinical reasoning: Patient has chronic psychotic illness and reports history of depression; may or may not have manic episodes. He is currently with paranoid delusions and AH. For now Will diagnosed as schizoaffective, depressed type; worsened by PTSD as well as chronic alcoholism. Patient willing to try ziprasidone again hoping it will not be sedating or cause sexual side effects. Discussed MAT and patient listed off most options including disulfiram, saying either no help or not wanted. Hospital course: On admission, patient depressed, with auditory hallucinations of both his ex-girlfriend having sex (which is chronic) and some persecutory voice saying they were going to kill him or kill his family; also with paranoid delusions that someone was trying to kill him and his family. No insight. Patient started on CIWA, scheduled Ativan which was tapered and DC need and patient detoxed without incident. Patient agreed to start Geodon which he had been on before and seemed to be helpful. Soon, patient's mood improved and AH and paranoid delusions started to diminish. 10/03 Patient says he is all right. He has more insight today. He says that he is hearing things, that people are after him trying to kill him, trying to shoot him, shoot his family however he says he is finding out it is not real. He heard sounds of his ex-girlfriend having sex in the other room but he went looked and found no one there... He heard that his father was but he talked with his father today. Patient is working hard to challenge the reality of these hallucinations and is strongly considering that it might be due to his mind playing tricks on him. He agrees to increase in ziprasidone. Trouble sleeping and agrees to scheduling trazodone and clonidine. Feels Withdrawal is managed well 10/04 Patient definitely with brighter affect today. Said did not have auditory hallucination of his ex having sex; did hear some mention of people after him to shoot him however he says that it is definitely less. Patient had concerns about sexual side effects from Geodon however discussed talk this through and currently does not seem to be an issue and patient agrees to continue with increased dose. Patient however was worried it could eventually happen and discussed risks/side effects and using Wellbutrin to help combat this potential issue and patient like the idea wanted to start 10/05 AH much less; did not hear anyone talking about killing him and maybe did not hear AH of ex having sex (he's not sure but if so, says it was much less). Slept well. Patient discussed depression and was very pleased to know that Wellbutrin treats depression and that he wants to continue; patient shared some history of trauma. Also talked about how he is feeling overall better and is enjoying interacting with peers in the milieu. Talked about his outreach workers coming into visit tomorrow 10/06 Patient says that he is still depressed and agrees to increase in Wellbutrin. Initially he said he is still hearing his ex having sex and said he hurt it all night.... However on further inquiry, patient slept well and only hurt it a little bit when he woke up. He has not heard any voices talking about killing him or coming after him. Discussed sobriety which patient says he very much wants but does not want to wait on the unit longer to see if in get into a TSS; rather he wants to discharge. - QTcB Int : 410 ms Impression Patient has a 3 day notice due. He is significantly improved and AH is nearly resolved; also currently no paranoid delusions. Patient says he is depressed. Initially, when AH and paranoid delusions started to diminished, his mood was significantly better; now that AH is nearly completely resolved (and no paranoid delusions) it seems that patient is now more aware of his depression. However he remains doing overall much better and is without any SI at all; patient says he is feeling safe and ready for discharge. Patient a course remains vulnerable to relapse and he has a history of medication non adherence; thus it is likely that he will at some point again decompensate. However this has been his pattern for many years and will not change with longer stay on the unit or with further medication management [place] he is doing significantly better. Patient has established outpatient services including a corrections caseworker who know him well. He is not in imminent risk for harm to self or others and appropriate to return to the community for treatment. His request for discharge honored. Medications: Started Wellbutrin 300 mg XL Started ziprasidone 40 mg b.i.d. Started trazodone 50 mg q.h.s. for insomnia Started clonidine 0.1 mg q.h.s. for insomnia and racing thoughts Time spent discussing smoking cessation with patient: 3 to 10 minutes Status at Discharge Functional status at discharge: independent ambulation Overall status at discharge: patient is back to baseline Time Spent with Patient Time attestation: Total time managing care of this patient today _40___ minutes. Time spent: Greater than 30 minutes Specific discharge activities: Met with patient; discussed with team; charting; prescriptions Discharge Plan Discharge Anticipated Discharge Date/Time: 10/07/24 11:30 Patient Disposition: [facility] Discharge Diagnosis: schizoaffective disorder, depressed type Referrals: [facility]- Therapy and Medication Provider [Other] - 1 Week (Please call when you have your new phone to give them your contact and to get your appointment dates and times ) Darnell Brock MD [Physician] - 1 Week (office will call PT with follow up appointment) Discharge Medications: New clonidine HCl 0.1 mg Tablet 0.1 mg PO BEDTIME 30 Days Qty: 30 1RF Protocol: Hold for SBP< HOLD for SBP < : 90 bupropion HCl 300 mg Tablet Extended Release 24 Hr 300 mg PO DAILY 30 Days Qty: 30 1RF hydroxyzine HCl 25 mg Tablet 25 mg PO Q6H PRN (Reason: Anxiety) 30 Days Qty: 30 1RF trazodone 50 mg Tablet 50 mg PO BEDTIME PRN (Reason: insomnia) 30 Days Qty: 30 1RF ziprasidone HCl 40 mg Capsule 40 mg PO BID 30 Days Qty: 60 1RF Rx Instructions: take with food if possible Discharge Orders: Discharge Order (Routine); Ordered 10/07/24 Ordered By: Flash Wiley Diet: Regular diet Activity on Discharge: As tolerated Stand Alone Forms: Patient Portal Discharge page Print Language: Djiboutian Care Plan Goals: Maintain mood and safe behaviors Take medications as prescribed Continue to pursue sobriety Practice coping skills Continue with outpatient providers and reach out to them as needed Health Concerns: Mood stability and behaviors Sobriety Plan of Treatment: Follow up with your PCP, psychiatric provider and other outpatient providers regarding above concerns Take medications as prescribed Assessment: Risk assessment at time of discharge:? Patient was interviewed prior to discharge and found to be fully oriented and without any SI or HI. Patient has improved insight and judgment and wants to continue treatment. Patient is not in imminent risk of harm to self or others and has a safety plan that includes presenting to the closest ER or calling 911 if feeling unsafe.? Patient has been observed closely by nursing and unit staff throughout admission; patient has not engaged in any behaviors that suggest dangerousness to self or others and has demonstrated appropriate behaviors and impulse control
== END 2024-10-07 13:02 | disposition home or self-care (01) | DRG 885 ==
LOC: HO.ED 20:35 → HO.PM5 10-01 13:31
PROVIDERS: Clinical Nurse Specialist Psychiatric/Mental Health, Adult; Admitting Provider Psychiatry & Neurology Psychiatry; Emergency Provider Emergency Medicine; Visit Provider Psychiatry & Neurology Psychiatry
DX: F25.1 Schizoaffective disorder, depressive type (principal); R45.851 Suicidal ideations; Z59.02 Unsheltered homelessness; F10.139 Alcohol abuse with withdrawal, unspecified; F10.129 Alcohol abuse with intoxication, unspecified; F43.10 Post-traumatic stress disorder, unspecified; Y90.8 Blood alcohol level of 240 mg/100 ml or more; Z20.822 Contact with and (suspected) exposure to COVID-19; Z79.899 Other long term (current) drug therapy
CPT/HCPCS: 0241U; 36415; 80048; 80053; 80061; 80179; 80307; 81003; 82947; 83036; 84443; 85025; 93005; 99285; J2060; S9485

== ENCOUNTER 2024-10-01 13:12 | Outpatient (BNV) | payer OTHER, SELFPAY | END 2024-10-03 18:47 | PROVIDERS: Admitting Provider Psychiatry & Neurology Psychiatry; Emergency Provider Emergency Medicine; Visit Provider Internal Medicine | DX: I45.81 Long QT syndrome (principal) | CPT/HCPCS: 93010 ==

== ENCOUNTER → 2024-10-01 13:12 | Outpatient (BNV) | payer OTHER, SELFPAY | PROVIDERS: Admitting Provider Psychiatry & Neurology Psychiatry; Emergency Provider Emergency Medicine; Visit Provider Psychiatry & Neurology Psychiatry | DX: F25.1 Schizoaffective disorder, depressive type (principal); F43.11 Post-traumatic stress disorder, acute; F10.90 Alcohol use, unspecified, uncomplicated; Z59.00 Homelessness unspecified | CPT/HCPCS: 90792; 99232 ==

== ENCOUNTER 2024-10-20 19:55 | Emergency (ER) | payer OTHER, SELFPAY ==
[2024-10-20 20:11] VITALS: PULSE 112; O2SAT 97
[2024-10-20 20:33] VITALS: BMI 23.2
[2024-10-20 20:37] VITALS: BP 133/90; PULSE 110; RESP 20; TEMP 36.6; O2SAT 93
[2024-10-20 21:00] LABS: MANUAL DIFF FLAG NO
[2024-10-20 21:06] LABS: Basophils Absolute Auto 0.1 X10*3/uL (0.0-0.2); Basophils Percent Auto 0.6 % (0-2); Eosinophils Absolute Auto 0.1 X10*3/uL (0.0-0.4); Eosinophils Percent Auto 0.8 % (0-4); Hematocrit 39.8 % (42.0-52.0); Hemoglobin 14.1 g/dl (14.0-18.0); Imm Gran Abs Auto 0.08 X10*3/uL (0.00-0.03); Lymphocytes Absolute Auto 2.7 X10*3/uL (1.2-4.9); Lymphocytes Percent Auto 33.9 % (20-40); Mean Corpuscular HGB Conc 35.4 g/dl (31.0-36.0); Mean Corpuscular Hemoglobin 29.5 pg (27.0-33.0); Mean Corpuscular Volume 83.3 fL (80.0-98.0); Mean Platelet Volume 10.5 fL (9.4-12.4); Monocytes Absolute Auto 0.7 X10*3/uL (0.1-1.2); Monocytes Percent Auto 8.9 % (2-11); Neutrophils Absolute Auto 4.3 x10*3/uL (2.0-8.3); Neutrophils Percent Auto 54.8 % (45-73); Platelet Count 238 X10*3/uL (160-400); Red Blood Count 4.78 X10*6/uL (4.60-5.80); Red Cell Distribution Width 14.5 % (11.0-16.0); White Blood Count 7.8 X10*3/uL (4.8-10.8)
[2024-10-20 21:11] LABS: Amphetamine Screen Urine Not Detected (Not Detect); Barbiturates, Urine Not Detected (Not Detect); Benzodiazepines Screen Urine POSITIVE (Not Detect); Buprenorphine Scr Not Detected (Not Detect); Cannabinoid Screen Urine Not Detected (Not Detect); Cocaine Screen Urine Not Detected (Not Detect); Fentanyl, urine Not Detected (Not Detect); Methadone Screen, Urine Not Detected (Not Detect); Opiate Screen Urine Not Detected (Not Detect); Oxycodone Screen Urine Not Detected (Not Detect); Phencyclidine Screen Urine Not Detected (Not Detect)
[2024-10-20 21:13] LABS: Anion Gap 13 (12-20); Blood Urea Nitrogen 9 mg/dL (9-16); Calcium 8.8 mg/dL (8.4-10.2); Carbon Dioxide 22 mmol/L (22-29); Chloride 109 mmol/L (96-108); Creatinine Clr Calc Pharmacy 93.1; Estimated Glomerular Filt Rate > 60; Ethanol 338 mg/dL; Glucose Random 87 mg/dL (60-115); Potassium 3.7 mmol/L (3.3-5.1); Sodium 140 mmol/L (135-145)
[2024-10-20 21:16] LABS: Acetaminophen LAB < 3 mcg/mL (<30); Salicylate < 5.0 mg/dL (15-30)
--- NOTE | 2024-10-20 22:59 | ED_ITS ---
HPI - Psych General Chief Complaint: Psychiatric Symptoms Stated Complaint: etoh, suicidal comments Time Seen by Provider: 10/20/24 22:13 Source: patient Limitations: no limitations History of Present Illness ED Provider: Pat Venegas PA-C HPI Narrative: 38-year-old male with a history of schizoaffective disorder, PTSD, prior psychosis, alcohol use disorder presents with SI. Patient states he has a plan to ?cut his wrists?. History limited as patient not wanting to engage in a conversation with me so as to obtain detailed history. Patient admits to drinking alcohol overnight, denies the use of illicit substances. Related Data Previous Rx's ?Medication ?Instructions ?Recorded bupropion HCl 300 mg 24 hr tablet, 300 mg PO DAILY 30 days #30 tabs 10/07/24 extended release clonidine HCl 0.1 mg tablet 0.1 mg PO BEDTIME 30 days #30 tabs 10/07/24 hydroxyzine HCl 25 mg tablet 25 mg PO Q6H PRN Anxiety 30 days 10/07/24 #30 tabs trazodone 50 mg tablet 50 mg PO BEDTIME PRN insomnia 30 10/07/24 days #30 tabs ziprasidone HCl 40 mg capsule 40 mg PO BID 30 days #60 caps 10/07/24 Allergies Allergy/AdvReac Type Severity Reaction Status Date / Time penicillin G [PENICILLIN G] Allergy Intermediate SWELLING Verified 10/20/24 20:34 Caswell And Derivatives Allergy Unknown unk Verified 10/20/24 20:34 [CITRUS AND DERIVATIVES] cranberry [CRANBERRY] Allergy Unknown HIVES Verified 10/20/24 20:34 gabapentin [GABAPENTIN] Allergy Unknown HIVES, Verified 10/20/24 20:34 swelling raspberry [RASPBERRY] Allergy Unknown unk Verified 10/20/24 20:34 Review of Systems 2 Review of Systems: Unable to obtain as the patient has a uncooperative Yes all other systems are reviewed and are negative PMFSH Past Medical History Attestation statement: The following information was validated with the patient. Medical History (Updated 10/20/24 @ 23:10 by JANE Pappas) Homeless Alcohol use disorder PTSD (post-traumatic stress disorder) Schizoaffective disorder, depressive type Alcohol abuse Bipolar disorder Social History Social History Household Members: None Housing: Homeless Housing Other:: [facility] Do you presently have visiting nurse or other home services: No Alcohol intake: current Alcohol intake frequency: 3 or more drinks per day Alcohol type: beer Patient Tobacco Use Status: Never used Tobacco Smoked in Last 30 Days: No e-Cigarette/Vaping Use: Never Used Second Hand Smoke Exposure: No Use of substances other than those prescribed or required for medical reasons: No Advance Directives: No Advance Directives Information Provided: No service: No Sexual orientation: Straight/Heterosexual Physical Exam 2 Vital Signs: Vital Signs: Last Vital Signs Temp 97.8 F 10/20/24 20:37 Pulse 110 H 10/20/24 20:37 Resp 20 10/20/24 20:37 BP 133/90 H 10/20/24 20:37 Pulse Ox 93 10/20/24 20:37 O2 Del Method Room Air 10/20/24 20:37 BMI result Body Mass Index 23.2 Const: Other: Awake, yelling out at people in the hallway, cursing, verbally abusive Orientation/consciousness: patient oriented x3 Resp: Effort & Inspection: normal respiratory effort Cardio: Other: Normal peripheral perfusion Skin: Other: Warm dry no rash Neuro: General: patient oriented x3, no focal motor deficits and CN's II-XI intact bilaterally Psych: Other: Hostile, rambling about his recent hospital admission stating ?I want to go to [facility] ..... A girl maybe go crazy she did made dirty? Medical Decision Making Medical Decision Making [facility] Narrative: 38-year-old male with a history of schizoaffective disorder, PTSD, prior psychosis, alcohol use disorder presents with SI. Patient states he has a plan to ?cut his wrists?. History limited as patient not wanting to engage in a conversation with me so as to obtain detailed history. Patient admits to drinking alcohol overnight, denies the use of illicit substances. Problem: Substance abuse, psychiatric illness History: Per patient I have considered the following differential diagnoses: Decompensated psychiatric illness, drug/alcohol intoxication, SI, HI Plan: Patient will be referred to the care team. Screening labs and drug screen We will be obtained I have independently reviewed the following tests: Labs: No leukocytosis, not anemic, no electrolyte abnormality, serum ethanol 338, U tox positive for benzodiazepine Lab Data 10/20/24 20:48 10/20/24 20:48 Labs: Lab Results 10/20/24 10/20/24 Range/Units 20:48 20:54 WBC 7.8 (4.8-10.8) X10*3/uL RBC 4.78 (4.60-5.80) X10*6/uL Hgb 14.1 (14.0-18.0) g/dl Hct 39.8 L (42.0-52.0) % MCV 83.3 (80.0-98.0) fL MCH 29.5 (27.0-33.0) pg MCHC 35.4 (31.0-36.0) g/dl RDW 14.5 (11.0-16.0) % Plt Count 238 D (160-400) X10*3/uL MPV 10.5 (9.4-12.4) fL Immature Gran % (Auto) 1.0 H (0.0-0.4) % Neut % (Auto) 54.8 (45-73) % Lymph % (Auto) 33.9 (20-40) % Tyrrell % (Auto) 8.9 (2-11) % Eos % (Auto) 0.8 (0-4) % Baso % (Auto) 0.6 (0-2) % Lymph # (Auto) 2.7 (1.2-4.9) X10*3/uL Tyrrell # (Auto) 0.7 (0.1-1.2) X10*3/uL Eos # (Auto) 0.1 (0.0-0.4) X10*3/uL Baso # (Auto) 0.1 (0.0-0.2) X10*3/uL Abs Immat Gran (auto) 0.08 H (0.00-0.03) X10*3/uL Absolute Neuts (auto) 4.3 (2.0-8.3) x10*3/uL Absolute Nucleated RBC 0.000 (0.0-0.012) X10*3/uL Nucleated RBC % (auto) 0.0 (0.0-0.2) /100WBC Sodium 140 (135-145) mmol/L Potassium 3.7 D (3.3-5.1) mmol/L Chloride 109 H (96-108) mmol/L Carbon Dioxide 22 (22-29) mmol/L Anion Gap 13 (12-20) BUN 9 (9-16) mg/dL Creatinine 1.05 (0.5-1.4) mg/dL Estim Creat Clear Calc 93.1 Estimated GFR > 60 Random Glucose 87 (60-115) mg/dL Calcium 8.8 D (8.4-10.2) mg/dL Salicylates < 5.0 L (15-30) mg/dL Urine Opiates Screen Not Detected (Not Detect) Ur Buprenorphine Scrn Not Detected (Not Detect) ng/mL Ur Oxycodone Screen Not Detected (Not Detect) ng/mL Urine Methadone Screen Not Detected (Not Detect) ng/mL Urine Fentanyl Screen Not Detected (Not Detect) Acetaminophen < 3 (<30) mcg/mL Ur Barbiturates Screen Not Detected (Not Detect) Ur Phencyclidine Scrn Not Detected (Not Detect) Ur Amphetamines Screen Not Detected (Not Detect) U Benzodiazepines Scrn POSITIVE H (Not Detect) Urine Cocaine Screen Not Detected (Not Detect) U Marijuana (THC) Screen Not Detected (Not Detect) Ethyl Alcohol 338 H* mg/dL Discharge Plan Discharge Clinical Impression: Suicidal ideation Patient Disposition: Still a Patient Prescriptions: No Action clonidine HCl 0.1 mg Tablet 0.1 mg PO BEDTIME 30 Days Qty: 30 1RF Protocol: Hold for SBP< HOLD for SBP < : 90 bupropion HCl 300 mg Tablet Extended Release 24 Hr 300 mg PO DAILY 30 Days Qty: 30 1RF hydroxyzine HCl 25 mg Tablet 25 mg PO Q6H PRN (Reason: Anxiety) 30 Days Qty: 30 1RF trazodone 50 mg Tablet 50 mg PO BEDTIME PRN (Reason: insomnia) 30 Days Qty: 30 1RF ziprasidone HCl 40 mg Capsule 40 mg PO BID 30 Days Qty: 60 1RF Rx Instructions: take with food if possible Interventions: Major-Suicide Risk Severity Scale Last Done: 10/20/24 22:27 Print Language: Maltese
[2024-10-21 00:20] VITALS: BP 107/71; PULSE 100; RESP 16; TEMP 36.3; O2SAT 94
[2024-10-21] MEDS: LORazepam 1 MG TABLET PO (00:58)
--- NOTE | 2024-10-21 02:13 | PC.NURSE ---
patient has been talking lengthily to peers and staff.
--- NOTE | 2024-10-21 08:03 | PC.NURSE ---
pt is awake and alert and has eaten breakfast. he has been revaluated by care team. pt is calm and cooperative and is interacting appropriately with staff. report was taken by previous rn @ 0700.
--- NOTE | 2024-10-21 08:08 | MHC.CARE ---
Pt does not meet the criteria for IPLOC at this time as he frequently presents to the ED endorsing SI in the context of his severe alcohol use. Pt frequently declines services for substance use. He was offered to speak with the recovery team and stated detox doesn't work. Pt is not invested in addressing his alcohol use and does not present as an imminent risk. He declined services and will be discharged.
[2024-10-21 09:36] VITALS: BP 140/87; PULSE 88; RESP 16; TEMP 36.9; O2SAT 98
== END 2024-10-21 09:51 | disposition home or self-care (01) ==
PROVIDERS: Emergency Provider Emergency Medicine
DX: R45.851 Suicidal ideations (principal); F10.10 Alcohol abuse, uncomplicated; Y90.8 Blood alcohol level of 240 mg/100 ml or more; F43.10 Post-traumatic stress disorder, unspecified; F25.1 Schizoaffective disorder, depressive type; F23 Brief psychotic disorder; Z59.00 Homelessness unspecified; Z79.899 Other long term (current) drug therapy
CPT/HCPCS: 36415; 80048; 80143; 80179; 80307; 85025; 99285; S9485

== ENCOUNTER 2024-11-07 15:49 | Emergency (ER) | payer OTHER, SELFPAY ==
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
[2024-11-07 16:04] VITALS: RESP 20; BMI 24.2
[2024-11-07 16:07] VITALS: BP 00/0; PULSE 0; RESP 0; TEMP -17.7; TEMP 0
== END 2024-11-07 16:09 ==
LOC: HO.ED 16:07
PROVIDERS: Emergency Provider Emergency Medicine
DX: F10.129 Alcohol abuse with intoxication, unspecified (principal); Y90.9 Presence of alcohol in blood, level not specified
CPT/HCPCS: 99282

== ENCOUNTER 2024-11-19 21:04 | Inpatient (IN) | payer OTHER, SELFPAY ==
[2024-11-19 21:06] VITALS: BP 138/98; BP 149/110; PULSE 100; PULSE 103; RESP 16; TEMP 37; O2SAT 97; O2SAT 98; BMI 25.1
[2024-11-19 21:25] VITALS: BP 139/94; PULSE 107
[2024-11-19] MEDS: Acetaminophen 325 MG TABLET 650 MG PO (21:31)
[2024-11-19 21:49] LABS: Amphetamine Screen Urine Not Detected (Not Detect); Appearance Urine Cloudy; Barbiturates, Urine Not Detected (Not Detect); Benzodiazepines Screen Urine POSITIVE (Not Detect); Buprenorphine Scr Not Detected (Not Detect); Cannabinoid Screen Urine Not Detected (Not Detect); Cocaine Screen Urine Not Detected (Not Detect); Color Urine Dark Yellow; Fentanyl, urine Not Detected (Not Detect); Glucose Urine UA Negative (Negative); Leukocyte Esterase Urine Negative (Negative); Methadone Screen, Urine Not Detected (Not Detect); Nitrite Urine Negative (Negative); Opiate Screen Urine Not Detected (Not Detect); Oxycodone Screen Urine Not Detected (Not Detect); Phencyclidine Screen Urine Not Detected (Not Detect); Specific Gravity - Urine 1.025 (1.005-1.025); UMIC TRIGGER UACC YES; Urine Blood Negative (Negative); Urine Ketones Trace mg/dL (Negative); Urine Protein 30 (1+) mg/dL (Neg-Trace)
[2024-11-19 21:53] LABS: Bacteria Urine None Seen (None Seen); Hyaline Casts Urine 0-2 /LPF (0-2); RBC Urine 0-2 /HPF (0-2); Squamous Epithelial Cell Urine 0-2 /HPF (0-2); WBC Urine 0-5 /HPF (0-5)
[2024-11-19 22:15] LABS: MANUAL DIFF FLAG NO
--- NOTE | 2024-11-19 22:19 | ED_ITS ---
HPI - Psych General Chief Complaint: Psychiatric Symptoms Stated Complaint: crisis Time Seen by Provider: 11/19/24 21:08 Source: patient and EMS Mode of arrival: EMS Limitations: no limitations History of Present Illness ED Provider: Dr. Amaris Aly HPI Narrative: Patient comes to emergency room via ambulance requesting to be Sectioned and being admitted to the inpatient psych floor. Patient reports that he does not want to live anymore [facility] currently staying, states that there are people were telling him that they want to shoot him . Patient denies SI or HI. Also, patient reports that after he was discharged from the hospital in September, he did not pick his medications, states that [facility] did not help him get his meds. Patient states that he wants to be restarted on his psych medications Related Data Previous Rx's ?Medication ?Instructions ?Recorded bupropion HCl 300 mg 24 hr tablet, 300 mg PO DAILY 30 days #30 tabs 10/07/24 extended release clonidine HCl 0.1 mg tablet 0.1 mg PO BEDTIME 30 days #30 tabs 10/07/24 hydroxyzine HCl 25 mg tablet 25 mg PO Q6H PRN Anxiety 30 days 10/07/24 #30 tabs trazodone 50 mg tablet 50 mg PO BEDTIME PRN insomnia 30 10/07/24 days #30 tabs ziprasidone HCl 40 mg capsule 40 mg PO BID 30 days #60 caps 10/07/24 Allergies Allergy/AdvReac Type Severity Reaction Status Date / Time penicillin G [PENICILLIN G] Allergy Intermediate SWELLING Verified 11/19/24 21:13 [place] And Derivatives Allergy Unknown unk Verified 11/19/24 21:13 [CITRUS AND DERIVATIVES] cranberry [CRANBERRY] Allergy Unknown HIVES Verified 11/19/24 21:13 gabapentin [GABAPENTIN] Allergy Unknown HIVES, Verified 11/19/24 21:13 swelling raspberry [RASPBERRY] Allergy Unknown unk Verified 11/19/24 21:13 Review of Systems 2 Review of Systems: Constitutional : No Weight loss, No Fever, No Chills, No Night Sweats, No Fatigue, No Malaise ENT/Mouth : No Hearing loss, No Ear Pain, No Nasal Congestion, No Sinus Pain, No Hoarseness, No sore throat, No Rhinorrhea, No Swallowing Difficulty Eyes: No Eye Pain, No Swelling, No Redness, No Foreign Body, No Discharge, No Vision Changes Cardiovascular : No Chest Pain, No SOB, No Dyspnea on Exertion, No Orthopnea, No Edema, No Palpitations Respiratory : No Cough, No Sputum, No Wheezing, No Smoke Exposure, No Dyspnea Gastrointestinal : No Nausea, No Vomiting, No Diarrhea, No Constipation, No abdominal Pain, No Hematochezia, No Melena Genitourinary : no irregular bleeding, No Dysuria, No Urinary Frequency, No Hematuria, No Urinary Incontinence, No Urgency, No Flank Pain, No Urinary Flow Changes, No Hesitancy Musculoskeletal : No joint pain, No Myalgias, No Joint Swelling Skin : No Skin Lesions, No rash Neuro : No Weakness, No Numbness, No Paresthesias, No Loss of Consciousness, No Dizziness, No Headache Psych : No Anxiety/Panic, No Depression, No SI/HI, concerned that people want to shoot him, admits to ETOH Heme/Lymph: No Bruising, No Bleeding,No Lymphadenopathy Endocrine : No Polyuria, No Polydipsia, No Temperature Intolerance [facility] Past Medical History Medical History Homeless Alcohol use disorder PTSD (post-traumatic stress disorder) Schizoaffective disorder, depressive type Alcohol abuse Bipolar disorder Social History Social History Household Members: None Housing: Homeless Housing Other:: prison Do you presently have visiting nurse or other home services: No Alcohol intake: current Alcohol intake frequency: 3 or more drinks per day Alcohol type: beer Patient Tobacco Use Status: Never used Tobacco Smoked in Last 30 Days: No e-Cigarette/Vaping Use: Never Used Second Hand Smoke Exposure: No Use of substances other than those prescribed or required for medical reasons: No Advance Directives: No Advance Directives Information Provided: Yes Do you have a plan to hurt others: No Plan service: No Sexual orientation: Straight/Heterosexual Physical Exam 2 Vital Signs: Vital Signs: Last Vital Signs Temp 98.6 F 11/19/24 21:06 Pulse 107 H 11/19/24 21:25 Resp 16 11/19/24 21:06 BP 139/94 H 11/19/24 21:25 Pulse Ox 98 11/19/24 21:06 O2 Del Method Room Air 11/19/24 21:06 BMI result Body Mass Index 25.1 Const: Other: Appearance: Alert. Oriented X3. No acute distress. Eyes: Pupils equal, round and reactive to light. ENT: Pharynx normal. Neck: Normal inspection. Neck supple. No lymph nodes noted. No crepitus CVS: Normal heart rate and rhythm. Pulses normal. Normal S1 and S2 Respiratory: No respiratory distress. Breath sounds normal. No Wheezing. No rales Abdomen: Soft and nontender. No rigidity. No distention. Skin: Skin warm and dry. Normal skin color. Normal skin turgor. Extremities: No lower extremity edema. No Lacerations. No Rash Neuro: Oriented X 3. No motor deficit. No sensory deficit. Moving all extremities. No slurred speech. CN 2 through 12 grossly intact Psych: calm, cooperative, normal affect Course Course Course Narrative: all labs pending patient is not SI or HI, section 12 not indicated at this time patient is here voluntarily care team consult pending physician observation started at 22:23 Medications Administered Discontinued Medications Generic Name Dose Route Start Last Admin Trade Name Freq PRN Reason Stop Dose Admin Acetaminophen 650 mg 11/19/24 21:28 11/19/24 21:31 Acetaminophen 325 Mg Tablet PO 11/19/24 21:29 650 mg ONCE ONE Administration Medical Decision Making Differential Diagnosis Differential Diagnoses: The differential diagnosis associated with the presentation includes ( delusional, schizoaffective disorder, paranoid) Admission/Observation Consideration of admission/observation: Escalation of care including admission/observation considered ( care team consult pending to determine patient's disposition) Lab Data 11/19/24 22:09 11/19/24 22:09 Labs: Lab Results 11/19/24 Range/Units 21:32 Urine Color Dark Yellow Urine Appearance Cloudy Urine pH 7.0 (5.0-9.0) Ur Specific [place] 1.025 (1.005-1.025) Urine Protein 30 (1+) H (Neg-Trace) mg/dL Urine Glucose (UA) Negative (Negative) mg/dL Urine Ketones Trace (Negative) mg/dL Urine Blood Negative (Negative) Urine Nitrite Negative (Negative) Ur Leukocyte Esterase Negative (Negative) Urine RBC 0-2 (0-2) /HPF Urine WBC 0-5 (0-5) /HPF Ur Squamous Epith Cells 0-2 (0-2) /HPF Urine Bacteria None Seen (None Seen) Hyaline Casts 0-2 (0-2) /LPF Urine Opiates Screen Not Detected (Not Detect) Ur Buprenorphine Scrn Not Detected (Not Detect) ng/mL Ur Oxycodone Screen Not Detected (Not Detect) ng/mL Urine Methadone Screen Not Detected (Not Detect) ng/mL Urine Fentanyl Screen Not Detected (Not Detect) Ur Barbiturates Screen Not Detected (Not Detect) Ur Phencyclidine Scrn Not Detected (Not Detect) Ur Amphetamines Screen Not Detected (Not Detect) U Benzodiazepines Scrn POSITIVE H (Not Detect) Urine Cocaine Screen Not Detected (Not Detect) U Marijuana (THC) Screen Not Detected (Not Detect) Critical Care Time Critical Care Time Critical Care Time: Yes Total Critical Care Time: 35 Attestation: I have personally provided critical care time. Time includes review of lab data, radiology results, discussion with consultants, and monitoring for potential decompensation. Intervention performed as documented. Discharge Plan Discharge Clinical Impression: Delusional ideas Patient Disposition: Still a Patient Prescriptions: No Action clonidine HCl 0.1 mg Tablet 0.1 mg PO BEDTIME 30 Days Qty: 30 1RF Protocol: Hold for SBP< HOLD for SBP < : 90 bupropion HCl 300 mg Tablet Extended Release 24 Hr 300 mg PO DAILY 30 Days Qty: 30 1RF hydroxyzine HCl 25 mg Tablet 25 mg PO Q6H PRN (Reason: Anxiety) 30 Days Qty: 30 1RF trazodone 50 mg Tablet 50 mg PO BEDTIME PRN (Reason: insomnia) 30 Days Qty: 30 1RF ziprasidone HCl 40 mg Capsule 40 mg PO BID 30 Days Qty: 60 1RF Rx Instructions: take with food if possible Interventions: [place]-Suicide Risk Severity Scale Last Done: 11/19/24 21:22 Print Language: Panamanian
[2024-11-19 22:20] LABS: Basophils Absolute Auto 0.1 X10*3/uL (0.0-0.2); Basophils Percent Auto 1.2 % (0-2); Eosinophils Percent Auto 0.3 % (0-4); Hematocrit 42.6 % (42.0-52.0); Hemoglobin 14.8 g/dl (14.0-18.0); Imm Gran Abs Auto 0.04 X10*3/uL (0.00-0.03); Imm Gran Pct Auto 0.7 % (0.0-0.4); Lymphocytes Absolute Auto 1.7 X10*3/uL (1.2-4.9); Lymphocytes Percent Auto 27.5 % (20-40); Mean Corpuscular HGB Conc 34.7 g/dl (31.0-36.0); Mean Corpuscular Hemoglobin 29.4 pg (27.0-33.0); Mean Corpuscular Volume 84.5 fL (80.0-98.0); Mean Platelet Volume 10.4 fL (9.4-12.4); Monocytes Absolute Auto 0.5 X10*3/uL (0.1-1.2); Monocytes Percent Auto 8.1 % (2-11); Neutrophils Absolute Auto 3.8 x10*3/uL (2.0-8.3); Neutrophils Percent Auto 62.2 % (45-73); Platelet Count 257 X10*3/uL (160-400); Red Blood Count 5.04 X10*6/uL (4.60-5.80); Red Cell Distribution Width 14.9 % (11.0-16.0); White Blood Count 6.1 X10*3/uL (4.8-10.8)
[2024-11-19] MEDS: LORazepam 1 MG TABLET 2 MG PO (22:25)
[2024-11-19 22:35] VITALS: BP 145/95
[2024-11-19] MEDS: Ziprasidone 40 MG CAPSULE PO (22:35)
[2024-11-19] MEDS: hydrOXYzine HCL 25 MG TABLET PO (22:35)
[2024-11-19] MEDS: cloNIDine HCL 0.1 MG TABLET PO (22:35)
[2024-11-19 22:38] LABS: Ethanol 41 mg/dL
[2024-11-19 22:44] LABS: Alanine Aminotransferase 70 U/L (0-40); Albumin Level 4.1 g/dL (3.5-5.0); Alkaline Phosphatase 79 U/L (39-117); Anion Gap 18 (12-20); Aspartate Amino Transferase 107 U/L (5-37); Bilirubin Total 0.4 mg/dL (0.0-1.0); Blood Urea Nitrogen 10 mg/dL (9-16); Calcium 8.9 mg/dL (8.4-10.2); Carbon Dioxide 27 mmol/L (22-29); Chloride 103 mmol/L (96-108); Creatinine Clr Calc Pharmacy 90.9; Estimated Glomerular Filt Rate > 60; Glucose Random 95 mg/dL (60-115); Potassium 3.6 mmol/L (3.3-5.1); Salicylate < 5.0 mg/dL (15-30); Sodium 144 mmol/L (135-145); Total Protein 7.2 g/dL (6.5-8.0)
[2024-11-20 06:38] VITALS: BP 114/84; PULSE 62; RESP 17; TEMP 36.6; O2SAT 97
[2024-11-20] MEDS: Ziprasidone 40 MG CAPSULE PO (09:14)
[2024-11-20] MEDS: buPROPion HCl XL 300 MG TAB.ER.24H PO (09:14)
--- NOTE | 2024-11-20 09:50 | ECG_ITS ---
Test Reason : R/O PROLONGED QT Blood Pressure : */* mmHG Vent. Rate : 79 BPM Atrial Rate : 79 BPM P-R Int : 132 ms QRS Dur : 88 ms QT Int : 404 ms P-R-T Axes : 42 64 34 degrees QTcB Int : 463 ms Normal sinus rhythm Normal ECG When compared with ECG of 03-Oct-2024 18:47, T wave amplitude has decreased in Anterior leads QT has lengthened Referred By: Amaris Aly Electronically Signed By: Bal Robertson
[2024-11-20 12:19] VITALS: BP 133/95; PULSE 96; RESP 16; TEMP 36.4; O2SAT 96
[2024-11-20 12:20] VITALS: BMI 24.0
--- NOTE | 2024-11-20 15:31 | PC.ADMIT ---
Pt arrived on the unit at 1205, referred from [facility] ED. Pt BIBA, calling EMS stating he was being followed. 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 Pt could not contract for his safety or the safety of others following him at this time. Pt currently denies si/hi/avh. Pt reports he is being followed and cant take it anymore but will come to staff if he has any issues on the unit. No clear AVH, but delusional statements were made. Pt minimally cooperative with admission assessment, immediately to sleep afterward. Pt reports drinking ETOH everyday, most days more than 10 drinks/day. Denies withdrawal s/s at this time, reports never having had a withdrawal seizure. Pt has no other medical complaints. Pt does not smoke, no other illicit drug use, declined flu vaccine. Pt reports wanting to start back on psych meds. Skin check completed with two RNs. Abrasion noted on forehead over left eye, pt reported falling (intoxicated) prior to admission. No other skin issues noted. Pt signed CV with provider.
[2024-11-20 19:47] VITALS: BP 130/89; PULSE 96; RESP 18; TEMP 36.3; O2SAT 95
[2024-11-21] MEDS: LORazepam 1 MG TABLET PO ×3 (01:46→21:18)
[2024-11-21 08:34] LABS: Estimated Average Glucose 103 mg/dL; Hemoglobin A1C 130.5223 umol/L; Hemoglobin A1c % 5.2 % (<6.0); Total Hemoglobin (HGBA1C) 3900.0011 umol/L
[2024-11-21 08:40] VITALS: BP 155/84; PULSE 83; TEMP 36.2; O2SAT 97
[2024-11-21 08:45] LABS: Cholesterol 219 mg/dL (<200); HDL Cholesterol 132 mg/dL (>40); LDL Cholesterol Calculated 68 mg/dL (<100); Magnesium 1.8 mg/dL (1.6-2.6); Triglycerides 97 mg/dL (<150)
[2024-11-21] MEDS: Thiamine HCL 100 MG TABLET PO (08:57)
[2024-11-21] MEDS: Ziprasidone 40 MG CAPSULE PO ×2 (08:57→21:18)
[2024-11-21 08:59] LABS: Free T4 (Free Thyroxine) 1.02 ng/dL (0.71-1.85); Thyroid Stimulating Hormone 1.99 uIU/mL (0.32-4.0)
[2024-11-21 09:13] LABS: Folate 10.5 ng/mL (> or = 4.0); Vitamin B12 971 pg/mL (200-900)
[2024-11-21] MEDS: Multivitamin TABLET 1 TAB PO (10:03)
[2024-11-21] MEDS: buPROPion HCl XL 300 MG TAB.ER.24H PO (10:03)
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
[2024-11-21 12:00] VITALS: BP 144/82; PULSE 90; TEMP 36.6; O2SAT 98
[2024-11-21 19:16] VITALS: BP 148/105
[2024-11-21] MEDS: cloNIDine HCL 0.1 MG TABLET PO (19:16)
[2024-11-21 20:00] VITALS: BP 109/63; PULSE 66; RESP 16; TEMP 36.6; O2SAT 94
[2024-11-22] MEDS: Ziprasidone 40 MG CAPSULE PO ×2 (09:00→19:58)
[2024-11-22] MEDS: Multivitamin TABLET 1 TAB PO (09:00)
[2024-11-22] MEDS: buPROPion HCl XL 300 MG TAB.ER.24H PO (09:00)
[2024-11-22] MEDS: Thiamine HCL 100 MG TABLET PO (09:00)
[2024-11-22 09:15] VITALS: BP 115/66; PULSE 81; RESP 16; TEMP 36.4; O2SAT 93
--- NOTE | 2024-11-22 10:29 | P.PNPSI_ITS ---
Subjective Subjective Date of Service: 11/22/24 Reason For Visit: Schizoaffective Disorder Subjective Notes: Conditional Voluntary Interim History: The nursing reported the patient had been compliant with medications here he had been calm cooperative he reports auditory hallucinations in clear correlation with alcohol withdrawal symptoms. As per nursing staff, he has not scored on the CIWA for the last 3 days. The patient reported on interview that he is feeling fine, we are going to discontinue the CIWA protocol.. Mental Status Exam Mental Status Exam Patient Appearance: Appropriate Patient Orientation: Person and Situation Level of Consciousness: Awake and Appropriate Patient Behavior: Guarded and Passive Mood Description: Withdrawn Affect Description: Constricted Patient Cognition Impaired: Yes Ability to Follow Directions: Good Speech Pattern: Clear Hallucinations: Auditory Delusions: Ideas of Reference Thought Process: Distracted and Slowed Thinking Thought Content: positive for [place] and positive for Poverty of Content Judgement: Fair Diagnostics Vital Signs (24Hr): Vital Signs - 24 hr 11/21/24 12:00 11/21/24 19:16 11/21/24 20:00 Temperature 97.8 F 97.9 F Pulse Rate 90 66 Respiratory Rate 16 Blood Pressure 144/82 H 148/105 H 109/63 Pulse Oximetry 98 94 Oxygen Delivery Method Room Air Room Air 11/22/24 09:15 Temperature 97.5 F Pulse Rate 81 Respiratory Rate 16 Blood Pressure 115/66 Pulse Oximetry 93 Oxygen Delivery Method Room Air BMI result Body Mass Index 24.0 Labs 11/19/24 22:09 11/19/24 22:09 Labs: Laboratory Results - last 48 hr 11/21/24 07:42 Estimat Average Glucose 103 Hemoglobin A1c % 5.2 Magnesium 1.8 Triglycerides 97 Cholesterol 219 H LDL Cholesterol, Calc 68 HDL Cholesterol 132 Vitamin B12 971 H Folate 10.5 TSH 1.99 Free T4 1.02 Medications Medications Current Medications Acetaminophen (Acetaminophen 325 Mg Tablet) 650 mg PO Q6H PRN PRN Reason: Headache/Pain, Scale 1-10 Al Hydroxide/Mg Hydroxide (Magnesium Hydrox/Alum Hydrox 30 Ml Oral.Susp) 30 ml PO Q6H PRN PRN Reason: Heartburn/Nausea Bupropion HCl (Bupropion Hcl Xl 300 Mg Tab.Er.24h) 300 mg PO DAILY YULY Last Admin: 11/22/24 09:00 Dose: 300 mg Clonidine HCl (Clonidine Hcl 0.1 Mg Tablet) 0.1 mg PO BEDTIME YULY; Protocol Last Admin: 11/21/24 19:16 Dose: 0.1 mg Folic Acid (Folic Acid 1 Mg Tablet) 1 mg PO ONCE YULY Hydroxyzine HCl (Hydroxyzine Hcl 25 Mg Tablet) 25 mg PO Q6H PRN PRN Reason: Anxiety Last Admin: 11/19/24 22:35 Dose: 25 mg Hydroxyzine HCl (Hydroxyzine Hcl 25 Mg Tablet) 25 mg PO Q6H PRN PRN Reason: mild anxiety Lorazepam (Lorazepam 1 Mg Tablet) 1 mg PO Q2H PRN PRN Reason: ciwa 6-10 Last Admin: 11/21/24 21:18 Dose: 1 mg Lorazepam (Lorazepam 1 Mg Tablet) 2 mg PO Q2H PRN PRN Reason: ciwa 11+ Magnesium Hydroxide (Milk Of Magnesia 30 Ml Oral.Susp) 30 ml PO DAILY PRN PRN Reason: Constipation Multivitamins/Vitamin C (Multivitamin Tablet) 1 tab PO DAILY [facility] Last Admin: 11/22/24 09:00 Dose: 1 tab Nicotine Polacrilex (Nicotine Polacrilex 2 Mg Gum) 4 mg BUCCAL Q2H PRN PRN Reason: Nicotine Cravings Olanzapine (Olanzapine 5 Mg Tablet) 5 mg PO Q4H PRN PRN Reason: psychosis, severe agitation Thiamine HCl (Thiamine Hcl 100 Mg Tablet) 100 mg PO DAILY [facility] Last Admin: 11/22/24 09:00 Dose: 100 mg Trazodone HCl (Trazodone Hcl 50 Mg Tablet) 50 mg PO BEDTIME PRN PRN Reason: insomnia Trazodone HCl (Trazodone Hcl 50 Mg Tablet) 50 mg PO BEDTIME MRX1 PRN PRN Reason: Insomnia Ziprasidone (Ziprasidone 40 Mg Capsule) 40 mg PO BID [facility] Last Admin: 11/22/24 09:00 Dose: 40 mg Allergies Allergies Allergy/AdvReac Type Severity Reaction Status Date / Time penicillin G [PENICILLIN G] Allergy Intermediate SWELLING Verified 11/19/24 21:13 [place] And Derivatives Allergy Unknown unk Verified 11/19/24 21:13 [CITRUS AND DERIVATIVES] cranberry [CRANBERRY] Allergy Unknown HIVES Verified 11/19/24 21:13 gabapentin [GABAPENTIN] Allergy Unknown HIVES, Verified 11/19/24 21:13 swelling raspberry [RASPBERRY] Allergy Unknown unk Verified 02/26/25 21:13 Assessment & Plan Assessment & Plan (1) Alcohol use disorder: Status: Acute Code(s): F10.90 - Alcohol use, unspecified, uncomplicated (2) PTSD (post-traumatic stress disorder): Status: Acute Code(s): F43.10 - Post-traumatic stress disorder, unspecified (3) Schizoaffective disorder, depressive type: Status: Acute Code(s): F25.1 - Schizoaffective disorder, depressive type Plan Admit, CV, 15 minute checks Regime is re-established- Wellbutrin XL, Clonidine, Hydroxyzine, Geodon, Trazodone Collateral Contact Diagnostics as needed Encourage milieu Discharge planning. 11/22 discontinue CIWA protocol. Keep same other medications Reason for continued inpatient stay Substantial Risk for: inability to function, rapid decompensation and med/psych decompensation Time Spent With Patient Time: Total time managing care of this patient today __20__ minutes.
[2024-11-22 19:58] VITALS: BP 134/89
[2024-11-22] MEDS: cloNIDine HCL 0.1 MG TABLET PO (19:58)
[2024-11-22 20:00] VITALS: BP 134/89; PULSE 95; TEMP 36.4; O2SAT 97
--- NOTE | 2024-11-23 06:09 | PC.NURSE ---
At approximately 0600, the patient began screaming. Staff checked with the patient and he stated I'm gonna kill that motherfucker up there! and pointed at the ceiling. The patient believes there is someone inside the ceiling and/or vent, and is angry at whoever he believes is inside it. Patient declined PRNs. At the time of this writing, the patient is laying in his bed, staring at the ceiling and swearing at the person he believes is inside the ceiling.
[2024-11-23] MEDS: hydrOXYzine HCL 25 MG TABLET PO (06:27)
[2024-11-23] MEDS: OLANZapine 5 MG TABLET PO (06:27)
[2024-11-23] MEDS: LORazepam 1 MG TABLET 2 MG PO (06:51)
[2024-11-23] MEDS: OLANZapine ODT 10 MG TAB.RAPDIS TRANSLINGU (06:52)
[2024-11-23] MEDS: buPROPion HCl XL 300 MG TAB.ER.24H PO (09:06)
[2024-11-23] MEDS: Thiamine HCL 100 MG TABLET PO (09:06)
[2024-11-23] MEDS: Multivitamin TABLET 1 TAB PO (09:06)
[2024-11-23] MEDS: Ziprasidone 40 MG CAPSULE PO (09:06)
[2024-11-23 09:17] VITALS: BP 142/96; PULSE 73; RESP 16; TEMP 36.6; O2SAT 98
--- NOTE | 2024-11-23 11:38 | HO.PSYCHPN ---
Subjective Subjective Date of Service: 11/23/24 Reason For Visit: Schizoaffective Disorder Interim History: The nursing staff reported the patient got really angry and agitated when he was asked about auditory hallucinations. Last night he was yelling and screaming stating that there was people on the ceiling looking for him. He accepted p.r.n. medications. On interview the patient was still sedated after Zydis 10 and Ativan 2. It is clear the patient is grossly psychotic. Mental Status Exam Mental Status Exam Patient Appearance: Appropriate Patient Orientation: Person Level of Consciousness: Lethargic Patient Behavior: Guarded Mood Description: Withdrawn Affect Description: Blunted Ability to Follow Directions: Poor Speech Pattern: Impoverished Hallucinations: Auditory and Visual Delusions: Paranoid Ideation and Ideas of Reference Thought Process: Illogical Thought Content: positive for Poverty of Content Judgement: Poor Diagnostics Vital Signs (24Hr): Vital Signs - 24 hr 11/22/24 19:58 11/22/24 20:00 11/23/24 09:17 Temperature 97.5 F 97.8 F Pulse Rate 95 73 Respiratory Rate 16 Blood Pressure 134/89 134/89 142/96 H Pulse Oximetry 97 98 Oxygen Delivery Method Room Air Room Air BMI result Body Mass Index 24.0 Labs 11/19/24 22:09 11/19/24 22:09 Medications Medications Current Medications Acetaminophen (Acetaminophen 325 Mg Tablet) 650 mg PO Q6H PRN PRN Reason: Headache/Pain, Scale 1-10 Al Hydroxide/Mg Hydroxide (Magnesium Hydrox/Alum Hydrox 30 Ml Oral.Susp) 30 ml PO Q6H PRN PRN Reason: Heartburn/Nausea Bupropion HCl (Bupropion Hcl Xl 300 Mg Tab.Er.24h) 300 mg PO DAILY YULY Last Admin: 11/23/24 09:06 Dose: 300 mg Clonidine HCl (Clonidine Hcl 0.1 Mg Tablet) 0.1 mg PO BEDTIME YULY; Protocol Last Admin: 11/22/24 19:58 Dose: 0.1 mg Folic Acid (Folic Acid 1 Mg Tablet) 1 mg PO ONCE YULY Hydroxyzine HCl (Hydroxyzine Hcl 25 Mg Tablet) 25 mg PO Q6H PRN PRN Reason: Anxiety Last Admin: 11/23/24 06:27 Dose: 25 mg Hydroxyzine HCl (Hydroxyzine Hcl 25 Mg Tablet) 25 mg PO Q6H PRN PRN Reason: mild anxiety Magnesium Hydroxide (Milk Of Magnesia 30 Ml Oral.Susp) 30 ml PO DAILY PRN PRN Reason: Constipation Multivitamins/Vitamin C (Multivitamin Tablet) 1 tab PO DAILY [facility] Last Admin: 11/23/24 09:06 Dose: 1 tab Nicotine Polacrilex (Nicotine Polacrilex 2 Mg Gum) 4 mg BUCCAL Q2H PRN PRN Reason: Nicotine Cravings Olanzapine (Olanzapine 5 Mg Tablet) 5 mg PO Q4H PRN PRN Reason: psychosis, severe agitation Last Admin: 11/23/24 06:27 Dose: 5 mg Thiamine HCl (Thiamine Hcl 100 Mg Tablet) 100 mg PO DAILY [facility] Last Admin: 11/23/24 09:06 Dose: 100 mg Trazodone HCl (Trazodone Hcl 50 Mg Tablet) 50 mg PO BEDTIME PRN PRN Reason: insomnia Trazodone HCl (Trazodone Hcl 50 Mg Tablet) 50 mg PO BEDTIME MRX1 PRN PRN Reason: Insomnia Ziprasidone (Ziprasidone 40 Mg Capsule) 40 mg PO BID [facility] Last Admin: 11/23/24 09:06 Dose: 40 mg Allergies Allergies Allergy/AdvReac Type Severity Reaction Status Date / Time penicillin G [PENICILLIN G] Allergy Intermediate SWELLING Verified 11/19/24 21:13 [place] And Derivatives Allergy Unknown unk Verified 11/19/24 21:13 [CITRUS AND DERIVATIVES] cranberry [CRANBERRY] Allergy Unknown HIVES Verified 11/19/24 21:13 gabapentin [GABAPENTIN] Allergy Unknown HIVES, Verified 11/19/24 21:13 swelling raspberry [RASPBERRY] Allergy Unknown unk Verified 11/19/24 21:13 Assessment & Plan Assessment & Plan (1) Alcohol use disorder: Status: Acute Code(s): F10.90 - Alcohol use, unspecified, uncomplicated (2) PTSD (post-traumatic stress disorder): Status: Acute Code(s): F43.10 - Post-traumatic stress disorder, unspecified (3) Schizoaffective disorder, depressive type: Status: Acute Code(s): F25.1 - Schizoaffective disorder, depressive type Plan Admit, CV, 15 minute checks Regime is re-established- Wellbutrin XL, Clonidine, Hydroxyzine, Geodon, Trazodone Collateral Contact Diagnostics as needed Encourage milieu Discharge planning. 3/1 discontinue CIWA protocol. Keep same other medications 3/2 increase Geodon up to 60 mg p.o. b.i.d. Reason for continued inpatient stay Substantial Risk for: inability to function, rapid decompensation and med/psych decompensation Time Spent With Patient Time: Total time managing care of this patient today _20___ minutes.
[2024-11-23 19:42] VITALS: BP 135/83; PULSE 87; TEMP 36.9; O2SAT 96
[2024-11-23] MEDS: traZODone HCL 50 MG TABLET PO (21:05)
[2024-11-23] MEDS: cloNIDine HCL 0.1 MG TABLET PO (21:05)
[2024-11-23] MEDS: Ziprasidone 60 MG CAPSULE PO (21:06)
[2024-11-24 07:52] VITALS: BP 155/84; PULSE 86; TEMP 36.4; O2SAT 99
[2024-11-24] MEDS: Thiamine HCL 100 MG TABLET PO (08:55)
[2024-11-24] MEDS: Ziprasidone 60 MG CAPSULE PO (08:55)
[2024-11-24] MEDS: buPROPion HCl XL 300 MG TAB.ER.24H PO (08:56)
[2024-11-24] MEDS: Multivitamin TABLET 1 TAB PO (08:56)
[2024-11-24] MEDS: OLANZapine 5 MG TABLET PO ×2 (09:01→21:12)
[2024-11-24] MEDS: hydrOXYzine HCL 25 MG TABLET PO ×2 (09:01→20:38)
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
[2024-11-24] MEDS: LORazepam 1 MG TABLET 2 MG PO (12:56)
[2024-11-24 19:47] VITALS: BP 123/79; PULSE 94; TEMP 36.4; O2SAT 99
[2024-11-24] MEDS: cloNIDine HCL 0.1 MG TABLET PO (20:37)
[2024-11-24] MEDS: traZODone HCL 50 MG TABLET PO (20:37)
[2024-11-24] MEDS: Ziprasidone 80 MG CAPSULE PO (20:38)
[2024-11-25 08:04] VITALS: BP 110/62; PULSE 74; RESP 16; TEMP 36.4; O2SAT 98
[2024-11-25] MEDS: buPROPion HCl XL 300 MG TAB.ER.24H PO (09:23)
[2024-11-25] MEDS: Thiamine HCL 100 MG TABLET PO (09:23)
[2024-11-25] MEDS: Multivitamin TABLET 1 TAB PO (09:23)
[2024-11-25] MEDS: Ziprasidone 80 MG CAPSULE PO (09:23)
[2024-11-25] MEDS: OLANZapine 5 MG TABLET PO ×3 (09:27→21:24)
[2024-11-25] MEDS: LORazepam 1 MG TABLET 2 MG PO (12:15)
[2024-11-25] MEDS: HaloperidoL 5 MG TABLET 10 MG PO (12:15)
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
--- NOTE | 2024-11-25 17:17 | PC.NURSE ---
pt reports, I can't take Haldol. It makes me forget things. Like I could be standing here talking to you and 2 minutes later forget what we were talking about . TW provided pt education and reassured pt his concerns would be relayed to provider. Information included on [id number] for team review
[2024-11-25 19:55] VITALS: RESP 18
[2024-11-25] MEDS: cloNIDine HCL 0.1 MG TABLET PO (21:24)
[2024-11-25] MEDS: traZODone HCL 50 MG TABLET PO (21:24)
[2024-11-26] MEDS: OLANZapine 5 MG TABLET PO ×4 (01:18→21:26)
[2024-11-26] MEDS: traZODone HCL 50 MG TABLET PO ×2 (01:19→21:26)
[2024-11-26] MEDS: hydrOXYzine HCL 25 MG TABLET PO ×4 (01:19→21:25)
[2024-11-26] MEDS: Thiamine HCL 100 MG TABLET PO (09:44)
[2024-11-26] MEDS: buPROPion HCl XL 300 MG TAB.ER.24H PO (09:44)
[2024-11-26] MEDS: Multivitamin TABLET 1 TAB PO (09:44)
--- NOTE | 2024-11-26 10:36 | PC.NURSE ---
SIGNED 3 DAY UP ON Sunday12/01/2024 , CAN UR AWARE
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
[2024-11-26 19:50] VITALS: BP 131/71; PULSE 91; TEMP 36.7; O2SAT 97
[2024-11-26] MEDS: cloNIDine HCL 0.1 MG TABLET PO (21:25)
[2024-11-26] MEDS: Paliperidone ER 6 MG TAB.ER.24 PO (21:25)
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
--- NOTE | 2024-11-27 04:19 | PC.NURSE ---
EVENT @ 0418 pt out of room complaining that staff cock blocking me again, Nicanor Angel, I haven't had shit for a year and a half continues talking incomprehensibly on way back to room.
--- NOTE | 2024-11-27 08:00 | ECG_ITS ---
Test Reason : CHECK QTC Blood Pressure : */* mmHG Vent. Rate : 76 BPM Atrial Rate : 76 BPM P-R Int : 136 ms QRS Dur : 84 ms QT Int : 368 ms P-R-T Axes : 23 48 22 degrees QTcB Int : 414 ms Normal sinus rhythm Normal ECG When compared with ECG of 20-Nov-2024 10:09, T wave amplitude has increased in Anterior leads Referred By: Kristian Harper Electronically Signed By: BECKI CORDON MD
[2024-11-27 09:06] VITALS: BP 114/79; PULSE 93; RESP 16; TEMP 36.4; O2SAT 98
[2024-11-27] MEDS: Thiamine HCL 100 MG TABLET PO (09:38)
[2024-11-27] MEDS: Multivitamin TABLET 1 TAB PO (09:38)
[2024-11-27] MEDS: buPROPion HCl XL 300 MG TAB.ER.24H PO (09:38)
--- NOTE | 2024-11-27 13:21 | HO.PSYCHPN ---
Subjective Subjective Date of Service: 11/27/24 Reason For Visit: Schizoaffective Disorder Subjective Notes: Conditional Voluntary and 3 Day Healthcare Proxy: No Guardianship: No Medical Problems Affecting Mental Status: No Interim History: Remains psychotic and fearful, concerned about symptoms. Haldol had worked, however, he refuses it, stating it effects memory, describes the effect as it clears me then I don't remember what happened before . Attempted education regarding this being from symptom vs a SE, however he does not agree. Agent change to Chlorpromazine Medication Compliance: Intermittent Side effects from medications: No Attending Groups: No Review of Systems Acute medical concerns: No Review of Systems Review of Systems denies Mental Status Exam Mental Status Exam Patient Appearance: Unkempt Patient Orientation: Person, Place and Situation Level of Consciousness: Restless Patient Behavior: Guarded, Talkative, Suspicious, Verbal Threats, Fearful, Distractible and Good Eye Contact Mood Description: Labile and Apprehensive Affect Description: Labile Patient Cognition Impaired: No Ability to Follow Directions: Good Speech Pattern: Spontaneous Speech Memory Description: Remote Impaired Hallucinations: Auditory and Visual Delusions: Being Controlled, Paranoid Ideation and Present Perceptual Disturbances: Depersonalization and Derealization Thought Process: Racing, Illogical, Distracted and Rumination Thought Content: positive for Racing, positive for Circumstantial, positive for Perseveration and positive for Preoccupation Depressive Symptoms: Increased Anxiety, Increased Irritability, Loss of Int. in Activity, Feelings of Worthlessness, Hopelessness, Feelings of Guilt, Unhappiness, Increased Fatigue, Loss of Energy and Difficulty Concentrating Abnormal Motor Activity Signs and Symptoms: Aggression, Agitation and Restlessness Judgement: Poor Judgement and Insight: Lack of insight constant intrusive paranoid and threatening thoughts including of a sexual nature Diagnostics Vital Signs (24Hr): Vital Signs - 24 hr 11/26/24 19:50 11/27/24 09:06 Temperature 98.1 F 97.6 F Pulse Rate 91 93 Respiratory Rate 16 Blood Pressure 131/71 114/79 Pulse Oximetry 97 98 Oxygen Delivery Method Room Air Room Air BMI result Body Mass Index 24.0 Labs 11/19/24 22:09 11/19/24 22:09 Medications Medications Current Medications Acetaminophen (Acetaminophen 325 Mg Tablet) 650 mg PO Q6H PRN PRN Reason: Headache/Pain, Scale 1-10 Al Hydroxide/Mg Hydroxide (Magnesium Hydrox/Alum Hydrox 30 Ml Oral.Susp) 30 ml PO Q6H PRN PRN Reason: Heartburn/Nausea Bupropion HCl (Bupropion Hcl Xl 300 Mg Tab.Er.24h) 300 mg PO DAILY [facility] Last Admin: 11/27/24 09:38 Dose: 300 mg Chlorpromazine HCl (Chlorpromazine Hcl 25 Mg Tablet) 50 mg PO TID YULY Chlorpromazine HCl (Chlorpromazine Hcl 25 Mg Tablet) 50 mg PO TID PRN PRN Reason: psychosis Clonidine HCl (Clonidine Hcl 0.1 Mg Tablet) 0.1 mg PO BEDTIME [facility]; Protocol Last Admin: 11/26/24 21:25 Dose: 0.1 mg Folic Acid (Folic Acid 1 Mg Tablet) 1 mg PO ONCE YULY Hydroxyzine HCl (Hydroxyzine Hcl 25 Mg Tablet) 25 mg PO Q6H PRN PRN Reason: mild anxiety Last Admin: 11/26/24 21:25 Dose: 25 mg Magnesium Hydroxide (Milk Of Magnesia 30 Ml Oral.Susp) 30 ml PO DAILY PRN PRN Reason: Constipation Multivitamins/Vitamin C (Multivitamin Tablet) 1 tab PO DAILY [facility] Last Admin: 11/27/24 09:38 Dose: 1 tab Nicotine Polacrilex (Nicotine Polacrilex 2 Mg Gum) 4 mg BUCCAL Q2H PRN PRN Reason: Nicotine Cravings Olanzapine (Olanzapine 5 Mg Tablet) 5 mg PO Q4H PRN PRN Reason: psychosis, severe agitation Last Admin: 11/26/24 21:26 Dose: 5 mg Paliperidone (Paliperidone Er 6 Mg Tab.Er.24) 6 mg PO BEDTIME [facility] Last Admin: 11/26/24 21:25 Dose: 6 mg Thiamine HCl (Thiamine Hcl 100 Mg Tablet) 100 mg PO DAILY [facility] Last Admin: 11/27/24 09:38 Dose: 100 mg Trazodone HCl (Trazodone Hcl 50 Mg Tablet) 50 mg PO BEDTIME MRX1 PRN PRN Reason: Insomnia Last Admin: 11/26/24 21:26 Dose: 50 mg Allergies Allergies Allergy/AdvReac Type Severity Reaction Status Date / Time penicillin G [PENICILLIN G] Allergy Intermediate SWELLING Verified 11/19/24 21:13 [place] And Derivatives Allergy Unknown unk Verified 11/19/24 21:13 [CITRUS AND DERIVATIVES] cranberry [CRANBERRY] Allergy Unknown HIVES Verified 11/19/24 21:13 gabapentin [GABAPENTIN] Allergy Unknown HIVES, Verified 11/19/24 21:13 swelling raspberry [RASPBERRY] Allergy Unknown unk Verified 11/19/24 21:13 Assessment & Plan Assessment & Plan (1) Schizoaffective disorder, depressive type: Status: Acute Code(s): F25.1 - Schizoaffective disorder, depressive type (2) Alcohol use disorder: Status: Acute Code(s): F10.90 - Alcohol use, unspecified, uncomplicated (3) PTSD (post-traumatic stress disorder): Status: Acute Code(s): F43.10 - Post-traumatic stress disorder, unspecified Plan Admit, CV, 15 minute checks Regime is re-established- Wellbutrin XL, Clonidine, Hydroxyzine, Geodon, Trazodone Collateral Contact Diagnostics as needed Encourage milieu Discharge planning. 11/22 discontinue CIWA protocol. Keep same other medications 11/23 increase Geodon up to 60 mg p.o. b.i.d. 11/24 increase Geodon to 80 mg bid refusing Haldol for acute psychosis Close monitoring for psychotic sx. 11/25 DC Geodon Haldol 10 mg conc po bid and 5 mg q4h prn psychosis, agitation Pt improved after one dose 11/26/24 Patient refusing Haldol was willing to discuss long-acting injectable agreeable to try Invega with hope to convert to LA I Patient on 3 day notice floridly psychotic feels constantly threatened easily agitated may require commitment and treatment plan Would consider that Wellbutrin may worsen psychosis. 11/27 Continues with intense, intrusive psychotic thought process. Chlorpromazine trial Reason for continued inpatient stay Substantial Risk for: rapid decompensation Time Spent With Patient Time: Total time managing care of this patient today ____ minutes.
[2024-11-27 15:02] VITALS: BMI 24.5
[2024-11-27] MEDS: chlorproMAZINE HCl 25 MG TABLET 50 MG PO ×3 (18:36→23:36)
[2024-11-27] MEDS: hydrOXYzine HCL 25 MG TABLET PO (18:36)
[2024-11-27] MEDS: OLANZapine 5 MG TABLET PO (18:36)
[2024-11-27 20:00] VITALS: BP 162/119; PULSE 92; TEMP 36.5; O2SAT 100
--- NOTE | 2024-11-27 22:22 | PC.NURSE ---
This script writer approached this patient at approximately 2145 to assess the patient and administer medications. This patient refused to allow this script writer to get a new set of vitals and refused his medications at that time.
[2024-11-27 23:30] VITALS: BP 108/70; PULSE 104; TEMP 36.5; O2SAT 97
[2024-11-27 23:36] VITALS: BP 106/70
[2024-11-27] MEDS: cloNIDine HCL 0.1 MG TABLET PO (23:36)
[2024-11-27] MEDS: Paliperidone ER 6 MG TAB.ER.24 PO (23:36)
[2024-11-28 08:00] VITALS: BP 90/52; PULSE 78; TEMP 36.4; O2SAT 97
[2024-11-28] MEDS: OLANZapine 5 MG TABLET PO ×2 (10:18→21:56)
[2024-11-28] MEDS: Thiamine HCL 100 MG TABLET PO (10:18)
[2024-11-28] MEDS: chlorproMAZINE HCl 25 MG TABLET 50 MG PO ×2 (10:18→12:26)
[2024-11-28] MEDS: Multivitamin TABLET 1 TAB PO (10:18)
[2024-11-28] MEDS: buPROPion HCl XL 300 MG TAB.ER.24H PO (10:18)
[2024-11-28] MEDS: hydrOXYzine HCL 25 MG TABLET PO ×2 (12:26→21:56)
[2024-11-28] MEDS: chlorproMAZINE HCl 100 MG TABLET PO ×3 (13:58→21:56)
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
[2024-11-28] MEDS: Paliperidone ER 6 MG TAB.ER.24 PO (21:56)
[2024-11-28] MEDS: cloNIDine HCL 0.1 MG TABLET PO (21:56)
[2024-11-29 08:00] VITALS: RESP 18
[2024-11-29] MEDS: Thiamine HCL 100 MG TABLET PO (10:45)
[2024-11-29] MEDS: chlorproMAZINE HCl 100 MG TABLET PO ×3 (10:45→21:18)
[2024-11-29] MEDS: Multivitamin TABLET 1 TAB PO (10:45)
--- NOTE | 2024-11-29 11:09 | HO.PSYCHPN ---
Subjective Subjective Date of Service: 11/29/24 Reason For Visit: Schizoaffective Disorder Subjective Notes: Conditional Voluntary and 3 Day Interim History: Patient was seen and discussed in rounds today. Records and plans were reviewed. He continues to be isolative, guarded and having paranoid ideations and delusions. He denies AVH though he appears to be responding to internal stimuli. Eating and sleeping adequately. He inquired about his 3 day notice which expires on Sunday. No promises were given. No side effects reported. No changes were made today. No behavioral issues Review of Systems Review of Systems Yes all other systems are reviewed and are negative Mental Status Exam Mental Status Exam Narrative: In today's visit he is alert, pleasant and interactive. Normal speech. Moderate eye contact. Affect is appropriate constricted. He appears to be responding to internal stimuli and reported to have paranoid ideations and delusions. He denies AVH though appears to be responding to internal stimuli. Could not assess cognitively. Could not assess judgment which is probably impaired secondary to his mental status. Moves all limbs. No gait abnormalities Diagnostics Vital Signs (24Hr): Vital Signs - 24 hr 11/29/24 08:00 Respiratory Rate 18 BMI result Body Mass Index 24.5 Labs 11/19/24 22:09 11/19/24 22:09 Medications Medications Current Medications Acetaminophen (Acetaminophen 325 Mg Tablet) 650 mg PO Q6H PRN PRN Reason: Headache/Pain, Scale 1-10 Al Hydroxide/Mg Hydroxide (Magnesium Hydrox/Alum Hydrox 30 Ml Oral.Susp) 30 ml PO Q6H PRN PRN Reason: Heartburn/Nausea Chlorpromazine HCl (Chlorpromazine Hcl 100 Mg Tablet) 100 mg PO TID YULY Last Admin: 11/29/24 10:45 Dose: 100 mg Chlorpromazine HCl (Chlorpromazine Hcl 100 Mg Tablet) 100 mg PO TID PRN PRN Reason: psychosis Clonidine HCl (Clonidine Hcl 0.1 Mg Tablet) 0.1 mg PO BEDTIME [facility]; Protocol Last Admin: 11/28/24 21:56 Dose: 0.1 mg Folic Acid (Folic Acid 1 Mg Tablet) 1 mg PO ONCE YULY Hydroxyzine HCl (Hydroxyzine Hcl 25 Mg Tablet) 25 mg PO Q6H PRN PRN Reason: mild anxiety Last Admin: 11/28/24 21:56 Dose: 25 mg Ibuprofen (Ibuprofen 800 Mg Tablet) 800 mg PO Q8H PRN PRN Reason: back pain Magnesium Hydroxide (Milk Of Magnesia 30 Ml Oral.Susp) 30 ml PO DAILY PRN PRN Reason: Constipation Multivitamins/Vitamin C (Multivitamin Tablet) 1 tab PO DAILY [facility] Last Admin: 11/29/24 10:45 Dose: 1 tab Nicotine Polacrilex (Nicotine Polacrilex 2 Mg Gum) 4 mg BUCCAL Q2H PRN PRN Reason: Nicotine Cravings Olanzapine (Olanzapine 5 Mg Tablet) 5 mg PO Q4H PRN PRN Reason: psychosis, severe agitation Last Admin: 11/28/24 21:56 Dose: 5 mg Paliperidone (Paliperidone Er 6 Mg Tab.Er.24) 6 mg PO BEDTIME [facility] Last Admin: 11/28/24 21:56 Dose: 6 mg Thiamine HCl (Thiamine Hcl 100 Mg Tablet) 100 mg PO DAILY [facility] Last Admin: 11/29/24 10:45 Dose: 100 mg Trazodone HCl (Trazodone Hcl 50 Mg Tablet) 50 mg PO BEDTIME MRX1 PRN PRN Reason: Insomnia Last Admin: 11/26/24 21:26 Dose: 50 mg Allergies Allergies Allergy/AdvReac Type Severity Reaction Status Date / Time penicillin G [PENICILLIN G] Allergy Intermediate SWELLING Verified 11/19/24 21:13 [place] And Derivatives Allergy Unknown unk Verified 11/19/24 21:13 [CITRUS AND DERIVATIVES] cranberry [CRANBERRY] Allergy Unknown HIVES Verified 11/19/24 21:13 gabapentin [GABAPENTIN] Allergy Unknown HIVES, Verified 11/19/24 21:13 swelling raspberry [RASPBERRY] Allergy Unknown unk Verified 11/19/24 21:13 Assessment & Plan Assessment & Plan (1) Schizoaffective disorder, depressive type: Status: Acute Code(s): F25.1 - Schizoaffective disorder, depressive type (2) Alcohol use disorder: Status: Acute Code(s): F10.90 - Alcohol use, unspecified, uncomplicated (3) PTSD (post-traumatic stress disorder): Status: Acute Code(s): F43.10 - Post-traumatic stress disorder, unspecified Plan Admit, CV, 15 minute checks Regime is re-established- Wellbutrin XL, Clonidine, Hydroxyzine, Geodon, Trazodone Collateral Contact Diagnostics as needed Encourage milieu Discharge planning. 11/22 discontinue CIWA protocol. Keep same other medications 11/23 increase Geodon up to 60 mg p.o. b.i.d. 11/24 increase Geodon to 80 mg bid refusing Haldol for acute psychosis Close monitoring for psychotic sx. 11/25 DC Geodon Haldol 10 mg conc po bid and 5 mg q4h prn psychosis, agitation Pt improved after one dose 11/26/24 Patient refusing Haldol was willing to discuss long-acting injectable agreeable to try Invega with hope to convert to LA I Patient on day notice floridly psychotic feels constantly threatened easily agitated may require commitment and treatment plan Would consider that Wellbutrin may worsen psychosis. 11/27 Continues with intense, intrusive psychotic thought process. Chlorpromazine trial 11/28 Chlorpromazine increase. Less irritable today. More expressive of his fear. Willing to work with the team on sx mgt. 11/29/24: Continue current plans and regimen Reason for continued inpatient stay Substantial Risk for: med/psych decompensation Time Spent With Patient Time: Total time managing care of this patient today ____ minutes.
[2024-11-29 19:49] VITALS: BP 142/82; PULSE 99; RESP 16; TEMP 36.4; O2SAT 99
[2024-11-29] MEDS: hydrOXYzine HCL 25 MG TABLET PO (21:15)
[2024-11-29] MEDS: Paliperidone ER 6 MG TAB.ER.24 PO (21:15)
[2024-11-29] MEDS: OLANZapine 5 MG TABLET PO (21:15)
[2024-11-29] MEDS: cloNIDine HCL 0.1 MG TABLET PO (21:15)
[2024-11-29] MEDS: traZODone HCL 50 MG TABLET PO (21:16)
--- NOTE | 2024-11-30 09:18 | HO.PSYCHPN ---
Subjective Subjective Date of Service: 11/30/24 Reason For Visit: Schizoaffective Disorder Subjective Notes: Conditional Voluntary and 3 Day Interim History: Patient was seen and discussed in rounds today. Records and plans were reviewed. He continues to be isolative, guarded and having paranoid ideations and delusions. He has been medication compliant and is showing some signs of improvement. Denies any AVH but appears to be still responding to internal stimuli. No complaints or side effects. No SI. Sleeping adequately. His 3 day notice expires tomorrow Medication Compliance: Yes Review of Systems Review of Systems Yes all other systems are reviewed and are negative Mental Status Exam Mental Status Exam Narrative: In today's visit he is alert, pleasant and interactive. Normal speech. Moderate eye contact. Affect is appropriate constricted. He appears to be responding to internal stimuli and reported to have paranoid ideations and delusions. He denies AVH though observed to be responding to internal stimuli. Appears intact cognitively on gross observation. And appears to be more organized in his thought processes. Could not assess judgment which is probably impaired secondary to his mental status. Moves all limbs. No gait abnormalities Diagnostics Vital Signs (24Hr): Vital Signs - 24 hr 11/29/24 19:49 Temperature 97.5 F Pulse Rate 99 Respiratory Rate 16 Blood Pressure 142/82 H Pulse Oximetry 99 Oxygen Delivery Method Room Air BMI result Body Mass Index 24.5 Labs 11/19/24 22:09 11/19/24 22:09 Medications Medications Current Medications Acetaminophen (Acetaminophen 325 Mg Tablet) 650 mg PO Q6H PRN PRN Reason: Headache/Pain, Scale 1-10 Al Hydroxide/Mg Hydroxide (Magnesium Hydrox/Alum Hydrox 30 Ml Oral.Susp) 30 ml PO Q6H PRN PRN Reason: Heartburn/Nausea Chlorpromazine HCl (Chlorpromazine Hcl 100 Mg Tablet) 100 mg PO TID [facility] Last Admin: 11/29/24 21:18 Dose: 100 mg Chlorpromazine HCl (Chlorpromazine Hcl 100 Mg Tablet) 100 mg PO TID PRN PRN Reason: psychosis Clonidine HCl (Clonidine Hcl 0.1 Mg Tablet) 0.1 mg PO BEDTIME [facility]; Protocol Last Admin: 11/29/24 21:15 Dose: 0.1 mg Folic Acid (Folic Acid 1 Mg Tablet) 1 mg PO ONCE YULY Hydroxyzine HCl (Hydroxyzine Hcl 25 Mg Tablet) 25 mg PO Q6H PRN PRN Reason: mild anxiety Last Admin: 11/29/24 21:15 Dose: 25 mg Ibuprofen (Ibuprofen 800 Mg Tablet) 800 mg PO Q8H PRN PRN Reason: back pain Magnesium Hydroxide (Milk Of Magnesia 30 Ml Oral.Susp) 30 ml PO DAILY PRN PRN Reason: Constipation Multivitamins/Vitamin C (Multivitamin Tablet) 1 tab PO DAILY [facility] Last Admin: 11/29/24 10:45 Dose: 1 tab Nicotine Polacrilex (Nicotine Polacrilex 2 Mg Gum) 4 mg BUCCAL Q2H PRN PRN Reason: Nicotine Cravings Olanzapine (Olanzapine 5 Mg Tablet) 5 mg PO Q4H PRN PRN Reason: psychosis, severe agitation Last Admin: 11/29/24 21:15 Dose: 5 mg Paliperidone (Paliperidone Er 6 Mg Tab.Er.24) 6 mg PO BEDTIME [facility] Last Admin: 11/29/24 21:15 Dose: 6 mg Thiamine HCl (Thiamine Hcl 100 Mg Tablet) 100 mg PO DAILY [facility] Last Admin: 11/29/24 10:45 Dose: 100 mg Trazodone HCl (Trazodone Hcl 50 Mg Tablet) 50 mg PO BEDTIME MRX1 PRN PRN Reason: Insomnia Last Admin: 11/29/24 21:16 Dose: 50 mg Allergies Allergies Allergy/AdvReac Type Severity Reaction Status Date / Time penicillin G [PENICILLIN G] Allergy Intermediate SWELLING Verified 11/19/24 21:13 [place] And Derivatives Allergy Unknown unk Verified 11/19/24 21:13 [CITRUS AND DERIVATIVES] cranberry [CRANBERRY] Allergy Unknown HIVES Verified 11/19/24 21:13 gabapentin [GABAPENTIN] Allergy Unknown HIVES, Verified 11/19/24 21:13 swelling raspberry [RASPBERRY] Allergy Unknown unk Verified 11/19/24 21:13 Assessment & Plan Assessment & Plan (1) Schizoaffective disorder, depressive type: Status: Acute Code(s): F25.1 - Schizoaffective disorder, depressive type (2) Alcohol use disorder: Status: Acute Code(s): F10.90 - Alcohol use, unspecified, uncomplicated (3) PTSD (post-traumatic stress disorder): Status: Acute Code(s): F43.10 - Post-traumatic stress disorder, unspecified Plan Admit, CV, 15 minute checks Regime is re-established- Wellbutrin XL, Clonidine, Hydroxyzine, Geodon, Trazodone Collateral Contact Diagnostics as needed Encourage milieu Discharge planning. 11/22 discontinue CIWA protocol. Keep same other medications 11/23 increase Geodon up to 60 mg p.o. b.i.d. 11/24 increase Geodon to 80 mg bid refusing Haldol for acute psychosis Close monitoring for psychotic sx. 11/25 DC Geodon Haldol 10 mg conc po bid and 5 mg q4h prn psychosis, agitation Pt improved after one dose 11/26/24 Patient refusing Haldol was willing to discuss long-acting injectable agreeable to try Invega with hope to convert to LA I Patient on day notice floridly psychotic feels constantly threatened easily agitated may require commitment and treatment plan Would consider that Wellbutrin may worsen psychosis. 11/27 Continues with intense, intrusive psychotic thought process. Chlorpromazine trial 11/28 Chlorpromazine increase. Less irritable today. More expressive of his fear. Willing to work with the team on sx mgt. 11/29/24: Continue current plans and regimen 11/30: Continue current regimen and plans Reason for continued inpatient stay Substantial Risk for: med/psych decompensation Time Spent With Patient Time: Total time managing care of this patient today ____ minutes.
[2024-11-30] MEDS: Multivitamin TABLET 1 TAB PO (09:29)
[2024-11-30] MEDS: chlorproMAZINE HCl 100 MG TABLET PO ×3 (09:29→20:54)
[2024-11-30] MEDS: Thiamine HCL 100 MG TABLET PO (09:29)
[2024-11-30 20:00] VITALS: BP 117/75; PULSE 92; RESP 15; TEMP 36.3; O2SAT 97
[2024-11-30] MEDS: cloNIDine HCL 0.1 MG TABLET PO (20:53)
[2024-11-30] MEDS: traZODone HCL 50 MG TABLET PO (20:54)
[2024-11-30] MEDS: Paliperidone ER 6 MG TAB.ER.24 PO (20:54)
[2024-12-01 08:00] VITALS: RESP 18
[2024-12-01] MEDS: Thiamine HCL 100 MG TABLET PO (08:19)
[2024-12-01] MEDS: chlorproMAZINE HCl 100 MG TABLET PO (08:19)
[2024-12-01] MEDS: Multivitamin TABLET 1 TAB PO (08:19)
--- NOTE | 2024-12-01 11:03 | P.DS_ITS ---
DS: Providers Provider Date of admission: 11/20/24 10:57 Primary care physician: Unknown Physician DS: Diagnosis Discharge Diagnosis (1) Schizoaffective disorder, depressive type: Status: Acute (2) Alcohol use disorder: Status: Acute (3) PTSD (post-traumatic stress disorder): Status: Acute DS: Medications Discharge Medications Home Medications: Previous Rx's ?Medication ?Instructions ?Recorded chlorpromazine 100 mg tablet 100 mg PO TID #90 tabs 12/01/24 clonidine HCl 0.1 mg tablet 0.1 mg PO BEDTIME #30 tabs 12/01/24 folic acid 1 mg tablet 1 mg PO DAILY #30 tabs 12/01/24 hydroxyzine HCl 25 mg tablet 25 mg PO Q6H PRN mild anxiety #60 12/01/24 tabs multivitamin (Daily-Chaz tablet) 1 tab PO DAILY #30 tabs 12/01/24 paliperidone 6 mg tablet,extended 6 mg PO BEDTIME #30 tabs 12/01/24 release 24 hr (Invega) thiamine mononitrate (vit B1) 100 100 mg PO DAILY #30 tabs 12/01/24 mg tablet trazodone 50 mg tablet 50 mg PO BEDTIME MRX1 PRN Insomnia 12/01/24 #30 tabs DS: Summary Time Spent with Patient Time attestation: Total time managing care of this patient today ____ minutes. Discharge Plan Discharge Anticipated Discharge Date/Time: 12/01/24 11:00 Patient Disposition: Xfer Other Discharge Diagnosis: PTSD Schizoaffective Disorder Alcohol Use Disorder [place] [facility] [place]Other] (Referral for substance abuse treatment program ) [facility] [Other] (Referral for substance abuse treatment program ) [facility] (psychiatry) [Other] (Patient declined for referral to schedule follow-up psychiatric appointment and will follow-up on his own with [facility] ) Physician,Unknown J [Primary Care Provider] - (Please call the hospital and ask for medical records if you would like them forwarded to your PCP in future. ) Discharge Medications: New multivitamin [Daily-Chaz] Tablet 1 tab PO DAILY Qty: 30 0RF clonidine HCl 0.1 mg Tablet 0.1 mg PO BEDTIME Qty: 30 0RF Protocol: Hold for SBP< HOLD for SBP < : 90 trazodone 50 mg Tablet 50 mg PO BEDTIME MRX1 PRN (Reason: Insomnia) Qty: 30 0RF chlorpromazine 100 mg Tablet 100 mg PO TID Qty: 90 0RF hydroxyzine HCl 25 mg Tablet 25 mg PO Q6H PRN (Reason: mild anxiety) Qty: 60 0RF paliperidone [Invega] 6 mg Tablet Extended Release 24 Hr 6 mg PO BEDTIME Qty: 30 0RF thiamine mononitrate (vit B1) 100 mg Tablet 100 mg PO DAILY Qty: 30 0RF Continued folic acid 1 mg tablet 1 mg PO DAILY Qty: 30 0RF Discontinued clonidine HCl 0.1 mg Tablet 0.1 mg PO BEDTIME 30 Days Qty: 30 1RF Protocol: Hold for SBP< HOLD for SBP < : 90 bupropion HCl 300 mg Tablet Extended Release 24 Hr 300 mg PO DAILY 30 Days Qty: 30 1RF hydroxyzine HCl 25 mg Tablet 25 mg PO Q6H PRN (Reason: Anxiety) 30 Days Qty: 30 1RF trazodone 50 mg Tablet 50 mg PO BEDTIME PRN (Reason: insomnia) 30 Days Qty: 30 1RF ziprasidone HCl 40 mg Capsule 40 mg PO BID 30 Days Qty: 60 1RF Rx Instructions: take with food if possible prazosin 1 mg capsule 1 mg PO DAILY thiamine HCl (vitamin B1) 100 mg tablet 100 mg PO DAILY chlorpromazine 25 mg tablet acamprosate 333 mg tablet,delayed release (DR/EC) PO Discharge Orders: Discharge Order (Routine); Ordered 12/01/24 Ordered By: Madelin Dietrich Diet: Advance to usual diet Activity on Discharge: As tolerated Stand Alone Forms: Patient Portal Discharge page, Community Support Print Language: Luxembour[place] Care Plan Goals: Abstain from alcohol, substance use Mood and Behavioral Stabilization Health Concerns: Abstain from alcohol, substance use Mood and Behavioral Stabilization Plan of Treatment: Attend follow up appointments Meet with Probation today, 12/01/24. Court 12/03/24 Take medications as directed Assessment: No SI,HI,AH,VH Pt reports he is safe for discharge, planning on going to probation upon discharge for his appt. Discharge Date/Time: 12/01/24 10:56
== END 2024-12-01 10:56 | disposition other institution (70) | DRG 885 ==
LOC: HO.ED 22:24 → HO.PM5 11-20 11:02
PROVIDERS: Admitting Provider Clinical Nurse Specialist Psychiatric/Mental Health, Adult; Emergency Provider Emergency Medicine; Visit Provider Clinical Nurse Specialist Psychiatric/Mental Health, Adult
DX: F25.1 Schizoaffective disorder, depressive type (principal); Z59.01 Sheltered homelessness; F43.10 Post-traumatic stress disorder, unspecified; F10.90 Alcohol use, unspecified, uncomplicated; Z79.899 Other long term (current) drug therapy
CPT/HCPCS: 36415; 80053; 80061; 80179; 80307; 81001; 82607; 82746; 83036; 83735; 84439; 84443; 85025; 93005; 99285; S9485

== ENCOUNTER → 2024-11-20 09:50 | Outpatient (BNV) | payer OTHER, SELFPAY | PROVIDERS: Admitting Provider Clinical Nurse Specialist Psychiatric/Mental Health, Adult; Emergency Provider Emergency Medicine; Visit Provider Internal Medicine Cardiovascular Disease | DX: Z13.6 Encounter for screening for cardiovascular disorders (principal) | CPT/HCPCS: 93010 ==

== ENCOUNTER 2024-11-20 10:57 | Outpatient (BNV) | payer OTHER, SELFPAY | END 2024-11-27 08:00 | PROVIDERS: Admitting Provider Clinical Nurse Specialist Psychiatric/Mental Health, Adult; Emergency Provider Emergency Medicine; Visit Provider Internal Medicine Cardiovascular Disease | DX: Z13.6 Encounter for screening for cardiovascular disorders (principal) | CPT/HCPCS: 93010 ==

== ENCOUNTER → 2024-11-20 10:57 | Outpatient (BNV) | payer OTHER, SELFPAY | PROVIDERS: Admitting Provider Clinical Nurse Specialist Psychiatric/Mental Health, Adult; Emergency Provider Emergency Medicine; Visit Provider Psychiatry & Neurology Psychiatry | DX: F25.1 Schizoaffective disorder, depressive type (principal); F10.90 Alcohol use, unspecified, uncomplicated; F43.11 Post-traumatic stress disorder, acute | CPT/HCPCS: 99232 ==

== ENCOUNTER → 2024-11-20 10:57 | Outpatient (BNV) | payer OTHER, SELFPAY | PROVIDERS: Admitting Provider Clinical Nurse Specialist Psychiatric/Mental Health, Adult; Emergency Provider Emergency Medicine; Visit Provider Psychiatry & Neurology Psychiatry | DX: F25.1 Schizoaffective disorder, depressive type (principal); F10.90 Alcohol use, unspecified, uncomplicated; F43.11 Post-traumatic stress disorder, acute | CPT/HCPCS: 90792; 99231; 99232 ==

== ENCOUNTER 2024-12-13 00:21 | Emergency (ER) | payer OTHER, SELFPAY ==
[2024-12-13] VITALS (9 sets, daily range): BP systolic 115–145; BP diastolic 75–110; PULSE 78–100; RESP 14–18; TEMP 36.2–37.4; O2SAT 94–96; BMI 26.3
--- NOTE | 2024-12-13 00:50 | ED_ITS ---
HPI - Psych General Chief Complaint: Psychiatric Symptoms Stated Complaint: SI attempted to jump off bridge ETOH Time Seen by Provider: 12/13/24 00:48 Source: patient and EMS Mode of arrival: EMS Limitations: other (Intoxicated) History of Present Illness ED Provider: HPI Narrative: Patient under influence of alcohol was found on the bridge denies any suicidal ideation on arrival not clear why he was on the bridge patient does have history of schizoaffective disorder does discharge from upstairs on 12/01 for similar presentation Related Data Previous Rx's ?Medication ?Instructions ?Recorded chlorpromazine 100 mg tablet 100 mg PO TID #90 tabs 12/01/24 clonidine HCl 0.1 mg tablet 0.1 mg PO BEDTIME #30 tabs 12/01/24 folic acid 1 mg tablet 1 mg PO DAILY #30 tabs 12/01/24 hydroxyzine HCl 25 mg tablet 25 mg PO Q6H PRN mild anxiety #60 12/01/24 tabs multivitamin (Daily-Chaz tablet) 1 tab PO DAILY #30 tabs 12/01/24 paliperidone 6 mg tablet,extended 6 mg PO BEDTIME #30 tabs 12/01/24 release 24 hr (Invega) thiamine mononitrate (vit B1) 100 100 mg PO DAILY #30 tabs 12/01/24 mg tablet trazodone 50 mg tablet 50 mg PO BEDTIME MRX1 PRN Insomnia 12/01/24 #30 tabs Allergies Allergy/AdvReac Type Severity Reaction Status Date / Time penicillin G [PENICILLIN G] Allergy Intermediate SWELLING Verified 12/13/24 00:39 [place] And Derivatives Allergy Unknown unk Verified 12/13/24 00:39 [CITRUS AND DERIVATIVES] cranberry [CRANBERRY] Allergy Unknown HIVES Verified 12/13/24 00:39 gabapentin [GABAPENTIN] Allergy Unknown HIVES, Verified 12/13/24 00:39 swelling raspberry [RASPBERRY] Allergy Unknown unk Verified 12/13/24 00:39 Review of Systems 2 Review of Systems: Yes Unobtainable due to mental status PMFSH Past Medical History Medical History Homeless Alcohol use disorder PTSD (post-traumatic stress disorder) Schizoaffective disorder, depressive type Alcohol abuse Bipolar disorder Social History Social History Household Members: None Housing: Homeless Housing Other:: hotel Do you presently have visiting nurse or other home services: No Alcohol intake: current Alcohol intake frequency: 3 or more drinks per day Alcohol type: beer Patient Tobacco Use Status: Never used Tobacco e-Cigarette/Vaping Use: Never Used Second Hand Smoke Exposure: No Use of substances other than those prescribed or required for medical reasons: Unknown Advance Directives: No Do you have a plan to hurt others: No Plan service: No Sexual orientation: Straight/Heterosexual Physical Exam 2 Vital Signs: Vital Signs: Last Vital Signs Temp 97.5 F 12/13/24 06:46 Pulse 100 12/13/24 06:46 Resp 14 12/13/24 06:46 BP 118/75 12/13/24 06:46 Pulse Ox 96 12/13/24 06:46 O2 Del Method Room Air 12/13/24 06:46 BMI result Body Mass Index 26.3 Appearance: Sleepy intoxicated Eyes: PERRLA, No Nystagmus ENT: Pharynx normal. Oral Mucosa moist no signs of trauma Neck: Normal inspection. Neck supple. CVS: Normal heart rate and rhythm. Pulses normal. Respiratory: No respiratory distress. Equal air entry bilateral, no wheezing/rales/rhonchi Abdomen: Soft and nontender. Bowel sounds are present, no mass palpable, no CVA tenderness Skin: Skin warm and dry. Normal skin color. Normal skin turgor. Extremities: No lower extremity edema. No calf tenderness psych; heavily intoxicated unable to answer questions Neuro: Moving all 4 extremities Medications Administered Discontinued Medications Generic Name Dose Route Start Last Admin Trade Name Franklyn PRN Reason Stop Dose Admin Haloperidol Lactate 5 mg 12/13/24 01:23 12/13/24 01:40 Haloperidol Lactate 5 Mg/Ml Vial IM 12/13/24 01:24 5 mg STAT STA Administration Lorazepam 2 mg 12/13/24 01:23 12/13/24 01:40 Lorazepam 2 Mg/Ml Vial IM 12/13/24 01:24 2 mg STAT STA Administration Medical Decision Making Medical Decision Making MDM Narrative: Patient with alcohol intoxication with vague SI complaints prior to arrival not in the ER alcohol level is more than 400 will get the care team consult after patient is sober Lab Data MDM Lab Attestation statement: I reviewed the patient's lab results. 12/13/24 02:32 12/13/24 02:32 Labs: Lab Results 12/13/24 Range/Units 02:32 WBC 6.4 (4.8-10.8) X10*3/uL RBC 5.06 (4.60-5.80) X10*6/uL Hgb 15.0 (14.0-18.0) g/dl Hct 42.4 (42.0-52.0) % MCV 83.8 (80.0-98.0) fL MCH 29.6 (27.0-33.0) pg MCHC 35.4 (31.0-36.0) g/dl RDW 14.1 (11.0-16.0) % Plt Count 340 D (160-400) X10*3/uL MPV 10.2 (9.4-12.4) fL Immature Gran % (Auto) 0.3 (0.0-0.4) % Neut % (Auto) 55.4 (45-73) % Lymph % (Auto) 33.1 (20-40) % [place] % (Auto) 8.3 (2-11) % Eos % (Auto) 2.0 (0-4) % Baso % (Auto) 0.9 (0-2) % Lymph # (Auto) 2.1 (1.2-4.9) X10*3/uL [place] # (Auto) 0.5 (0.1-1.2) X10*3/uL Eos # (Auto) 0.1 (0.0-0.4) X10*3/uL Baso # (Auto) 0.1 (0.0-0.2) X10*3/uL Abs Immat Gran (auto) 0.02 (0.00-0.03) X10*3/uL Absolute Neuts (auto) 3.5 (2.0-8.3) x10*3/uL Absolute Nucleated RBC 0.000 (0.0-0.012) X10*3/uL Nucleated RBC % (auto) 0.0 (0.0-0.2) /100WBC Sodium 144 (135-145) mmol/L Potassium 3.8 (3.3-5.1) mmol/L Chloride 106 (96-108) mmol/L Carbon Dioxide 25 (22-29) mmol/L Anion Gap 17 (12-20) BUN 11 (9-16) mg/dL Creatinine 1.02 (0.5-1.4) mg/dL Estim Creat Clear Calc 85.4 Estimated GFR > 60 Random Glucose 99 (60-115) mg/dL Calcium 9.5 D (8.4-10.2) mg/dL Magnesium 2.1 (1.6-2.6) mg/dL Total Bilirubin 0.2 (0.0-1.0) mg/dL AST 33 (5-37) U/L ALT 21 (0-40) U/L Alkaline Phosphatase 77 (39-117) U/L Total Protein 8.2 H (6.5-8.0) g/dL Albumin 4.4 (3.5-5.0) g/dL Ethyl Alcohol 415 H* mg/dL Discharge Plan Discharge Clinical Impression: Schizoaffective disorder, depressive type, Alcohol use disorder Patient Disposition: Home, Self-Care Prescriptions: No Action multivitamin [Daily-Chaz] Tablet 1 tab PO DAILY Qty: 30 0RF clonidine HCl 0.1 mg Tablet 0.1 mg PO BEDTIME Qty: 30 0RF Protocol: Hold for SBP< HOLD for SBP < : 90 trazodone 50 mg Tablet 50 mg PO BEDTIME MRX1 PRN (Reason: Insomnia) Qty: 30 0RF chlorpromazine 100 mg Tablet 100 mg PO TID Qty: 90 0RF hydroxyzine HCl 25 mg Tablet 25 mg PO Q6H PRN (Reason: mild anxiety) Qty: 60 0RF paliperidone [Invega] 6 mg Tablet Extended Release 24 Hr 6 mg PO BEDTIME Qty: 30 0RF thiamine mononitrate (vit B1) 100 mg Tablet 100 mg PO DAILY Qty: 30 0RF folic acid 1 mg tablet 1 mg PO DAILY Qty: 30 0RF Print Language: Italian
--- NOTE | 2024-12-13 01:29 | PC.NURSE ---
pt unsteady on feet, slipping out of bed. not following commands. posturing and holding fisting up to staff and stating fuck you . Provider notified
[2024-12-13] MEDS: Haloperidol Lactate 5 MG/ML VIAL IM (01:40)
[2024-12-13] MEDS: LORazepam 2 MG/ML VIAL IM (01:40)
[2024-12-13 02:50] LABS: Basophils Absolute Auto 0.1 X10*3/uL (0.0-0.2); Basophils Percent Auto 0.9 % (0-2); Eosinophils Absolute Auto 0.1 X10*3/uL (0.0-0.4); Hematocrit 42.4 % (42.0-52.0); Imm Gran Abs Auto 0.02 X10*3/uL (0.00-0.03); Imm Gran Pct Auto 0.3 % (0.0-0.4); Lymphocytes Absolute Auto 2.1 X10*3/uL (1.2-4.9); Lymphocytes Percent Auto 33.1 % (20-40); MANUAL DIFF FLAG NO; Mean Corpuscular HGB Conc 35.4 g/dl (31.0-36.0); Mean Corpuscular Hemoglobin 29.6 pg (27.0-33.0); Mean Corpuscular Volume 83.8 fL (80.0-98.0); Mean Platelet Volume 10.2 fL (9.4-12.4); Monocytes Absolute Auto 0.5 X10*3/uL (0.1-1.2); Monocytes Percent Auto 8.3 % (2-11); Neutrophils Absolute Auto 3.5 x10*3/uL (2.0-8.3); Neutrophils Percent Auto 55.4 % (45-73); Platelet Count 340 X10*3/uL (160-400); Red Blood Count 5.06 X10*6/uL (4.60-5.80); Red Cell Distribution Width 14.1 % (11.0-16.0); White Blood Count 6.4 X10*3/uL (4.8-10.8)
[2024-12-13 03:06] LABS: Alanine Aminotransferase 21 U/L (0-40); Albumin Level 4.4 g/dL (3.5-5.0); Anion Gap 17 (12-20); Aspartate Amino Transferase 33 U/L (5-37); Bilirubin Total 0.2 mg/dL (0.0-1.0); Blood Urea Nitrogen 11 mg/dL (9-16); Calcium 9.5 mg/dL (8.4-10.2); Carbon Dioxide 25 mmol/L (22-29); Chloride 106 mmol/L (96-108); Creatinine Clr Calc Pharmacy 85.4; Estimated Glomerular Filt Rate > 60; Ethanol 415 mg/dL; Glucose Random 99 mg/dL (60-115); Magnesium 2.1 mg/dL (1.6-2.6); Potassium 3.8 mmol/L (3.3-5.1); Sodium 144 mmol/L (135-145); Total Protein 8.2 g/dL (6.5-8.0)
[2024-12-13 03:10] LABS: Alkaline Phosphatase 77 U/L (39-117)
--- NOTE | 2024-12-13 06:10 | PC.NURSE ---
Trial ambulation failed. PT unable to stand with out assist, nearly falling while using bathroom. Appears to be intoxicated still. continues to not answer assessment questions. Sitter remains at bedside.
[2024-12-13 07:10] LABS: Glucose, Whole Blood 77 mg/dL (60-115)
--- NOTE | 2024-12-13 08:02 | MHC.CARE ---
Addendum entered by CONTRERAS Rose 12/13/24 08:08: CARE team will not be assessing patient as dispo is section 35 at this time. Original Note: MARYAN from [facility] [employer] calls. She reports that [facility] team pursued a section 35 for this patient on Sunday, it was approved, a warrant issued. They are requesting he be held until picker / packer by [employer] on Sunday. Section 12 to hold patient will be completed by t/w
--- NOTE | 2024-12-13 10:38 | PC.NURSE ---
Per potato pancake frier, Pt is eligible to moved to pod if able to safely ambulate. Ambulation trial attempted, Pt unable to maintain balance independently--ambulance trial failed. potato pancake frier aware, plan to re-assess at a later time.
--- NOTE | 2024-12-13 12:46 | PC.NURSE ---
Another attempt at ambulation trial. Pt able to stand and walk but requires staff to be hands on to remain safe. Will report to wire bender.
--- NOTE | 2024-12-13 16:55 | PC.NURSE ---
patient is calm and cooperative, offering no complaints, resting in BH 6, aware of plan of care for follow up tomorrow am. Patient remains on S12a pending S35 on Friday 12/15
--- NOTE | 2024-12-14 00:27 | PC.NURSE ---
This job specification writer assumed care of this Pt at 2300. Pt awake laying in bed, appears to be watching TV. Equal, non-labored respirations. Plan of care ongoing.
[2024-12-14 06:30] VITALS: BP 149/87; PULSE 78; RESP 14; TEMP 36.1; O2SAT 98
--- NOTE | 2024-12-14 08:43 | PHA.MEDREC ---
Addendum entered by Pedro Luis Castaneda 12/14/24 10:03: reviewed Original Note: Pharmacy Consult ? Medication Reconciliation Pharmacy has completed the medication reconciliation. Reviewed med rec done by nursing (Hellen). Pt states was at [facility] for about a week where they only gave him Chlorpromazine TID. Prior to this, was taking confirmed meds. Additionally, pt reports having anaphylaxtic allergy to Invega and prompt D/C - states went to the ER after it occurred.
--- NOTE | 2024-12-14 16:17 | PC.NURSE ---
[facility] MOVED TO [facility]
[2024-12-15 01:12] LABS: Appearance Urine Clear; Color Urine Yellow; Glucose Urine UA Negative (Negative); Leukocyte Esterase Urine Negative (Negative); Nitrite Urine Negative (Negative); Specific Gravity - Urine 1.025 (1.005-1.025); Urine Blood Negative (Negative); Urine Ketones Trace mg/dL (Negative); Urine Protein Negative (Neg-Trace)
[2024-12-15 01:27] LABS: Amphetamine Screen Urine Not Detected (Not Detect); Barbiturates, Urine Not Detected (Not Detect); Benzodiazepines Screen Urine Not Detected (Not Detect); Buprenorphine Scr Not Detected (Not Detect); Cannabinoid Screen Urine Not Detected (Not Detect); Cocaine Screen Urine Not Detected (Not Detect); Fentanyl, urine Not Detected (Not Detect); Methadone Screen, Urine Not Detected (Not Detect); Opiate Screen Urine Not Detected (Not Detect); Oxycodone Screen Urine Not Detected (Not Detect); Phencyclidine Screen Urine Not Detected (Not Detect)
[2024-12-15 06:02] VITALS: BP 152/86; PULSE 75; RESP 16; TEMP 36.2; O2SAT 95
--- NOTE | 2024-12-15 06:45 | PC.NURSE ---
Patient slept through the night, no distress observed/reported, asymptomatic of ETOH withdrawal, CIWA was 0 at 0605, disposition section-35 by [facility], no behavior and safety concerns, will continue to monitor
[2024-12-15] MEDS: chlorproMAZINE HCl 100 MG TABLET PO (07:56)
[2024-12-15] MEDS: hydrOXYzine HCL 50 MG TABLET PO (07:56)
[2024-12-15] MEDS: Thiamine HCL 100 MG TABLET PO (07:56)
[2024-12-15] MEDS: Folic Acid 1 MG TABLET PO (07:56)
--- NOTE | 2024-12-15 10:30 | PC.NURSE ---
patient given back belongings, ambulated off unit with security for sect 35. patient given dc papers
== END 2024-12-15 10:31 | disposition home or self-care (01) ==
PROVIDERS: Emergency Provider Internal Medicine
DX: F25.1 Schizoaffective disorder, depressive type (principal); F10.19 Alcohol abuse with unspecified alcohol-induced disorder; Y90.8 Blood alcohol level of 240 mg/100 ml or more; R45.851 Suicidal ideations; Z59.00 Homelessness unspecified; F43.10 Post-traumatic stress disorder, unspecified; F23 Brief psychotic disorder; Z79.899 Other long term (current) drug therapy
CPT/HCPCS: 36415; 80053; 80307; 81003; 82947; 83735; 85025; 96372; 99285; J1630; J2060; S9485

== ENCOUNTER 2025-03-09 10:59 | Inpatient (IN) | payer OTHER, SELFPAY ==
[2025-03-09 11:29] VITALS: BP 137/95; BP 164/120; PULSE 120; PULSE 125; RESP 20; TEMP 36.5; O2SAT 97; O2SAT 98; BMI 28.2
--- NOTE | 2025-03-09 11:37 | ED.GENADULT ---
HPI - General Adult General Chief complaint: Psychiatric Symptoms Stated complaint: PT CALED CHD PARANOID,NON MED COMP,ETOH USE Time Seen by Provider: 03/09/25 11:37 Source: patient and EMS Mode of arrival: EMS Limitations: no limitations History of Present Illness ED Provider: Claire Wiseman PA-C HPI narrative: Patient is a 39 year old assigned male at with a history of alcohol use disorder, schizoaffective disorder, and PTSD presenting to the emergency department today with suicidal ideation, homicidal ideation, and increased paranoia. Patient states that he has been having thoughts of killing himself by slitting his wrists and having thoughts of killing Kiel Spence for sleeping with his girlfriend. Patient denies any dizziness, lightheadedness, abdominal pain, nausea, vomiting, fever, chills, blurry vision, double vision, loss of vision, chest pain, difficulty breathing, shortness of breath, back pain, night sweats, pain with urination, increased urinary frequency, increased urinary urgency, blood in his urine or stool, syncope or a near syncopal episode, recent trauma or falls, bowel incontinence, bladder incontinence, or any other complaints at this time. Relieving factors: none Exacerbating factors: none Associated symptoms: denies other symptoms Treatments prior to arrival: none Related Data Home Medications ?Medication ?Instructions ?Recorded ?Confirmed hydroxyzine pamoate 50 mg capsule 50 mg PO Q6H PRN mild anxiety 12/13/24 03/09/25 clonidine HCl 0.1 mg tablet 0.1 mg PO BEDTIME 12/14/24 03/09/25 bupropion HCl 150 mg 24 hr tablet, 150 mg PO DAILY 03/09/25 03/10/25 extended release chlorpromazine 100 mg tablet 100 mg PO BID 03/10/25 03/10/25 Previous Rx's ?Medication ?Instructions ?Recorded folic acid 1 mg tablet 1 mg PO DAILY #30 tabs 12/01/24 multivitamin (Daily-Chaz tablet) 1 tab PO DAILY #30 tabs 12/01/24 thiamine mononitrate (vit B1) 100 100 mg PO DAILY #30 tabs 12/01/24 mg tablet trazodone 50 mg tablet 50 mg PO BEDTIME MRX1 PRN Insomnia 12/01/24 #30 tabs Allergies Allergy/AdvReac Type Severity Reaction Status Date / Time penicillin G (PENICILLIN G) Allergy Intermediate SWELLING Verified 03/09/25 11:34 [place] And Derivatives Allergy Unknown unk Verified 03/09/25 11:34 (CITRUS AND DERIVATIVES) cranberry (CRANBERRY) Allergy Unknown HIVES Verified 03/09/25 11:34 gabapentin (GABAPENTIN) Allergy Unknown HIVES, Verified 03/09/25 11:34 swelling raspberry (RASPBERRY) Allergy Unknown unk Verified 03/09/25 11:34 Review of Systems Constitutional: Constitutional: Reports no additional constitutional complaints, Denies chills, Denies fever(s) and Denies night sweats Eyes: Eyes: Reports no additional eye complaints, Denies blurry vision, Denies change in vision, Denies diplopia, Denies eye discharge, Denies loss of vision and Denies eye pain ENT: Denies dizziness Cardiovascular: Cardiovascular: Reports no additional cardiovascular complaints, Denies chest pain, Denies lightheadedness, Denies Loss of Consciousness and Denies dyspnea Respiratory: Respiratory: Reports no additional respiratory complaints and Denies dyspnea Gastrointestinal: Gastrointestinal: Reports no additional gastrointestinal complaints, Denies abdominal pain, Denies melena, Denies hematochezia, Denies change in bowel habits and Denies change in stool character Genitourinary: Genitourinary: Reports no additional male genitourinary complaints, Denies hematuria, Denies oliguria, Denies difficulty urinating, Denies dysuria, Denies urinary frequency, Denies urinary hesitancy, Denies urinary incontinence and Denies urinary urgency Musculoskeletal: Musculoskeletal: Reports no additional musculoskeletal complaints, Denies numbness and Denies tingling Neurologic: Denies dizziness, Denies loss of vision, Denies numbness and Denies tingling Psychiatric: Psychiatric: Reports paranoia, Reports homicidal ideation and Reports suicidal ideation Endocrine: Endocrine: Reports no additional endocrine complaints Hematologic/Lymphatic: Hematologic/Lymphatic: Reports no additional hematologic/lymphatic complaints Allergic/Immunologic: Allergic/Immunologic: Reports no additional allergic/immunologic complaints PMFSH Past Medical History Attestation statement: The following information was validated with the patient. Source: old records reviewed and nursing notes reviewed Medical History Homeless Alcohol use disorder PTSD (post-traumatic stress disorder) Schizoaffective disorder, depressive type Alcohol abuse Bipolar disorder Social History Social History Household Members: None Housing: Homeless Housing Other:: hotel Do you presently have visiting nurse or other home services: No Alcohol intake: current Alcohol intake frequency: 3 or more drinks per day Alcohol type: beer and hard liquor Patient Tobacco Use Status: Never used Tobacco Smoked in Last 30 Days: No e-Cigarette/Vaping Use: Never Used Second Hand Smoke Exposure: No Use of substances other than those prescribed or required for medical reasons: No Currently Displaying Signs/Symptoms of Drug Intoxication Withdrawal: No Have you been hit, kicked, punched, or otherwise hurt by someone within the past year? If so, by whom?: No Do you feel safe in your current relationship?: No Current Relationship Is there a partner from a previous relationship who is making you feel unsafe now?: No Are you made to feel afraid or neglected: No Spiritual Healthcare Practices: nope Advance Directives: No Advance Directives Information Provided: Yes Do you have thoughts of harming others: None Do you have a plan to hurt others: No Plan Recently lost weight without trying: No Nutrition Risks: No Nutritional Risk Poor oral hygiene: Yes service: No Sexual orientation: Straight/Heterosexual Physical Exam ED Vital Signs: Vital Signs - 24 hr 03/09/25 11:29 03/09/25 11:58 03/09/25 12:51 Temperature 97.7 F 97.7 F 97.6 F Pulse Rate 125 H 125 H 111 H Respiratory Rate 20 20 18 Blood Pressure 137/95 H 137/95 H 143/57 H Pulse Oximetry 97 97 97 Oxygen Delivery Method Room Air Room Air Room Air 03/09/25 16:41 03/09/25 20:16 03/09/25 20:16 Temperature 98.7 F Pulse Rate 115 H 106 H Respiratory Rate 18 18 Blood Pressure 138/83 141/90 H Pulse Oximetry 94 94 Oxygen Delivery Method Room Air Room Air 03/10/25 06:23 Temperature 98.7 F Pulse Rate 99 Respiratory Rate 15 Blood Pressure 114/78 Pulse Oximetry 100 Oxygen Delivery Method Room Air BMI result Body Mass Index 28.2 Const General: cooperative, no acute distress, alert and awake Nutritional Appearance: well nourished Orientation/consciousness: patient oriented x3 HENMT Head: Yes normal to inspection and Yes atraumatic Ears: hearing grossly normal bilaterally and external ears normal General nose exam: Normal external nose present, no nasal discharge noted and no epistaxis Face and sinus: Yes normal facial exam, No abrasion and No laceration Mouth: Normal oral and palatal mucosa present, no drooling and no muffled voice Eyes General: appearance normal, both eyes and all related structures Periorbital: periorbital findings normal Eyelids: Yes eyelids normal Conjunctivae: conjunctivae normal Pupils: Equal, round and reactive pupils present EOM: EOMs intact bilaterally Neck Neck: Yes normal visual inspection, Yes full ROM and Yes no lymphadenopathy Resp Effort & Inspection: normal respiratory effort and able to speak in complete sentences Neuro General: patient oriented x3, moves all extremities and CN's II-XI intact bilaterally Cranial nerves: Yes Equal, round and reactive pupils present Cognition (Neuro): normal cognition Extrem General: Yes normal to inspection, Yes full ROM and Yes capillary refill normal Psych Appearance: grossly normal Mental Status: mental status grossly normal Affect: Labile affect present Thought process: Circumstantial thought process present and Illogical thought process present Thought content: Suicidality present, Homicidality present and Paranoid delusions present Course Reevaluation(s) Reevaluation #1: Time: 23:05 Date: 03/09/25 Provider: Carlos Andrew, DO Patient in physician observation for psychiatric evaluation.? ? Patient is in bed search status. Will continue to monitor. Time: 23:05 Reevaluation #2: Time: 08:10 Date: 03/10/25 Provider: Julio Cesar Ramon MD Patient in physician observation for psychiatric evaluation.? No acute events reported overnight. No current complaints. VS stable.? Patient is in bed search status/pending CARE team evaluation. Will continue to monitor. Reevaluation #3: 03/10/2025 11:20 AM patient will be admitted to the psychiatric unit this is end the physician observation status Medications Administered Generic Name Dose Route Start Last Admin Trade Name Freq PRN Reason Stop Dose Admin Bupropion HCl 300 mg 03/10/25 09:00 03/12/25 11:29 Bupropion Hcl Xl 300 Mg Tab.Er.24h PO 300 mg DAILY YULY Administration Chlorpromazine HCl 100 mg 03/09/25 21:00 03/12/25 11:32 Chlorpromazine Hcl 100 Mg Tablet PO Not Given TID YULY Clonidine HCl 0.1 mg 03/09/25 21:00 03/11/25 20:36 Clonidine Hcl 0.1 Mg Tablet PO 0.1 mg BEDTIME YULY Administration Protocol Folic Acid 1 mg 03/10/25 09:00 03/12/25 11:29 Folic Acid 1 Mg Tablet PO 1 mg DAILY YULY Administration Multivitamins/Vitamin C 1 tab 03/10/25 09:00 03/12/25 11:29 Multivitamin Tablet PO 1 tab DAILY YULY Administration Thiamine HCl 100 mg 03/10/25 09:00 03/12/25 11:29 Thiamine Hcl 100 Mg Tablet PO 100 mg DAILY YULY Administration Medical Decision Making Medical Decision Making [facility] Narrative: Patient is a 39 year old assigned male at with a history of alcohol use disorder, schizoaffective disorder, and PTSD presenting to the emergency department today with suicidal ideation, homicidal ideation, and increased paranoia. Patient's physical exam was as noted in the physical exam portion of this note. Patient's blood work showed an ethyl alcohol of 343 but otherwise unremarkable. Patient's urine showed no acute process. Patient's EKG was unremarkable. I explained my physical exam findings as well as all test results to the patient. I answered all questions asked by the patient. Patient is awaiting CARE team evaluation. Patient will remain in observation pending CARE team evaluation. Differential Diagnosis Differential Diagnoses: The differential diagnosis associated with the presentation includes SI HI Paranoia Admission/Observation Consideration of admission/observation: Escalation of care including admission/observation considered Patient's final disposition will be determined after CARE team evaluation. Patient will remain in observation pending CARE team evaluation. Lab Data [facility] Lab Attestation statement: I reviewed the patient's lab results. My interpretation of these results are in the MDM Rationale portion of this note. 03/09/25 12:01 03/09/25 12:01 Labs: Lab Results 03/09/25 Range/Units 12:01 WBC 8.2 (4.8-10.8) X10*3/uL RBC 4.34 L (4.60-5.80) X10*6/uL Hgb 12.3 L (14.0-18.0) g/dl Hct 35.2 L (42.0-52.0) % MCV 81.1 (80.0-98.0) fL MCH 28.3 (27.0-33.0) pg MCHC 34.9 (31.0-36.0) g/dl RDW 13.1 (11.0-16.0) % Plt Count 256 (160-400) X10*3/uL MPV 10.6 (9.4-12.4) fL Immature Gran % (Auto) 0.2 (0.0-0.4) % Neut % (Auto) 71.6 (45-73) % Lymph % (Auto) 19.8 L (20-40) % [place] % (Auto) 7.0 (2-11) % Eos % (Auto) 0.4 (0-4) % Baso % (Auto) 1.0 (0-2) % Lymph # (Auto) 1.6 (1.2-4.9) X10*3/uL [place] # (Auto) 0.6 (0.1-1.2) X10*3/uL Eos # (Auto) 0.0 (0.0-0.4) X10*3/uL Baso # (Auto) 0.1 (0.0-0.2) X10*3/uL Abs Immat Gran (auto) 0.02 (0.00-0.03) X10*3/uL Absolute Neuts (auto) 5.9 (2.0-8.3) x10*3/uL Absolute Nucleated RBC 0.000 (0.0-0.012) X10*3/uL Nucleated RBC % (auto) 0.0 (0.0-0.2) /100WBC Sodium 143 (135-145) mmol/L Potassium 3.6 (3.3-5.1) mmol/L Chloride 104 (96-108) mmol/L Carbon Dioxide 25 (22-29) mmol/L Anion Gap 18 (12-20) BUN 9 (9-16) mg/dL Creatinine 0.94 (0.5-1.4) mg/dL Estim Creat Clear Calc 108.9 Estimated GFR > 60 Random Glucose 137 H (60-115) mg/dL Calcium 8.5 D (8.4-10.2) mg/dL Total Bilirubin 0.4 (0.0-1.0) mg/dL AST 124 H (5-37) U/L ALT 66 H (0-40) U/L Alkaline Phosphatase 72 (39-117) U/L Total Protein 6.8 (6.5-8.0) g/dL Albumin 4.4 (3.5-5.0) g/dL Urine Color Yellow Urine Appearance Clear Urine pH 6.0 (5.0-9.0) Ur Specific [place] 1.010 (1.005-1.025) Urine Protein Negative (Neg-Trace) mg/dL Urine Glucose (UA) Negative (Negative) mg/dL Urine Ketones Negative (Negative) mg/dL Urine Blood Negative (Negative) Urine Nitrite Negative (Negative) Ur Leukocyte Esterase Negative (Negative) Salicylates < 5.0 L (15-30) mg/dL Urine Opiates Screen Not Detected (Not Detect) Ur Buprenorphine Scrn Not Detected (Not Detect) ng/mL Ur Oxycodone Screen Not Detected (Not Detect) ng/mL Urine Methadone Screen Not Detected (Not Detect) ng/mL Urine Fentanyl Screen Not Detected (Not Detect) Acetaminophen < 3 (<30) mcg/mL Ur Barbiturates Screen Not Detected (Not Detect) Ur Phencyclidine Scrn Not Detected (Not Detect) Ur Amphetamines Screen Not Detected (Not Detect) U Benzodiazepines Scrn Not Detected (Not Detect) Urine Cocaine Screen Not Detected (Not Detect) U Marijuana (THC) Screen Not Detected (Not Detect) Ethyl Alcohol 343 H* mg/dL Influenza Type A (PCR) NEGATIVE (Negative) Influenza Type B (PCR) NEGATIVE (Negative) RSV RNA Qual (PCR) NEGATIVE (Negative) SARS-CoV-2 RNA (RT-PCR) NEGATIVE (Negative) Independent Interpretation I performed an independent interpretation of an: EKG Interpretation: I independently interpreted this EKG and am in agreement with the below findings: Vent. Rate: 104 BPM Atrial Rate: 104 BPM P-R Int: 122 ms QRS Dur: 82 ms QT Int: 346 ms P-R-T Axes: * -6 -28 degrees QTcB Int: 454 ms Sinus tachycardia with Premature atrial complexes with Aberrant conduction When compared with ECG of 27-Nov-2024 09:09, Aberrant conduction is now Present Inverted T waves have replaced nonspecific T wave abnormality in Inferior leads DD/ 1255 Independent Historian Clinical information obtained from an independent historian. History obtained from or confirmed by: EMS (EMS provided additional history and confirmed the history provided by the patient. ) Discharge Plan Discharge Clinical Impression: Acute paranoia, Feeling suicidal, Homicidal ideation, Alcohol use Patient Disposition: Admitted As Inpatient Interventions: Admission Worksheet (ED) Last Done: 03/10/25 11:52 Discharge Date/Time: 03/10/25 11:53
--- NOTE | 2025-03-09 11:38 | ECG_ITS ---
Test Reason : MEDICAL CLEARANCE Blood Pressure : */* mmHG Vent. Rate : 104 BPM Atrial Rate : 104 BPM P-R Int : 122 ms QRS Dur : 82 ms QT Int : 346 ms P-R-T Axes : * -6 -28 degrees QTcB Int : 454 ms Artifact Sinus tachycardia with Premature atrial complexes with Aberrant conduction Otherwise normal ECG When compared with ECG of 27-Nov-2024 09:09, Aberrant conduction is now Present Inverted T waves have replaced nonspecific T wave abnormality in Inferior leads Referred By: Claire Wiseman Electronically Signed By: Bal Robertson
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
[2025-03-09 11:58] VITALS: BP 137/95; PULSE 125; RESP 20; TEMP 36.5; O2SAT 97
[2025-03-09 12:09] LABS: MANUAL DIFF FLAG NO
[2025-03-09 12:11] LABS: Basophils Absolute Auto 0.1 X10*3/uL (0.0-0.2); Eosinophils Percent Auto 0.4 % (0-4); Hematocrit 35.2 % (42.0-52.0); Hemoglobin 12.3 g/dl (14.0-18.0); Imm Gran Abs Auto 0.02 X10*3/uL (0.00-0.03); Imm Gran Pct Auto 0.2 % (0.0-0.4); Lymphocytes Absolute Auto 1.6 X10*3/uL (1.2-4.9); Lymphocytes Percent Auto 19.8 % (20-40); Mean Corpuscular HGB Conc 34.9 g/dl (31.0-36.0); Mean Corpuscular Hemoglobin 28.3 pg (27.0-33.0); Mean Corpuscular Volume 81.1 fL (80.0-98.0); Mean Platelet Volume 10.6 fL (9.4-12.4); Monocytes Absolute Auto 0.6 X10*3/uL (0.1-1.2); Neutrophils Absolute Auto 5.9 x10*3/uL (2.0-8.3); Neutrophils Percent Auto 71.6 % (45-73); Platelet Count 256 X10*3/uL (160-400); Red Blood Count 4.34 X10*6/uL (4.60-5.80); Red Cell Distribution Width 13.1 % (11.0-16.0); White Blood Count 8.2 X10*3/uL (4.8-10.8)
[2025-03-09 12:12] LABS: Appearance Urine Clear; Color Urine Yellow; Glucose Urine UA Negative (Negative); Leukocyte Esterase Urine Negative (Negative); Nitrite Urine Negative (Negative); Urine Blood Negative (Negative); Urine Ketones Negative (Negative); Urine Protein Negative (Neg-Trace)
[2025-03-09 12:22] LABS: Amphetamine Screen Urine Not Detected (Not Detect); Barbiturates, Urine Not Detected (Not Detect); Benzodiazepines Screen Urine Not Detected (Not Detect); Buprenorphine Scr Not Detected (Not Detect); Cannabinoid Screen Urine Not Detected (Not Detect); Cocaine Screen Urine Not Detected (Not Detect); Fentanyl, urine Not Detected (Not Detect); Methadone Screen, Urine Not Detected (Not Detect); Opiate Screen Urine Not Detected (Not Detect); Oxycodone Screen Urine Not Detected (Not Detect); Phencyclidine Screen Urine Not Detected (Not Detect)
[2025-03-09 12:26] LABS: Alanine Aminotransferase 66 U/L (0-40); Albumin Level 4.4 g/dL (3.5-5.0); Alkaline Phosphatase 72 U/L (39-117); Anion Gap 18 (12-20); Aspartate Amino Transferase 124 U/L (5-37); Bilirubin Total 0.4 mg/dL (0.0-1.0); Blood Urea Nitrogen 9 mg/dL (9-16); Calcium 8.5 mg/dL (8.4-10.2); Carbon Dioxide 25 mmol/L (22-29); Chloride 104 mmol/L (96-108); Creatinine Clr Calc Pharmacy 108.9; Estimated Glomerular Filt Rate > 60; Ethanol 343 mg/dL; Glucose Random 137 mg/dL (60-115); Potassium 3.6 mmol/L (3.3-5.1); Sodium 143 mmol/L (135-145); Total Protein 6.8 g/dL (6.5-8.0)
[2025-03-09 12:28] LABS: Acetaminophen LAB < 3 mcg/mL (<30); Salicylate < 5.0 mg/dL (15-30)
[2025-03-09 12:48] LABS: Influenza A PCR NEGATIVE (Negative); Influenza B PCR NEGATIVE (Negative); Resp Syncy Virus RNA Qual PCR NEGATIVE (Negative); SARS COV2 PCR INHOUSE NEGATIVE (Negative)
[2025-03-09 12:51] VITALS: BP 143/57; PULSE 111; RESP 18; TEMP 36.4; O2SAT 97
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
--- OUTSIDE RECORDS SUMMARY | 2025-03-09 14:23 | XMS_ITS | Encounter Summary ---
Author Organization [employer] Address [address] [place] [address] Care Team Providers Care Res Counselor Name Role Phone Taran Lira MD Primary Care Provider Encounter Details Date Type Department Care Team (Late st Contact Info) Description 12/03/2024 Lab Requisition [facility] - Main Lab [address] [place] [address] Bhav[facility] [phone] Social History Tobacco Use Types Packs/Day Years Used Date Smoking Tobacco: Never Assessed Sex and Gender Information Value Date Recorded Sex Assigned at Not on file Legal Sex Male 3:40 PM EDT Gender Identity Not on file Sexual Orientation Not on file documented as of this encounter Plan of Treatment Not on file documented as of this encounter Visit Diagnoses Not on filedocumented in this encounter Care Teams Res Counselor Relationship Specialty Start Date End Date Taran Lira MD [address] [place] [address] PCP - General Internal Medicine 12/08/24 documented as of this encounter
--- NOTE | 2025-03-09 16:37 | PC.NURSE ---
RE med rec Patient able to verbally report medications taken. He states he last took his medications around the date of 03/04
[2025-03-09 16:41] VITALS: BP 138/83; PULSE 115; RESP 18; TEMP 37.1; O2SAT 94
--- NOTE | 2025-03-09 16:55 | PC.NURSE ---
PA aware of patient continuing to be tachycardic
--- NOTE | 2025-03-09 19:16 | PC.NURSE ---
This telegraphic typewriter installer assumed care of this Pt at 1900.
[2025-03-09 20:16] VITALS: BP 141/90; PULSE 106; RESP 18; O2SAT 94
[2025-03-09] MEDS: chlorproMAZINE HCl 100 MG TABLET PO (20:16)
[2025-03-09] MEDS: cloNIDine HCL 0.1 MG TABLET PO (20:16)
--- NOTE | 2025-03-09 20:33 | PC.NURSE ---
this rn assumed care of pt, pt resting in stretcher, no acute distress noted.
[2025-03-10 06:23] VITALS: BP 114/78; PULSE 99; RESP 15; TEMP 37.1; O2SAT 100
[2025-03-10] MEDS: Thiamine HCL 100 MG TABLET PO (10:12)
[2025-03-10] MEDS: Folic Acid 1 MG TABLET PO (10:12)
[2025-03-10] MEDS: buPROPion HCl XL 300 MG TAB.ER.24H PO (10:12)
[2025-03-10] MEDS: chlorproMAZINE HCl 100 MG TABLET PO ×3 (10:13→20:27)
--- NOTE | 2025-03-10 10:24 | PHA.MEDREC ---
Addendum entered by Karime Vega [facility] 03/10/25 11:12: reviewed Original Note: Pharmacy Consult ? Medication Reconciliation Pharmacy reviewed med rec done by nursing. Spoke with pt and he confirmed his medications. pt confirmed he had just started a new regimen of the Bupropion 150mg tabs Sunday 03/04 and confirmed he is taking 1 tab QD for 1 week then increasing to 2 tabs daily there after; nursing had confirmed 300mg daily, I updated that accordingly. Pt confirmed his Chlorpromazine 100mg and confirmed he takes it BID; I updated that since nurse had confirmed 100mg TID.
--- NOTE | 2025-03-10 11:15 | PC.NURSE ---
Assumed care of this patient at 1100, patient currently resting quietly in BH3, currently has bed assignment on inpatient psych unit, awaiting report/transport for transfer. AM med multivitamin given late d/t previous RN/med unavailability.
[2025-03-10] MEDS: Multivitamin TABLET 1 TAB PO (11:27)
[2025-03-10 11:56] VITALS: BP 141/97; PULSE 108; RESP 16; TEMP 36.4; O2SAT 94
[2025-03-10 12:57] VITALS: BMI 26.4
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
--- NOTE | 2025-03-10 20:07 | PC.NURSE ---
Patient has refused to allow staff to obtain vital signs; refused a second time upon reapproach. Clonidine held due to lack of vital signs.
[2025-03-11 07:57] VITALS: BP 148/90; PULSE 79; RESP 16; TEMP 36.6; O2SAT 98
[2025-03-11] MEDS: Folic Acid 1 MG TABLET PO (08:15)
[2025-03-11] MEDS: buPROPion HCl XL 300 MG TAB.ER.24H PO (08:15)
[2025-03-11] MEDS: Multivitamin TABLET 1 TAB PO (08:15)
[2025-03-11] MEDS: chlorproMAZINE HCl 100 MG TABLET PO ×3 (08:15→20:37)
[2025-03-11] MEDS: Thiamine HCL 100 MG TABLET PO (08:15)
--- NOTE | 2025-03-11 09:51 | HO.PSYCHPN ---
Subjective Subjective Date of Service: 03/11/25 Reason For Visit: PTSD Schizoaffective disorder Alcohol Use Disorder Subjective Notes: Conditional Voluntary Healthcare Proxy: No Guardianship: No Medical Problems Affecting Mental Status: No Interim History: Medical record and nursing notes reviewed; case discussed during rounds with team, and met with patient for supportive therapy/psychoeducation, as well as medication management. Attempted to talk to patient twice today. He remained in bed did not want to talk, appear very irritable, saying you guys keep bothering me . I am good . Deny any safety concerns. Irritable mood depressed isolated, no groups. Per nursing, patient has visit earlier today. Encourage him to get vital sign checks for the clonidine schedule. He he is receptive to the plan. Irritable and isolative himself could be a baseline. However I could not assess if the patient is paranoia not, as he is guarded not open to talk. However medication compliant, except for clonidine last night was not given as he has refused vital signs> Slightly elevated on blood pressure but no other side withdrawals from alcohol> Medication Compliance: Yes Side effects from medications: No Review of Systems Acute medical concerns: No Medical Review of Systems: unchanged Review of Systems Review of Systems Constitutional: Denies fatigue and Denies fever(s) Cardiovascular: Denies chest pain and Denies dyspnea Respiratory: Denies dyspnea Gastrointestinal: Denies abdominal pain Psychiatric: denies suicidal ideation Endocrine: Denies fatigue Mental Status Exam Mental Status Exam Narrative: Patient is alert and oriented; behavior is anxious depressed. He is irritable and partly cooperative, moderate anxiety/depression; patient is not in distress; dressed in hospital attire with adequate hygiene; . mood is described as I am good and affect incongruent; eye contact appropriate but could be avoided as he is in bed,; Speech is normal rate, volume and prosody and not pressured; with limitted interaction, no psychomotor agitation/retardation present; thought process is disorganized, guarded; Thought content is WNL, pertinent to relevant topics and without any delusional content,or grandiosity; denies any SI/SIB/HI. Denies AH and there is no evidence of perceptual disturbance. Patient's insight and judgment impaired. He is guarded and appeared to be paranoid.. Diagnostics Vital Signs (24Hr): Vital Signs - 24 hr 03/10/25 11:56 03/11/25 07:57 Temperature 97.5 F 98 F Pulse Rate 108 H 79 Respiratory Rate 16 16 Blood Pressure 141/97 H 148/90 H Pulse Oximetry 94 98 Oxygen Delivery Method Room Air Room Air BMI result Body Mass Index 26.4 Labs 03/09/25 12:01 03/09/25 12:01 Labs: Laboratory Results - last 48 hr 03/09/25 12:01 WBC 8.2 RBC 4.34 L Hgb 12.3 L Hct 35.2 L MCV 81.1 MCH 28.3 MCHC 34.9 RDW 13.1 Plt Count 256 MPV 10.6 Immature Gran % (Auto) 0.2 Neut % (Auto) 71.6 Lymph % (Auto) 19.8 L [place] % (Auto) 7.0 Eos % (Auto) 0.4 Baso % (Auto) 1.0 Lymph # (Auto) 1.6 [place] # (Auto) 0.6 Eos # (Auto) 0.0 Baso # (Auto) 0.1 Abs Immat Gran (auto) 0.02 Absolute Neuts (auto) 5.9 Absolute Nucleated RBC 0.000 Nucleated RBC % (auto) 0.0 Sodium 143 Potassium 3.6 Chloride 104 Carbon Dioxide 25 Anion Gap 18 BUN 9 Creatinine 0.94 Estim Creat Clear Calc 108.9 Estimated GFR > 60 Random Glucose 137 H Calcium 8.5 D Total Bilirubin 0.4 AST 124 H ALT 66 H Alkaline Phosphatase 72 Total Protein 6.8 Albumin 4.4 Urine Color Yellow Urine Appearance Clear Urine pH 6.0 Ur Specific [place] 1.010 Urine Protein Negative Urine Glucose (UA) Negative Urine Ketones Negative Urine Blood Negative Urine Nitrite Negative Ur Leukocyte Esterase Negative Salicylates < 5.0 L Urine Opiates Screen Not Detected Ur Buprenorphine Scrn Not Detected Ur Oxycodone Screen Not Detected Urine Methadone Screen Not Detected Urine Fentanyl Screen Not Detected Acetaminophen < 3 Ur Barbiturates Screen Not Detected Ur Phencyclidine Scrn Not Detected Ur Amphetamines Screen Not Detected U Benzodiazepines Scrn Not Detected Urine Cocaine Screen Not Detected U Marijuana (THC) Screen Not Detected Ethyl Alcohol 343 H* Influenza Type A (PCR) NEGATIVE Influenza Type B (PCR) NEGATIVE RSV RNA Qual (PCR) NEGATIVE SARS-CoV-2 RNA (RT-PCR) NEGATIVE Medications Medications Current Medications Acetaminophen (Acetaminophen 325 Mg Tablet) 650 mg PO Q6H PRN PRN Reason: Headache/Pain, Scale 1-10 Al Hydroxide/Mg Hydroxide (Magnesium Hydrox/Alum Hydrox 30 Ml Oral.Susp) 30 ml PO Q6H PRN PRN Reason: Heartburn/Nausea Bupropion HCl (Bupropion Hcl Xl 300 Mg Tab.Er.24h) 300 mg PO DAILY [facility] Last Admin: 03/11/25 08:15 Dose: 300 mg Chlorpromazine HCl (Chlorpromazine Hcl 100 Mg Tablet) 100 mg PO TID [facility] Last Admin: 03/11/25 08:15 Dose: 100 mg Clonidine HCl (Clonidine Hcl 0.1 Mg Tablet) 0.1 mg PO BEDTIME [facility]; Protocol Last Admin: 03/10/25 20:08 Dose: Not Given Folic Acid (Folic Acid 1 Mg Tablet) 1 mg PO DAILY [facility] Last Admin: 03/11/25 08:15 Dose: 1 mg Hydroxyzine HCl (Hydroxyzine Hcl 25 Mg Tablet) 25 mg PO Q6H PRN PRN Reason: mild anxiety Magnesium Hydroxide (Milk Of Magnesia 30 Ml Oral.Susp) 30 ml PO DAILY PRN PRN Reason: Constipation Multivitamins/Vitamin C (Multivitamin Tablet) 1 tab PO DAILY [facility] Last Admin: 03/11/25 08:15 Dose: 1 tab Nicotine Polacrilex (Nicotine Polacrilex 2 Mg Gum) 4 mg BUCCAL Q2H PRN PRN Reason: Nicotine Cravings Thiamine HCl (Thiamine Hcl 100 Mg Tablet) 100 mg PO DAILY [facility] Last Admin: 03/11/25 08:15 Dose: 100 mg Trazodone HCl (Trazodone Hcl 50 Mg Tablet) 50 mg PO BEDTIME MRX1 PRN PRN Reason: Insomnia Allergies Allergies Allergy/AdvReac Type Severity Reaction Status Date / Time penicillin G (PENICILLIN G) Allergy Intermediate SWELLING Verified 03/09/25 11:34 [place] And Derivatives Allergy Unknown unk Verified 03/09/25 11:34 (CITRUS AND DERIVATIVES) cranberry (CRANBERRY) Allergy Unknown HIVES Verified 03/09/25 11:34 gabapentin (GABAPENTIN) Allergy Unknown HIVES, Verified 03/09/25 11:34 swelling raspberry (RASPBERRY) Allergy Unknown unk Verified 03/09/25 11:34 Assessment & Plan Assessment & Plan (1) Alcohol use: Status: Acute Code(s): F10.90 - Alcohol use, unspecified, uncomplicated (2) Homeless: Status: Acute Code(s): Z59.00 - Homelessness unspecified (3) PTSD (post-traumatic stress disorder): Status: Acute Code(s): F43.10 - Post-traumatic stress disorder, unspecified (4) Schizoaffective disorder, depressive type: Status: Acute Code(s): F25.1 - Schizoaffective disorder, depressive type (5) Acute paranoia: Status: Acute Code(s): F22 - Delusional disorders Plan Plan: HPI: Patient is a 39 year old assigned male at with a history of alcohol use disorder, schizoaffective disorder, and PTSD presenting to the emergency department today with suicidal ideation, homicidal ideation, and increased paranoia. Patient states that he has been having thoughts of killing himself by slitting his wrists and having thoughts of killing Kiel Spence for sleeping with his girlfriend. He was section 12 by [facility]. Presented with delusional paranoid, believes people were following him. Deny any plans or intention to do harm to himself or anyone reports relapsed after 85 day sober and drank only 4 beers x1. Also reports stopped taking his medications for about a week he is able to mentioned some of the medications name but majority he can not recall. He is not a reliable historian. Poor insight of the illnesses in substance use. Poor insight of the history of suicide attempts as other places mentioned that he having numerous attempts in the past. Increased paranoid thoughts, but deny suicidal thoughts homicidal thoughts and self-harm thoughts as well as voices at this current time. He agrees with plan of medications to restart. He has outpatient psychiatrist and therapist through [facility] in [place] Formulation/clinical reasoning: Increased paranoid. Increased anxiety and depression, relapsed on alcohol for 1 day after sober for 85 days, being homeless at this current time. SI/SIB, and paranoid on admission. However he denies suicidal thought and homicidal thoughts during the assessment with this provider. Non medication compliant was unsure is couple of days or a week or 2. He agreed to restart all home medications. He do not want the have treatment program. He wants to go back to the detention but at this point not sure where detention he was staying before or if he actually having a detention services before. Do not have consent to talk to outpatient providers or intact anyone in the detention at this time Hospital course: 03/10/25: Admitted to M[facility], signed a CV, restart on home medications: Include Wellbutrin 300 mg and Thorazine 100 3 times a day. We will check some lab work for tomorrow. He does not need to be on CIWA protocol at this current time as only relapsed for 1 day. However we will have the nurse to monitor for vital signs for any symptoms of withdrawal. 03/11/25: He depressed, anxious, with irritable mood. Mostly isolative in to self in room. Out for meals and visit. Guarded upon approach today, but denies safety concerns. No paranoia or delusions general statement makes. But he could be also paranoid. Continue not to have a consent to talk to outpatient providers. No side effects from medications. Restart medications from home. Plan Patient on 15 minute checks for safety. Admitted to M5. CV. Work with treatment team to do collateral for any rehab treatment program if possible for aftercare. He declined MAT, he declined to consultation substance use specialist. He is medically clear from own [facility] doc. Re-approached for consent to release information to talk to [facility] outpatient providers and for collateral for aftercare. Patient educated on: diagnosis, medication risk/benefits and substance abuse Informed Consent: further education needed Reason for continued inpatient stay Substantial Risk for: rapid decompensation and med/psych decompensation Time Spent With Patient Time: Total time managing care of this patient today ____ minutes.
[2025-03-11 19:42] VITALS: BP 120/73; PULSE 131; TEMP 36.1; O2SAT 98
[2025-03-11 20:36] VITALS: BP 120/73
[2025-03-11] MEDS: cloNIDine HCL 0.1 MG TABLET PO (20:36)
[2025-03-12 08:00] VITALS: BP 129/79; PULSE 85; RESP 16; TEMP 36.4; O2SAT 97
--- NOTE | 2025-03-12 08:59 | HO.PSYCHPN ---
Subjective Subjective Date of Service: 03/12/25 Reason For Visit: PTSD Schizoaffective disorder Alcohol Use Disorder Subjective Notes: Conditional Voluntary Healthcare Proxy: No Guardianship: No Medical Problems Affecting Mental Status: No Interim History: Medical record and nursing notes reviewed; case discussed during rounds with team, and met with patient for supportive therapy/psychoeducation, as well as medication management. Meet with patient in his room today. He is in bed but more pleasant to talk today. Reports he has refused this morning medication because I am very tired . Reported he has been drinking coffee this morning and have another cup from roommate I am still tired . Be he restart on medication that he has thought for wanted to weeks. He agreed to take medication after talking to me except for Thorazine which he agreed to only scheduled 50 in the morning and 250 mg at bedtime to prevent sedation during the daytime. He give consent to talk to his outpatient provider from [facility]. He does not having number for Lorenza who is his home health care worker. Reports he had good visit with to outreach workers yesterday which went well. He rates his voice today that he wants to go to respite in [place] and then go to residential. He signed a 3 day notice after talking to me per assigned nurse. Medication Compliance: Yes Side effects from medications: No Attending Groups: No Review of Systems Acute medical concerns: No Medical Review of Systems: unchanged Review of Systems Review of Systems Constitutional: Denies fatigue and Denies fever(s) Cardiovascular: Denies chest pain and Denies dyspnea Respiratory: Denies dyspnea Gastrointestinal: Denies abdominal pain Psychiatric: denies suicidal ideation Endocrine: Denies fatigue Yes all other systems are reviewed and are negative Mental Status Exam Mental Status Exam Narrative: Patient is alert and oriented; behavior is anxious depressed. He is calm, pleasant and more cooperative, moderate anxiety/depression; patient is not in distress; dressed in hospital attire with adequate hygiene; . mood is described as tired and affect congruent; eye contact appropropriat and fair; Speech is normal rate, volume and prosody and not pressured; with limitted interaction, no psychomotor agitation/retardation present; thought process is more disorganized, and less guarded; Thought content is WNL, pertinent to relevant topics and without any delusional content,or grandiosity; denies any SI/SIB/HI. Denies AH and there is no evidence of perceptual disturbance. Patient's insight and judgment impaired. He does not appear to be paranoid at the assessment time but he can be paranoid thinking people are following and do harm to him. . He believe those people are in reality not paranoid Diagnostics Vital Signs (24Hr): Vital Signs - 24 hr 03/11/25 19:42 03/11/25 20:36 03/12/25 08:00 Temperature 97 F 97.5 F Pulse Rate 131 H 85 Respiratory Rate 16 Blood Pressure 120/73 120/73 129/79 Pulse Oximetry 98 97 Oxygen Delivery Method Room Air BMI result Body Mass Index 26.4 Labs 03/09/25 12:01 03/09/25 12:01 Medications Medications Current Medications Acetaminophen (Acetaminophen 325 Mg Tablet) 650 mg PO Q6H PRN PRN Reason: Headache/Pain, Scale 1-10 Al Hydroxide/Mg Hydroxide (Magnesium Hydrox/Alum Hydrox 30 Ml Oral.Susp) 30 ml PO Q6H PRN PRN Reason: Heartburn/Nausea Bupropion HCl (Bupropion Hcl Xl 300 Mg Tab.Er.24h) 300 mg PO DAILY [facility] Last Admin: 03/11/25 08:15 Dose: 300 mg Chlorpromazine HCl (Chlorpromazine Hcl 100 Mg Tablet) 100 mg PO TID [facility] Last Admin: 03/11/25 20:37 Dose: 100 mg Clonidine HCl (Clonidine Hcl 0.1 Mg Tablet) 0.1 mg PO BEDTIME [facility]; Protocol Last Admin: 03/11/25 20:36 Dose: 0.1 mg Folic Acid (Folic Acid 1 Mg Tablet) 1 mg PO DAILY [facility] Last Admin: 03/11/25 08:15 Dose: 1 mg Hydroxyzine HCl (Hydroxyzine Hcl 25 Mg Tablet) 25 mg PO Q6H PRN PRN Reason: mild anxiety Magnesium Hydroxide (Milk Of Magnesia 30 Ml Oral.Susp) 30 ml PO DAILY PRN PRN Reason: Constipation Multivitamins/Vitamin C (Multivitamin Tablet) 1 tab PO DAILY [facility] Last Admin: 03/11/25 08:15 Dose: 1 tab Nicotine Polacrilex (Nicotine Polacrilex 2 Mg Gum) 4 mg BUCCAL Q2H PRN PRN Reason: Nicotine Cravings Thiamine HCl (Thiamine Hcl 100 Mg Tablet) 100 mg PO DAILY [facility] Last Admin: 03/11/25 08:15 Dose: 100 mg Trazodone HCl (Trazodone Hcl 50 Mg Tablet) 50 mg PO BEDTIME MRX1 PRN PRN Reason: Insomnia Allergies Allergies Allergy/AdvReac Type Severity Reaction Status Date / Time penicillin G (PENICILLIN G) Allergy Intermediate SWELLING Verified 03/09/25 11:34 Becker And Derivatives Allergy Unknown unk Verified 03/09/25 11:34 (CITRUS AND DERIVATIVES) cranberry (CRANBERRY) Allergy Unknown HIVES Verified 03/09/25 11:34 gabapentin (GABAPENTIN) Allergy Unknown HIVES, Verified 03/09/25 11:34 swelling raspberry (RASPBERRY) Allergy Unknown unk Verified 03/09/25 11:34 Assessment & Plan Assessment & Plan (1) Alcohol use: Status: Acute Code(s): F10.90 - Alcohol use, unspecified, uncomplicated (2) Homeless: Status: Acute Code(s): Z59.00 - Homelessness unspecified (3) PTSD (post-traumatic stress disorder): Status: Acute Code(s): F43.10 - Post-traumatic stress disorder, unspecified (4) Schizoaffective disorder, depressive type: Status: Acute Code(s): F25.1 - Schizoaffective disorder, depressive type (5) Acute paranoia: Status: Acute Code(s): F22 - Delusional disorders Plan Plan: HPI: Patient is a 39 year old assigned male at with a history of alcohol use disorder, schizoaffective disorder, and PTSD presenting to the emergency department today with suicidal ideation, homicidal ideation, and increased paranoia. Patient states that he has been having thoughts of killing himself by slitting his wrists and having thoughts of killing Kiel Spence for sleeping with his girlfriend. He was section 12 by [facility]. Presented with delusional paranoid, believes people were following him. Deny any plans or intention to do harm to himself or anyone reports relapsed after 85 day sober and drank only 4 beers x1. Also reports stopped taking his medications for about a week he is able to mentioned some of the medications name but majority he can not recall. He is not a reliable historian. Poor insight of the illnesses in substance use. Poor insight of the history of suicide attempts as other places mentioned that he having numerous attempts in the past. Increased paranoid thoughts, but deny suicidal thoughts homicidal thoughts and self-harm thoughts as well as voices at this current time. He agrees with plan of medications to restart. He has outpatient psychiatrist and therapist through [facility] in [place] Formulation/clinical reasoning: Increased paranoid. Increased anxiety and depression, relapsed on alcohol for 1 day after sober for 85 days, being homeless at this current time. SI/SIB, and paranoid on admission. However he denies suicidal thought and homicidal thoughts during the assessment with this provider. Non medication compliant was unsure is couple of days or a week or 2. He agreed to restart all home medications. He do not want the have treatment program. He wants to go back to the residential but at this point not sure where residential he was staying before or if he actually having a residential services before. Do not have consent to talk to outpatient providers or intact anyone in the residential at this time Hospital course: 03/10/25: Admitted to , signed a CV, restart on home medications: Include Wellbutrin 300 mg and Thorazine 100 3 times a day. We will check some lab work for tomorrow. He does not need to be on CIWA protocol at this current time as only relapsed for 1 day. However we will have the nurse to monitor for vital signs for any symptoms of withdrawal. 03/11/25: He depressed, anxious, with irritable mood. Mostly isolative in to self in room. Out for meals and visit. Guarded upon approach today, but denies safety concerns. No paranoia or delusions general statement makes. But he could be also paranoid. Continue not to have a consent to talk to outpatient providers. No side effects from medications. Restart medications from home. 03/12/25: Less guarded, less irritable, more cooperative, gave verbal consent to talk to outpatient from [facility] an home health care worker Lorenza. He is more for future focus. Good like to go to respite and then go to residential. He is compliant with medication. However has been refused this morning scheduled meds, took them as encourage with the exception that Thorazine will be lowered down in the morning. Start tonight he will take Thorazine 250 mg at bedtime for psychosis Thorazine 50 mg in the morning to prevent sedation during daytime. Signed a 3 day notice Plan Patient on 15 minute checks for safety. Admitted to . CV: Side 3 day notice on March 12. Which will be on . Work with treatment team to do collateral for any rehab treatment program if possible for aftercare. He declined MAT, he declined to consultation substance use specialist. He is medically clear from own [facility] doc. Give consent to talk to outpatient providers from [facility] and outreach workers. He requests to go to respite in [place] and then to the residential if possible. Patient educated on: medication risk/benefits and therapeutic strategies Informed Consent: understands Reason for continued inpatient stay Substantial Risk for: rapid decompensation and med/psych decompensation Time Spent With Patient Time: Total time managing care of this patient today ____ minutes.
[2025-03-12] MEDS: Thiamine HCL 100 MG TABLET PO (11:29)
[2025-03-12] MEDS: Folic Acid 1 MG TABLET PO (11:29)
[2025-03-12] MEDS: buPROPion HCl XL 300 MG TAB.ER.24H PO (11:29)
[2025-03-12] MEDS: Multivitamin TABLET 1 TAB PO (11:29)
[2025-03-12 20:00] VITALS: BP 143/95; PULSE 109; RESP 16; TEMP 35.9; O2SAT 98
[2025-03-12] MEDS: chlorproMAZINE HCl 25 MG TABLET 50 MG PO (21:03)
[2025-03-12] MEDS: hydrOXYzine HCL 25 MG TABLET PO (21:03)
[2025-03-12] MEDS: chlorproMAZINE HCl 100 MG TABLET 200 MG PO (21:03)
[2025-03-12] MEDS: cloNIDine HCL 0.1 MG TABLET PO (21:04)
[2025-03-12] MEDS: traZODone HCL 50 MG TABLET PO (21:05)
[2025-03-13 07:54] VITALS: BP 134/84; PULSE 96; RESP 16; TEMP 36.4; O2SAT 98
[2025-03-13 08:34] LABS: Estimated Average Glucose 105 mg/dL; Hemoglobin A1c % 5.3 % (<6.0); Total Hemoglobin (HGBA1C) 3501.9478 umol/L
[2025-03-13] MEDS: Folic Acid 1 MG TABLET PO (08:45)
[2025-03-13] MEDS: Multivitamin TABLET 1 TAB PO (08:45)
[2025-03-13] MEDS: Thiamine HCL 100 MG TABLET PO (08:45)
[2025-03-13] MEDS: chlorproMAZINE HCl 25 MG TABLET 50 MG PO ×2 (08:45→21:19)
[2025-03-13] MEDS: buPROPion HCl XL 300 MG TAB.ER.24H PO (08:45)
[2025-03-13 08:48] LABS: Cholesterol 201 mg/dL (<200); HDL Cholesterol 89 mg/dL (>40); LDL Cholesterol Calculated 82 mg/dL (<100); Magnesium 1.9 mg/dL (1.6-2.6); Triglycerides 153 mg/dL (<150)
[2025-03-13 09:05] LABS: Free T4 (Free Thyroxine) 1.09 ng/dL (0.71-1.85)
[2025-03-13 09:17] LABS: Folate 8.5 ng/mL (> or = 4.0); Vitamin B12 475 pg/mL (200-900)
[2025-03-13] MEDS: Acetaminophen 325 MG TABLET 650 MG PO (10:12)
--- NOTE | 2025-03-13 17:06 | HO.PSYCHPN ---
Subjective Subjective Date of Service: 03/13/25 Reason For Visit: PTSD Schizoaffective disorder Alcohol Use Disorder Subjective Notes: 3 Day Healthcare Proxy: No Guardianship: No Medical Problems Affecting Mental Status: No Interim History: Medical record and nursing notes reviewed; case discussed during rounds with team, and met with patient for supportive therapy/psychoeducation, as well as medication management. Met with patient in his room. He reports his mood is good but tired. Compliant with treatment plans and medication. Denies side effects. He is open to start the naltrexone this morning, with a plan to get Vivitrol shot on both when tolerate to p.o. well. We will refer patient to the clinic to get Vivitrol shot prior to discharge. Deny any safety concerns, less irritable, more approachable, more reasonable, and better with rationale. He is looking forward to go to respite and then go to the [facility]. He he affirmed that his airport utility worker is working to get him to respite. motion picture set worker also working on that process. He has a 3 day notice on which is up next week on Sunday. Continued to improve. He does not want to at [facility] p.o. on the list. He said he is okay with the Thorazine. He used to take Invega in the past p.o. and tolerate well. However reports severe adverse effects on the long-acting injection. Medication Compliance: Yes Side effects from medications: No Attending Groups: No Review of Systems Acute medical concerns: No Medical Review of Systems: unchanged Review of Systems Review of Systems Constitutional: Denies fatigue and Denies fever(s) Cardiovascular: Denies chest pain and Denies dyspnea Respiratory: Denies dyspnea Gastrointestinal: Denies abdominal pain Psychiatric: denies suicidal ideation Endocrine: Denies fatigue Yes all other systems are reviewed and are negative Mental Status Exam Mental Status Exam Narrative: Patient is alert and oriented; behavior is anxious depressed. He is calm, pleasant and more cooperative, moderate anxiety/depression; patient is not in distress; dressed in hospital attire with adequate hygiene; . mood is described as tired but good and affect congruent; eye contact appropriate and fair; Speech is normal rate, volume and prosody and not pressured; with limited interaction with some improvement, no psychomotor agitation/retardation present; thought process is more disorganized, and less guarded; Thought content is WNL and goal directed pertinent to relevant topics and without any delusional content,or grandiosity; denies any SI/SIB/HI. Denies AH and there is no evidence of perceptual disturbance. Patient's insight and judgment improved. He does not appear to be paranoid at the assessment time but he can be paranoid thinking people are following and do harm to him. Improving in paranoid thoughts. Diagnostics Vital Signs (24Hr): Vital Signs - 24 hr 03/12/25 20:00 03/13/25 07:54 Temperature 96.7 F L 97.5 F Pulse Rate 109 H 96 Respiratory Rate 16 16 Blood Pressure 143/95 H 134/84 Pulse Oximetry 98 98 BMI result Body Mass Index 26.4 Labs 03/09/25 12:01 03/09/25 12:01 Labs: Laboratory Results - last 48 hr 03/13/25 07:51 Estimat Average Glucose 105 Hemoglobin A1c % 5.3 Magnesium 1.9 Triglycerides 153 H Cholesterol 201 H LDL Cholesterol, Calc 82 HDL Cholesterol 89 Vitamin B12 475 Folate 8.5 TSH 3.90 Free T4 1.09 Medications Medications Current Medications Acetaminophen (Acetaminophen 325 Mg Tablet) 650 mg PO Q6H PRN PRN Reason: Headache/Pain, Scale 1-10 Last Admin: 03/13/25 10:12 Dose: 650 mg Al Hydroxide/Mg Hydroxide (Magnesium Hydrox/Alum Hydrox 30 Ml Oral.Susp) 30 ml PO Q6H PRN PRN Reason: Heartburn/Nausea Bupropion HCl (Bupropion Hcl Xl 300 Mg Tab.Er.24h) 300 mg PO DAILY [facility] Last Admin: 03/13/25 08:45 Dose: 300 mg Chlorpromazine HCl (Chlorpromazine Hcl 25 Mg Tablet) 50 mg PO BID [facility] Last Admin: 03/13/25 08:45 Dose: 50 mg Chlorpromazine HCl (Chlorpromazine Hcl 100 Mg Tablet) 200 mg PO BEDTIME [facility] Last Admin: 03/12/25 21:03 Dose: 200 mg Clonidine HCl (Clonidine Hcl 0.1 Mg Tablet) 0.1 mg PO BEDTIME [facility]; Protocol Last Admin: 03/12/25 21:04 Dose: 0.1 mg Folic Acid (Folic Acid 1 Mg Tablet) 1 mg PO DAILY [facility] Last Admin: 03/13/25 08:45 Dose: 1 mg Hydroxyzine HCl (Hydroxyzine Hcl 25 Mg Tablet) 25 mg PO Q6H PRN PRN Reason: mild anxiety Last Admin: 03/12/25 21:03 Dose: 25 mg Magnesium Hydroxide (Milk Of Magnesia 30 Ml Oral.Susp) 30 ml PO DAILY PRN PRN Reason: Constipation Multivitamins/Vitamin C (Multivitamin Tablet) 1 tab PO DAILY [facility] Last Admin: 03/13/25 08:45 Dose: 1 tab Naltrexone HCl (Naltrexone Hcl 50 Mg Tablet) 50 mg PO DAILY [facility] Nicotine Polacrilex (Nicotine Polacrilex 2 Mg Gum) 4 mg BUCCAL Q2H PRN PRN Reason: Nicotine Cravings Thiamine HCl (Thiamine Hcl 100 Mg Tablet) 100 mg PO DAILY [facility] Last Admin: 03/13/25 08:45 Dose: 100 mg Trazodone HCl (Trazodone Hcl 50 Mg Tablet) 50 mg PO BEDTIME MRX1 PRN PRN Reason: Insomnia Last Admin: 03/12/25 21:05 Dose: 50 mg Allergies Allergies Allergy/AdvReac Type Severity Reaction Status Date / Time penicillin G (PENICILLIN G) Allergy Intermediate SWELLING Verified 03/09/25 11:34 Mcdowell And Derivatives Allergy Unknown unk Verified 03/09/25 11:34 (CITRUS AND DERIVATIVES) cranberry (CRANBERRY) Allergy Unknown HIVES Verified 03/09/25 11:34 gabapentin (GABAPENTIN) Allergy Unknown HIVES, Verified 03/09/25 11:34 swelling raspberry (RASPBERRY) Allergy Unknown unk Verified 03/09/25 11:34 Assessment & Plan Assessment & Plan (1) Alcohol use: Status: Acute Code(s): F10.90 - Alcohol use, unspecified, uncomplicated (2) Homeless: Status: Acute Code(s): Z59.00 - Homelessness unspecified (3) PTSD (post-traumatic stress disorder): Status: Acute Code(s): F43.10 - Post-traumatic stress disorder, unspecified (4) Schizoaffective disorder, depressive type: Status: Acute Code(s): F25.1 - Schizoaffective disorder, depressive type (5) Acute paranoia: Status: Acute Code(s): F22 - Delusional disorders Plan Plan: HPI: Patient is a 39 year old assigned male at with a history of alcohol use disorder, schizoaffective disorder, and PTSD presenting to the emergency department today with suicidal ideation, homicidal ideation, and increased paranoia. Patient states that he has been having thoughts of killing himself by slitting his wrists and having thoughts of killing Kiel Spence for sleeping with his girlfriend. He was section 12 by [facility]. Presented with delusional paranoid, believes people were following him. Deny any plans or intention to do harm to himself or anyone reports relapsed after 85 day sober and drank only 4 beers x1. Also reports stopped taking his medications for about a week he is able to mentioned some of the medications name but majority he can not recall. He is not a reliable historian. Poor insight of the illnesses in substance use. Poor insight of the history of suicide attempts as other places mentioned that he having numerous attempts in the past. Increased paranoid thoughts, but deny suicidal thoughts homicidal thoughts and self-harm thoughts as well as voices at this current time. He agrees with plan of medications to restart. He has outpatient psychiatrist and therapist through [facility] in [place] Formulation/clinical reasoning: Increased paranoid. Increased anxiety and depression, relapsed on alcohol for 1 day after sober for 85 days, being homeless at this current time. SI/SIB, and paranoid on admission. However he denies suicidal thought and homicidal thoughts during the assessment with this provider. Non medication compliant was unsure is couple of days or a week or 2. He agreed to restart all home medications. [facility]. He wants to go back to the [facility] but at this point not sure where [facility] he was staying before or if he actually having a [facility] services before. Do not have consent to talk to outpatient providers or intact anyone in the [facility] at this time Hospital course: 03/10/25: Admitted to [facility], signed a CV, restart on home medications: Include Wellbutrin 300 mg and Thorazine 100 3 times a day. We will check some lab work for tomorrow. He does not need to be on CIWA protocol at this current time as only relapsed for 1 day. However we will have the nurse to monitor for vital signs for any symptoms of withdrawal. 03/11/25: He depressed, anxious, with irritable mood. Mostly isolative in to self in room. Out for meals and visit. Guarded upon approach today, but denies safety concerns. No paranoia or delusions general statement makes. But he could be also paranoid. Continue not to have a consent to talk to outpatient providers. No side effects from medications. Restart medications from home. 03/12/25: Less guarded, less irritable, more cooperative, gave verbal consent to talk to outpatient from [facility] an airport utility worker Lorenza. He is more for future focus. Good like to go to respite and then go to [facility]. He is compliant with medication. However has been refused this morning scheduled meds, took them as encourage with the exception that Thorazine will be lowered down in the morning. Start tonight he will take Thorazine 250 mg at bedtime for psychosis Thorazine 50 mg in the morning to prevent sedation during daytime. Signed a 3 day notice 03/13/25: Continue to improve in anxiety and depression, improve in paranoid thoughts with compliant of medications. Denies side effects from medication. Isolated himself but more pleasant and more approachable. Started on naltrexone for alcohol craving with plan to get Vivitrol inj from the clinic tolerate to the p.o. well. So started naltrexone 50 mg daily 1st dose today. Monitor for side effects. We will refer the patient to the clinic for the Vivitrol IM Plan Patient on 15 minute checks for safety. Admitted to [facility]. CV: Side 3 day notice on March 12. Which will be on . Encourage group as he has not been any to any groups. He said he has been going to a lot of groups so far and his life and that he does not learn more much. Work with treatment team to do collateral for any rehab treatment program if possible for aftercare. Started naltrexone for MAT. We will refer patient to [facility] to get the injection prior to discharge. He is medically clear from own [facility] doc. Give consent to talk to outpatient providers from [facility] and outreach workers. He requests to go to respite in [place] and then to the [facility] if possible. motion picture set worker working on the respite placement Patient educated on: medication risk/benefits, substance abuse and therapeutic strategies Reason for continued inpatient stay Substantial Risk for: rapid decompensation and med/psych decompensation Time Spent With Patient Time: Total time managing care of this patient today ____ minutes.
[2025-03-13] MEDS: Naltrexone HCl 50 MG TABLET PO (18:05)
[2025-03-13] MEDS: chlorproMAZINE HCl 100 MG TABLET PO (18:32)
[2025-03-13 20:00] VITALS: BP 140/96; PULSE 112; RESP 15; TEMP 36.6; O2SAT 98
[2025-03-13] MEDS: chlorproMAZINE HCl 100 MG TABLET 200 MG PO (21:18)
[2025-03-13] MEDS: traZODone HCL 50 MG TABLET PO (21:19)
[2025-03-13] MEDS: cloNIDine HCL 0.1 MG TABLET PO (21:19)
[2025-03-14] MEDS: chlorproMAZINE HCl 100 MG TABLET PO ×3 (03:23→22:08)
[2025-03-14] MEDS: traZODone HCL 50 MG TABLET PO ×2 (03:24→22:07)
[2025-03-14] MEDS: hydrOXYzine HCL 25 MG TABLET PO (03:24)
--- NOTE | 2025-03-14 05:54 | P.PNPSI_ITS ---
Subjective Subjective Date of Service: 03/14/25 Reason For Visit: PTSD Schizoaffective disorder Alcohol Use Disorder Subjective Notes: Conditional Voluntary and 3 Day Interim History: Pt seen, discussed with team. Great distress- believes mother has and he reports he just learned this today thru the grapevine you know . Believes he will be targeted to be killed, there is a mob of people after me . I was supposed to fight last night but because I did not show up I will be killed. Drastic increase in paranoia and delusional content Medication Compliance: Yes Side effects from medications: No Review of Systems Review of Systems Denies Mental Status Exam Mental Status Exam Patient Appearance: Appropriate Patient Orientation: Person, Place and Time Level of Consciousness: Alert Patient Behavior: Talkative, Restless, Anxious, Fearful and Good Eye Contact Mood Description: Fearful, Anxious and Angry Affect Description: Anxious Patient Cognition Impaired: No Ability to Follow Directions: Good Speech Pattern: Spontaneous Speech Memory Description: Episodic Impaired Delusions: Paranoid Ideation and Present Perceptual Disturbances: Derealization Thought Process: Illogical, Distracted and Rumination Thought Content: positive for Obsessional Thoughts and positive for Circumstantial Depressive Symptoms: Increased Irritability Judgement: Poor Diagnostics Vital Signs (24Hr): Vital Signs - 24 hr 03/13/25 07:54 03/13/25 20:00 Temperature 97.5 F 98 F Pulse Rate 96 112 H Respiratory Rate 16 15 Blood Pressure 134/84 140/96 H Pulse Oximetry 98 98 BMI result Body Mass Index 26.4 Labs 03/09/25 12:01 03/09/25 12:01 Labs: Laboratory Results - last 48 hr 03/13/25 07:51 Estimat Average Glucose 105 Hemoglobin A1c % 5.3 Magnesium 1.9 Triglycerides 153 H Cholesterol 201 H LDL Cholesterol, Calc 82 HDL Cholesterol 89 Vitamin B12 475 Folate 8.5 TSH 3.90 Free T4 1.09 Medications Medications Current Medications Acetaminophen (Acetaminophen 325 Mg Tablet) 650 mg PO Q6H PRN PRN Reason: Headache/Pain, Scale 1-10 Last Admin: 03/13/25 10:12 Dose: 650 mg Al Hydroxide/Mg Hydroxide (Magnesium Hydrox/Alum Hydrox 30 Ml Oral.Susp) 30 ml PO Q6H PRN PRN Reason: Heartburn/Nausea Bupropion HCl (Bupropion Hcl Xl 300 Mg Tab.Er.24h) 300 mg PO DAILY YULY Last Admin: 03/13/25 08:45 Dose: 300 mg Chlorpromazine HCl (Chlorpromazine Hcl 25 Mg Tablet) 50 mg PO BID [facility] Last Admin: 03/13/25 21:19 Dose: 50 mg Chlorpromazine HCl (Chlorpromazine Hcl 100 Mg Tablet) 200 mg PO BEDTIME [facility] Last Admin: 03/13/25 21:18 Dose: 200 mg Chlorpromazine HCl (Chlorpromazine Hcl 100 Mg Tablet) 100 mg PO TID PRN PRN Reason: sx of paranoia, psychosis, fear, agitation Last Admin: 03/14/25 03:23 Dose: 100 mg Clonidine HCl (Clonidine Hcl 0.1 Mg Tablet) 0.1 mg PO BEDTIME [facility]; Protocol Last Admin: 03/13/25 21:19 Dose: 0.1 mg Folic Acid (Folic Acid 1 Mg Tablet) 1 mg PO DAILY [facility] Last Admin: 03/13/25 08:45 Dose: 1 mg Hydroxyzine HCl (Hydroxyzine Hcl 25 Mg Tablet) 25 mg PO Q6H PRN PRN Reason: mild anxiety Last Admin: 03/14/25 03:24 Dose: 25 mg Magnesium Hydroxide (Milk Of Magnesia 30 Ml Oral.Susp) 30 ml PO DAILY PRN PRN Reason: Constipation Multivitamins/Vitamin C (Multivitamin Tablet) 1 tab PO DAILY [facility] Last Admin: 03/13/25 08:45 Dose: 1 tab Naltrexone HCl (Naltrexone Hcl 50 Mg Tablet) 50 mg PO DAILY [facility] Last Admin: 03/13/25 18:05 Dose: 50 mg Nicotine Polacrilex (Nicotine Polacrilex 2 Mg Gum) 4 mg BUCCAL Q2H PRN PRN Reason: Nicotine Cravings Thiamine HCl (Thiamine Hcl 100 Mg Tablet) 100 mg PO DAILY [facility] Last Admin: 03/13/25 08:45 Dose: 100 mg Trazodone HCl (Trazodone Hcl 50 Mg Tablet) 50 mg PO BEDTIME MRX1 PRN PRN Reason: Insomnia Last Admin: 03/14/25 03:24 Dose: 50 mg Allergies Allergies Allergy/AdvReac Type Severity Reaction Status Date / Time penicillin G (PENICILLIN G) Allergy Intermediate SWELLING Verified 03/09/25 11:34 [place] And Derivatives Allergy Unknown unk Verified 03/09/25 11:34 (CITRUS AND DERIVATIVES) cranberry (CRANBERRY) Allergy Unknown HIVES Verified 03/09/25 11:34 gabapentin (GABAPENTIN) Allergy Unknown HIVES, Verified 03/09/25 11:34 swelling raspberry (RASPBERRY) Allergy Unknown unk Verified 03/09/25 11:34 Assessment & Plan Assessment & Plan (1) Alcohol use: Status: Acute Code(s): F10.90 - Alcohol use, unspecified, uncomplicated (2) Homeless: Status: Acute Code(s): Z59.00 - Homelessness unspecified (3) PTSD (post-traumatic stress disorder): Status: Acute Code(s): F43.10 - Post-traumatic stress disorder, unspecified (4) Schizoaffective disorder, depressive type: Status: Acute Code(s): F25.1 - Schizoaffective disorder, depressive type (5) Acute paranoia: Status: Acute Code(s): F22 - Delusional disorders Plan Plan: HPI: Patient is a 39 year old assigned male at with a history of alcohol use disorder, schizoaffective disorder, and PTSD presenting to the emergency department today with suicidal ideation, homicidal ideation, and increased paranoia. Patient states that he has been having thoughts of killing himself by slitting his wrists and having thoughts of killing Kiel Spence for sleeping with his girlfriend. He was section 12 by [facility]. Presented with delusional paranoid, believes people were following him. Deny any plans or intention to do harm to himself or anyone reports relapsed after 85 day sober and drank only 4 beers x1. Also reports stopped taking his medications for about a week he is able to mentioned some of the medications name but majority he can not recall. He is not a reliable historian. Poor insight of the illnesses in substance use. Poor insight of the history of suicide attempts as other places mentioned that he having numerous attempts in the past. Increased paranoid thoughts, but deny suicidal thoughts homicidal thoughts and self-harm thoughts as well as voices at this current time. He agrees with plan of medications to restart. He has outpatient psychiatrist and therapist through [facility] in [place] Formulation/clinical reasoning: Increased paranoid. Increased anxiety and depression, relapsed on alcohol for 1 day after sober for 85 days, being homeless at this current time. SI/SIB, and paranoid on admission. However he denies suicidal thought and homicidal thoughts during the assessment with this provider. Non medication compliant was unsure is couple of days or a week or 2. He agreed to restart all home medications. He do not want the [facility] treatment program. He wants to go back to the fdc but at this point not sure where fdc he was staying before or if he actually having a fdc services before. Do not have consent to talk to outpatient providers or intact anyone in the fdc at this time Hospital course: 03/10/25: Admitted to M5, signed a CV, restart on home medications: Include Wellbutrin 300 mg and Thorazine 100 3 times a day. We will check some lab work for tomorrow. He does not need to be on CIWA protocol at this current time as only relapsed for 1 day. However we will have the nurse to monitor for vital signs for any symptoms of withdrawal. 03/11/25: He depressed, anxious, with irritable mood. Mostly isolative in to self in room. Out for meals and visit. Guarded upon approach today, but denies safety concerns. No paranoia or delusions general statement makes. But he could be also paranoid. Continue not to have a consent to talk to outpatient providers. No side effects from medications. Restart medications from home. 03/12/25: Less guarded, less irritable, more cooperative, gave verbal consent to talk to outpatient from [facility] an health outreach worker Lorenza. He is more for future focus. Good like to go to respite and then go to fdc. He is compliant with medication. However has been refused this morning scheduled meds, took them as encourage with the exception that Thorazine will be lowered down in the morning. Start tonight he will take Thorazine 250 mg at bedtime for psychosis Thorazine 50 mg in the morning to prevent sedation during daytime. Signed a 3 day notice 03/13/25: Continue to improve in anxiety and depression, improve in paranoid thoughts with compliant of medications. Denies side effects from medication. Isolated himself but more pleasant and more approachable. Started on naltrexone for alcohol craving with plan to get Vivitrol inj from the clinic tolerate to the p.o. well. So started naltrexone 50 mg daily 1st dose today. Monitor for side effects. We will refer the patient to the clinic for the Vivitrol IM 03/14: Significant increase in sx. Increase chlorpromazine, lorazepam prn Plan Patient on 15 minute checks for safety. Admitted to M5. CV: Side 3 day notice on March 12. Which will be on . Encourage group as he has not been any to any groups. He said he has been going to a lot of groups so far and his life and that he does not learn more much. Work with treatment team to do collateral for any rehab treatment program if possible for aftercare. Started naltrexone for MAT. We will refer patient to [facility] to get the injection prior to discharge. He is medically clear from own [facility] ED doc. Give consent to talk to outpatient providers from [facility] and outreach workers. He requests to go to respite in [place] and then to the fdc if possible. 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
[2025-03-14 08:11] VITALS: BP 114/61; PULSE 88; RESP 16; TEMP 37.3; O2SAT 98
[2025-03-14] MEDS: Multivitamin TABLET 1 TAB PO (08:34)
[2025-03-14] MEDS: chlorproMAZINE HCl 25 MG TABLET 50 MG PO (08:34)
[2025-03-14] MEDS: Thiamine HCL 100 MG TABLET PO (08:34)
[2025-03-14] MEDS: Naltrexone HCl 50 MG TABLET PO (08:34)
[2025-03-14] MEDS: buPROPion HCl XL 300 MG TAB.ER.24H PO (08:35)
[2025-03-14] MEDS: Folic Acid 1 MG TABLET PO (08:35)
[2025-03-14] MEDS: LORazepam 1 MG TABLET PO ×2 (14:17→22:08)
[2025-03-14 19:53] VITALS: BP 107/69; PULSE 96; RESP 15; TEMP 37.3; O2SAT 98
[2025-03-14] MEDS: chlorproMAZINE HCl 100 MG TABLET 200 MG PO (22:07)
[2025-03-14] MEDS: cloNIDine HCL 0.1 MG TABLET PO (22:07)
--- NOTE | 2025-03-15 05:37 | P.PNPSI_ITS ---
Subjective Subjective Date of Service: 03/15/25 Reason For Visit: PTSD Schizoaffective disorder Alcohol Use Disorder Interim History: Pt reports improvement today. Less anxious, less fearful. Appears calmer. Today is so much better, thanks for the changes-I still need to go on Sunday- things to take care of you know. Medication Compliance: Yes Side effects from medications: No Attending Groups: No Review of Systems Acute medical concerns: No Medical Review of Systems: unchanged Review of Systems Review of Systems Denies Mental Status Exam Mental Status Exam Patient Appearance: Appropriate Patient Orientation: Person, Place, Time and Situation Level of Consciousness: Alert Patient Behavior: Talkative, Anxious and Good Eye Contact Mood Description: Anxious Affect Description: Anxious Patient Cognition Impaired: No Ability to Follow Directions: Good Speech Pattern: Spontaneous Speech Memory Description: Episodic Impaired Delusions: Paranoid Ideation and Present Perceptual Disturbances: Derealization Thought Process: Illogical, Distracted and Rumination Thought Content: positive for Obsessional Thoughts and positive for Circumstantial Judgement: Fair Diagnostics Vital Signs (24Hr): Vital Signs - 24 hr 03/14/25 08:11 03/14/25 19:53 Temperature 99.1 F 99.1 F Pulse Rate 88 96 Respiratory Rate 16 15 Blood Pressure 114/61 107/69 Pulse Oximetry 98 98 Oxygen Delivery Method Room Air BMI result Body Mass Index 26.4 Labs 03/09/25 12:01 03/09/25 12:01 Labs: Laboratory Results - last 48 hr 03/13/25 07:51 Estimat Average Glucose 105 Hemoglobin A1c % 5.3 Magnesium 1.9 Triglycerides 153 H Cholesterol 201 H LDL Cholesterol, Calc 82 HDL Cholesterol 89 Vitamin B12 475 Folate 8.5 TSH 3.90 Free T4 1.09 Medications Medications Current Medications Acetaminophen (Acetaminophen 325 Mg Tablet) 650 mg PO Q6H PRN PRN Reason: Headache/Pain, Scale 1-10 Last Admin: 03/13/25 10:12 Dose: 650 mg Al Hydroxide/Mg Hydroxide (Magnesium Hydrox/Alum Hydrox 30 Ml Oral.Susp) 30 ml PO Q6H PRN PRN Reason: Heartburn/Nausea Bupropion HCl (Bupropion Hcl Xl 300 Mg Tab.Er.24h) 300 mg PO DAILY YULY Last Admin: 03/14/25 08:35 Dose: 300 mg Chlorpromazine HCl (Chlorpromazine Hcl 100 Mg Tablet) 200 mg PO BEDTIME [facility] Last Admin: 03/14/25 22:07 Dose: 200 mg Chlorpromazine HCl (Chlorpromazine Hcl 100 Mg Tablet) 100 mg PO TID PRN PRN Reason: sx of paranoia, psychosis, fear, agitation Last Admin: 03/14/25 10:51 Dose: 100 mg Chlorpromazine HCl (Chlorpromazine Hcl 100 Mg Tablet) 100 mg PO BID [facility] Last Admin: 03/14/25 22:08 Dose: 100 mg Clonidine HCl (Clonidine Hcl 0.1 Mg Tablet) 0.1 mg PO BEDTIME [facility]; Protocol Last Admin: 03/14/25 22:07 Dose: 0.1 mg Folic Acid (Folic Acid 1 Mg Tablet) 1 mg PO DAILY [facility] Last Admin: 03/14/25 08:35 Dose: 1 mg Hydroxyzine HCl (Hydroxyzine Hcl 25 Mg Tablet) 25 mg PO Q6H PRN PRN Reason: mild anxiety Last Admin: 03/14/25 03:24 Dose: 25 mg Lorazepam (Lorazepam 1 Mg Tablet) 1 mg PO Q6H PRN PRN Reason: agitation, anxiety Last Admin: 03/14/25 22:08 Dose: 1 mg Magnesium Hydroxide (Milk Of Magnesia 30 Ml Oral.Susp) 30 ml PO DAILY PRN PRN Reason: Constipation Multivitamins/Vitamin C (Multivitamin Tablet) 1 tab PO DAILY [facility] Last Admin: 03/14/25 08:34 Dose: 1 tab Naltrexone HCl (Naltrexone Hcl 50 Mg Tablet) 50 mg PO DAILY [facility] Last Admin: 03/14/25 08:34 Dose: 50 mg Nicotine Polacrilex (Nicotine Polacrilex 2 Mg Gum) 4 mg BUCCAL Q2H PRN PRN Reason: Nicotine Cravings Thiamine HCl (Thiamine Hcl 100 Mg Tablet) 100 mg PO DAILY [facility] Last Admin: 03/14/25 08:34 Dose: 100 mg Trazodone HCl (Trazodone Hcl 50 Mg Tablet) 50 mg PO BEDTIME MRX1 PRN PRN Reason: Insomnia Last Admin: 03/14/25 22:07 Dose: 50 mg Allergies Allergies Allergy/AdvReac Type Severity Reaction Status Date / Time penicillin G (PENICILLIN G) Allergy Intermediate SWELLING Verified 03/09/25 11:34 [place] And Derivatives Allergy Unknown unk Verified 03/09/25 11:34 (CITRUS AND DERIVATIVES) cranberry (CRANBERRY) Allergy Unknown HIVES Verified 03/09/25 11:34 gabapentin (GABAPENTIN) Allergy Unknown HIVES, Verified 03/09/25 11:34 swelling raspberry (RASPBERRY) Allergy Unknown unk Verified 03/09/25 11:34 Assessment & Plan Assessment & Plan (1) Alcohol use: Status: Acute Code(s): F10.90 - Alcohol use, unspecified, uncomplicated (2) Homeless: Status: Acute Code(s): Z59.00 - Homelessness unspecified (3) PTSD (post-traumatic stress disorder): Status: Acute Code(s): F43.10 - Post-traumatic stress disorder, unspecified (4) Schizoaffective disorder, depressive type: Status: Acute Code(s): F25.1 - Schizoaffective disorder, depressive type (5) Acute paranoia: Status: Acute Code(s): F22 - Delusional disorders Plan Plan: HPI: Patient is a 39 year old assigned male at with a history of alcohol use disorder, schizoaffective disorder, and PTSD presenting to the emergency department today with suicidal ideation, homicidal ideation, and increased paranoia. Patient states that he has been having thoughts of killing himself by slitting his wrists and having thoughts of killing Kiel Spence for sleeping with his girlfriend. He was section 12 by [facility]. Presented with delusional paranoid, believes people were following him. Deny any plans or intention to do harm to himself or anyone reports relapsed after 85 day sober and drank only 4 beers x1. Also reports stopped taking his medications for about a week he is able to mentioned some of the medications name but majority he can not recall. He is not a reliable historian. Poor insight of the illnesses in substance use. Poor insight of the history of suicide attempts as other places mentioned that he having numerous attempts in the past. Increased paranoid thoughts, but deny suicidal thoughts homicidal thoughts and self-harm thoughts as well as voices at this current time. He agrees with plan of medications to restart. He has outpatient psychiatrist and therapist through [facility] in [place] Formulation/clinical reasoning: Increased paranoid. Increased anxiety and depression, relapsed on alcohol for 1 day after sober for 85 days, being homeless at this current time. SI/SIB, and paranoid on admission. However he denies suicidal thought and homicidal thoughts during the assessment with this provider. Non medication compliant was unsure is couple of days or a week or 2. He agreed to restart all home medications. He do not want the have treatment program. He wants to go back to the custodial but at this point not sure where custodial he was staying before or if he actually having a custodial services before. Do not have consent to talk to outpatient providers or intact anyone in the custodial at this time Hospital course: 03/10/25: Admitted to M5, signed a CV, restart on home medications: Include Wellbutrin 300 mg and Thorazine 100 3 times a day. We will check some lab work for tomorrow. He does not need to be on CIWA protocol at this current time as only relapsed for 1 day. However we will have the nurse to monitor for vital signs for any symptoms of withdrawal. 03/11/25: He depressed, anxious, with irritable mood. Mostly isolative in to self in room. Out for meals and visit. Guarded upon approach today, but denies safety concerns. No paranoia or delusions general statement makes. But he could be also paranoid. Continue not to have a consent to talk to outpatient providers. No side effects from medications. Restart medications from home. 03/12/25: Less guarded, less irritable, more cooperative, gave verbal consent to talk to outpatient from [facility] an bakery worker Lorenza. He is more for future focus. Good like to go to respite and then go to custodial. He is compliant with medication. However has been refused this morning scheduled meds, took them as encourage with the exception that Thorazine will be lowered down in the morning. Start tonight he will take Thorazine 250 mg at bedtime for psychosis Thorazine 50 mg in the morning to prevent sedation during daytime. Signed a 3 day notice 03/13/25: Continue to improve in anxiety and depression, improve in paranoid thoughts with compliant of medications. Denies side effects from medication. Isolated himself but more pleasant and more approachable. Started on naltrexone for alcohol craving with plan to get Vivitrol inj from the clinic tolerate to the p.o. well. So started naltrexone 50 mg daily 1st dose today. Monitor for side effects. We will refer the patient to the clinic for the Vivitrol IM 03/15: Continue regime Plan Patient on 15 minute checks for safety. Admitted to M5. CV: Side 3 day notice on March 12. Which will be on . Encourage group as he has not been any to any groups. He said he has been going to a lot of groups so far and his life and that he does not learn more much. Work with treatment team to do collateral for any rehab treatment program if possible for aftercare. Started naltrexone for MAT. We will refer patient to [facility] to get the injection prior to discharge. He is medically clear from own [facility] ED doc. Give consent to talk to outpatient providers from [facility] and outreach workers. He requests to go to respite in [place] and then to the custodial if possible. 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
[2025-03-15 08:53] VITALS: BP 119/69; PULSE 69; RESP 16; TEMP 36.8; O2SAT 97
[2025-03-15] MEDS: Multivitamin TABLET 1 TAB PO (08:54)
[2025-03-15] MEDS: Naltrexone HCl 50 MG TABLET PO (08:54)
[2025-03-15] MEDS: buPROPion HCl XL 300 MG TAB.ER.24H PO (08:54)
[2025-03-15] MEDS: Thiamine HCL 100 MG TABLET PO (08:54)
[2025-03-15] MEDS: chlorproMAZINE HCl 100 MG TABLET PO ×2 (08:55→22:16)
[2025-03-15] MEDS: Folic Acid 1 MG TABLET PO (08:55)
[2025-03-15] MEDS: LORazepam 1 MG TABLET PO ×2 (15:39→22:15)
[2025-03-15 20:00] VITALS: BP 126/58; PULSE 84; RESP 15; TEMP 37.1; O2SAT 99
[2025-03-15] MEDS: traZODone HCL 50 MG TABLET PO (22:15)
[2025-03-15] MEDS: chlorproMAZINE HCl 100 MG TABLET 200 MG PO (22:15)
[2025-03-15] MEDS: cloNIDine HCL 0.1 MG TABLET PO (22:16)
--- NOTE | 2025-03-16 09:06 | PC.NURSE ---
approached pt with 9am scheduled medication and pt stated, I'm so tired, please come back in like an hour and a half . Will reapproach pt at 10:30am
[2025-03-16] MEDS: buPROPion HCl XL 300 MG TAB.ER.24H PO (11:10)
[2025-03-16] MEDS: Naltrexone HCl 50 MG TABLET PO (11:10)
[2025-03-16] MEDS: chlorproMAZINE HCl 100 MG TABLET PO ×2 (11:10→20:45)
[2025-03-16] MEDS: Multivitamin TABLET 1 TAB PO (11:10)
[2025-03-16] MEDS: Thiamine HCL 100 MG TABLET PO (11:10)
[2025-03-16] MEDS: Folic Acid 1 MG TABLET PO (11:11)
[2025-03-16] MEDS: LORazepam 1 MG TABLET PO ×2 (11:17→20:45)
--- NOTE | 2025-03-16 13:40 | HO.PSYCHPN ---
Subjective Subjective Date of Service: 03/16/25 Reason For Visit: PTSD Schizoaffective disorder Alcohol Use Disorder Interim History: Patient reports feeling okay today; pt stated, I'm waiting to hear back from respite . Pt reports he feels his medications are helping with his mood. denies SI/HI/VH/AH. He rpeorts sleeping well. Continue current tx plan. Medication Compliance: Yes Side effects from medications: No Mental Status Exam Mental Status Exam Patient Appearance: Appropriate Patient Orientation: Person, Place, Time and Situation Level of Consciousness: Awake and Alert Patient Behavior: Appropriate and Cooperative Mood Description: Calm Affect Description: Calm Ability to Follow Directions: Good Speech Pattern: Clear Memory Description: Intact Hallucinations: None Delusions: Not Present Thought Process: Intact Thought Content: positive for Intact Diagnostics Vital Signs (24Hr): Vital Signs - 24 hr 03/15/25 20:00 Temperature 98.8 F Pulse Rate 84 Respiratory Rate 15 Blood Pressure 126/58 L Pulse Oximetry 99 BMI result Body Mass Index 26.4 Labs 03/09/25 12:01 03/09/25 12:01 Medications Medications Current Medications Acetaminophen (Acetaminophen 325 Mg Tablet) 650 mg PO Q6H PRN PRN Reason: Headache/Pain, Scale 1-10 Last Admin: 03/13/25 10:12 Dose: 650 mg Al Hydroxide/Mg Hydroxide (Magnesium Hydrox/Alum Hydrox 30 Ml Oral.Susp) 30 ml PO Q6H PRN PRN Reason: Heartburn/Nausea Bupropion HCl (Bupropion Hcl Xl 300 Mg Tab.Er.24h) 300 mg PO DAILY [facility] Last Admin: 03/16/25 11:10 Dose: 300 mg Chlorpromazine HCl (Chlorpromazine Hcl 100 Mg Tablet) 200 mg PO BEDTIME [facility] Last Admin: 03/15/25 22:15 Dose: 200 mg Chlorpromazine HCl (Chlorpromazine Hcl 100 Mg Tablet) 100 mg PO TID PRN PRN Reason: sx of paranoia, psychosis, fear, agitation Last Admin: 03/14/25 10:51 Dose: 100 mg Chlorpromazine HCl (Chlorpromazine Hcl 100 Mg Tablet) 100 mg PO BID YULY Last Admin: 03/16/25 11:10 Dose: 100 mg Clonidine HCl (Clonidine Hcl 0.1 Mg Tablet) 0.1 mg PO BEDTIME [facility]; Protocol Last Admin: 03/15/25 22:16 Dose: 0.1 mg Folic Acid (Folic Acid 1 Mg Tablet) 1 mg PO DAILY [facility] Last Admin: 03/16/25 11:11 Dose: 1 mg Hydroxyzine HCl (Hydroxyzine Hcl 25 Mg Tablet) 25 mg PO Q6H PRN PRN Reason: mild anxiety Last Admin: 03/14/25 03:24 Dose: 25 mg Lorazepam (Lorazepam 1 Mg Tablet) 1 mg PO Q6H PRN PRN Reason: agitation, anxiety Last Admin: 03/16/25 11:17 Dose: 1 mg Magnesium Hydroxide (Milk Of Magnesia 30 Ml Oral.Susp) 30 ml PO DAILY PRN PRN Reason: Constipation Multivitamins/Vitamin C (Multivitamin Tablet) 1 tab PO DAILY [facility] Last Admin: 03/16/25 11:10 Dose: 1 tab Naltrexone HCl (Naltrexone Hcl 50 Mg Tablet) 50 mg PO DAILY [facility] Last Admin: 03/16/25 11:10 Dose: 50 mg Nicotine Polacrilex (Nicotine Polacrilex 2 Mg Gum) 4 mg BUCCAL Q2H PRN PRN Reason: Nicotine Cravings Thiamine HCl (Thiamine Hcl 100 Mg Tablet) 100 mg PO DAILY [facility] Last Admin: 03/16/25 11:10 Dose: 100 mg Trazodone HCl (Trazodone Hcl 50 Mg Tablet) 50 mg PO BEDTIME MRX1 PRN PRN Reason: Insomnia Last Admin: 03/15/25 22:15 Dose: 50 mg Allergies Allergies Allergy/AdvReac Type Severity Reaction Status Date / Time penicillin G (PENICILLIN G) Allergy Intermediate SWELLING Verified 03/09/25 11:34 [place] And Derivatives Allergy Unknown unk Verified 03/09/25 11:34 (CITRUS AND DERIVATIVES) cranberry (CRANBERRY) Allergy Unknown HIVES Verified 03/09/25 11:34 gabapentin (GABAPENTIN) Allergy Unknown HIVES, Verified 03/09/25 11:34 swelling raspberry (RASPBERRY) Allergy Unknown unk Verified 03/09/25 11:34 Assessment & Plan Assessment & Plan (1) Alcohol use: Status: Acute Code(s): F10.90 - Alcohol use, unspecified, uncomplicated (2) Homeless: Status: Acute Code(s): Z59.00 - Homelessness unspecified (3) PTSD (post-traumatic stress disorder): Status: Acute Code(s): F43.10 - Post-traumatic stress disorder, unspecified (4) Schizoaffective disorder, depressive type: Status: Acute Code(s): F25.1 - Schizoaffective disorder, depressive type (5) Acute paranoia: Status: Acute Code(s): F22 - Delusional disorders Plan Plan: HPI: Patient is a 39 year old assigned male at with a history of alcohol use disorder, schizoaffective disorder, and PTSD presenting to the emergency department today with suicidal ideation, homicidal ideation, and increased paranoia. Patient states that he has been having thoughts of killing himself by slitting his wrists and having thoughts of killing Kiel Spence for sleeping with his girlfriend. He was section 12 by [facility]. Presented with delusional paranoid, believes people were following him. Deny any plans or intention to do harm to himself or anyone reports relapsed after 85 day sober and drank only 4 beers x1. Also reports stopped taking his medications for about a week he is able to mentioned some of the medications name but majority he can not recall. He is not a reliable historian. Poor insight of the illnesses in substance use. Poor insight of the history of suicide attempts as other places mentioned that he having numerous attempts in the past. Increased paranoid thoughts, but deny suicidal thoughts homicidal thoughts and self-harm thoughts as well as voices at this current time. He agrees with plan of medications to restart. He has outpatient psychiatrist and therapist through [facility] in [place] Formulation/clinical reasoning: Increased paranoid. Increased anxiety and depression, relapsed on alcohol for 1 day after sober for 85 days, being homeless at this current time. SI/SIB, and paranoid on admission. However he denies suicidal thought and homicidal thoughts during the assessment with this provider. Non medication compliant was unsure is couple of days or a week or 2. He agreed to restart all home medications. He do not want the [facility] treatment program. He wants to go back to the shelter but at this point not sure where shelter he was staying before or if he actually having a shelter services before. Do not have consent to talk to outpatient providers or intact anyone in the shelter at this time Hospital course: 03/10/25: Admitted to , signed a CV, restart on home medications: Include Wellbutrin 300 mg and Thorazine 100 3 times a day. We will check some lab work for tomorrow. He does not need to be on CIWA protocol at this current time as only relapsed for 1 day. However we will have the nurse to monitor for vital signs for any symptoms of withdrawal. 03/11/25: He depressed, anxious, with irritable mood. Mostly isolative in to self in room. Out for meals and visit. Guarded upon approach today, but denies safety concerns. No paranoia or delusions general statement makes. But he could be also paranoid. Continue not to have a consent to talk to outpatient providers. No side effects from medications. Restart medications from home. 03/12/25: Less guarded, less irritable, more cooperative, gave verbal consent to talk to outpatient from [facility] an forming process worker Lorenza. He is more for future focus. Good like to go to respite and then go to shelter. He is compliant with medication. However has been refused this morning scheduled meds, took them as encourage with the exception that Thorazine will be lowered down in the morning. Start tonight he will take Thorazine 250 mg at bedtime for psychosis Thorazine 50 mg in the morning to prevent sedation during daytime. Signed a 3 day notice 03/13/25: Continue to improve in anxiety and depression, improve in paranoid thoughts with compliant of medications. Denies side effects from medication. Isolated himself but more pleasant and more approachable. Started on naltrexone for alcohol craving with plan to get Vivitrol inj from the clinic tolerate to the p.o. well. So started naltrexone 50 mg daily 1st dose today. Monitor for side effects. We will refer the patient to the clinic for the Vivitrol IM 03/15: Continue regime 03/16: Patient reports feeling okay today; pt stated, I'm waiting to hear back from respite . Pt reports he feels his medications are helping with his mood. denies SI/HI/VH/AH. He rpeorts sleeping well. Continue current tx plan. Plan Patient on 15 minute checks for safety. Admitted to M5. CV: Side 3 day notice on March 12. Which will be on . Encourage group as he has not been any to any groups. He said he has been going to a lot of groups so far and his life and that he does not learn more much. Work with treatment team to do collateral for any rehab treatment program if possible for aftercare. Started naltrexone for MAT. We will refer patient to [facility] to get the injection prior to discharge. He is medically clear from own [facility] ED doc. Give consent to talk to outpatient providers from [facility] and outreach workers. He requests to go to respite in [place] and then to the shelter if possible. hired worker working on the respite placement Patient educated on: diagnosis and medication risk/benefits Reason for continued inpatient stay Substantial Risk for: med/psych decompensation Time Spent With Patient Time: Total time managing care of this patient today _20___ minutes.
[2025-03-16 20:00] VITALS: BP 106/61; PULSE 98; RESP 16; TEMP 36.9; O2SAT 97
[2025-03-16] MEDS: chlorproMAZINE HCl 100 MG TABLET 200 MG PO (20:44)
[2025-03-16 20:45] VITALS: BP 106/61
[2025-03-16] MEDS: cloNIDine HCL 0.1 MG TABLET PO (20:45)
[2025-03-17 08:00] VITALS: RESP 16
[2025-03-17] MEDS: Naltrexone HCl 50 MG TABLET PO (08:18)
[2025-03-17] MEDS: Thiamine HCL 100 MG TABLET PO (08:18)
[2025-03-17] MEDS: Folic Acid 1 MG TABLET PO (08:18)
[2025-03-17] MEDS: chlorproMAZINE HCl 100 MG TABLET PO ×2 (08:18→20:54)
[2025-03-17] MEDS: Multivitamin TABLET 1 TAB PO (08:18)
[2025-03-17] MEDS: buPROPion HCl XL 300 MG TAB.ER.24H PO (08:18)
[2025-03-17] MEDS: LORazepam 1 MG TABLET PO (08:34)
--- NOTE | 2025-03-17 12:57 | P.PNPSI_ITS ---
Subjective Subjective Date of Service: 03/17/25 Reason For Visit: PTSD Schizoaffective disorder Alcohol Use Disorder Subjective Notes: Conditional Voluntary Healthcare Proxy: No Guardianship: No Medical Problems Affecting Mental Status: No Interim History: Medical record and nursing notes reviewed; case discussed during rounds with team, and met with patient for supportive therapy/psychoeducation, as well as medication management. Meet with patient a couple of times this morning in his room and out to near the nurse station. He goes back and forth between staying and not staying or retracted 3 day notice. However he decided to stay until Sunday as outpatient [facility] team has a nursing home bed for him by Sunday. He decided to retracted 3 days. He appears to be paranoid, anxious but more relaxed and happier as he knows he have the bed at nursing home. order worker also make appointments for his Vivitrol injection with a clinic. Denies side effects from medications. Tolerate well with the naltrexone p.o. Medication Compliance: Yes Side effects from medications: No Attending Groups: No Review of Systems Acute medical concerns: No Review of Systems Review of Systems Constitutional: Denies fatigue and Denies fever(s) Cardiovascular: Denies chest pain and Denies dyspnea Respiratory: Denies dyspnea Gastrointestinal: Denies abdominal pain Psychiatric: denies suicidal ideation Endocrine: Denies fatigue Yes all other systems are reviewed and are negative Mental Status Exam Mental Status Exam Narrative: Patient is alert and oriented; behavior is anxious depressed. He is calm, pleasant and more cooperative, moderate anxiety/depression; patient is not in distress; dressed in own clothes with no ADLs issues; . mood is described as good and affect incongruent; eye contact appropriate and fair; Speech is normal rate, volume and prosody and not pressured; with limited interaction with some improvement, no psychomotor agitation/retardation present; thought process is more disorganized, and less guarded; Thought content is WNL mostly focused on discharge and goal directed, pertinent to relevant topics and without any delusional content,or grandiosity; denies any SI/SIB/HI. Denies AH and there is no evidence of perceptual disturbance. Patient's insight and judgment improved. He does not appear to be paranoid at the assessment time but he can be paranoid thinking people are following and do harm to him. Improving in paranoid thoughts. Diagnostics Vital Signs (24Hr): Vital Signs - 24 hr 03/16/25 20:00 03/16/25 20:45 03/17/25 08:00 Temperature 98.4 F Pulse Rate 98 Respiratory Rate 16 16 Blood Pressure 106/61 106/61 Pulse Oximetry 97 Oxygen Delivery Method Room Air BMI result Body Mass Index 26.4 Labs 03/09/25 12:01 03/09/25 12:01 Medications Medications Current Medications Acetaminophen (Acetaminophen 325 Mg Tablet) 650 mg PO Q6H PRN PRN Reason: Headache/Pain, Scale 1-10 Last Admin: 03/13/25 10:12 Dose: 650 mg Al Hydroxide/Mg Hydroxide (Magnesium Hydrox/Alum Hydrox 30 Ml Oral.Susp) 30 ml PO Q6H PRN PRN Reason: Heartburn/Nausea Bupropion HCl (Bupropion Hcl Xl 300 Mg Tab.Er.24h) 300 mg PO DAILY [facility] Last Admin: 03/17/25 08:18 Dose: 300 mg Chlorpromazine HCl (Chlorpromazine Hcl 100 Mg Tablet) 200 mg PO BEDTIME [facility] Last Admin: 03/16/25 20:44 Dose: 200 mg Chlorpromazine HCl (Chlorpromazine Hcl 100 Mg Tablet) 100 mg PO TID PRN PRN Reason: sx of paranoia, psychosis, fear, agitation Last Admin: 03/14/25 10:51 Dose: 100 mg Chlorpromazine HCl (Chlorpromazine Hcl 100 Mg Tablet) 100 mg PO BID [facility] Last Admin: 03/17/25 08:18 Dose: 100 mg Clonidine HCl (Clonidine Hcl 0.1 Mg Tablet) 0.1 mg PO BEDTIME [facility]; Protocol Last Admin: 03/16/25 20:45 Dose: 0.1 mg Folic Acid (Folic Acid 1 Mg Tablet) 1 mg PO DAILY [facility] Last Admin: 03/17/25 08:18 Dose: 1 mg Hydroxyzine HCl (Hydroxyzine Hcl 25 Mg Tablet) 25 mg PO Q6H PRN PRN Reason: mild anxiety Last Admin: 03/14/25 03:24 Dose: 25 mg Lorazepam (Lorazepam 1 Mg Tablet) 1 mg PO Q6H PRN PRN Reason: agitation, anxiety Last Admin: 03/17/25 08:34 Dose: 1 mg Magnesium Hydroxide (Milk Of Magnesia 30 Ml Oral.Susp) 30 ml PO DAILY PRN PRN Reason: Constipation Multivitamins/Vitamin C (Multivitamin Tablet) 1 tab PO DAILY [facility] Last Admin: 03/17/25 08:18 Dose: 1 tab Naltrexone HCl (Naltrexone Hcl 50 Mg Tablet) 50 mg PO DAILY [facility] Last Admin: 03/17/25 08:18 Dose: 50 mg Nicotine Polacrilex (Nicotine Polacrilex 2 Mg Gum) 4 mg BUCCAL Q2H PRN PRN Reason: Nicotine Cravings Thiamine HCl (Thiamine Hcl 100 Mg Tablet) 100 mg PO DAILY [facility] Last Admin: 03/17/25 08:18 Dose: 100 mg Trazodone HCl (Trazodone Hcl 50 Mg Tablet) 50 mg PO BEDTIME MRX1 PRN PRN Reason: Insomnia Last Admin: 03/15/25 22:15 Dose: 50 mg Allergies Allergies Allergy/AdvReac Type Severity Reaction Status Date / Time penicillin G (PENICILLIN G) Allergy Intermediate SWELLING Verified 03/09/25 11:34 [place] And Derivatives Allergy Unknown unk Verified 03/09/25 11:34 (CITRUS AND DERIVATIVES) cranberry (CRANBERRY) Allergy Unknown HIVES Verified 03/09/25 11:34 gabapentin (GABAPENTIN) Allergy Unknown HIVES, Verified 03/09/25 11:34 swelling raspberry (RASPBERRY) Allergy Unknown unk Verified 03/09/25 11:34 Assessment & Plan Assessment & Plan (1) Alcohol use: Status: Acute Code(s): F10.90 - Alcohol use, unspecified, uncomplicated (2) Homeless: Status: Acute Code(s): Z59.00 - Homelessness unspecified (3) PTSD (post-traumatic stress disorder): Status: Acute Code(s): F43.10 - Post-traumatic stress disorder, unspecified (4) Schizoaffective disorder, depressive type: Status: Acute Code(s): F25.1 - Schizoaffective disorder, depressive type (5) Acute paranoia: Status: Acute Code(s): F22 - Delusional disorders Plan Plan: HPI: Patient is a 39 year old assigned male at with a history of alcohol use disorder, schizoaffective disorder, and PTSD presenting to the emergency department today with suicidal ideation, homicidal ideation, and increased paranoia. Patient states that he has been having thoughts of killing himself by slitting his wrists and having thoughts of killing Kiel Spence for sleeping with his girlfriend. He was section 12 by [facility]. Presented with delusional paranoid, believes people were following him. Deny any plans or intention to do harm to himself or anyone reports relapsed after 85 day sober and drank only 4 beers x1. Also reports stopped taking his medications for about a week he is able to mentioned some of the medications name but majority he can not recall. He is not a reliable historian. Poor insight of the illnesses in substance use. Poor insight of the history of suicide attempts as other places mentioned that he having numerous attempts in the past. Increased paranoid thoughts, but deny suicidal thoughts homicidal thoughts and self-harm thoughts as well as voices at this current time. He agrees with plan of medications to restart. He has outpatient psychiatrist and therapist through [facility] in [place] Formulation/clinical reasoning: Increased paranoid. Increased anxiety and depression, relapsed on alcohol for 1 day after sober for 85 days, being homeless at this current time. SI/SIB, and paranoid on admission. However he denies suicidal thought and homicidal thoughts during the assessment with this provider. Non medication compliant was unsure is couple of days or a week or 2. He agreed to restart all home medications. He do not want the [facility] treatment program. He wants to go back to the nursing home but at this point not sure where nursing home he was staying before or if he actually having a nursing home services before. Do not have consent to talk to outpatient providers or intact anyone in the nursing home at this time Hospital course: 03/10/25: Admitted to , signed a CV, restart on home medications: Include Wellbutrin 300 mg and Thorazine 100 3 times a day. We will check some lab work for tomorrow. He does not need to be on CIWA protocol at this current time as only relapsed for 1 day. However we will have the nurse to monitor for vital signs for any symptoms of withdrawal. 03/11/25: He depressed, anxious, with irritable mood. Mostly isolative in to self in room. Out for meals and visit. Guarded upon approach today, but denies safety concerns. No paranoia or delusions general statement makes. But he could be also paranoid. Continue not to have a consent to talk to outpatient providers. No side effects from medications. Restart medications from home. 03/12/25: Less guarded, less irritable, more cooperative, gave verbal consent to talk to outpatient from [facility] an outreach assistant Lorenza. He is more for future focus. Good like to go to respite and then go to nursing home. He is compliant with medication. However has been refused this morning scheduled meds, took them as encourage with the exception that Thorazine will be lowered down in the morning. Start tonight he will take Thorazine 250 mg at bedtime for psychosis Thorazine 50 mg in the morning to prevent sedation during daytime. Signed a 3 day notice 03/13/25: Continue to improve in anxiety and depression, improve in paranoid thoughts with compliant of medications. Denies side effects from medication. Isolated himself but more pleasant and more approachable. Started on naltrexone for alcohol craving with plan to get Vivitrol inj from the clinic tolerate to the p.o. well. So started naltrexone 50 mg daily 1st dose today. Monitor for side effects. We will refer the patient to the clinic for the Vivitrol IM 03/15: Continue regime 03/16: Patient reports feeling okay today; pt stated, I'm waiting to hear back from respite . Pt reports he feels his medications are helping with his mood. denies SI/HI/VH/AH. He rpeorts sleeping well. Continue current tx plan. 03/17/25: Deny any safety concerns. Was not sure if he wanted to stay at the beginning of the day but wants found out that his outpatient CHD team able to get him a nursing home bed by Sunday. He was settle down and retracted 3 day. Mostly in his room isolative, somewhat irritable, but more pleasant at the end of the conversation. Listen to music as a coping skills using he has some. Compliant with medications. Denies side effects. Plan Patient on 15 minute checks for safety. Admitted to M5. CV: Retracted 3 days. Plan to discharge on Sunday to nursing home. CHD team able to find him a bed at nursing home. Encourage group as he has not been any to any groups. He said he has been going to a lot of groups so far and his life and that he does not learn more much. Started naltrexone for MAT. Appointment with [facility] for the intake of Vivitrol injection on March 25. He is medically clear from own [facility] ED doc. Thorazine increased since Sunday for paranoid thoughts appeared to be very helpful. Current total of 400 of Thorazine in divided dose. Patient educated on: medication risk/benefits and substance abuse Informed Consent: understands Reason for continued inpatient stay Substantial Risk for: med/psych decompensation Time Spent With Patient Time: Total time managing care of this patient today ____ minutes.
[2025-03-17 20:00] VITALS: BP 98/58; PULSE 104; RESP 16; TEMP 37; O2SAT 97
[2025-03-17 20:54] VITALS: BP 98/58
[2025-03-17] MEDS: chlorproMAZINE HCl 100 MG TABLET 200 MG PO (20:54)
[2025-03-17] MEDS: cloNIDine HCL 0.1 MG TABLET PO (20:54)
[2025-03-17] MEDS: traZODone HCL 50 MG TABLET PO (20:57)
--- NOTE | 2025-03-18 09:11 | HO.PSYCHPN ---
Subjective Subjective Date of Service: 03/18/25 Reason For Visit: PTSD Schizoaffective disorder Alcohol Use Disorder Subjective Notes: Conditional Voluntary Healthcare Proxy: No Guardianship: No Medical Problems Affecting Mental Status: No Interim History: Medical record and nursing notes reviewed; case discussed during rounds with team, and met with patient for supportive therapy/psychoeducation, as well as medication management. Patient slept most of the night and was medication compliant. However he did not take Thorazine scheduled this morning ' as he feels so tired \. He has states every time when he takes the Thorazine in the morning he feeling that tired. He agrees to taking higher dose at night in smaller dose in the morning. Denies any safety concerns. Goal-directed take 1 day at a time until he gets to the fdc which he is very happy about. I also reduce his Ativan p.r.n. to once daily only. It could make him more tired in the additional to Thorazine has been schedule during daytime. I do not plan to discharge him with Ativan. We will discontinue it tomorrow. Denies paranoid thoughts as any safety concerns. Declined groups as he is has been doing that for many years and that he does not learn much anymore. Isolated himself in his room but listen to music while lying down in bed. Medication Compliance: No (He did not take Thorazine this morning due to feeling so tired) Side effects from medications: No Attending Groups: No Review of Systems Acute medical concerns: No Medical Review of Systems: unchanged Review of Systems Review of Systems Constitutional: Denies fatigue and Denies fever(s) Cardiovascular: Denies chest pain and Denies dyspnea Respiratory: Denies dyspnea Gastrointestinal: Denies abdominal pain Psychiatric: denies suicidal ideation Endocrine: Denies fatigue Yes all other systems are reviewed and are negative Mental Status Exam Mental Status Exam Narrative: Patient is alert and oriented; behavior is less anxious depressed. He is calm, pleasant and more cooperative; patient is not in distress; dressed hospital attire with no ADLs issues; . mood is described as good and affect congruent; eye contact appropriate and fair; Speech is normal rate, volume and prosody and not pressured; with limited interaction with some improvement, no psychomotor agitation/retardation present; thought process is more organized, and no guarded; Thought content is WNL mostly focused on discharge to and goal directed, pertinent to relevant topics and without any delusional content,or grandiosity; denies any SI/SIB/HI. Denies AH and there is no evidence of perceptual disturbance. Patient's insight and judgment improved. He does not appear to be paranoid at the assessment time. Improving in paranoid thoughts. Diagnostics Vital Signs (24Hr): Vital Signs - 24 hr 03/17/25 20:00 03/17/25 20:54 Temperature 98.6 F Pulse Rate 104 H Respiratory Rate 16 Blood Pressure 98/58 L 98/58 L Pulse Oximetry 97 Oxygen Delivery Method Room Air BMI result Body Mass Index 26.4 Labs 03/09/25 12:01 03/09/25 12:01 Medications Medications Current Medications Acetaminophen (Acetaminophen 325 Mg Tablet) 650 mg PO Q6H PRN PRN Reason: Headache/Pain, Scale 1-10 Last Admin: 03/13/25 10:12 Dose: 650 mg Al Hydroxide/Mg Hydroxide (Magnesium Hydrox/Alum Hydrox 30 Ml Oral.Susp) 30 ml PO Q6H PRN PRN Reason: Heartburn/Nausea Bupropion HCl (Bupropion Hcl Xl 300 Mg Tab.Er.24h) 300 mg PO DAILY YULY Last Admin: 03/17/25 08:18 Dose: 300 mg Chlorpromazine HCl (Chlorpromazine Hcl 100 Mg Tablet) 200 mg PO BEDTIME YULY Last Admin: 03/17/25 20:54 Dose: 200 mg Chlorpromazine HCl (Chlorpromazine Hcl 100 Mg Tablet) 100 mg PO TID PRN PRN Reason: sx of paranoia, psychosis, fear, agitation Last Admin: 03/14/25 10:51 Dose: 100 mg Chlorpromazine HCl (Chlorpromazine Hcl 100 Mg Tablet) 100 mg PO BID YULY Last Admin: 03/17/25 20:54 Dose: 100 mg Clonidine HCl (Clonidine Hcl 0.1 Mg Tablet) 0.1 mg PO BEDTIME YULY; Protocol Last Admin: 03/17/25 20:54 Dose: 0.1 mg Folic Acid (Folic Acid 1 Mg Tablet) 1 mg PO DAILY YULY Last Admin: 03/17/25 08:18 Dose: 1 mg Hydroxyzine HCl (Hydroxyzine Hcl 25 Mg Tablet) 25 mg PO Q6H PRN PRN Reason: mild anxiety Last Admin: 03/14/25 03:24 Dose: 25 mg Lorazepam (Lorazepam 1 Mg Tablet) 1 mg PO DAILY PRN PRN Reason: agitation, anxiety Magnesium Hydroxide (Milk Of Magnesia 30 Ml Oral.Susp) 30 ml PO DAILY PRN PRN Reason: Constipation Multivitamins/Vitamin C (Multivitamin Tablet) 1 tab PO DAILY [facility] Last Admin: 03/17/25 08:18 Dose: 1 tab Naltrexone HCl (Naltrexone Hcl 50 Mg Tablet) 50 mg PO DAILY [facility] Last Admin: 03/17/25 08:18 Dose: 50 mg Nicotine Polacrilex (Nicotine Polacrilex 2 Mg Gum) 4 mg BUCCAL Q2H PRN PRN Reason: Nicotine Cravings Thiamine HCl (Thiamine Hcl 100 Mg Tablet) 100 mg PO DAILY [facility] Last Admin: 03/17/25 08:18 Dose: 100 mg Trazodone HCl (Trazodone Hcl 50 Mg Tablet) 50 mg PO BEDTIME MRX1 PRN PRN Reason: Insomnia Last Admin: 03/17/25 20:57 Dose: 50 mg Allergies Allergies Allergy/AdvReac Type Severity Reaction Status Date / Time penicillin G (PENICILLIN G) Allergy Intermediate SWELLING Verified 03/09/25 11:34 Cooper And Derivatives Allergy Unknown unk Verified 03/09/25 11:34 (CITRUS AND DERIVATIVES) cranberry (CRANBERRY) Allergy Unknown HIVES Verified 03/09/25 11:34 gabapentin (GABAPENTIN) Allergy Unknown HIVES, Verified 03/09/25 11:34 swelling raspberry (RASPBERRY) Allergy Unknown unk Verified 03/09/25 11:34 Assessment & Plan Assessment & Plan (1) Alcohol use: Status: Acute Code(s): F10.90 - Alcohol use, unspecified, uncomplicated (2) Homeless: Status: Acute Code(s): Z59.00 - Homelessness unspecified (3) PTSD (post-traumatic stress disorder): Status: Acute Code(s): F43.10 - Post-traumatic stress disorder, unspecified (4) Schizoaffective disorder, depressive type: Status: Acute Code(s): F25.1 - Schizoaffective disorder, depressive type (5) Acute paranoia: Status: Acute Code(s): F22 - Delusional disorders Plan Plan: HPI: Patient is a 39 year old assigned male at with a history of alcohol use disorder, schizoaffective disorder, and PTSD presenting to the emergency department today with suicidal ideation, homicidal ideation, and increased paranoia. Patient states that he has been having thoughts of killing himself by slitting his wrists and having thoughts of killing Kiel Spence for sleeping with his girlfriend. He was section 12 by [facility]. Presented with delusional paranoid, believes people were following him. Deny any plans or intention to do harm to himself or anyone reports relapsed after 85 day sober and drank only 4 beers x1. Also reports stopped taking his medications for about a week he is able to mentioned some of the medications name but majority he can not recall. He is not a reliable historian. Poor insight of the illnesses in substance use. Poor insight of the history of suicide attempts as other places mentioned that he having numerous attempts in the past. Increased paranoid thoughts, but deny suicidal thoughts homicidal thoughts and self-harm thoughts as well as voices at this current time. He agrees with plan of medications to restart. He has outpatient psychiatrist and therapist through [facility] in [place] Formulation/clinical reasoning: Increased paranoid. Increased anxiety and depression, relapsed on alcohol for 1 day after sober for 85 days, being homeless at this current time. SI/SIB, and paranoid on admission. However he denies suicidal thought and homicidal thoughts during the assessment with this provider. Non medication compliant was unsure is couple of days or a week or 2. He agreed to restart all home medications. He do not want the [facility] treatment program. He wants to go back to the [facility]dc but at this point not sure where fdc he was staying before or if he actually having a fdc services before. Do not have consent to talk to outpatient providers or intact anyone in the fdc at this time Hospital course: 03/10/25: Admitted to [facility], signed a CV, restart on home medications: Include Wellbutrin 300 mg and Thorazine 100 3 times a day. We will check some lab work for tomorrow. He does not need to be on CIWA protocol at this current time as only relapsed for 1 day. However we will have the nurse to monitor for vital signs for any symptoms of withdrawal. 03/11/25: He depressed, anxious, with irritable mood. Mostly isolative in to self in room. Out for meals and visit. Guarded upon approach today, but denies safety concerns. No paranoia or delusions general statement makes. But he could be also paranoid. Continue not to have a consent to talk to outpatient providers. No side effects from medications. Restart medications from home. 03/12/25: Less guarded, less irritable, more cooperative, gave verbal consent to talk to outpatient from [facility] an travelers' aid worker Lorenza. He is more for future focus. Good like to go to respite and then go to fdc. He is compliant with medication. However has been refused this morning scheduled meds, took them as encourage with the exception that Thorazine will be lowered down in the morning. Start tonight he will take Thorazine 250 mg at bedtime for psychosis Thorazine 50 mg in the morning to prevent sedation during daytime. Signed a 3 day notice 03/13/25: Continue to improve in anxiety and depression, improve in paranoid thoughts with compliant of medications. Denies side effects from medication. Isolated himself but more pleasant and more approachable. Started on naltrexone for alcohol craving with plan to get Vivitrol inj from the clinic tolerate to the p.o. well. So started naltrexone 50 mg daily 1st dose today. Monitor for side effects. We will refer the patient to the clinic for the Vivitrol IM 03/15: Continue regime 03/16: Patient reports feeling okay today; pt stated, I'm waiting to hear back from respite . Pt reports he feels his medications are helping with his mood. denies SI/HI/VH/AH. He rpeorts sleeping well. Continue current tx plan. 03/17/25: Deny any safety concerns. Was not sure if he wanted to stay at the beginning of the day but wants found out that his outpatient [facility] team able to get him a [facility] bed by Sunday. He was settle down and retracted 3 day. Mostly in his room isolative, somewhat irritable, but more pleasant at the end of the conversation. Listen to music as a coping skills using he has some. Compliant with medications. Denies side effects. 03/18/25: Sleep well no appetite issues. Denies side effects from medication except for feeling tired during the day with Thorazine 100 schedule in the morning. Dad for I changes in to 50 twice a day and higher dose at bedtime to prevent tiredness and sleepiness during the daytime. Continue to encourage group as he does not attend groups. Isolated himself no behavior issues however using her phone for music for relaxation as coping skills. He is looking forward to the fdc. Goal-directed. [facility] wants medication to be sent to [facility]. Change Ativan q.6 hours p.r.n. to wants daily PRN only. We will not discharge him with Ativan. We will discontinue Ativan by tomorrow. Plan Patient on 15 minute checks for safety. Admitted to . CV: Retracted 3 days. Plan to discharge on Sunday to [facility]. [facility] team able to find him a bed at [facility]. Encourage group as he has not been any to any groups. He said he has been going to a lot of groups so far and his life and that he does not learn more much. Started naltrexone for MAT. Appointment with [facility] for the intake of Vivitrol injection on March 25. He is medically clear from own [facility] ED doc. Thorazine increased since Sunday for paranoid thoughts appeared to be very helpful. Current total of 400 of Thorazine in divided dose. Work around with him to change the dose lower in the morning and higher dose at bedtime to prevent sleepiness and tiredness during the daytime. Patient educated on: medication risk/benefits, substance abuse and therapeutic strategies Informed Consent: understands Reason for continued inpatient stay Substantial Risk for: med/psych decompensation Time Spent With Patient Time: Total time managing care of this patient today ____ minutes.
[2025-03-18] MEDS: Thiamine HCL 100 MG TABLET PO (09:29)
[2025-03-18] MEDS: Folic Acid 1 MG TABLET PO (09:29)
[2025-03-18] MEDS: Multivitamin TABLET 1 TAB PO (09:30)
[2025-03-18] MEDS: Naltrexone HCl 50 MG TABLET PO (09:30)
[2025-03-18] MEDS: buPROPion HCl XL 300 MG TAB.ER.24H PO (09:30)
[2025-03-18] MEDS: LORazepam 1 MG TABLET PO (15:28)
[2025-03-18 19:48] VITALS: BP 117/62; PULSE 82; TEMP 36.9; O2SAT 98
[2025-03-18] MEDS: chlorproMAZINE HCl 100 MG TABLET 200 MG PO (20:09)
[2025-03-18 20:10] VITALS: BP 117/62
[2025-03-18] MEDS: chlorproMAZINE HCl 100 MG TABLET PO (20:10)
[2025-03-18] MEDS: traZODone HCL 50 MG TABLET PO (20:10)
[2025-03-18] MEDS: cloNIDine HCL 0.1 MG TABLET PO (20:10)
[2025-03-19 07:00] VITALS: BMI 27.5
[2025-03-19] MEDS: Multivitamin TABLET 1 TAB PO (08:46)
[2025-03-19] MEDS: buPROPion HCl XL 300 MG TAB.ER.24H PO (08:46)
[2025-03-19] MEDS: Folic Acid 1 MG TABLET PO (08:46)
[2025-03-19] MEDS: chlorproMAZINE HCl 25 MG TABLET 50 MG PO ×2 (08:46→14:43)
[2025-03-19] MEDS: Thiamine HCL 100 MG TABLET PO (08:46)
[2025-03-19] MEDS: Naltrexone HCl 50 MG TABLET PO (08:46)
--- NOTE | 2025-03-19 16:34 | HO.PSYCHPN ---
Subjective Subjective Date of Service: 03/19/25 Reason For Visit: PTSD Schizoaffective disorder Alcohol Use Disorder Subjective Notes: Conditional Voluntary Healthcare Proxy: No Guardianship: No Medical Problems Affecting Mental Status: No Interim History: Medical record and nursing notes reviewed; case discussed during rounds with team, and met with patient for supportive therapy/psychoeducation, as well as medication management. Patient slept for most most of the night and was medication compliant. Deny any tiredness or sleepiness during the day after Thorazine was lower in the morning. Reported that he is happy pleasant with the fci situation. He states is not the best environment but is better than being homeless . He has a future focus. Continued to improve in mood. More active and social with peers and staff today. He has been on the phone long period of time prior to meeting with his [facility]ci staff. Do not goes to groups as his normal behavior. No safety concerns. Do not make any delusional or paranoid statements Medication Compliance: Yes Side effects from medications: No Attending Groups: No Review of Systems Acute medical concerns: No Medical Review of Systems: unchanged Review of Systems Review of Systems Constitutional: Denies fatigue and Denies fever(s) Cardiovascular: Denies chest pain and Denies dyspnea Respiratory: Denies dyspnea Gastrointestinal: Denies abdominal pain Psychiatric: denies suicidal ideation Endocrine: Denies fatigue Yes all other systems are reviewed and are negative Mental Status Exam Mental Status Exam Narrative: Patient is alert and oriented; behavior is calm pleasant and cooperative. patient is not in distress; dressed hospital attire with no ADLs issues; . mood is described as good and affect congruent; eye contact appropriate and fair; Speech is normal rate, volume and prosody and not pressured, no psychomotor agitation/retardation present; thought process is organized, and no guarded; Thought content is WNL mostly focused on discharge to and goal directed, pertinent to relevant topics and without any delusional content,or grandiosity; denies any SI/SIB/HI. Denies AH and there is no evidence of perceptual disturbance. Patient's insight and judgment fair He does not appear to be paranoid at the assessment time. Diagnostics Vital Signs (24Hr): Vital Signs - 24 hr 03/18/25 19:48 03/18/25 20:10 Temperature 98.4 F Pulse Rate 82 Blood Pressure 117/62 117/62 Pulse Oximetry 98 Oxygen Delivery Method Room Air BMI result Body Mass Index 27.5 Labs 03/09/25 12:01 03/09/25 12:01 Medications Medications Current Medications Acetaminophen (Acetaminophen 325 Mg Tablet) 650 mg PO Q6H PRN PRN Reason: Headache/Pain, Scale 1-10 Last Admin: 03/13/25 10:12 Dose: 650 mg Al Hydroxide/Mg Hydroxide (Magnesium Hydrox/Alum Hydrox 30 Ml Oral.Susp) 30 ml PO Q6H PRN PRN Reason: Heartburn/Nausea Bupropion HCl (Bupropion Hcl Xl 300 Mg Tab.Er.24h) 300 mg PO DAILY [facility] Last Admin: 03/19/25 08:46 Dose: 300 mg Chlorpromazine HCl (Chlorpromazine Hcl 100 Mg Tablet) 200 mg PO BEDTIME YULY Last Admin: 03/18/25 20:09 Dose: 200 mg Chlorpromazine HCl (Chlorpromazine Hcl 100 Mg Tablet) 100 mg PO TID PRN PRN Reason: sx of paranoia, psychosis, fear, agitation Last Admin: 03/14/25 10:51 Dose: 100 mg Chlorpromazine HCl (Chlorpromazine Hcl 100 Mg Tablet) 100 mg PO BEDTIME YULY Last Admin: 03/18/25 20:10 Dose: 100 mg Chlorpromazine HCl (Chlorpromazine Hcl 25 Mg Tablet) 50 mg PO BID@0800,1500 [facility] Last Admin: 03/19/25 14:43 Dose: 50 mg Clonidine HCl (Clonidine Hcl 0.1 Mg Tablet) 0.1 mg PO BEDTIME YULY; Protocol Last Admin: 03/18/25 20:10 Dose: 0.1 mg Folic Acid (Folic Acid 1 Mg Tablet) 1 mg PO DAILY YULY Last Admin: 03/19/25 08:46 Dose: 1 mg Hydroxyzine HCl (Hydroxyzine Hcl 25 Mg Tablet) 25 mg PO Q6H PRN PRN Reason: mild anxiety Last Admin: 03/14/25 03:24 Dose: 25 mg Lorazepam (Lorazepam 1 Mg Tablet) 1 mg PO DAILY PRN PRN Reason: agitation, anxiety Last Admin: 03/18/25 15:28 Dose: 1 mg Magnesium Hydroxide (Milk Of Magnesia 30 Ml Oral.Susp) 30 ml PO DAILY PRN PRN Reason: Constipation Multivitamins/Vitamin C (Multivitamin Tablet) 1 tab PO DAILY YULY Last Admin: 03/19/25 08:46 Dose: 1 tab Naltrexone HCl (Naltrexone Hcl 50 Mg Tablet) 50 mg PO DAILY [facility] Last Admin: 03/19/25 08:46 Dose: 50 mg Nicotine Polacrilex (Nicotine Polacrilex 2 Mg Gum) 4 mg BUCCAL Q2H PRN PRN Reason: Nicotine Cravings Thiamine HCl (Thiamine Hcl 100 Mg Tablet) 100 mg PO DAILY [facility] Last Admin: 03/19/25 08:46 Dose: 100 mg Trazodone HCl (Trazodone Hcl 50 Mg Tablet) 50 mg PO BEDTIME MRX1 PRN PRN Reason: Insomnia Last Admin: 03/18/25 20:10 Dose: 50 mg Allergies Allergies Allergy/AdvReac Type Severity Reaction Status Date / Time penicillin G (PENICILLIN G) Allergy Intermediate SWELLING Verified 03/09/25 11:34 Garvin And Derivatives Allergy Unknown unk Verified 03/09/25 11:34 (CITRUS AND DERIVATIVES) cranberry (CRANBERRY) Allergy Unknown HIVES Verified 03/09/25 11:34 gabapentin (GABAPENTIN) Allergy Unknown HIVES, Verified 03/09/25 11:34 swelling raspberry (RASPBERRY) Allergy Unknown unk Verified 03/09/25 11:34 Assessment & Plan Assessment & Plan (1) Alcohol use: Status: Acute Code(s): F10.90 - Alcohol use, unspecified, uncomplicated (2) Homeless: Status: Acute Code(s): Z59.00 - Homelessness unspecified (3) PTSD (post-traumatic stress disorder): Status: Acute Code(s): F43.10 - Post-traumatic stress disorder, unspecified (4) Schizoaffective disorder, depressive type: Status: Acute Code(s): F25.1 - Schizoaffective disorder, depressive type (5) Acute paranoia: Status: Acute Code(s): F22 - Delusional disorders Plan Plan: HPI: Patient is a 39 year old assigned male at with a history of alcohol use disorder, schizoaffective disorder, and PTSD presenting to the emergency department today with suicidal ideation, homicidal ideation, and increased paranoia. Patient states that he has been having thoughts of killing himself by slitting his wrists and having thoughts of killing Kiel Spence for sleeping with his girlfriend. He was section 12 by [facility]. Presented with delusional paranoid, believes people were following him. Deny any plans or intention to do harm to himself or anyone reports relapsed after 85 day sober and drank only 4 beers x1. Also reports stopped taking his medications for about a week he is able to mentioned some of the medications name but majority he can not recall. He is not a reliable historian. Poor insight of the illnesses in substance use. Poor insight of the history of suicide attempts as other places mentioned that he having numerous attempts in the past. Increased paranoid thoughts, but deny suicidal thoughts homicidal thoughts and self-harm thoughts as well as voices at this current time. He agrees with plan of medications to restart. He has outpatient psychiatrist and therapist through [facility] in [place] Formulation/clinical reasoning: Increased paranoid. Increased anxiety and depression, relapsed on alcohol for 1 day after sober for 85 days, being homeless at this current time. SI/SIB, and paranoid on admission. However he denies suicidal thought and homicidal thoughts during the assessment with this provider. Non medication compliant was unsure is couple of days or a week or 2. He agreed to restart all home medications. He do not want the [facility]. He wants to go back to the fci but at this point not sure where fci he was staying before or if he actually having a fci services before. Do not have consent to talk to outpatient providers or intact anyone in the fci at this time Hospital course: 03/10/25: Admitted to , signed a CV, restart on home medications: Include Wellbutrin 300 mg and Thorazine 100 3 times a day. We will check some lab work for tomorrow. He does not need to be on CIWA protocol at this current time as only relapsed for 1 day. However we will have the nurse to monitor for vital signs for any symptoms of withdrawal. 03/11/25: He depressed, anxious, with irritable mood. Mostly isolative in to self in room. Out for meals and visit. Guarded upon approach today, but denies safety concerns. No paranoia or delusions general statement makes. But he could be also paranoid. Continue not to have a consent to talk to outpatient providers. No side effects from medications. Restart medications from home. 03/12/25: Less guarded, less irritable, more cooperative, gave verbal consent to talk to outpatient from [facility] an typing office worker Lorenza. He is more for future focus. Good like to go to respite and then go to fci. He is compliant with medication. However has been refused this morning scheduled meds, took them as encourage with the exception that Thorazine will be lowered down in the morning. Start tonight he will take Thorazine 250 mg at bedtime for psychosis Thorazine 50 mg in the morning to prevent sedation during daytime. Signed a 3 day notice 03/13/25: Continue to improve in anxiety and depression, improve in paranoid thoughts with compliant of medications. Denies side effects from medication. Isolated himself but more pleasant and more approachable. Started on naltrexone for alcohol craving with plan to get Vivitrol inj from the clinic tolerate to the p.o. well. So started naltrexone 50 mg daily 1st dose today. Monitor for side effects. We will refer the patient to the clinic for the Vivitrol IM 03/15: Continue regime 03/16: Patient reports feeling okay today; pt stated, I'm waiting to hear back from respite . Pt reports he feels his medications are helping with his mood. denies SI/HI/VH/AH. He rpeorts sleeping well. Continue current tx plan. 03/17/25: Deny any safety concerns. Was not sure if he wanted to stay at the beginning of the day but wants found out that his outpatient [facility] team able to get him a fci bed by Sunday. He was settle down and retracted 3 day. Mostly in his room isolative, somewhat irritable, but more pleasant at the end of the conversation. Listen to music as a coping skills using he has some. Compliant with medications. Denies side effects. 03/18/25: Sleep well no appetite issues. Denies side effects from medication except for feeling tired during the day with Thorazine 100 schedule in the morning. Dad for I changes in to 50 twice a day and higher dose at bedtime to prevent tiredness and sleepiness during the daytime. Continue to encourage group as he does not attend groups. Isolated himself no behavior issues however using her phone for music for relaxation as coping skills. He is looking forward to the fci. Goal-directed. intermediate wants medication to be sent to [facility]. Change Ativan q.6 hours p.r.n. to wants daily PRN only. We will not discharge him with Ativan. We will discontinue Ativan by tomorrow. 03/19/25: Sleep well, good appetite. Compliant with medications. Continued to improve in mood for depression and anxiety and psychosis. Do not appear to be psychotic or paranoid. Happy looking forward to be discharged to fci tomorrow at 10. Denies side effects from medications. Some red skin appeared to be like rash on face but he does declined hydrocortisone when offer. He thinks he is allergic to the pillows material time when he comes here or admitted to [facility]. I discontinued the Ativan as plan. He does well with Thorazine lower dose in the morning and the rest of heavy/higher dose scheduled at bedtime. Continue taking naltrexone until getting appointment for Vivitrol IM with [facility]. Plan Patient on 15 minute checks for safety. Admitted to . CV. Possible to be discharged at 10 in the morning tomorrow in March 13 7 to the fci. Working on sending medication to preferred pharmacy: [facility]. Encourage groups and unit activities Continue with naltrexone for MAT. Appointment with [facility] for the intake of Vivitrol injection on March 25. He is medically clear from own [facility] doc. Thorazine increased since Sunday for paranoid thoughts appeared to be very helpful. Current total of 400 of Thorazine in divided dose. Work around with him to change the dose lower in the morning and higher dose at bedtime to prevent sleepiness and tiredness during the daytime. Patient educated on: medication risk/benefits, substance abuse and therapeutic strategies Informed Consent: understands Reason for continued inpatient stay Substantial Risk for: med/psych decompensation Time Spent With Patient Time: Total time managing care of this patient today ____ minutes.
[2025-03-19 20:00] VITALS: BP 103/60; PULSE 97; TEMP 36.7; O2SAT 97
[2025-03-19 21:44] VITALS: BP 103/60
[2025-03-19] MEDS: cloNIDine HCL 0.1 MG TABLET PO (21:44)
[2025-03-19] MEDS: traZODone HCL 50 MG TABLET PO (21:45)
[2025-03-19] MEDS: chlorproMAZINE HCl 100 MG TABLET 200 MG PO (21:45)
[2025-03-19] MEDS: chlorproMAZINE HCl 100 MG TABLET PO (21:46)
[2025-03-20] MEDS: traZODone HCL 50 MG TABLET PO (00:07)
[2025-03-20 08:05] VITALS: BP 108/69; PULSE 71; TEMP 36.4; O2SAT 98
--- NOTE | 2025-03-20 09:05 | P.DS_ITS ---
DS: Providers Provider Date of Service: 03/20/25 Date of admission: 03/10/25 10:50 Date of discharge: 03/20/25 Primary care physician: Blane Reyez MD Attending physician on admission: Edie Oreilly Attending physician on discharge: Edie Oreilly Discharging clinician: Edie Oreilly DS: Diagnosis Discharge Diagnosis (1) Alcohol use: Status: Acute (2) Homeless: Status: Acute (3) PTSD (post-traumatic stress disorder): Status: Acute (4) Schizoaffective disorder, depressive type: Status: Acute (5) Acute paranoia: Status: Acute DS: Medications Discharge Medications Home Medications: Previous Rx's ?Medication ?Instructions ?Recorded bupropion HCl 300 mg 24 hr tablet, 300 mg PO DAILY dep ression #30 03/19/25 extended release tabs chlorpromazine 100 mg tablet 300 mg (3 x 100 mg) PO BE DTIME 03/19/25 psychosis #90 tabs chlorpromazine 25 mg tablet 50 mg (2 x 25 mg) PO BID@0 800,1500 03/19/25 psyschosis #60 tabs clonidine HCl 0.1 mg tablet 0.1 mg PO BEDTIME anxiety #30 tabs 03/19/25 folic acid 1 mg tablet 1 mg PO DAILY supplement #3 0 tabs 03/19/25 hydroxyzine pamoate 50 mg capsule 50 mg PO Q6H PRN mil d anxiety #30 03/19/25 caps multivitamin (Daily-Chaz tablet) 1 tab PO DAILY supple ment #30 tabs 03/19/25 naltrexone 50 mg tablet 50 mg PO DAILY MAT #14 tabs 03/19/25 thiamine mononitrate (vit B1) 100 100 mg PO DAILY supp lement #30 03/19/25 mg tablet tabs trazodone 50 mg tablet 50 mg PO BEDTIME PRN Insomni a #30 03/19/25 tabs Mental Status Exam Mental Status Exam Narrative: Patient presents well-groomed, casually dressed. Affect is euthymic with full range. Speech is clear and coherent. Thought process is linear and logical. Thought content is appropriate and relevant. Patient denies suicidal or homicidal ideation intent or plan. No overt psychotic symptoms elicited. Insight is fair. Judgement is good. Data Data Completed and Pending Completed studies during hospitalization [Text1]: 03/13/25 07:51 Vitamin B12 475 Folate 8.5 TSH 3.90 Free T4 1.09 DS: Summary Hospital Course Hospital Course: HPI: Patient is a 39 year old assigned male at with a history of alcohol use disorder, schizoaffective disorder, and PTSD presenting to the emergency de partment today with suicidal ideation, homicidal ideation, and increased paranoia. Patient states that he has been having thoughts of killing himself by slitting his wrists and having thoughts of killing Kiel Spence for sleeping with his girlfriend. He was section 12 by [facility]. Presented with delusional paranoid, believes people were following him. Deny any plans or intention to do harm to himself or anyone reports relapsed after 85 day sober and drank only 4 beers x1. Also reports stopped taking his medications for about a week he is able to mentioned some of the medications name but majority he can not recall. He is not a reliable historian. Poor insight of the illnesses in substance use. Poor insight of the history of suicide attempts as other places mentioned that he having numerous attempts in the past. Increased paranoid thoughts, but deny suicidal thoughts homicidal thoughts and self-harm thoughts as well as voices at this current time. He agrees with plan of medications to restart. He has outpatient psychiatrist and therapist through [facility] in [place] Formulation/clinical reasoning: Increased paranoid. Increased anxiety and depression, relapsed on alcohol for 1 day after sober for 85 days, being homeless at this current time. SI/SIB, and paranoid on admission. However he denies suicidal thought and homicidal thoughts during the assessment with this provider. Non medication compliant was unsure is couple of days or a week or 2. He agreed to restart all home medications. He do not want the have treatment program. He wants to go back to the intermediate but at this point not sure where intermediate he was staying before or if he actually having a intermediate services before. Do not have consent to talk to outpatient providers or intact anyone in the intermediate at this time Hospital course: 03/10/25: Admitted to , signed a CV, restart on home medications: Include Wellbutrin 300 mg and Thorazine 100 3 times a day. We will check some lab work for tomorrow. He does not need to be on CIWA protocol at this current time as only relapsed for 1 day. However we will have the nurse to monitor for vital signs for any symptoms of withdrawal. 03/11/25: He depressed, anxious, with irritable mood. Mostly isolative in to self in room. Out for meals and visit. Guarded upon approach today, but denies safety concerns. No paranoia or delusions general statement makes. But he could be also paranoid. Continue not to have a consent to talk to outpatient providers. No side effects from medications. Restart medications from home. 03/12/25: Less guarded, less irritable, more cooperative, gave verbal consent to talk to outpatient from [facility] an bilingual social worker Lorenza. He is more for future focus. Good like to go to respite and then go to intermediate. He is compliant with medication. However has been refused this morning scheduled meds, took them as encourage with the exception that Thorazine will be lowered down in the morning. Start tonight he will take Thorazine 250 mg at bedtime for psychosis Thorazine 50 mg in the morning to prevent sedation during daytime. Signed a 3 day notice 03/13/25: Continue to improve in anxiety and depression, improve in paranoid thoughts with compliant of medications. Denies side effects from medication. Isolated himself but more pleasant and more approachable. Started on naltrexone for alcohol craving with plan to get Vivitrol inj from the clinic tolerate to the p.o. well. So started naltrexone 50 mg daily 1st dose today. Monitor for side effects. We will refer the patient to the clinic for the Vivitrol IM 03/15: Continue regime 03/16: Patient reports feeling okay today; pt stated, I'm waiting to hear back from respite . Pt reports he feels his medications are helping with his mood. denies SI/HI/VH/AH. He rpeorts sleeping well. Continue current tx plan. 03/17/25: Deny any safety concerns. Was not sure if he wanted to stay at the beginning of the day but wants found out that his outpatient [facility] team able to get him a intermediate bed by Sunday. He was settle down and retracted 3 day. Mostly in his room isolative, somewhat irritable, but more pleasant at the end of the conversation. Listen to music as a coping skills using he has some. Compliant with medications. Denies side effects. 03/18/25: Sleep well no appetite issues. Denies side effects from medication except for feeling tired during the day with Thorazine 100 schedule in the morning. Dad for I changes in to 50 twice a day and higher dose at bedtime to prevent tiredness and sleepiness during the daytime. Continue to encourage group as he does not attend groups. Isolated himself no behavior issues however using her phone for music for relaxation as coping skills. He is looking forward to the intermediate. Goal-directed. alf wants medication to be sent to [place] [facility]. Change Ativan q.6 hours p.r.n. to wants daily PRN only. We will not discharge him with Ativan. We will discontinue Ativan by tomorrow. 03/19/25: Sleep well, good appetite. Compliant with medications. Continued to improve in mood for depression and anxiety and psychosis. Do not appear to be psychotic or paranoid. Happy looking forward to be discharged to intermediate tomorrow at 10. Denies side effects from medications. Some red skin appeared to be like rash on face but he does declined hydrocortisone when offer. He thinks he is allergic to the pillows material time when he comes here or admitted to [facility]. I discontinued the Ativan as plan. He does well with Thorazine lower dose in the morning and the rest of heavy/higher dose scheduled at bedtime. Continue taking naltrexone until getting appointment for Radha LIN with [facility]. Time spent discussing smoking cessation with patient: 3 to 10 minutes Status at Discharge Cognitive/behavioral status at discharge: CONDITION ON DISCHARGE: CURRENT STATUS IT RELATES TO ADMISSION CRITERIA: Stable, improved. Improvements in depression, anxiety, and suicidal ideation. Improvements in sleep, energy, and appetite. and no hallucination or paranoia/delusional thought. Functional status at discharge: independent ambulation Overall status at discharge: patient is back to baseline Time Spent with Patient Time attestation: Total time managing care of this patient today ____ minutes. Time spent: Greater than 30 minutes Discharge Plan Discharge Anticipated Discharge Date/Time: 03/20/25 11:00 Patient Disposition: Xfer Other Discharge Diagnosis: Alcohol use disorder. Schizoaffective, depressive type. Referrals: [facility]- MAT Intake [Other] - 03/25/25 1:00 pm Referral Note: Please arrive 15 minutes prior to your scheduled appointment time with your photo ID and insurance card. This is your intake appointment to transition from naltrexone to vivitrol injection Blane Reyez MD [Primary Care Provider, Internal Medicine] Discharge Medications: New trazodone 50 mg Tablet 50 mg PO BEDTIME PRN (Reason: Insomnia) Qty: 30 0RF chlorpromazine 100 mg Tablet 300 mg PO BEDTIME Qty: 90 0RF naltrexone 50 mg Tablet 50 mg PO DAILY Qty: 14 0RF Rx Instructions: Continue to take until getting Vivitrol IM for MAT chlorpromazine 25 mg Tablet 50 mg PO BID@0800,1500 Qty: 60 0RF bupropion HCl 300 mg Tablet Extended Release 24 Hr 300 mg PO DAILY Qty: 30 0RF Continued multivitamin [Daily-Chaz] Tablet 1 tab PO DAILY Qty: 30 0RF clonidine HCl 0.1 mg tablet 0.1 mg PO BEDTIME Qty: 30 0RF hydroxyzine pamoate 50 mg capsule 50 mg PO Q6H PRN (Reason: mild anxiety) Qty: 30 0RF folic acid 1 mg tablet 1 mg PO DAILY Qty: 30 0RF thiamine mononitrate (vit B1) 100 mg Tablet 100 mg PO DAILY Qty: 30 0RF Discontinued trazodone 50 mg Tablet 50 mg PO BEDTIME MRX1 PRN (Reason: Insomnia) Qty: 30 0RF bupropion HCl 150 mg tablet extended release 24 hr 150 mg PO DAILY chlorpromazine 100 mg tablet 100 mg PO BID Discharge Orders: Discharge Order (Routine); Ordered 03/20/25 Ordered By: Edie Oreilly Diet: Regular diet Activity on Discharge: As tolerated Stand Alone Forms: Patient Portal Discharge page, Community Support Print Language: Unable To Collect Care Plan Goals: Maintain mood and safe behaviors Take medications as prescribed Continue to pursue sobriety Practice coping skills Continue with outpatient providers and reach out to them as needed Health Concerns: Mood stability and behaviors Sobriety Plan of Treatment: Follow up with your PCP, psychiatric provider and other outpatient providers regarding above concerns Take medications as prescribed Assessment: Assessment: Risk assessment at time of discharge: Patient was interviewed prior to discharge and found to be fully oriented and without any SI or HI. Patient has improved insight and judgment and wants to continue treatment. Patient is not in imminent risk of harm to self or others and has a safety plan that includes presenting to the closest ER or calling 911 if feeling unsafe. Patient has been observed dwight sely by nursing and unit staff throughout admission; patient has not engaged in any behaviors that suggest dangerousness to self or others and has demonstrated appropriate behaviors and impulse control Discharge Date/Time: 03/20/25 11:15
[2025-03-20] MEDS: chlorproMAZINE HCl 25 MG TABLET 50 MG PO (09:18)
[2025-03-20] MEDS: buPROPion HCl XL 300 MG TAB.ER.24H PO (09:19)
[2025-03-20] MEDS: Folic Acid 1 MG TABLET PO (09:19)
[2025-03-20] MEDS: Multivitamin TABLET 1 TAB PO (09:19)
[2025-03-20] MEDS: Naltrexone HCl 50 MG TABLET PO (09:19)
[2025-03-20] MEDS: Thiamine HCL 100 MG TABLET PO (09:19)
== END 2025-03-20 11:15 | disposition other institution (70) | DRG 885 ==
LOC: HO.ED 03-10 09:12 → HO.PM5 03-10 10:59
PROVIDERS: Admitting Provider Clinical Nurse Specialist Psychiatric/Mental Health, Adult; Emergency Provider Emergency Medicine Emergency Medical Services; PCP Internal Medicine; Visit Provider Clinical Nurse Specialist Psychiatric/Mental Health, Adult
DX: F25.1 Schizoaffective disorder, depressive type (principal); Z59.02 Unsheltered homelessness; R45.851 Suicidal ideations; F10.90 Alcohol use, unspecified, uncomplicated; F43.10 Post-traumatic stress disorder, unspecified; Y90.8 Blood alcohol level of 240 mg/100 ml or more; R45.850 Homicidal ideations; Z20.822 Contact with and (suspected) exposure to COVID-19; Z79.899 Other long term (current) drug therapy
CPT/HCPCS: 0241U; 36415; 80053; 80061; 80143; 80179; 80307; 81003; 82607; 82746; 83036; 83735; 84439; 84443; 85025; 93005; 99285; S9485

== ENCOUNTER → 2025-03-09 11:38 | Outpatient (BNV) | payer OTHER, SELFPAY | PROVIDERS: Emergency Provider Emergency Medicine Emergency Medical Services; Visit Provider Internal Medicine Cardiovascular Disease | DX: I49.1 Atrial premature depolarization (principal); I45.9 Conduction disorder, unspecified; R00.0 Tachycardia, unspecified | CPT/HCPCS: 93010 ==

== ENCOUNTER → 2025-03-10 10:50 | Outpatient (BNV) | payer OTHER, SELFPAY | PROVIDERS: Admitting Provider Clinical Nurse Specialist Psychiatric/Mental Health, Adult; Emergency Provider Emergency Medicine Emergency Medical Services; PCP Internal Medicine; Visit Provider Nurse Practitioner Psychiatric/Mental Health | DX: F25.1 Schizoaffective disorder, depressive type (principal); F10.90 Alcohol use, unspecified, uncomplicated; F43.11 Post-traumatic stress disorder, acute; Z59.00 Homelessness unspecified; F22 Delusional disorders | CPT/HCPCS: 90792; 99231; 99232 ==

== ENCOUNTER 2025-03-25 12:56 | Outpatient (AMB) | payer OTHER, SELFPAY ==
[2025-03-25 13:15] VITALS: BP 102/78; PULSE 80; O2SAT 99
--- OUTSIDE RECORDS SUMMARY | 2025-03-25 13:24 | XMS_ITS | Encounter Summary ---
Author Organization [employer] Address [address] [place] [address] Care Team Providers Care Multi Craft Maintenance Technician Name Role Phone Taran Lira MD Primary Care Provider [phone] Encounter Details Date Type Department Care Team (Late st Contact Info) Description 12/03/2024 Lab Requisition [facility] - Main Lab [address] [place] [address] Bhav[facility]-[address] [phone] Social History Tobacco Use Types Packs/Day Years [...] on filedocumented in this encounter Care Teams Multi Craft Maintenance Technician Relationship Specialty Start Date End Date Taran Lira MD [address] [place] [address] PCP - General Internal Medicine 12/08/24 documented as of this encounter
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
== END 2025-03-25 13:53 | disposition home or self-care (01) ==
LOC: HO.HCC 12:56
PROVIDERS: PCP Internal Medicine; Visit Provider Clinical Nurse Specialist Psychiatric/Mental Health
DX: F10.90 Alcohol use, unspecified, uncomplicated (principal)
CPT/HCPCS: 99203

== ENCOUNTER → 2025-03-25 12:56 | Outpatient (BNVA) | payer OTHER, SELFPAY | PROVIDERS: PCP Internal Medicine; Visit Provider Clinical Nurse Specialist Psychiatric/Mental Health | DX: F10.20 Alcohol dependence, uncomplicated (principal) | CPT/HCPCS: 99202 ==

== ENCOUNTER 2025-04-08 13:12 | Outpatient (REF) | payer OTHER, SELFPAY | END 2025-04-08 13:13 | disposition home or self-care (01) | LOC: HO.LNP 13:12 | PROVIDERS: PCP Internal Medicine | DX: Z13.89 Encounter for screening for other disorder (principal) ==

== ENCOUNTER 2025-04-08 15:21 | Outpatient (REF) | payer OTHER, SELFPAY ==
[2025-04-13 09:15] LABS: Codeine, Ur NEGATIVE; Hydrocodone, Ur NEGATIVE; Morphine, Ur NEGATIVE; Oxycodone, Ur NEGATIVE
[2025-04-13 09:16] LABS: Hydromorphone, Ur NEGATIVE; Norhydrocodone, Ur NEGATIVE; Noroxycodone, Ur NEGATIVE; Oxymorphone, Ur NEGATIVE
== END 2025-04-08 15:22 | disposition home or self-care (01) ==
LOC: HO.LAB 15:21
PROVIDERS: Visit Provider Clinical Nurse Specialist Psychiatric/Mental Health
DX: F10.90 Alcohol use, unspecified, uncomplicated (principal)
CPT/HCPCS: 80365; G0480

== ENCOUNTER 2025-04-13 16:11 | Outpatient (AMB) | payer OTHER, SELFPAY ==
--- OUTSIDE RECORDS SUMMARY | 2025-04-13 16:23 | XMS_ITS | Encounter Summary ---
Author Organization [employer] Address [address] [place] [address] Care Team Providers Care Skin Therapist Name Role Phone Taran Lira MD Primary Care Provider Encounter Details Date Type Department Care Team (Late st Contact Info) Description 12/03/2024 Lab Requisition [facility] - Main Lab [address] [place] [address] Bhavani [facility]af[facility]-[address] [phone] Social History Tobacco Use Types Packs/Day Years [...] on filedocumented in this encounter Care Teams Skin Therapist Relationship Specialty Start Date End Date Taran Lira MD [address] [place] [address] PCP - General Internal Medicine 12/08/24 documented as of this encounter
--- NOTE | 2025-04-13 16:58 | MHC.OFFVIS ---
Vital Signs 04/13/25 16:59 Height 5 ft 7 in Weight 78.925 kg BMI 27.2 Pulse 80 Pulse Source Pulse Oximeter Pulse Oximetry (%) 97 Oxygen Delivery Method Room Air Intake Visit Reasons: MAT Allergies penicillin G (PENICILLIN G) Allergy (Intermediate, Verified 04/13/25 16:59) SWELLING [place] And Derivatives (CITRUS AND DERIVATIVES) Allergy (Unknown, Verified 04/13/25 16:59) unk cranberry (CRANBERRY) Allergy (Unknown, Verified 04/13/25 16:59) HIVES gabapentin (GABAPENTIN) Allergy (Unknown, Verified 04/13/25 16:59) HIVES, swelling raspberry (RASPBERRY) Allergy (Unknown, Verified 04/13/25 16:59) unk [facility] Medical History Homeless Alcohol use disorder PTSD (post-traumatic stress disorder) Schizoaffective disorder, depressive type Alcohol abuse Bipolar disorder Social History (Updated 03/25/25 @ 13:52 by HAYDEN Berg) Household Members: None Housing: Homeless Housing Other:: hotel Do you presently have visiting nurse or other home services: No Alcohol intake: current Alcohol intake frequency: 3 or more drinks per day Alcohol type: beer and hard liquor Comment: On 03/25/25 reports no alcohol use Patient Tobacco Use Status: Former Tobacco user e-Cigarette/Vaping Use: Never Used Second Hand Smoke Exposure: No service: No Sexual orientation: Straight/Heterosexual Physical Exam Vital Signs: Last Vital Signs Pulse 80 04/13/25 16:59 Pulse Ox 97 04/13/25 16:59 Oxygen Delivery Method Room Air 04/13/25 16:59 BMI result Body Mass Index 27.2 Office Meds Vivitrol 380 mg intramuscular suspension,extended release Performing Provider: HAYDEN Berg Performing Location: [facility] Administered by: Jagruti Pena RN on 04/13/25 17:36 Dose Route Admin Location Dispensed Lot Number Expiration Date [facility] Timber Watchman 380 mg IM RG 380 mg 2025-1007T 09/23/27 32855-375-91 [employer] Total Dispensed Waste 380 mg 0 % Comments: Pt present for first in new series of Vivitrol injection. Reports no issues with injections in the past and tolerated injection well. Educated on signs and symptoms of infection and encouraged to call [facility] with any related questions or concerns, pt verbalized understanding. Follow-up scheduled in 4 weeks with nurse for next injection. Assessment & Plan Assessment & Plan (1) Alcohol use disorder: Code(s): F10.90 - Alcohol use, unspecified, uncomplicated Category: Medical Orders: Orders AMB Naltrexone Injection Patient Supplied (NC) Today F10.90 - Alcohol use, unspecified, uncomplicated Coding Diagnoses Alcohol use disorder F10.90
[2025-04-13 16:59] VITALS: PULSE 80; O2SAT 97; BMI 27.2
--- NOTE | 2025-04-13 17:47 | AM.OFFVISNUR ---
Vital Signs 04/13/25 16:59 Height 5 ft 7 in Weight 78.925 kg BMI 27.2 Pulse 80 Pulse Source Pulse Oximeter Pulse Oximetry (%) 97 Oxygen Delivery Method Room Air Intake Visit Reasons: MAT walk in Allergies penicillin G (PENICILLIN G) Allergy (Intermediate, Verified 04/13/25 16:59) SWELLING [place] And Derivatives (CITRUS AND DERIVATIVES) Allergy (Unknown, Verified 04/13/25 16:59) unk cranberry (CRANBERRY) Allergy (Unknown, Verified 04/13/25 16:59) HIVES gabapentin (GABAPENTIN) Allergy (Unknown, Verified 04/13/25 16:59) HIVES, swelling raspberry (RASPBERRY) Allergy (Unknown, Verified 04/13/25 16:59) unk Nursing Note Bandar presents for first in series of monthly Vivitrol injections. Bandar is alert and oriented and cooperative with care. Bandar reports doing well on the oral naltrexone and glad to get the injection. Education given and consent for treatment signed at last visit. Follow up in 4 weeks for next injection. Oral naltrexone to be discontinued at this time. If symptoms arrise before the next injection Bandar can call the office to consider oral naltrexone bridge until next injection. Office Meds Vivitrol 380 mg intramuscular suspension,extended release Performing Provider: HAYDEN Berg Performing Location: [facility] [place] Administered by: Jagruti Pena RN on 04/13/25 17:36 Dose Route Admin Location Dispensed Lot Number Expiration Date [facility] Rehab/Pre Vocational Counselor 380 mg IM RG 380 mg [id number] 09/23/27 62583-047-64 [employer] Total Dispensed Waste 380 mg 0 % Comments: Pt present for first in new series of Vivitrol injection. Reports no issues with injections in the past and tolerated injection well. Educated on signs and symptoms of infection and encouraged to call [facility] with any related questions or concerns, pt verbalized understanding. Follow-up scheduled in 4 weeks with nurse for next injection. Assessment & Plan Assessment & Plan (1) Alcohol use disorder: Code(s): F10.90 - Alcohol use, unspecified, uncomplicated Category: Medical Orders: Orders AMB Naltrexone Injection Patient Supplied (NC) Today F10.90 - Alcohol use, unspecified, uncomplicated Coding Diagnoses Alcohol use disorder F10.90
--- NOTE | 2025-04-13 17:58 | AM.OFFVISNUR ---
Vital Signs 04/13/25 16:59 Height 5 ft 7 in Weight 78.925 kg BMI 27.2 Pulse 80 Pulse Source Pulse Oximeter Pulse Oximetry (%) 97 Oxygen Delivery Method Room Air Intake Visit Reasons: MAT walk in Allergies penicillin G (PENICILLIN G) Allergy (Intermediate, Verified 04/13/25 16:59) SWELLING [place] And Derivatives (CITRUS AND DERIVATIVES) Allergy (Unknown, Verified 04/13/25 16:59) unk cranberry (CRANBERRY) Allergy (Unknown, Verified 04/13/25 16:59) HIVES gabapentin (GABAPENTIN) Allergy (Unknown, Verified 04/13/25 16:59) HIVES, swelling raspberry (RASPBERRY) Allergy (Unknown, Verified 04/13/25 16:59) unk Nursing Note Bandar presents for first in series of monthly Vivitrol injections. Bandar is alert and oriented and cooperative with care. Bandar reports doing well on the oral naltrexone and glad to get the injection. Education given and consent for treatment signed at last visit. Follow up in 4 weeks for next injection. Oral naltrexone to be discontinued at this time. If symptoms arrise before the next injection Bandar can call the office to consider oral naltrexone bridge until next injection. Office Meds Vivitrol 380 mg intramuscular suspension,extended release Performing Provider: HAYDEN Berg Performing Location: [facility] [place] Administered by: Jagruti Pena RN on 04/13/25 17:36 Dose Route Admin Location Dispensed Lot Number Expiration Date [facility]NOTE 3] [employer] Pocket Machine Operator 380 mg IM RG 380 mg [id number] 09/23/27 20519-366-01 [employer] Total Dispensed Waste 380 mg 0 % Comments: Pt present for first in new series of Vivitrol injection. Reports no issues with injections in the past and tolerated injection well. Educated on signs and symptoms of infection and encouraged to call [facility] with any related questions or concerns, pt verbalized understanding. Follow-up scheduled in 4 weeks with nurse for next injection. Assessment & Plan Assessment & Plan (1) Alcohol use disorder: Code(s): F10.90 - Alcohol use, unspecified, uncomplicated Category: Medical Orders: Orders AMB Naltrexone Injection Patient Supplied (NC) Today F10.90 - Alcohol use, unspecified, uncomplicated Coding Diagnoses Alcohol use disorder F10.90
== END 2025-04-14 08:28 | disposition home or self-care (01) ==
PROVIDERS: PCP Internal Medicine
DX: F10.90 Alcohol use, unspecified, uncomplicated (principal)

== ENCOUNTER → 2025-04-13 16:11 | Outpatient (BNVA) | payer OTHER, SELFPAY | PROVIDERS: PCP Internal Medicine | DX: F10.90 Alcohol use, unspecified, uncomplicated (principal) | CPT/HCPCS: 96372; J2315 ==

== ENCOUNTER 2025-05-14 15:06 | Outpatient (AMB) | payer OTHER, SELFPAY ==
--- OUTSIDE RECORDS SUMMARY | 2025-05-14 15:09 | XMS_ITS | Encounter Summary ---
Author Organization [facility] Address [address] [place] [address] Care Team Providers Care Wrist Liner Name Role Phone Taran Lira MD Primary Care Provider Encounter Details Date Type Department Care Team (Late st Contact Info) Description 12/03/2024 Lab Requisition [facility] - Main Lab [address] [place] [address] Bhavani [facility]-[address] [phone] Social History Tobacco Use Types Packs/Day Years [...] on filedocumented in this encounter Care Teams Wrist Liner Relationship Specialty Start Date End Date Taran Lira MD [address] [place] [address] PCP - General Internal Medicine 12/08/24 documented as of this encounter
[2025-05-14 15:12] VITALS: BP 126/70; PULSE 78; O2SAT 96; BMI 26.9
--- NOTE | 2025-05-14 15:12 | AM.OFFVISNUR ---
Vital Signs 05/14/25 15:12 Height 5 ft 7 in Weight 78.018 kg BMI 26.9 BP 126/70 Pulse 78 Pulse Oximetry (%) 96 Intake Visit Reasons: MAT injection Allergies penicillin G (PENICILLIN G) Allergy (Intermediate, Verified 05/14/25 15:14) SWELLING [place] And Derivatives (CITRUS AND DERIVATIVES) Allergy (Unknown, Verified 05/14/25 15:14) unk cranberry (CRANBERRY) Allergy (Unknown, Verified 05/14/25 15:14) HIVES gabapentin (GABAPENTIN) Allergy (Unknown, Verified 05/14/25 15:14) HIVES, swelling raspberry (RASPBERRY) Allergy (Unknown, Verified 05/14/25 15:14) unk Nursing Note Bandar is present today for his monthly Vivitrol injection. Bandar is alert and oriented and cooperative with care. Bandar reports doing well in recovery, one episode of heavy drinking noted a couple of weeks ago, other than that maybe a half a beer or one shot a couple of times a week. Outpatient supports discussed, rn recovery application will be submitted and AA meeting location book given. Follow up in 4 weeks for next injection. . Office Meds Vivitrol 380 mg intramuscular suspension,extended release Performing Provider: Sarah Wade MD Performing Location: [facility] Administered by: Jagruti Pena RN on 05/14/25 15:41 Dose Route Admin Location Dispensed Lot Number Expiration Date [facility] Gas Usage Meter Clerk 380 mg IM LG 380 mg [id number] 05/24/27 23471-999-59 [employer] Total Dispensed Waste 380 mg 0 % Comments: Pt is present for 4 week Vivitrol 380 mg injection. Pt denies any concern with previous injections and tolerated injection well. Educated on signs and symptoms of infection and encouraged to call [facility] with any related questions or concerns, pt verbalized understanding. Follow-up scheduled in 4 weeks for next injection. Assessment & Plan Assessment & Plan Orders: Orders AMB Naltrexone Injection Patient Supplied (NC) Today F10.90 - Alcohol use, unspecified, uncomplicated Coding
== END 2025-05-14 15:48 | disposition home or self-care (01) ==
LOC: HO.HCC 15:07
PROVIDERS: PCP Internal Medicine
DX: F10.90 Alcohol use, unspecified, uncomplicated (principal)

== ENCOUNTER → 2025-05-14 15:06 | Outpatient (BNVA) | payer OTHER, SELFPAY | PROVIDERS: PCP Internal Medicine | DX: F10.90 Alcohol use, unspecified, uncomplicated (principal) | CPT/HCPCS: 96372; J2315 ==

== ENCOUNTER 2025-06-08 21:36 | Emergency (ER) | payer OTHER, SELFPAY ==
--- NOTE | ~2025-06-08 | CT_ITS ---
CLINICAL HISTORY: EtOH head trauma CT head without contrast Comparison: CT/SR - CT HEAD/BRAIN WO IV CON - 09/25/24 03:39 EST Findings: No intra-axial mass, midline shift, hydrocephalus, or acute hemorrhage. No significant atrophy-like change or white matter disease. The visualized paranasal sinuses and mastoid air cells are normal. The orbits are unremarkable. No skull fracture. IMPRESSION: 1. No acute intracranial findings. This document has been electronically signed by: Efra Aguilar MD on 06/09/2025 02:55:25
--- NOTE | ~2025-06-08 | CT_ITS ---
CLINICAL HISTORY: EtOH head trauma CT cervical spine without contrast Comparison: CT/SR - CT CERVICAL SPINE WO IV CON - 09/25/24 03:39 EST Findings: Slight convex left curvature. Reversal of cervical lordosis. Mild disc disease C5-C7. No acute fractures or dislocations. Visualized intracranial contents are unremarkable. Soft tissues of the neck are normal. No consolidation or effusion at the lung apices. IMPRESSION: Degenerative spondylosis. No acute fracture. This document has been electronically signed by: Efra Aguilar MD on 06/09/2025 02:55:18
[2025-06-08 21:42] VITALS: BP 162/80; PULSE 114; O2SAT 97
[2025-06-08 21:57] VITALS: BP 106/78; PULSE 111; RESP 18; TEMP 36.3; O2SAT 96
--- NOTE | 2025-06-08 22:01 | MHC.EDTECH ---
belongings locked up in [facility] 3
[2025-06-08 22:03] VITALS: BP 106/78; PULSE 111; RESP 18; TEMP 36.3; O2SAT 96; BMI 25.1
--- NOTE | 2025-06-08 22:12 | ED_ITS ---
HPI - Alcohol General Chief Complaint: ETOH/Substance Use Stated Complaint: etoh, smoked crack earlier, SI Time Seen by Provider: 06/08/25 21:43 Source: patient, EMS and police Mode of arrival: EMS Limitations: altered mental status History of Present Illness ED Provider: Dr. Cathi Mohr HPI narrative: 39-year-old male with a history of alcohol use, crack cocaine use, schizoaffective disorder, PTSD presenting via EMS with police escort after the patient was found in the street intoxicated, lying on the sidewalk. Police report that when he was getting picked up, he began to hit his head on the pavement. He lives in a residential. Patient states that he has no thoughts of self-harm but does have thoughts of harming his daughter's boyfriend. States that he is mad that ?they are having sex at age 17?. His plan would be to ?order a hit?. He admits to using crack cocaine tonight. Drinks about a pt of vodka per day. Tonight was drinking whiskey though. Denies headache. Denies neck pain. No visual or auditory hallucinations. He does have a history of alcohol withdrawal and has had seizures in the past. Related Data Home Medications ?Medication ?Instructions ?Recorded ?Confirmed aripiprazole 30 mg tablet 30 mg PO DAILY 06/09/2505/25 bupropion HCl 150 mg 24 hr tablet, 150 mg PO DAILY 06/09/25 extended release clonidine HCl 0.1 mg tablet 0.1 mg PO TID 06/09/25 Previous Rx's ?Medication ?Instructions ?Recorded bupropion HCl 300 mg 24 hr tablet, 300 mg PO DAILY dep ression #30 03/19/25 extended release tabs chlorpromazine 100 mg tablet 300 mg (3 x 100 mg) PO BE DTIME 03/19/25 psychosis #90 tabs chlorpromazine 25 mg tablet 50 mg (2 x 25 mg) PO BID@0 800,1500 03/19/25 psyschosis #60 tabs clonidine HCl 0.1 mg tablet 0.1 mg PO BEDTIME anxiety #30 tabs 03/19/25 hydroxyzine pamoate 50 mg capsule 50 mg PO Q6H PRN mil d anxiety #30 03/19/25 caps multivitamin (Daily-Chaz tablet) 1 tab PO DAILY supple ment #30 tabs 03/19/25 thiamine mononitrate (vit B1) 100 100 mg PO DAILY supp lement #30 03/19/25 mg tablet tabs trazodone 50 mg tablet 50 mg PO BEDTIME PRN Insomni a #30 03/19/25 tabs naltrexone microspheres 380 mg 380 mg IM Q4W Alcohol U se Disorder 03/26/25 intramuscular suspension,extended #1 ea release (Vivitrol) naltrexone 50 mg tablet 50 mg PO DAILY #30 tabs 03/24 03/18 Allergies Allergy/AdvReac Type Severity Reaction Status Date / Time penicillin G (PENICILLIN G) Allergy Intermediate SWELLING Verified 06/08/25 22:03 [place] And Derivatives Allergy Unknown unk Verified 06/08/25 22:03 (CITRUS AND DERIVATIVES) cranberry (CRANBERRY) Allergy Unknown HIVES Verified 06/08/25 22:03 gabapentin (GABAPENTIN) Allergy Unknown HIVES, Verified 06/08/25 22:03 swelling raspberry (RASPBERRY) Allergy Unknown unk Verified 06/08/25 22:03 Review of Systems 2 Review of Systems: As per HPI, full review of systems performed and negative but for the above mentioned pertinent positives and negatives. [facility] Past Medical History Medical History Homeless Alcohol use disorder PTSD (post-traumatic stress disorder) Schizoaffective disorder, depressive type Alcohol abuse Bipolar disorder Social History Social History Household Members: None Housing: Homeless Housing Other:: hotel Do you presently have visiting nurse or other home services: No Unable to assess alcohol history related to: Unable to respond Alcohol intake: current Alcohol intake frequency: 3 or more drinks per day Alcohol type: beer and hard liquor Comment: On 03/25/25 reports no alcohol use Patient Tobacco Use Status: Former Tobacco user e-Cigarette/Vaping Use: Never Used Second Hand Smoke Exposure: No Use of substances other than those prescribed or required for medical reasons: Yes Advance Directives: No Advance Directives Information Provided: Yes Do you have a plan to hurt others: No Plan service: No Sexual orientation: Straight/Heterosexual Physical Exam ED Exam Exam: GENERAL: Appears intoxicated, GCS 13, eyes open to voice, slurred speech, no acute distress. SKIN: Normal skin color for ethnicity, warm, dry, no rashes noted. HEENT: Normocephalic, atraumatic, no stridor, posterior oropharynx nonerythematous, dentition intact, EOMI, pupils are pinpoint bilaterally, reactive to light. NECK: Soft, supple, no step-offs, no deformities, no lymphadenopathy. CHEST: Heart regular tachycardia, no murmurs, symmetric chest rise and fall. PULMONARY: Clear to auscultation bilaterally, diminished at the bases, no labored breathing, no wheezes/rhales/rhonchi. ABDOMINAL: Soft, nondistended, positive bowel sounds in all quadrants. : Deferred. MUSCULOSKELETAL: Normal tone, full range of motion, no deformities, no peripheral edema. NEURO: GCS 13, eyes open to voice, slightly slurred speech, CN II through XII intact, equal strength and sensation bilateral upper and lower extremities, no focal neurologic deficits. PSYCHIATRIC: Flat affect, poor eye contact. Vital Signs: Vital Signs - 24 hr 06/08/25 21:57 06/08/25 22:03 06/08/25 23:45 Temperature 97.3 F 97.3 F Pulse Rate 111 H 111 H 93 Respiratory Rate 18 18 16 Blood Pressure 106/78 106/78 90/50 L Pulse Oximetry 96 96 94 Oxygen Delivery Method Room Air Room Air Room Air 06/09/25 00:00 06/09/25 00:15 06/09/25 00:30 Temperature Pulse Rate 94 90 88 Respiratory Rate 16 14 14 Blood Pressure 99/57 L 98/58 L 95/57 L Pulse Oximetry 93 94 93 Oxygen Delivery Method Room Air Room Air Room Air 06/09/25 06:34 Temperature 97.9 F Pulse Rate 96 Respiratory Rate 16 Blood Pressure 121/65 Pulse Oximetry 95 Oxygen Delivery Method Room Air BMI result Body Mass Index 25.1 Course Course Course Narrative: Time: 09:07 Date: 06/09/25 Provider: Sushma Briggs DO Physician observation ended at 907am Patient has been cleared for discharge by the CARE team. Will follow up as an outpatient. clinically sober alert and oriented Medical Decision Making Medical Decision Making MDM Narrative: Patient presents with psychologic complaints. Differential diagnosis includes intoxication of drugs or alcohol, homicidal ideations, depression, anxiety, mood disorder, decompensated mental illnesses such as schizophrenia or bipolar disorder, medication noncompliance, among many others. Medical clearance protocol was initiated. 8:03 AM 06/09/2025 (Henok Nicole.Ahmet) signing out to oncoming provider pending crisis evaluation and final disposition. Differential Diagnosis Differential Diagnoses: The differential diagnosis associated with the presentation includes (as above) Admission/Observation Consideration of admission/observation: Escalation of care including admission/observation considered Consult Healthcare Provider Management of the patient was discussed with: Behavioral Health Provider Lab Data MDM Lab Attestation statement: I reviewed the patient's lab results. 06/09/25 00:13 06/09/25 00:13 Labs: Lab Results 06/09/25 06/09/25 Range/Units 00:13 01:59 WBC 8.5 (4.8-10.8) X10*3/uL RBC 4.83 (4.60-5.80) X10*6/uL Hgb 14.2 (14.0-18.0) g/dl Hct 39.6 L (42.0-52.0) % MCV 82.0 (80.0-98.0) fL MCH 29.4 (27.0-33.0) pg MCHC 35.9 (31.0-36.0) g/dl RDW 14.1 (11.0-16.0) % Plt Count 226 (160-400) X10*3/uL MPV 11.2 (9.4-12.4) fL Immature Gran % (Auto) 0.2 (0.0-0.4) % Neut % (Auto) 61.1 (45-73) % Lymph % (Auto) 32.3 (20-40) % [place] % (Auto) 5.3 (2-11) % Eos % (Auto) 0.7 (0-4) % Baso % (Auto) 0.4 (0-2) % Lymph # (Auto) 2.7 (1.2-4.9) X10*3/uL [place] # (Auto) 0.5 (0.1-1.2) X10*3/uL Eos # (Auto) 0.1 (0.0-0.4) X10*3/uL Baso # (Auto) 0.0 (0.0-0.2) X10*3/uL Abs Immat Gran (auto) 0.02 (0.00-0.03) X10*3/uL Absolute Neuts (auto) 5.2 (2.0-8.3) x10*3/uL Absolute Nucleated RBC 0.000 (0.0-0.012) X10*3/uL Nucleated RBC % (auto) 0.0 (0.0-0.2) /100WBC Sodium 146 H (135-145) mmol/L Potassium 3.4 (3.3-5.1) mmol/L Chloride 109 H (96-108) mmol/L Carbon Dioxide 23 (22-29) mmol/L Anion Gap 17 (12-20) BUN 11 (9-16) mg/dL Creatinine 1.21 (0.5-1.4) mg/dL Estim Creat Clear Calc 77.3 Estimated GFR > 60 Random Glucose 136 H (60-115) mg/dL Calcium 9.4 D (8.4-10.2) mg/dL Magnesium 2.0 (1.6-2.6) mg/dL Total Bilirubin 0.2 (0.0-1.0) mg/dL AST 25 (5-37) U/L ALT 17 (0-40) U/L Alkaline Phosphatase 62 (39-117) U/L Total Protein 7.1 (6.5-8.0) g/dL Albumin 4.5 (3.5-5.0) g/dL Urine Opiates Screen Not Detected (Not Detect) Ur Buprenorphine Scrn Not Detected (Not Detect) ng/mL Ur Oxycodone Screen Not Detected (Not Detect) ng/mL Urine Methadone Screen Not Detected (Not Detect) ng/mL Urine Fentanyl Screen Not Detected (Not Detect) Ur Barbiturates Screen Not Detected (Not Detect) Ur Phencyclidine Scrn Not Detected (Not Detect) Ur Amphetamines Screen Not Detected (Not Detect) U Benzodiazepines Scrn POSITIVE H (Not Detect) Urine Cocaine Screen POSITIVE H (Not Detect) U Marijuana (THC) Screen Not Detected (Not Detect) Ethyl Alcohol 337 H* mg/dL Independent Interpretation I performed an independent interpretation of an: EKG Interpretation: My independent interpretation of the ECG reveals normal sinus rhythm with rate of 95, normal axis, normal intervals, no ST elevations or depressions to suggest ischemic changes, relatively unchanged from previous on 03/09/2025. Independent Historian Clinical information obtained from an independent historian. History obtained from or confirmed by: EMS Chronic Conditions Patient?s care impacted by: Other (PTSD, polysubstance use disorder, alcoholism) Social Determinants Patient?s care significantly limited by Social Determinants of Health including: Problems related to primary support group, Unemployment and Other Social Determinant of Health Medications Administered Discontinued Medications Generic Name Dose Route Start Last Admin Trade Name Freq PRN Reason Stop Dose Admin Haloperidol Lactate 5 mg 06/08/25 23:14 06/08/25 23:25 Haloperidol Lactate 5 Mg/Ml Vial IM 06/08/25 23:15 5 mg ONCE ONE Administration Midazolam HCl 5 mg 06/08/25 23:14 06/08/25 23:25 Midazolam Hcl 5 Mg/Ml Vial IM 06/08/25 23:15 5 mg ONCE ONE Administration Discharge Plan Discharge Clinical Impression: Crack cocaine use, Homicidal ideation Alcoholic intoxication Qualifiers: Complication of substance-induced condition: with unspecified complication Q ualified Code(s): F10.929 - Alcohol use, unspecified with intoxication, unspecified Patient Disposition: Home, Self-Care Instructions: Alcohol Intoxication (ED), Cocaine Use Disorder (ED) Additional Instructions: Alcohol use disorder You were seen in the Emergency Department today for treatment of alcohol use disorder.? You may have been given medications to help with your withdrawal symptoms.? Please do not drink alcohol with them. This is very dangerous and can cause respiratory depression or other adverse reactions depending on the medication. If you would like to cut down or stop your alcohol use please consider calling our outpatient Addiction Treatment office:? [facility] (M-F 9a-5p) [address] [place] [address] You have also been given a list of treatment providers in the area that can assist as well.? If you experience seizures, vomiting blood, black stools, falls, severe headache, chest pain, fevers, trouble breathing, hallucinations or any other concerns you need to call 911 or seek immediate care. Please stay hydrated. Prescriptions: No Action trazodone 50 mg Tablet 50 mg PO BEDTIME PRN (Reason: Insomnia) Qty: 30 0RF chlorpromazine 100 mg Tablet 300 mg PO BEDTIME Qty: 90 0RF chlorpromazine 25 mg Tablet 50 mg PO BID@0800,1500 Qty: 60 0RF bupropion HCl 300 mg Tablet Extended Release 24 Hr 300 mg PO DAILY Qty: 30 0RF multivitamin [Daily-Chaz] Tablet 1 tab PO DAILY Qty: 30 0RF clonidine HCl 0.1 mg tablet 0.1 mg PO BEDTIME Qty: 30 0RF hydroxyzine pamoate 50 mg capsule 50 mg PO Q6H PRN (Reason: mild anxiety) Qty: 30 0RF thiamine mononitrate (vit B1) 100 mg Tablet 100 mg PO DAILY Qty: 30 0RF clonidine HCl 0.1 mg tablet 0.1 mg PO TID aripiprazole 30 mg tablet 30 mg PO DAILY bupropion HCl 150 mg tablet extended release 24 hr 150 mg PO DAILY Vivitrol 380 mg suspension,extended rel recon 380 mg IM Q4W Qty: 1 3RF Rx Instructions: Administer 380 mg-IM Q4W naltrexone 50 mg tablet 50 mg PO DAILY Qty: 30 0RF Rx Instructions: Take one tablet by mouth daily. Print Language: Greek
--- NOTE | 2025-06-08 23:11 | ECG_ITS ---
Test Reason : UNKNOWN SUBSTANCES Blood Pressure : */* mmHG Vent. Rate : 95 BPM Atrial Rate : 95 BPM P-R Int : 128 ms QRS Dur : 90 ms QT Int : 368 ms P-R-T Axes : 38 54 7 degrees QTcB Int : 462 ms Normal sinus rhythm Normal ECG When compared with ECG of 09-Mar-2025 12:55, No significant changes seen Referred By: Cathi Mohr Electronically Signed By: SHAYY SHAH
[2025-06-08 23:45] VITALS: BP 90/50; PULSE 93; RESP 16; O2SAT 94
[2025-06-09] VITALS: BP 99/57; PULSE 94; RESP 16; O2SAT 93
[2025-06-09 00:15] VITALS: BP 98/58; PULSE 90; RESP 14; O2SAT 94
[2025-06-09 00:18] LABS: MANUAL DIFF FLAG NO
[2025-06-09 00:19] LABS: Hematocrit 39.6 % (42.0-52.0); Hemoglobin 14.2 g/dl (14.0-18.0); Imm Gran Abs Auto 0.02 X10*3/uL (0.00-0.03); Imm Gran Pct Auto 0.2 % (0.0-0.4); Lymphocytes Absolute Auto 2.7 X10*3/uL (1.2-4.9); Mean Corpuscular HGB Conc 35.9 g/dl (31.0-36.0); Mean Corpuscular Hemoglobin 29.4 pg (27.0-33.0); Mean Corpuscular Volume 82.0 fL (80.0-98.0); NRBC Abs Auto 0.000 X10*3/uL (0.0-0.012); NRBC Pct Auto 0.0 /100WBC (0.0-0.2); Platelet Count 226 X10*3/uL (160-400); Red Blood Count 4.83 X10*6/uL (4.60-5.80); White Blood Count 8.5 X10*3/uL (4.8-10.8)
[2025-06-09 00:30] VITALS: BP 95/57; PULSE 88; RESP 14; O2SAT 93
[2025-06-09 00:34] LABS: Alanine Aminotransferase 17 U/L (0-40); Albumin Level 4.5 g/dL (3.5-5.0); Alkaline Phosphatase 62 U/L (39-117); Anion Gap 17 (12-20); Aspartate Amino Transferase 25 U/L (5-37); Blood Urea Nitrogen 11 mg/dL (9-16); Calcium 9.4 mg/dL (8.4-10.2); Carbon Dioxide 23 mmol/L (22-29); Chloride 109 mmol/L (96-108); Creatinine Clr Calc Pharmacy 77.3; Estimated Glomerular Filt Rate > 60; Magnesium 2.0 mg/dL (1.6-2.6); Potassium 3.4 mmol/L (3.3-5.1); Sodium 146 mmol/L (135-145); Total Protein 7.1 g/dL (6.5-8.0)
[2025-06-09 02:17] LABS: Cannabinoid Screen Urine Not Detected (Not Detect)
[2025-06-09 06:34] VITALS: BP 121/65; PULSE 96; RESP 16; TEMP 36.6; O2SAT 95
--- NOTE | 2025-06-09 07:06 | PC.NURSE ---
Assumed care, report received. PT is currently sleeping, safety maintained.
[2025-06-09 09:11] VITALS: BP 121/65; PULSE 96; RESP 16; TEMP 36.6; O2SAT 95
--- NOTE | 2025-06-09 09:13 | MHC.CARE ---
Pt does not meet the criteria for a higher level of care and is safe to return to his [facility]. 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
== END 2025-06-09 09:14 | disposition home or self-care (01) ==
PROVIDERS: Emergency Provider Emergency Medicine; PCP Internal Medicine
DX: F10.929 Alcohol use, unspecified with intoxication, unspecified (principal); R45.850 Homicidal ideations; F14.90 Cocaine use, unspecified, uncomplicated; F25.9 Schizoaffective disorder, unspecified; Z79.899 Other long term (current) drug therapy
CPT/HCPCS: 36415; 70450; 72125; 80053; 80307; 83735; 85025; 93005; 96372; 99285; J1630; J2250; S9485

== ENCOUNTER → 2025-06-08 23:11 | Outpatient (BNV) | payer OTHER, SELFPAY | PROVIDERS: Emergency Provider Emergency Medicine; PCP Internal Medicine; Visit Provider Internal Medicine | DX: F10.929 Alcohol use, unspecified with intoxication, unspecified (principal) | CPT/HCPCS: 93010 ==

== ENCOUNTER → 2025-06-09 00:28 | Outpatient (BNV) | payer OTHER, SELFPAY | PROVIDERS: Emergency Provider Emergency Medicine; PCP Internal Medicine; Visit Provider Radiology Diagnostic Radiology | DX: M50.323 Other cervical disc degeneration at C6-C7 level (principal); S09.90XA Unspecified injury of head, initial encounter | CPT/HCPCS: 70450; 72125 ==

== ENCOUNTER 2025-07-31 20:36 | Emergency (ER) | payer OTHER, SELFPAY ==
[2025-07-31 20:54] VITALS: BP 152/90; PULSE 111; O2SAT 99
[2025-07-31 20:57] VITALS: BP 153/103; PULSE 118; RESP 16; TEMP 36.6; O2SAT 96; BMI 26.6
--- NOTE | 2025-07-31 21:07 | ED_ITS ---
HPI - Psych General Chief Complaint: Psychiatric Symptoms Stated Complaint: Altered, smoked weed, sect. 12 abnormal statements Time Seen by Provider: 07/31/25 21:06 Source: patient, EMS, RN notes reviewed and old records reviewed Mode of arrival: EMS History of Present Illness ED Provider: Nola Stevens PA-C HPI Narrative: 39-year-old male with a past medical history of ETOH use, crack cocaine use, schizoaffective disorder, PTSD, presenting to the ED via EMS complaining that people are after him and want to kill him in a gruesome way. Admits to smoking a ton of weed and drinking 1 beer. States he has homicidal ideations. Denies SI. Denies auditory or visual hallucinations at present. Denies CP/SOB, abdominal pain, nausea/vomiting. Related Data Home Medications ?Medication ?Instructions ?Recorded ?Confirmed aripiprazole 30 mg tablet 30 mg PO DAILY 06/09/2504/17 bupropion HCl 150 mg 24 hr tablet, 150 mg PO DAILY 06/09/25 extended release clonidine HCl 0.1 mg tablet 0.1 mg PO TID 06/09/2504/17 Previous Rx's ?Medication ?Instructions ?Recorded bupropion HCl 300 mg 24 hr tablet, 300 mg PO DAILY dep ression #30 03/19/25 extended release tabs chlorpromazine 100 mg tablet 300 mg (3 x 100 mg) PO BE DTIME 03/19/25 psychosis #90 tabs chlorpromazine 25 mg tablet 50 mg (2 x 25 mg) PO BID@0 800,1500 03/19/25 psyschosis #60 tabs clonidine HCl 0.1 mg tablet 0.1 mg PO BEDTIME anxiety #30 tabs 03/19/25 hydroxyzine pamoate 50 mg capsule 50 mg PO Q6H PRN mil d anxiety #30 03/19/25 caps multivitamin (Daily-Chaz tablet) 1 tab PO DAILY supple ment #30 tabs 03/19/25 thiamine mononitrate (vit B1) 100 100 mg PO DAILY supp lement #30 03/19/25 mg tablet tabs trazodone 50 mg tablet 50 mg PO BEDTIME PRN Insomni a #30 03/19/25 tabs naltrexone microspheres 380 mg 380 mg IM Q4W Alcohol U se Disorder 03/26/25 intramuscular suspension,extended #1 ea release (Vivitrol) naltrexone 50 mg tablet 50 mg PO DAILY #30 tabs 03/24 03/18 Allergies Allergy/AdvReac Type Severity Reaction Status Date / Time penicillin G (PENICILLIN G) Allergy Intermediate SWELLING Verified 07/31/25 21:06 [place] And Derivatives Allergy Unknown unk Verified 07/31/25 21:06 (CITRUS AND DERIVATIVES) cranberry (CRANBERRY) Allergy Unknown HIVES Verified 07/31/25 21:06 gabapentin (GABAPENTIN) Allergy Unknown HIVES, Verified 07/31/25 21:06 swelling raspberry (RASPBERRY) Allergy Unknown unk Verified 07/31/25 21:06 Review of Systems 2 Review of Systems: Yes all other systems are reviewed and are negative Constitutional: Constitutional: Reports as per [facility] Past Medical History Attestation statement: The following information was validated with the patient. Source: old records reviewed Medical History Homeless Alcohol use disorder PTSD (post-traumatic stress disorder) Schizoaffective disorder, depressive type Alcohol abuse Bipolar disorder Social History Social History Household Members: None Housing: Homeless Housing Other:: hotel Do you presently have visiting nurse or other home services: No Alcohol intake: current Alcohol intake frequency: 3 or more drinks per day Alcohol type: beer and hard liquor Comment: On 03/25/25 reports no alcohol use Patient Tobacco Use Status: Former Tobacco user Smoked in Last 30 Days: Yes e-Cigarette/Vaping Use: Never Used Second Hand Smoke Exposure: No Use of substances other than those prescribed or required for medical reasons: Yes Substance Use Type: Marijuana Substance Use Frequency: Weekly Last Used Substance: Hours (ago) Advance Directives: No Advance Directives Information Provided: Yes Do you have a plan to hurt others: No Plan service: No Sexual orientation: Straight/Heterosexual Physical Exam 2 Vital Signs: Vital Signs: Last Vital Signs Temp 98.1 F 08/01/25 00:34 Pulse 82 08/01/25 00:34 Resp 17 08/01/25 00:34 BP 105/66 08/01/25 00:34 Pulse Ox 96 08/01/25 00:34 O2 Del Method Room Air 08/01/25 00:34 BMI result Body Mass Index 26.6 Const: Other: Appears under the influence General: cooperative and no acute distress Orientation/consciousness: p atient oriented x3 HEENT: Head: Yes normal to inspection and Yes atraumatic Ears: hearing grossly normal bilaterally General nose exam: Normal external nose present Face and sinus: Yes normal facial exam Eyes: General: appearance normal, both eyes and all related structures P upils: Equal, round and reactive pupils present and Dilated pupils bilaterally EOM: EOMs intact bilaterally Neck: Neck: Yes normal visual inspection and Yes no meningeal signs Resp: Effort & Inspection: normal respiratory effort and no respiratory distress Auscultation: clear to auscultation bilaterally Cardio: Rate: regular rate Heart sounds: S1 normal heart sound present and S2 normal heart sound present GI: Inspection: Yes normal to inspection Palpation (GI): Soft to palpation, nontender, no guarding and not rigid Skin: Rashes: no rashes Wounds: no wounds Neuro: General: patient oriented x3, tone normal, moves all extremities, no meningeal signs and CN's II-XI intact bilaterally Cranial nerves: Yes CN's II-XII intact bilaterally and Yes Equal, round and reactive pupils present G ait exam (Neuro): Normal gait present Extrem: General: Yes normal to inspection Psych: Thought content: suicidality and Homicidality present Course Course Course Narrative: -patient refusing labs at this time -labs reassuring. Tox screen positive for THC & Ethanol 15. Physician observation initiated at 00:28 -0115-- ED care transferred to JANE Araiza pending CARE eval. Reevaluation(s) Reevaluation #1: Time: 05:27 Date: 08/01/25 Provider: Max Gerard MD Patient in physician observation for psychiatric evaluation.? No acute events reported overnight. No current complaints. VS stable.? Patient was evaluated by the CARE team and the patient does not meet involuntary admission criteria. Plan is to discharge the patient back to his custodial this morning. Will continue to monitor. Time: 07:24 Date: 08/01/25 Provider: Max Gerard MD Physician observation ended at 07:25 hours. Patient has been cleared for discharge by the CARE team. Patient will be discharged back to his custodial.. Medical Decision Making Medical Decision Making MDM Narrative: 39-year-old male with a past medical history of ETOH use, crack cocaine use, schizoaffective disorder, PTSD, presenting to the ED via EMS complaining that people are after him and want to kill him in a gruesome way. Admits to smoking a ton of weed and drinking 1 beer. On exam hypertensive, tachycardic, appears under the influence. No evidence of trauma. No focal deficits. Concern for substance abuse vs schizoaffective disorder. Rule out metabolic/organic causes Plan: Labs, tox screen, CARE team consult Please refer to course for remaining clinical decision making, interpretation of labs/imaging results, and discussions with consultants and/or family members. Differential Diagnosis Differential Diagnoses: The differential diagnosis associated with the presentation includes As above Admission/Observation Consideration of admission/observation: Escalation of care including admission/observation considered Consult Healthcare Provider Management of the patient was discussed with: Behavioral Health Provider Lab Data MDM Lab Attestation statement: I reviewed the patient's lab results. 07/31/25 22:00 07/31/25 22:00 Labs: Lab Results 07/31/25 07/31/25 Range/Units 22:00 22:28 WBC 6.0 (4.8-10.8) X10*3/uL RBC 4.82 (4.60-5.80) X10*6/uL Hgb 14.5 (14.0-18.0) g/dl Hct 41.3 L (42.0-52.0) % MCV 85.7 (80.0-98.0) fL MCH 30.1 (27.0-33.0) pg MCHC 35.1 (31.0-36.0) g/dl RDW 14.2 (11.0-16.0) % Plt Count 221 (160-400) X10*3/uL MPV 10.6 (9.4-12.4) fL Immature Gran % (Auto) 0.5 H (0.0-0.4) % Neut % (Auto) 67.9 (45-73) % Lymph % (Auto) 20.6 (20-40) % [place]och % (Auto) 8.7 (2-11) % Eos % (Auto) 1.5 (0-4) % Baso % (Auto) 0.8 (0-2) % Lymph # (Auto) 1.2 (1.2-4.9) X10*3/uL [place]och # (Auto) 0.5 (0.1-1.2) X10*3/uL Eos # (Auto) 0.1 (0.0-0.4) X10*3/uL Baso # (Auto) 0.1 (0.0-0.2) X10*3/uL Abs Immat Gran (auto) 0.03 (0.00-0.03) X10*3/uL Absolute Neuts (auto) 4.0 (2.0-8.3) x10*3/uL Absolute Nucleated RBC 0.000 (0.0-0.012) X10*3/uL Nucleated RBC % (auto) 0.0 (0.0-0.2) /100WBC Sodium 143 (135-145) mmol/L Potassium 3.9 (3.3-5.1) mmol/L Chloride 108 (96-108) mmol/L Carbon Dioxide 22 (22-29) mmol/L Anion Gap 17 (12-20) BUN 17 H (9-16) mg/dL Creatinine 1.26 (0.5-1.4) mg/dL Estim Creat Clear Calc 74.3 Estimated GFR > 60 Random Glucose 99 (60-115) mg/dL Calcium 9.3 (8.4-10.2) mg/dL Total Bilirubin 0.2 (0.0-1.0) mg/dL AST 28 (5-37) U/L ALT 22 (0-40) U/L Alkaline Phosphatase 68 (39-117) U/L Total Protein 7.7 (6.5-8.0) g/dL Albumin 4.4 (3.5-5.0) g/dL Urine Color Yellow Urine Appearance Clear Urine pH 5.5 (5.0-9.0) Ur Specific [place] 1.025 (1.005-1.025) Urine Protein Negative (Neg-Trace) mg/dL Urine Glucose (UA) Negative (Negative) mg/dL Urine Ketones Trace (Negative) mg/dL Urine Blood Negative (Negative) Urine Nitrite Negative (Negative) Ur Leukocyte Esterase Trace H (Negative) Urine RBC 0-2 (0-2) /HPF Urine WBC 0-5 (0-5) /HPF Ur Squamous Epith Cells 0-2 (0-2) /HPF Urine Bacteria None Seen (None Seen) Hyaline Casts 0-2 (0-2) /LPF Salicylates < 5.0 L (15-30) mg/dL Urine Opiates Screen Not Detected (Not Detect) Ur Buprenorphine Scrn Not Detected (Not Detect) ng/mL Ur Oxycodone Screen Not Detected (Not Detect) ng/mL Urine Methadone Screen Not Detected (Not Detect) ng/mL Urine Fentanyl Screen Not Detected (Not Detect) Acetaminophen < 3 (<30) mcg/mL Ur Barbiturates Screen Not Detected (Not Detect) Ur Phencyclidine Scrn Not Detected (Not Detect) Ur Amphetamines Screen Not Detected (Not Detect) U Benzodiazepines Scrn Not Detected (Not Detect) Urine Cocaine Screen Not Detected (Not Detect) U Marijuana (THC) Screen POSITIVE H (Not Detect) Ethyl Alcohol 15 mg/dL Radiology Impression Discussion of test interpretation with radiology: I have reviewed the radiologist's reading. Independent Historian Clinical information obtained from an independent historian. History obtained from or confirmed by: EMS External Record Review External record reviewed: Inpatient record, Office record, Outpatient record, Prior outpatient labs, Prior outpatient radiology, Primary care record and Outside ED record Tests considered The following testing was considered but not selected: As above Prescription Management I considered prescription management with: Other Chronic Conditions Patient?s care impacted by: Other Social Determinants Patient?s care significantly limited by Social Determinants of Health including: Inadequate housing, Low income, Alcoholism and drug addiction in family and Problems related to primary support group Discharge Plan Discharge Clinical Impression: Homicidal ideations, Marijuana use, Drug-induced psychotic disorder with delusions Patient Disposition: Home, Self-Care Additional Instructions: Your blood work was unremarkable. Your drug screen was positive for marijuana. Your alcohol level was 15, this has below the legal limit of intoxication of 80. You were evaluated by the care team and at this time they feel that it is safe you to go back to your custodial. Continue taking your medications as prescribed by your providers. Follow-up with your doctor in 2 days. Please return to the emergency department if your symptoms get worse or if you develop any symptoms that are concerning to you. You were seen in our Emergency Department today for treatment of a behavioral health issue. It is important after your visit that you follow up with either your behavioral health provider or a primary care doctor within 7 days.? Behavioral health discharge instructions If you have trouble finding a therapist you can reach out to [address] [phone] The National Suicide and Crisis Lifeline can be reached 7 days a week 24 hours a day.? Call 988 to speak with someone.? Return for any worsening symptoms or concerns such as thoughts of self harm or harm to others. Please call 911 if you feel your mental health is worsening.? Alcohol use disorder You were seen in the Emergency Department today for treatment of alcohol use disorder.? You may have been given medications to help with your withdrawal symptoms.? Please do not drink alcohol with them. This is very dangerous and can cause respiratory depression or other adverse reactions depending on the medication. If you would like to cut down or stop your alcohol use please consider calling our outpatient Addiction Treatment office:? [facility] (-[id number]) [address] [place] [address] [address] You have also been given a list of treatment providers in the area that can assist as well.? If you experience seizures, vomiting blood, black stools, falls, severe headache, chest pain, fevers, trouble breathing, hallucinations or any other concerns you need to call 911 or seek immediate care. Please stay hydrated. Prescriptions: No Action trazodone 50 mg Tablet 50 mg PO BEDTIME PRN (Reason: Insomnia) Qty: 30 0RF chlorpromazine 100 mg Tablet 300 mg PO BEDTIME Qty: 90 0RF chlorpromazine 25 mg Tablet 50 mg PO BID@0800,1500 Qty: 60 0RF bupropion HCl 300 mg Tablet Extended Release 24 Hr 300 mg PO DAILY Qty: 30 0RF multivitamin [Daily-Chaz] Tablet 1 tab PO DAILY Qty: 30 0RF clonidine HCl 0.1 mg tablet 0.1 mg PO BEDTIME Qty: 30 0RF hydroxyzine pamoate 50 mg capsule 50 mg PO Q6H PRN (Reason: mild anxiety) Qty: 30 0RF thiamine mononitrate (vit B1) 100 mg Tablet 100 mg PO DAILY Qty: 30 0RF clonidine HCl 0.1 mg tablet 0.1 mg PO TID aripiprazole 30 mg tablet 30 mg PO DAILY bupropion HCl 150 mg tablet extended release 24 hr 150 mg PO DAILY Vivitrol 380 mg suspension,extended rel recon 380 mg IM Q4W Qty: 1 3RF Rx Instructions: Administer 380 mg-IM Q4W naltrexone 50 mg tablet 50 mg PO DAILY Qty: 30 0RF Rx Instructions: Take one tablet by mouth daily. Interventions: [place]-Suicide Risk Severity Scale Last Done: 07/31/25 21:36 Print Language: Arabic
--- OUTSIDE RECORDS SUMMARY | 2025-07-31 21:49 | XMS_ITS | Encounter Summary ---
Author Organization [facility] Address [address] [place] [address] Care Team Providers Care Silo Tender Name Role Phone Taran Lira MD Primary Care Provider [phone] Reason for Visit * Reason Onset Date Comments MRI 06/29/2025 Encounter Details Date Type Department Care Team ([facility] Contact Info) Description 06/29/[address] [phone] Darnell Brock MD [address] [place] [id number] Social History Tobacco Use Types Packs/Day Years Used Date Smoking Tobacco: Every Day Cigarettes Smokeless Tobacco: Never Alcohol Use Standard Drinks/Week Comments Yes 0 (1 standard drink = 0.6 oz pur e alcohol) Sex and Gender Information Value Date Recorded Sex Assigned at Male 08/11/2024 4:36 PM EST Legal Sex Male 8:53 PM EST Gender Identity Male 08/11/2024 4:36 PM EST Sexual Orientation Straight 08/11/2024 4: 36 PM EST documented as of this encounter Functional Status * Are you deaf or do you have serious difficulty hearing? Answer Date of Assessment Author No 08/11/2024 11:22 PM Helen Rowe RN * Are you blind or do you have serious difficulty seeing, even when wearing glasses? Answer Date of Assessment Author No 08/11/2024 11:22 PM Helen Rowe RN * Do you have serious difficulty walking or climbing stairs? Answer Date of Assessment Author No 08/11/2024 11:22 PM Helen Rowe RN * Do you have serious difficulty dressing or bathing? Answer Date of Assessment Author No 08/11/2024 11:22 PM Helen Rowe RN * Because of a physical, mental, or emotional condition, do you have serious difficulty doing errandsalone such as visiting the doctor? Answer Date of Assessment Author No 08/11/2024 11:22 PM Helen Rowe RN * Calculated C-SSRS Risk Score (Lifetime/Recent) Answer Date of Assessment Author No Risk Indicated 07/25/2025 1:55 AM EDT Skylar Bates RN * [place] Suicide Severity Rating Scale (Screener/Recent Self-Report) Question Answer Date of Assessment Author 1. Wish to be (Past 1 Month) No 07/25/2025 1:55 AM EDT Janelle Santana RN 2. Non-Specific Active Suicidal Thoughts (Past 1 Month) No 07/25/2025 1:55 AM EDT Janelle Santana RN 6. Suicidal Behavior (Lifetime) No 07/25/2025 1:55 AM EDT Janelle Santana RN documented as of this encounter Mental Status * Because of a physical, mental, or emotional condition, do you have serious difficulty concentrating, remembering, or making decisions? (5 years old or older) Answer Entry Date Author No 08/11/2024 11:22 PM Helen Rowe RN documented in this encounter Progress Notes * Gloria Pabon MA - 06/29/2025 1:06 PM EDT I spoke with pt who said he's not having MRI because he refuses to take off his piercing's. * Birgit Kapadia - 06/29/2025 9:22 AM EDT Endocrine Call Primary endocrine provider: Dr. Darnell Brock MD Is the endocrine provider in the office toady?: no Who is calling? Miladis from [facility] Insurance. If not the patient or parent/guardian please check for authorization to share/verbal release. Why is the person calling? Orders (labs or imaging). Calls from insurance, DME or outside providerswanting notes, most recent labs, imaging studies, etc. Please check for authorization to share and forward to endocrine pool (p [phone]). Miladis from [facility] is calling re: PA request for MRI, received from . She states she has also sent requests via fax on 06/18, and called the office to 06/26 (I could not find an encounter). They are missing the facility name and NPI on the request. She is asking if we can resend with this information [facility] for review. She would like to have this information today. Please fax updated form to [phone] documented in this encounter Plan of Treatment Upcoming Encounters Date Type Department Care Team (Late st Contact Info) Description 11/16/2025 1:40 PM EST Office Visit Endocrinology - [place] [address] [place] [address] Mae Madrid MD [address], [place] documented as of this encounter Visit Diagnoses Not on filedocumented in this encounter Care Teams Silo Tender Relationship Specialty Start Date End Date Taran Lira MD [address] [place], [place] PCP - General 10/26/23 documented as of this encounter
--- OUTSIDE RECORDS SUMMARY | 2025-07-31 21:49 | XMS_ITS | Clinical Summary ---
Author Organization [facility] Address [address] [place] [address] Phone Care Team Providers Care Warehouse Team Leader Name Role Phone Taran Lira MD Primary Care Provider Allergies Active Allergy Reactions Criticality Noted Date Comments Gabapentin 09/04/2022 Penicillins Hives 06/11/2014 Raspberry 06/11/2014 Medications traZODone (DESYREL) 50 mg tablet Take 1 tablet (50 mg total) by mouth at bedtime as needed for sleep. 0 Active thiamine 100 mg tablet Take 1 tablet (100 mg total) by mouth 1 (one) time each day. 5 Active buPROPion XL (WELLBUTRIN XL) 300 mg 24 hr tablet Take 1 tablet (300 mg total) by mouth 1 (one) time each day. Do not crush, chew, or split. Active chlorproMAZINE (THORAZINE) 50 mg tablet Take 1 tablet (50 mg total) by mouth 2 (two) times a day. Active cloNIDine (CATAPRES) 0.1 mg tablet Take 1 tablet (0.1 mg total) by mouth at bedtime. Active folic acid (FOLVITE) 1 mg tablet Take 1 tablet (1 mg total) by mouth 1 (one) time each day. 90 tablet 1 5 Active Tab-A-Chaz 400 mcg tablet Take 1 tablet by mouth 1 (one) time each day. 90 tablet 1 5 Active chlorproMAZINE (THORAZINE) 50 mg tablet Take 1 tablet (50 mg total) by mouth 2 (two) times a day. Active ARIPiprazole (ABILIFY) 20 mg tablet Take 1 tablet (20 mg total) by mouth 1 (one) time each day. Active naltrexone microspheres (VIVITROL) 380 mg suspension,extende d rel recon intramuscular suspension Inject 1 Syringe (380 mg total) into the shoulder, thigh, or buttocks 1 (one) time. Active sildenafiL (VIAGRA) 50 mg tablet Take 1 tablet (50 mg total) by mouth 1 (one) time each day if needed for erectile dysfunction. 12 tablet 3 5 05/19/20 Active Active Problems Problem Noted Date Diagnosed Date Psychosis ([facility] V24, [facility] V28) 04/02/2025 Major depressive disorder 04/02/2025 Hyperprolactinemia ([facility] V24) 04/02/2025 Pituitary microadenoma ([facility] V24, [facility] V28 ) 04/02/2025 Anxiety 08/07/2024 Overview (08/07/2024): [facility]) Major depressive disorder, r ecurrent episode, in partial remission ([facility] V24) 02/17/2016 Alcohol abuse 06/15/2015 Overview (08/07/2024): Per hospital record Schizoaffective disorder ([facility] V24, [facility] V 28) 06/15/2015 Overview (08/07/2024): Per hospital record Lichen planus 11/13/2014 Overview (08/07/2024): Lichen planus 11/08 left foot Encounters Date Type Department Care Team Description 07/25/2025 1:49 AM EDT - 07/25/2025 5:29 AM EDT Emergency [facility] Emergency [address] [place] [id number] Alcoholic intoxication without complication ([facility] V24) (Primary Dx) Discharge Disposition: Home or Self Care 06/29/[address] [phone] Darnell Brock MD 06/18/2025 Telephone Endocrinology - [address] [phone] Darnell Brock MD 06/11/2025 Telephone Adult Medicine [address] [phone] Maryann Haro MA 06/04/2025 3:56 PM EDT - 06/04/2025 11:59 PM EDT Hospital Encounter Radiology Department - [address] [phone] Discharge Disposition: Home or Self Care 05/20/2025 1:30 PM EDT Consult Endocrinology - [address] [phone] Darnell Brock MD Pituitary microadenoma ([facility] V24, [facility] V28) (Primary Dx) 05/19/2025 4:00 PM EDT Office Visit Adult Medicine [address] [phone] Taran Lira MD Erectile dysfunction, unspecified erectile dysfunction type (Primary Dx); Schizoaffective disorder, unspecified type ([facility] V24, [facility] V28); Anxiety and depression; Insomnia, unspecified type 05/13/2025 Telephone Adult Medicine [address] [phone] Maryann Haro MA from Last 3 Months Immunizations Immunization Administration Dates Next Due Influenza Quadravalent, MDCK , 0.5ml, with preservative (Flucelvax) 6mo and older 07/03/2017 Tdap Tetanus diptheria acell ular pertussis (Boostrix; Adacel) 7yo and older 07/03/2017 Surgical History Surgery Date Site/Laterality Comments OTHER SURGICAL HISTORY PROCEDURE: DENIES PREVIOUS SURGERY Medical History Medical History Date Comments Anxiety DX:Anxiety; COMM ENT: Jay Ervin ([facility]) Substance abuse ([facility] V24, [facility] V28) Depression Renal failure Schizoaffective disorder ( S/HCC V24, [facility] V28) Family History Medical History Relation Name Comments Breast cancer Maternal Grandmother decrea sed from disease Colon cancer Neg Hx Heart attack Neg Hx Prostate cancer Neg Hx Stroke Neg Hx Relation Name Status Comments Daughter Alive age 6 healthy Father Alive Maternal Grandfather Maternal Grandmother Mother Alive Paternal Grandfather Paternal Grandmother Alive Sister Alive Social History Tobacco Use Types Packs/Day Years Used Date Smoking Tobacco: Every Day Cigarettes Smokeless Tobacco: Never Tobacco Cessation:Ready to Q uit: Not Asked; Counseling Given: Not Answered Alcohol Use Standard Drinks/Week Comments Yes 0 (1 standard drink = 0.6 oz pur e alcohol) Sex and Gender Information Value Date Recorded Sex Assigned at Male 08/11/2024 4:36 PM EST Legal Sex Male 8:53 PM EST Gender Identity Male 08/11/2024 4:36 PM EST Sexual Orientation Straight 08/11/2024 4: 36 PM EST Obstetrics History Last Filed Vital Signs Vital Sign Reading Time Taken Comments Blood Pressure 113/107 07/25/2025 1:53 AM EDT Pulse 108 07/25/2025 1:53 AM EDT Temperature 36.9 C (98.4 F) 07/25/2025 1:53 AM EDT Respiratory Rate 17 07/25/2025 1:53 AM EDT Oxygen Saturation 95% 07/25/2025 1:53 AM EDT Inhaled Oxygen Concentration - - Weight 74.8 kg (165 lb) 07/25/2025 2:11 AM EDT Height 170.2 cm (5' 7 ) 07/25/2025 2:11 AM EDT Body Mass Index 25.84 07/25/2025 2:11 AM EDT Plan of Treatment Upcoming Encounters Date Type Department Care Team (Late st Contact Info) Description 11/16/2025 1:40 PM EST Office Visit Endocrinology - [place] [address], [place] [phone] Mae Madrid MD [address], [place] Health Maintenance Due Date Last Done Comments Hepatitis A Vaccines (1 of 2 - Risk 2-dose series) 2005 Hepatitis B Vaccines (1 of 3 - 19+ 3-dose series) 2005 HPV Vaccines (1 - 3-dose SCDM series) 2013 Pneumococcal Vaccine: Pediatrics (0 to 5 Years) and At-Risk Patients (6 to 49 Years) (2 of 2 - PCV) 01/14/2020 01/13/2019 HIV Screening 08/26/2022 Hepatitis C Screening 08/26/2022 Medicare Annual Wellness Visit 08/26/2022 Social Influencers of Health Screening 08/26/2022 Depression Screening 09/24/2024 COVID-19 Vaccine (2 - 2024- season) 2025 03/18/2021 Influenza Vaccine (#1) 2025 07/03/2017 Cholesterol Screening (Lipid Panel) 05/26/2030 05/26/2025, 09/11/2022 DTaP,Tdap,and Td Vaccines (5 - Td or Tdap) 07/11/2034 07/11/2024, 07/03/2017, 03/25/2016, Additional history exists RSV Immunization Adult Patients (1 - 1-dose 75+ series) 2061 HIB Vaccines Aged Out No longer eligi ble based on patient's age to complete this topic IPV Vaccines Aged Out No longer eligi ble based on patient's age to complete this topic MMR Vaccines Aged Out No longer eligi ble based on patient's age to complete this topic Meningococcal ACWY Vaccine Aged Out N o longer eligible based on patient's age to complete this topic Meningococcal B Vaccine Aged Out No l onger eligible based on patient's age to complete this topic RSV Immunization Patients Under 20 months Aged Out No longer eligible based on patient's age to complete this topic Varicella Vaccines Aged Out No longer eligible based on patient's age to complete this topic Procedures Procedure Name Priority Date/Time Associated Diagnosis Comments POCT GLUCOSE BLOOD Routine 07/25/2025 2: 30 AM EDT US RETROPERITONEAL COMPLETE Routine 06/04/2025 4:12 PM EDT Erectile dysfunction, unspecified erectile dysfunction type MALIK URINE CULTURE TUBE Routine 05/26/20 1:25 PM EDT Erectile dysfunction, unspecified erectile dysfunction type URINALYSIS WITH REFLEX MICROSCOPIC AND CULTURE Routine 05/26/2025 1:25 PM EDT Erectile dysfunction, unspecified erectile dysfunction type PROLACTIN Routine 05/26/2025 1:25 PM EDT Pituitary microadenoma ([facility] V24, [facility] V28) Hyperprolactinemia ([facility] V24) URINALYSIS WITH REFLEX MICROSCOPIC AND CULTURE Routine 05/26/2025 1:25 PM EDT Erectile dysfunction, unspecified erectile dysfunction type TESTOSTERONE FREE, BIOAVAILABLE AND TOTAL Routine 05/26/2025 1:25 PM EDT Erectile dysfunction, unspecified erectile dysfunction type HEMOGLOBIN A1C Routine 05/26/2025 1:25 PM EDT Erectile dysfunction, unspecified erectile dysfunction type LIPID PANEL WITH REFLEX TO DIRECT LDL Routine 05/26/2025 1:25 PM EDT Erectile dysfunction, unspecified erectile dysfunction type CULTURE URINE Routine 05/26/2025 1:25 PM EDT Erectile dysfunction, unspecified erectile dysfunction type from Last 3 Months Results * POCT Glucose, blood (07/25/2025 2:30 AM EDT) [facility] Glucose POCT 98 70 - 100 mg/dL 07/25/2025 2:31 AM EDT [facility] Blood Capillary blood specimen / Unknown 07/25/2025 2:30 AM EDT 07/25/2025 2:33 AM EDT us Generic Provider Poct LAB POINT OF CARE TEST DOCKED DEVICE UNSOLICITED RESULTS Final Result [facility] [address] [place] [address], [place] [phone] * US Retroperitoneal Complete (06/04/2025 4:12 PM EDT) Anatomical Region Laterality Modality Body Ultrasound 06/04/2025 5:53 PM EDT Impressions 06/04/2025 5:54 PM EDT Unremarkable renal ultrasound -------- FINAL REPORT -------- Dictated By: Breonna Kolb Dictated Date: 06/04/2025 17:53 ET Assigned Physician: Breonna Kolb Reviewed and Electronically Signed By: Breonna Kolb Signed Date: 06/04/2025 17:54 ET Workstation ID: [id number] Transcribed By: Self Edit Transcribed Date: 06/04/2025 17:53 ET Narrative 06/04/2025 5:54 PM EDT EXAM: RENAL ULTRASOUND HISTORY: urinary retention COMPARISON: None available TECHNIQUE: Malik scale and color Doppler images were obtained of the kidneys and bladder. FINDINGS: Right kidney: measures 9.6 cm in length and is sonographically unremarkable. Left kidney: measures 9.2 cm in length and is sonographically unremarkable. No hydronephrosis bilaterally Bladder: Bilateral ureteral jets noted. The bladder measures 9.9 x 6.6 x 7.4 cm with a volume of 253 mL. The post void volume is 7 mL. Prostate: The prostate measures 3.7 x 2.3 x 2.3 cm with a volume of 10.5 mL. Procedure Note Breonna Kolb MD - 06/04/2025 EXAM: RENAL ULTRASOUND HISTORY: urinary retention COMPARISON: None available TECHNIQUE: Malik scale and color Doppler images were obtained of thekidneys and bladder. FINDINGS: Right kidney: measures 9.6 cm in length and is sonographicallyunremarkable. Left kidney: measures 9.2 cm in length and is sonographicallyunremarkable. No hydronephrosis bilaterally Bladder: Bilateral ureteral jets noted. The bladder measures 9.9 x 6.6 x7.4 cm with a volume of 253 mL. The post void volume is 7 mL. Prostate: The prostate measures 3.7 x 2.3 x 2.3 cm with a volume of 10.5mL. IMPRESSION: Unremarkable renal ultrasound -------- FINAL REPORT -------- Dictated By: Breonna Kolb Dictated Date: 06/04/2025 17:53 ET Assigned Physician: Breonna Kolb Reviewed and Electronically Signed By: Breonna Kolb Signed Date: 06/04/2025 17:54 ET Workstation ID: [id number] Transcribed By: Self Edit Transcribed Date: 06/04/2025 17:53 ET us Taran Lira MD IMG US PROCEDURES Final Res ult * (ABNORMAL) Urinalysis with reflex microscopic and culture (05/26/2025 1:25 PM EDT) Pathologist [facility] [place] Urine 1.017 1.003 - 1.030 LAB URINALYSIS - AUTOMATED METHOD 05/26/2025 5:00 PM [facility] pH, Urine 5.5 5.0 - 8.0 pH LAB URINALYSIS - AUTOMATED METHOD 05/26/2025 5:00 PM [facility] Leukocytes, Urine Trace(A) Negative LAB URINALYSIS - AUTOMATED METHOD 05/26/2025 5:00 PM [facility] Nitrite, Urine Negative Negative LAB URINALYSIS - AUTOMATED METHOD 05/26/2025 5:00 PM [facility] Protein, Urine Negative <=Trace mg/dL LAB URINALYSIS - AUTOMATED METHOD 05/26/2025 5:00 PM [facility] Glucose, Urine Negative Negative mg/dL LAB URINALYSIS - AUTOMATED METHOD 05/26/2025 5:00 PM [facility] Ketones, Urine Negative Negative mg/dL LAB URINALYSIS - AUTOMATED METHOD 05/26/2025 5:00 PM [facility] Urobilinogen, Urine 0.2 0.2 - 1.0 mg/dL LAB URINALYSIS - AUTOMATED METHOD 05/26/2025 5:00 PM [facility] Bilirubin, Urine Negative Negative LAB URINALYSIS - AUTOMATED METHOD 05/26/2025 5:00 PM [facility] Blood, Urine Negative Negative LAB URINALYSIS - AUTOMATED METHOD 05/26/2025 5:00 PM EDT [facility] RBC, Urine 0.7 0 - 4 /HPF LAB URINALYSIS - AUTOMATED METHOD 05/26/2025 5:00 PM EDT [facility] WBC, Urine 1.2 0 - 4 /HPF LAB URINALYSIS - AUTOMATED METHOD 05/26/2025 5:00 PM EDT [facility] Squamous Epithelial, Urine 2 0 - 60 /LPF LAB URINALYSIS - AUTOMATED METHOD 05/26/2025 5:00 PM EDT [facility] Bacteria, Urine Negative Negative /HPF LAB URINALYSIS - AUTOMATED METHOD 05/26/2025 5:00 PM [facility] Hyaline Casts, Urine 0.0 0 - 3 /LPF LAB URINALYSIS - AUTOMATED METHOD 05/26/2025 5:00 PM EDT [facility] Urine Urine specimen obtained by clean catch procedure / Unknown Non-blood Collection / Unknown 05/26/2025 1:25 PM EDT 05/26/2025 1:25 PM EDT us Taran Lira MD LAB URINE ORDERABLES Final Result [facility] [address] [place] [address], * Malik urine culture tube (05/26/2025 1:25 PM EDT) Extra Tube Hold for add-ons. 05/26/2025 7:01 PM EDT [facility] Comment:Auto resulted. Urine Urine specimen obtained by clean catch procedure / Unknown Non-blood Collection / Unknown 05/26/2025 1:25 PM EDT 05/26/2025 1:25 PM EDT us Taran Lira MD LAB URINE ORDERABLES Final Result [facility] [address] [place] [address], [place] [phone] * (ABNORMAL) Lipid panel with reflex to direct LDL (05/26/2025 1:25 PM EDT) Cholesterol 184 0 - 200 mg/dL LAB CHEMISTRY METHOD 05/26/2025 8:23 PM EDT [facility] Triglycerides 251(H) 0 - 150 mg/dL LAB CHEMISTRY METHOD 05/26/2025 8:23 PM EDT [facility] HDL 75 >=40 mg/dL LAB CHEMISTRY METHOD 05/26/2025 8:23 PM EDT [facility] LDL Calculated 59 0 - 100 mg/dL LAB CHEMISTRY METHOD 05/26/2025 8:23 PM EDT [facility] Comment:Estimated LDL Calcul ated using equation: Total cholesterol - HDL cholesterol - (Triglycerides/5) VLDL Cholesterol Otis 50.2 mg/dL LAB CHEMISTRY METHOD 05/26/2025 8:23 PM EDT [facility] Non HDL Chol. (LDL+VLDL) 109 <145 mg/dL LAB CHEMISTRY METHOD 05/26/2025 8:23 PM EDT [facility] Chol/HDL Ratio 2.5 0.0 - 4.4 LAB CHEMISTRY METHOD 05/26/2025 8:23 PM T [facility] Blood Venous blood specimen / Unknown Venipuncture / Unknown 05/26/2025 1:25 PM EDT 05/26/2025 1:25 PM EDT Taran Lira MD LAB BLOOD ORDERABLES Final Result [facility] [address] [place] [address], [place] [phone] * Testosterone free, bioavailable and total (05/26/2025 1:25 PM EDT) Testosterone 608 229 - 902 ng/dL LAB CHEMISTRY METHOD 05/26/2025 8:45 PM EDT [facility] Testosterone, Free 15.3 4.6 - 22.4 ng/dL LAB CHEMISTRY METHOD 05/26/2025 8:45 PM EDT [facility] Testosterone, Bioavailable 311 110 - 575 ng/dL LAB CHEMISTRY METHOD 05/26/2025 8:45 PM EDT [facility] Sex Hormone Binding 29.6 See Comment nmol/L LAB CHEMISTRY METHOD 05/26/2025 8:45 PM EDT [facility] Comment: FEMALES: pre-menopausal 10.8 - >180 post-menopausal 23.2 - 159.1 MALES: 21-49 years 14.6 - 94.6 50-89 years 21.6 - 113.1 CHILDREN: No established reference range Over the counter supplements containing high doses of biotin may interfere with this assay. If interference is suspected, patients should be retested after refraining from biotin supplements for 72 hours. Albumin 3.7 3.2 - 5.0 g/dL LAB CHEMISTRY METHOD 05/26/2025 8:45 PM EDT [facility] Blood Venous blood specimen / Unknown Venipuncture / Unknown 05/26/2025 1:25 PM EDT 05/26/2025 1:25 PM EDT Taran Lira MD LAB BLOOD ORDERABLES Final Result [facility] [address] [place] [address], * Prolactin (05/26/2025 1:25 PM EDT) Prolactin 14.60 2.50 - 17.40 ng/mL LAB CHEMISTRY METHOD 05/26/2025 8:23 PM EDT [facility] Blood Venous blood specimen / Unknown Venipuncture / Unknown 05/26/2025 1:25 PM EDT 05/26/2025 1:25 PM EDT us Taran Lira MD LAB BLOOD ORDERABLES Final Result [facility] [address] [place] [address], [place] [phone] * Culture urine (05/26/2025 1:25 PM EDT) [facility] Culture, Urine No growth 05/27/2025 1:36 PM EDT [facility] Urine Urine specimen obtained by clean catch procedure / Unknown Non-blood Collection / Unknown 05/26/2025 1:25 PM EDT 05/26/2025 5:00 PM EDT Taran Lira MD LAB MICROBIOLOGY - GENERAL ORDERABLES Final Result Performing Organization Address [facility]/ZIP Co de Phone Number [facility] [address] [place] [address], [place] [phone] * Hemoglobin A1c (05/26/2025 1:25 PM EDT) [facility] Hemoglobin A1C 5.6 <6.5 % LAB CHEMISTRY METHOD 05/26/2025 10:21 PM EDT [facility] Mean Bld Glu Estim. 114 mg/dL LAB CHEMISTRY METHOD 05/26/2025 10:21 PM EDT [facility] Blood Venous blood specimen / Unknown Venipuncture / Unknown 05/26/2025 1:25 PM EDT 05/26/2025 1:25 PM EDT Taran Lira MD LAB BLOOD ORDERABLES Final Result Performing Organization Address City/[facility]/ZIP Co de Phone Number [facility] [address] [place] [address], [place] [phone] from Last 3 [place] [id number] [employer] Member Subscriber Plan / Payer (Ef fective 2020-Present) Name:DALEMILLIEBANDAR Relation to Subscriber:Self Name:Bandar Nieto Payer ID:[id number] Group ID:[id number] Type:Not on file Address: [place] [address] [address] [address] Care Teams Warehouse Team Leader Relationship Specialty Start Date End Date Taran Lira MD [address] [place] [address] PCP - General 10/26/23
--- NOTE | 2025-07-31 21:52 | PC.NURSE ---
med rec completed w. pt at approximately this time, pt able to verbalize home medications
[2025-07-31 22:06] LABS: MANUAL DIFF FLAG NO
[2025-07-31 22:07] LABS: Hematocrit 41.3 % (42.0-52.0); Hemoglobin 14.5 g/dl (14.0-18.0); Imm Gran Abs Auto 0.03 X10*3/uL (0.00-0.03); Imm Gran Pct Auto 0.5 % (0.0-0.4); Lymphocytes Absolute Auto 1.2 X10*3/uL (1.2-4.9); Mean Corpuscular HGB Conc 35.1 g/dl (31.0-36.0); Mean Corpuscular Hemoglobin 30.1 pg (27.0-33.0); Mean Corpuscular Volume 85.7 fL (80.0-98.0); NRBC Abs Auto 0.000 X10*3/uL (0.0-0.012); NRBC Pct Auto 0.0 /100WBC (0.0-0.2); Platelet Count 221 X10*3/uL (160-400); Red Blood Count 4.82 X10*6/uL (4.60-5.80); White Blood Count 6.0 X10*3/uL (4.8-10.8)
[2025-07-31 22:21] LABS: Alanine Aminotransferase 22 U/L (0-40); Albumin Level 4.4 g/dL (3.5-5.0); Alkaline Phosphatase 68 U/L (39-117); Anion Gap 17 (12-20); Aspartate Amino Transferase 28 U/L (5-37); Blood Urea Nitrogen 17 mg/dL (9-16); Calcium 9.3 mg/dL (8.4-10.2); Carbon Dioxide 22 mmol/L (22-29); Chloride 108 mmol/L (96-108); Creatinine Clr Calc Pharmacy 74.3; Estimated Glomerular Filt Rate > 60; Potassium 3.9 mmol/L (3.3-5.1); Sodium 143 mmol/L (135-145); Total Protein 7.7 g/dL (6.5-8.0)
[2025-07-31 22:22] LABS: Acetaminophen LAB < 3 mcg/mL (<30); Salicylate < 5.0 mg/dL (15-30)
[2025-07-31 22:46] LABS: Cannabinoid Screen Urine POSITIVE (Not Detect)
[2025-07-31 23:13] LABS: Appearance Urine Clear; Glucose Urine UA Negative (Negative); PH 5.5 (5.0-9.0); Specific Gravity - Urine 1.025 (1.005-1.025); UMIC TRIGGER UACC YES
[2025-08-01 00:34] VITALS: BP 105/66; PULSE 82; RESP 17; TEMP 36.7; O2SAT 96
--- NOTE | 2025-08-01 01:21 | PC.NURSE ---
care team w. the pt at bedside at this time
[2025-08-01 07:37] VITALS: BP 105/66; PULSE 82; RESP 17; TEMP 36.7; O2SAT 96
== END 2025-08-01 08:08 | disposition home or self-care (01) ==
PROVIDERS: Emergency Provider Emergency Medicine; PCP Internal Medicine Endocrinology, Diabetes & Metabolism
DX: F12.950 Cannabis use, unspecified with psychotic disorder with delusions (principal); R45.850 Homicidal ideations; F25.9 Schizoaffective disorder, unspecified; F14.10 Cocaine abuse, uncomplicated; F43.10 Post-traumatic stress disorder, unspecified; Z79.899 Other long term (current) drug therapy; Z51.81 Encounter for therapeutic drug level monitoring
CPT/HCPCS: 36415; 80053; 80143; 80179; 80307; 81001; 85025; 99285; S9485